=== PATIENT | male | born 1960 | race Caucasian/White ===

== ENCOUNTER 2017-03-06 07:09 | Day surgery (SDC) | payer BC ==
[2017-02-27 10:08] VITALS: BMI 27.3
[2017-03-06 07:33] VITALS: RESP 18; TEMP 97.7
[2017-03-06] MEDS: LACTATED RINGERS 1,000 ML IV SCH ×2 (07:57→08:00)
[2017-03-06] MEDS ORDERED: LIDOCAINE 1% 20 ML VIAL (10MG/ML) FOR IV START IV ONE (07:57)
--- NOTE | 2017-03-06 08:30 | P.PCN ---
Date of Procedure: 03/06/17 Procedure(s) Performed: PREOPERATIVE DIAGNOSIS: 1-Cervical Spondylosis with Facet Arthropathy.without myelopathy. 2- cervicogenic headache POSTOPERATIVE DIAGNOSIS: 1-Cervical Spondylosis Facet Arthropathy. Without myelopathy. 2-cervicogenic headache PROCEDURES: Diagnostic = Bilateral C3-4, C4-5 , C5-6, medial branch blocks, with fluoroscopic guidance ANESTHESIA: Local with 1% lidocaine 6 ml ; moderate sedation with Versed. 3 mg , and fentanyl 50 micrograms EBL: Minimal PROCEDURE INDICATION: The patient with neck pain secondary to cervical arthropathy unresponsive to more conservative treatments. PROCEDURE DESCRIPTION / TECHNIQUE: The patient was seen and identified in the preoperative area. Risks, benefits, complications, and alternatives were discussed with the patient, the patient agreed to proceed with the procedure and signed the consent. IV was started. Vital signs remained stable throughout the procedure. Patient was taken to the OR and time out was completed. The patient was placed in the prone position on the procedure table. A pillow was placed under the patients chest to increase the cervical interlaminar space. The cervical area was prepped and draped in the usual sterile fashion. Critical pause was taken. Vital signs were closely monitored during the procedure. Conscious sedation was used during the procedure to decrease patients anxiety. Using cross-table lateral fluoroscopy, the centroid of the trapezoid of right C3 , C4 , C5 was identified, marked, and localized with 1% lidocaine 1 ml at each level for skin and Sub Q infiltrations . Subsequently, a 22 G 4 spinal needle was advanced guided by fluoroscopy to the centroid of the trapezoid of Right C3, C4 , C5, [place] tip position was confirmed at the centroid of the trapezoids of Right C3 , C4 , C5 with anteroposterior fluoroscopy. Subsequently, 2 ml of preservative-free Bupivacaine 0.5% mixed with Dexamethasone 5 mg and half ml of the mixture was injected after negative aspiration for blood and CSF. [place] was then removed intact the same procedure was repeated at the left C3-4, C4-5, C5-6, levels. COMPLICATIONS: No acute complications. COMMENTS: DISPOSITION / PLANS: The patient was placed in a supine position and transferred to the recovery area in a stable condition for observation and was discharged from the recovery room after meeting discharge criteria. Home discharge instructions given to the patient by the staff. The patient was reexamined prior to discharge. The patient will schedule a follow up in the clinic in 2-4 weeks.
[2017-03-06] MEDS ORDERED: IV FLUID CONTINUATION 1,000 ML IV ONE (08:34)
[2017-03-06 08:50] VITALS: BP 146/74; PULSE 66
--- NOTE | 2017-03-06 09:54 | FL ---
EXAMINATION TYPE: FL guided pain mgmt statistic DATE OF EXAM: 03/06/2017 HISTORY: Flouroscopy time 10 seconds of fluoroscopy provided. IMPRESSION: 1. Fluoroscopy time.
== END 2017-03-06 09:21 | disposition home or self-care (01) ==
LOC: ORPAIN 07:09
PROVIDERS: ATTEND Specialist
DX: M47.812 Spondylosis without myelopathy or radiculopathy, cervical region (principal); R51 Headache; M96.1 Postlaminectomy syndrome, not elsewhere classified; Z85.118 Personal history of other malignant neoplasm of bronchus and lung; E07.9 Disorder of thyroid, unspecified
CPT/HCPCS: 64490; 64491; 64492; J2250; J1100; J3010; 99152

== ENCOUNTER → 2017-03-26 | Outpatient (CLI) | payer BC ==
[2017-03-26 14:25] VITALS: BP 132/74; PULSE 76; RESP 18; TEMP 98.2
--- NOTE | 2017-03-26 14:56 | P.PN ---
Subjective Progress Note Date: 03/26/17 This is follow-up visit for this patient with a history of severe and chronic neck pain with radiation to the shoulder blade area bilaterally worse on the left side, patient had 2 anterior cervical fusion surgery and one posterior fusion surgery, he continued to have severe neck pain with done diagnostic medial branch block cervical area, and he got 50% improvement of his neck pain after the diagnostic medial branch block Patients currently on [place] 7.5/325 Patient denies any side effects of the medication, denies excessive drowsiness or sleepiness, denies suicidal ideation, and reports that the current pain medication is NOT helping To control the pain , and improve activity of daily living Patient denies any motor or sensory deficit , patient denies any fever or night sweats, denies any change in the bowel movements or urination Physical Examinations : 1-Constitutiona : Cooperative , not in acute distress . 2-HEENT : nech ; supple , no Lymphadenopathy , no Thyromegaly , normal thyroid size . eyes : no ptosis , no icterus, no photophobia . ENT : normal of hearing , normal oropharynx , no Thrush . 3- Respiratory : Chest clear to auscultations Bilaterally , no wheezing , no Rhonchi . 4- Cardiovascular : regular rate and rhythem , S1 , S2 , no S3 , no S4. 5- Gastrointestinal : abdomen soft no tenderness , bowel sounds positive all four quadrents , no organomegally . 6- Genitourinary : Defferred . 7- neurologic : Cranial nerve II to XII intact , no focal neurological deffecit . 8-psychatric : alert , oriented X 3 , appropriate affect , intact judgment and insight . 9-Lymphatic : no Lymphadenopathy . 10- musculoskeltal : exams of the cervical spine = motor strength normal bilateral upper extremities facet loading test cervical area positive. normal sensations . Assessment and plan = Chronic neck pain secondary to cervical facet arthropathy without myelopathy and failed back surgery syndrome and cervical area Patient had 50% improvement in his pain after the diagnostic medial branch block cervical area and he would be good candidate for radiofrequency ablation of the medial branch cervical area , procedure risk and benefit of nocturnal discussed with the patient and included the proceeding Patient will continue to have his pain medication from his primary care Objective - Vital Signs Vital signs: Vital Signs Temp 98.2 F 03/26/17 14:19 Pulse 76 03/26/17 14:19 Resp 18 03/26/17 14:19 BP 132/74 03/26/17 14:19 Pulse Ox Intake & Output 03/25/17 03/26/17 03/26/17 18:59 06:59 18:59 Weight 83.915 kg
== END | disposition home or self-care (01) ==
LOC: PNWHC3 13:53
PROVIDERS: ATTEND Specialist
DX: G89.29 Other chronic pain (principal); M54.2 Cervicalgia; M96.1 Postlaminectomy syndrome, not elsewhere classified; M46.82 Other specified inflammatory spondylopathies, cervical region; Z98.1 Arthrodesis status; Z79.891 Long term (current) use of opiate analgesic
CPT/HCPCS: 99211

== ENCOUNTER 2017-04-03 06:57 | Day surgery (SDC) | payer BC ==
[2017-04-02 09:28] VITALS: BMI 28.1
[2017-04-03] MEDS ORDERED: LACTATED RINGERS 1,000 ML IV SCH (07:00)
[2017-04-03 07:31] VITALS: TEMP 98.4
[2017-04-03] MEDS ORDERED: LIDOCAINE 1% 20 ML VIAL (10MG/ML) FOR IV START INTRADERMA ONE (07:32)
[2017-04-03] MEDS ORDERED: IV FLUID CONTINUATION 1,000 ML IV ONE (08:28)
--- NOTE | 2017-04-03 08:32 | P.PCN ---
Date of Procedure: 04/03/17 Procedure(s) Performed: PREOPERATIVE DIAGNOSIS:1- Cervical spondylosis with Facet Arthropathy without myelopathy. 2-cervicogenic headache. 3-postlaminectomy pain syndrome , cervical area. POSTOPERATIVE DIAGNOSIS: Same as preop diagnosis. PROCEDURES: Radiofrequency thermocoagulation, left C3-4 , C4-5 , C5-6 medial branch with Fluroscopy [place] ANESTHESIA: Local with 1% lidocaine 4 ml , moderate sedation with fentanyl 100 micrograms ,and Versed. 2 mg EBL: Minimal PROCEDURE INDICATION: The patient with neck pain secondary to cervical arthropathy who had more than 50% relief of her pain with previous diagnostic cervical medial branch block. PROCEDURE DESCRIPTION / TECHNIQUE: The patient was seen and identified in the preoperative area. Risks, benefits, complications, and alternatives were discussed with the patient, the patient agreed to proceed with the procedure and signed the consent. IV was started. Vital signs remained stable throughout the procedure. Patient was taken to the OR and time out was completed. The patient was placed in the prone position on the procedure table. A pillow was placed under the patients chest to increase the cervical interlaminar space. The cervical area was prepped and draped in the usual sterile fashion. Critical pause was taken. Vital signs were closely monitored during the procedure. Conscious sedation was used during the procedure to decrease patients anxiety. Using cross-table lateral fluoroscopy, the centroid of the trapezoid of left C3 , C4, C5, were identified, marked, and localized with 1% lidocaine. Subsequently, a 20 [id number] radiofrequency cannula with a 10-mm active tip was advanced guided by fluoroscopy to the centroid of the trapezoid of left C3 , C4, C5. Needle tip position was confirmed at the centroid of the trapezoids of left C3, C4, C5, with anteroposterior fluoroscopy. Each site then underwent sensory testing at 50 Hz and 0 to 1 volt and motor testing at 2 Hz and 0 to 3 volt with local stimulation, but no radicular symptoms down the arm. Thereafter the left C3, C4, C5 sites underwent radiofrequency thermocoagulation at 80 degrees celsius for 90 seconds after injecting 0.5 ml of PF lidocaine 1%. After thermocoagulation, 1 ml of the block solution containing Kenalog 40 mg and 3 mL of preservative-free normal saline was injected at the left C3, C4, C5, levels after negative aspiration of CSF and blood and with no paresthesias. Cannulas were retracted while injecting lidocaine 1% until the needle is out. Skin was cleansed and bandages were applied. COMPLICATIONS: No acute complications. COMMENTS: DISPOSITION / PLANS: The patient was placed in a supine position and transferred to the recovery area in a stable condition for observation and was discharged from the recovery room after meeting discharge criteria. Home discharge instructions given to the patient by the staff. The patient was reexamined prior to discharge. The patient will schedule a follow up in the clinic in 2-4 weeks.
[2017-04-03 08:56] VITALS: BP 150/89; PULSE 66; RESP 16
--- NOTE | 2017-04-03 09:00 | FL ---
EXAMINATION TYPE: FL guided pain mgmt statistic DATE OF EXAM: 04/03/2017 HISTORY: Flouroscopy time 18 seconds of fluoroscopy provided. IMPRESSION: 1. Fluoroscopy time.
== END 2017-04-03 09:04 | disposition home or self-care (01) ==
LOC: ORPAIN 06:57
PROVIDERS: ATTEND Specialist
DX: M47.812 Spondylosis without myelopathy or radiculopathy, cervical region (principal); M96.1 Postlaminectomy syndrome, not elsewhere classified
CPT/HCPCS: 64633; 64634; J2250; J3301; Q9965; J3010; 99152; 99153

== ENCOUNTER → 2017-04-29 | Outpatient (CLI) | payer BC ==
[2017-04-29 13:13] VITALS: BP 173/93; PULSE 74; RESP 16
--- NOTE | 2017-04-29 13:34 | P.PN ---
Subjective Progress Note Date: 04/29/17 Principal diagnosis: Cervical postlaminectomy pain syndrome This is a 57-year-old male with history of neck pain status post C3 surgeries on the cervical spine. The patient had cervical medial branch RFA in our clinic which helped his pain however the pain started to come back 1 month after his RFA. The patient has been on [place] and Neurontin at night. He gets these medications from his primary care physician. The pain is mostly on the left side of his neck and does not radiate down his shoulder or arm. The patient denies any tingling or numbness in the upper extremities he also denies any weakness in the upper or lower extremities. The patient denies any bowel or bladder dysfunction. 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 Objective - Vital Signs Vital signs: Vital Signs Temp Pulse 74 04/29/17 13:10 Resp 16 04/29/17 13:10 BP 173/93 04/29/17 13:10 Pulse Ox 98 04/29/17 13:10 Intake & Output 04/28/17 04/29/17 04/29/17 18:59 06:59 18:59 Weight 83.915 kg - Constitutional General appearance: Present: average body habitus - Respiratory Respiratory: bilateral: CTA - Cardiovascular Rhythm: regular - Neurologic Neurologic: Present: CNII-XII intact - Psychiatric Psychiatric: Present: A&O x's 3, appropriate affect, intact judgment & insight ( Neuro exam of the upper extremities showed normal and symmetrical muscle strength and normal biceps tendon reflexes however he has absent triceps reflexes. He has mild tenderness in the cervical paravertebral area on the left side of his neck he has normal range of motion of the cervical spine but with more pain with right rotation) Assessment and Plan Plan: 57-year-old male with: Cervical postlaminectomy pain syndrome Cervical spondylosis without myelopathy Myofascial pain I will schedule the patient to have trigger point injection on the left side of his cervical spine.
== END | disposition home or self-care (01) ==
LOC: PNWHC3 12:54
PROVIDERS: ATTEND Anesthesiology
DX: M96.1 Postlaminectomy syndrome, not elsewhere classified (principal); M47.812 Spondylosis without myelopathy or radiculopathy, cervical region; M79.1 Myalgia; Z79.891 Long term (current) use of opiate analgesic; Z79.899 Other long term (current) drug therapy
CPT/HCPCS: 99211

== ENCOUNTER 2017-06-23 07:40 | Day surgery (SDC) | payer BC ==
[2017-05-21 17:23] VITALS: BMI 28.1
[2017-06-23 08:19] VITALS: RESP 16; TEMP 98
--- NOTE | 2017-06-23 08:44 | P.PCN ---
Date of Procedure: 06/23/17 Surgeon: Omar Snell Pathology: none sent Condition: stable Disposition: PACU Description of Procedure: PREOPERATIVE DIAGNOSIS: 1-myofascial pain syndrome POSTOPERATIVE DIAGNOSIS: 1-myofascial pain syndrome PROCEDURE 1. Trigger point injections (cervical paraspinal muscles) ANESTHESIA: Local with 1% lidocaine; IV sedation with Versed/fentanyl. EBL: Minimal PROCEDURE INDICATION: The patient with myofascial pain in the area of left posterior and lateral neck that has not responded to conservative therapy and RFA. Patient presents for trigger point injection today; no use of blood thinners. PROCEDURE DESCRIPTION / TECHNIQUE: The patient was seen and identified in the preoperative area. Risks, benefits, complications, and alternatives were discussed with the patient, including but not limited to bleeding, infection, nerve damage, allergic reactions to medications, and incomplete pain relief. The patient agreed to proceed with the procedure and signed the consent after all questions were answered. IV was started, and vital signs were stable. Trigger points were marked prior to entering the procedure room in the places where the patient had severe pain to muscle palpation. Patient was taken to the OR and time out was completed to confirm patient position, procedure, laterality of pain, and allergies. The patient was placed in the right lateral decubitus position on procedure table. The area over the relevant muscle (left neck) was prepped and draped in the usual sterile fashion. Vital signs were closely monitored during the procedure. Conscious sedation was used during the procedure to decrease patients anxiety. Each of the previously marked areas was then infiltrated with 1% plain lidocaine using a 25g needle. After this, each point was entered with the same 25g needle and after a catch was felt, dry needling was performed. After negative aspiration at each point, 1 ml of a total of 4 ml (combination of 3 ml 0.5% bupivacaine and 40 mg Kenalog was injected in each area. Needle was withdrawn intact each time, skin was cleansed, and bandages were applied. COMPLICATIONS: None COMMENTS: None DISPOSITION / PLANS: The patient was placed in a supine position and transferred to the recovery area in a stable condition for observation. There was no evidence of lower extremity motor or sensory deficit after the procedure. Patient was discharged from the recovery room after meeting discharge criteria. Home discharge instructions were given to the patient by the staff. The patient was reexamined prior to discharge and he already had relief in the procedure room. The patient will schedule a follow up in the clinic in 2-4 weeks.
[2017-06-23] MEDS ORDERED: LACTATED RINGERS 1,000 ML IV SCH (08:45)
[2017-06-23 08:49] VITALS: BP 125/84; PULSE 68
--- NOTE | 2017-06-25 08:01 | CDI ---
Date: 06/25/17 CDS/Air Intelligence Officer Name: Melanie De La Fuente Phone: If any questions, call Marylu Munoz Kitchen Manager at [phone] Patient Name: Navi Coulter Admit Date: 06/23/17 Discharge Date: 06/23/17 ATTENTION: The [facility] Coding Staff appreciate your assistance in clarifying documentation. Please respond to the clarification below the line at the bottom and electronically sign. The [facility] Coding staff will review the response and follow-up if needed. Please note: Queries are made part of the Legal Health Record. If you have any questions, please contact the Kitchen Manager. Dear Dr. Snell, Please provide clarification as to the type of sedation provided. Operative report documents IV versed/Fentanyl and also that conscious sedation was provided. On the Pain management record under anesthesia Plan, Moderate Sedation is checked but under procedure time, there is nothing documented for the versed and/or Fentanyl. Thank you for your kind consideration MTDD
--- NOTE | 2017-07-01 07:18 | CDI ---
Date: 07/01/17 CDS/Figure Skater Name: Melanie De La Fuente Phone: If any questions, call Marylu Munoz Laundry Press Operator at [phone] Patient Name: Navi Coulter Admit Date: 06/23/17 Discharge Date: 06/23/17 ATTENTION: The [facility] Coding Staff appreciate your assistance in clarifying documentation. Please respond to the clarification below the line at the bottom and electronically sign. The [facility] Coding staff will review the response and follow-up if needed. Please note: Queries are made part of the Legal Health Record. If you have any questions, please contact the Laundry Press Operator. Dear Dr. Snell, Please provide clarification as to the type of sedation provided. Operative report documents IV versed/Fentanyl and also that conscious sedation was provided. On the Pain Procedure record under Anesthesia Plan, Moderate Sedation is checked but there is nothing documented for start time of versed/ Fentanyl under Procedure Time. Also, please clarify the number of muscles injected for the trigger point injections. Trigger point injections are coded by the number of muscles injected. Thank you for your kind consideration MTDD
== END 2017-06-23 09:02 | disposition home or self-care (01) ==
LOC: ORPAIN 07:40
PROVIDERS: ATTEND Anesthesiology
DX: M79.1 Myalgia (principal); I10 Essential (primary) hypertension; K21.9 Gastro-esophageal reflux disease without esophagitis; N40.0 Benign prostatic hyperplasia without lower urinary tract symptoms
CPT/HCPCS: 20553; J3301; J2001; 20552

== ENCOUNTER → 2017-08-05 | Outpatient (CLI) | payer OTHER ==
--- NOTE | 2017-08-05 11:50 | XR ---
EXAMINATION TYPE: XR forearm LT, XR elbow complete LT DATE OF EXAM: 08/05/2017 CLINICAL HISTORY: Forearm and elbow pain after lifting injury TECHNIQUE: Two views of the left forearm are obtained. COMPARISON: None. FINDINGS: There is no acute fracture or dislocation seen in the left radius or ulna. The left elbow and wrist joints appear within normal limits. The overlying soft tissue appears within normal limit s. Punctate radiopaque densities seen overlying the proximal carpal row at the ulnar surface of the l eft forearm There is no acute fracture/dislocation evident in the left elbow. Small enthesophyte is seen of the olecranon No abnormal fat pad signs are seen. The overlying soft tissue appears unremarkable. IMPRESSION: There is no acute fracture or dislocation seen in the left elbow, radius or ulna. No rad iographic joint effusion. Punctate radiopaque density is seen within the soft tissues overlying the p roximal carpal row at the ulnar surface of the left forearm. Correlate for radiopaque foreign body ve rsus external overlying structure.
== END | disposition home or self-care (01) ==
LOC: RADXRMAIN 11:24
PROVIDERS: ATTEND Emergency Medicine
DX: S53.402A Unspecified sprain of left elbow, initial encounter (principal)

== ENCOUNTER → 2017-12-22 | Outpatient (CLI) | payer BC ==
--- NOTE | 2017-12-23 09:34 | ECHOF ---
Referral Reason:I10 hypertesion MEASUREMENTS -------- HEIGHT: 172.7 cm WEIGHT: 83.9 kg BP: RVIDd: 3.4 cm (< 3.3) IVSd: 1.2 cm (0.6 - 1.1) LVIDd: 5.1 cm (3.9 - 5.3) LVPWd: 1.2 cm (0.6 - 1.1) IVSs: 1.3 cm LVIDs: 4.0 cm LVPWs: 1.4 cm LAESV Index (A-L): 23.36 ml/m Ao Diam: 3.2 cm (2.0 - 3.7) AV Cusp: 1.4 cm (1.5 - 2.6) LA Diam: 2.6 cm (2.7 - 3.8) MV EXCURSION: 15.184 mm (> 18.000) MV EF SLOPE: 76 mm/s (70 - 150) EPSS: 0.4 cm MV E Efrain: 1.02 m/s MV DecT: 325 ms MV A Efrain: 1.20 m/s MV E/A Ratio: 0.85 AV maxP.84 mmHg AV meanP.72 mmHg RAP: 5.00 mmHg RVSP: 31.75 mmHg FINDINGS -------- Sinus rhythm. This was a technically adequate study. The left ventricular size is normal. There is mild concentric left ventricular hypertrophy. Overa ll left ventricular systolic function is normal with, an EF between 55 - 60 %. The right ventricle is mildly enlarged. Normal LA size by volume 22+/-6 ml/m2. The right atrium is normal in size. There is mild aortic valve sclerosis. Trace amount of aortic regurgitation. There is no evidence of aortic stenosis. The mitral valve leaflets are mildly thickened. There is trace to mild mitral regurgitation. Trace tricuspid regurgitation present. Right ventricular systolic pressure is normal at < 35 mmHg. There is no evidence of pulmonary hypertension. Trace/mild (physiologic) pulmonic regurgitation. The aortic root size is normal. Normal inferior vena cava with normal inspiratory collapse consistent with estimated right atrial pre ssure of 5 mmHg. There is no pericardial effusion. CONCLUSIONS -------- 1. Sinus rhythm. 2. This was a technically adequate study. 3. The left ventricular size is normal. 4. There is mild concentric left ventricular hypertrophy. 5. Overall left ventricular systolic function is normal with, an EF between 55 - 60 %. 6. The right ventricle is mildly enlarged. 7. Normal LA size by volume 22+/-6 ml/m2. 8. There is mild aortic valve sclerosis. 9. Trace amount of aortic regurgitation. 10. The mitral valve leaflets are mildly thickened. 11. There is trace to mild mitral regurgitation. 12. Trace tricuspid regurgitation present. 13. Right ventricular systolic pressure is normal at < 35 mmHg. 14. There is no evidence of pulmonary hypertension. 15. Trace/mild (physiologic) pulmonic regurgitation. 16. The aortic root size is normal. 17. There is no pericardial effusion. LIFE AGENT: Raj Cornejo RDCS
== END | disposition home or self-care (01) ==
LOC: RADECHMAIN 16:20
PROVIDERS: ATTEND Internal Medicine
DX: I35.8 Other nonrheumatic aortic valve disorders (principal); I10 Essential (primary) hypertension
CPT/HCPCS: 93306

== ENCOUNTER 2018-03-25 07:03 | Day surgery (SDC) | payer BC ==
[2018-03-23 14:29] VITALS: BMI 29.6
[~2018-03-25 07:03] MED LIST: SODIUM CHLORIDE 0.9% 500 ML 500 ML IV SCH
[2018-03-25 07:28] VITALS: TEMP 97.7
[2018-03-25] MEDS ORDERED: IV FLUID CONTINUATION 1,000 ML IV ONE ×3 (08:44)
--- NOTE | 2018-03-25 08:46 | P.PCN ---
Date of Procedure: 03/25/18 Surgeon: Steven Carmona Pathology: none sent Condition: stable Disposition: PACU Description of Procedure: PREOPERATIVE DIAGNOSIS: Cervical spondylosis with Facet Arthropathy without myelopathy, post anterior and posterior cervical fusion syndrome POSTOPERATIVE DIAGNOSIS: Cervical spondylosis with Facet Arthropathy without myelopathy, post anterior and posterior cervical fusion syndrome PROCEDURES: Radiofrequency thermocoagulation of the C5 medial branch with Fluroscopy [place] ANESTHESIA: Local with 1% lidocaine; IV moderate conscious sedation with fentanyl and Versed. EBL: Minimal PROCEDURE INDICATION: The patient with neck pain secondary to cervical arthropathy who had more than 50% relief of her pain with previous diagnostic cervical medial branch block. PROCEDURE DESCRIPTION / TECHNIQUE: The patient was seen and identified in the preoperative area. Risks, benefits, complications, and alternatives were discussed with the patient, the patient agreed to proceed with the procedure and signed the consent. IV was started. Vital signs remained stable throughout the procedure. The patient had anterior and posterior cervical fusion for levels C3-4. The patient also had his first trip taken out due to previous cancer removal surgery on the lung. The patient's shoulders were obscuring my view and only one level could be seen and done safely which is level C5 medial branch. Only one level was done during this procedure due to the above- mentioned reasons. Patient was taken to the OR and time out was completed. The patient was placed in the prone position on the procedure table. A pillow was placed under the patients chest to increase the cervical interlaminar space. The cervical area was prepped and draped in the usual sterile fashion. Critical pause was taken. Vital signs were closely monitored during the procedure. Conscious sedation was used during the procedure to decrease patients anxiety. Using cross-table lateral fluoroscopy, the center of the trapezoid-shaped cervical pillars of C5 was identified, marked, and localized with 1% lidocaine. Subsequently, a 20 -vu radiofrequency cannula with a 10-mm active tip was advanced guided by fluoroscopy to the target points mentioned above. . Then motor testing started at 2 Hz and 0 to 3 volt with local stimulation, and showed no radicular symptoms down the arm. Thereafter C5 MB underwent radiofrequency thermocoagulation at 80 degrees celsius for 90 seconds after injecting 0.5 ml of PF lidocaine 1%. After thermocoagulation, 1 ml of the block solution containing Dexamethasone 5 mg and 0.5 mL of preservative-free ropivacaine 0.5% was injected after negative aspiration of CSF and blood and with no paresthesias. Cannulas were retracted. Skin was cleansed and bandages were applied. COMPLICATIONS: No acute complications. COMMENTS: DISPOSITION / PLANS: The patient was placed in a supine position and transferred to the recovery area in a stable condition for observation and was discharged from the recovery room after meeting discharge criteria. Home discharge instructions given to the patient by the staff. The patient was reexamined prior to discharge.
[2018-03-25 09:01] VITALS: BP 128/62; PULSE 69; RESP 16
--- NOTE | 2018-03-25 11:22 | FL ---
Fluoroscopy HISTORY: Pain 32 seconds fluoroscopy time supplied to the referring clinician. 1 intraoperative C-arm images docum ent the procedure. See dictated report from anesthesia.
== END 2018-03-25 09:23 | disposition home or self-care (01) ==
LOC: ORPAIN 07:03
PROVIDERS: ATTEND Anesthesiology
DX: G89.29 Other chronic pain (principal); M47.812 Spondylosis without myelopathy or radiculopathy, cervical region; M96.1 Postlaminectomy syndrome, not elsewhere classified; Z79.891 Long term (current) use of opiate analgesic; Z79.890 Hormone replacement therapy; Z79.899 Other long term (current) drug therapy; Z87.891 Personal history of nicotine dependence
CPT/HCPCS: 64633; J2250; J1100; J3010; 99152; 99153

== ENCOUNTER → 2018-04-29 | Outpatient (CLI) | payer BC ==
[2018-04-29 12:49] VITALS: BP 167/81; PULSE 92; RESP 18
--- NOTE | 2018-04-30 08:20 | P.PN ---
Subjective Progress Note Date: 04/29/18 This is follow-up visit for this patient with a history of severe and chronic neck pain , patient had 2 anterior cervical fusion surgery and one posterior fusion surgery, and he is diagnosed with cervical spondylosis , last year we did diagnostic medial branch block cervical area bilaterally C3-4 /C4 5/C5 6, patient had positive result and later on we have done radiofrequency ablation of the medial branch left side cervical area, he had excellent pain relief, until recently he started complaining of severe neck pain mainly on the right side. , March 2018, they try to do the radiofrequency ablation of the medial branch cervical area but they were able to do only one level right C5, there was difficulty in visualizing the rest of the vertebra, currently patient complaining of severe neck pain on the left side Patients currently on [place] 10/325 Patient denies any side effects of the medication, denies excessive drowsiness or sleepiness, denies suicidal ideation, and reports that the current pain medication is NOT helping To control the pain , and improve activity of daily living Patient denies any motor or sensory deficit , patient denies any fever or night sweats, denies any change in the bowel movements or urination Physical Examinations : -Constitutiona : Cooperative , not in acute distress . -HEENT : nech ; supple , no Lymphadenopathy , no Thyromegaly , normal thyroid size . eyes : no ptosis , no icterus, no photophobia . - neurologic : Cranial nerve II to XII intact , no focal neurological deffecit . -psychatric : alert , oriented X 3 , appropriate affect , intact judgment and insight . -Lymphatic : no Lymphadenopathy . - musculoskeltal : exams of the cervical spine = motor strength normal bilateral upper extremities facet loading test cervical area positive. on the right side normal sensations . Assessment and plan = Chronic neck pain secondary to cervical facet arthropathy without myelopathy and failed back surgery syndrome and cervical area Patient had 50% improvement in his pain after the diagnostic medial branch block cervical area . he will be good candidate for radiofrequency ablation of the Left -sided medial branch cervical area C3-4 / C4 5/C5 6, procedure risk and benefit of nocturnal discussed with the patient and included the proceeding Patient will continue to have his pain medication from his primary care PQRS Measure Charge Sheet Measure #130: Documentation of Current Meds in Medical Chart: Patient's medications documented in chart Measure #226: Tobacco Use: Screen & Cessation Intervention: Pt not a tobacco us er Measure #111: Pneumonia Vaccination: Pneumococcal vaccine NOT administered or previously given Measure #47: Advance Care Plan: Advance care planning discussed & documented, pt chose/unable to give Measure #412: Opioid Treatment Agreement: No documentation of signed opioid treatment agreement Measure #408: Opioid Therapy Follow-up Evaluation: Patient had NO f/u eval minimum every 3 months during opioid therapy Measure #317: Preventitive Care & Scrn High Bld Press & F/U: Blood pressure elevated to 167/81 and he will follow up with the primary care. Measure #128: Body Mass Index (BMI) Screening & Follow-up: BMI documented ABOVE normal parameters - f/u documented Measure #131: Pain Assessment & Follow-up: Pain positive & plan documented, Follow-up scheduled Measure #431: Unhealthy Alcohol Use Preventative Care & Scrn: Patient not identified as an unhealthy alcohol user PQRS Narrative: Controlled Substance Measures - Controlled Substance Measures Is patient prescribed a controlled substance at discharge?: No When asked, does pt state using other controlled substances?: No If prescribed controlled substance>3 days was MAPS reviewed?: No If Rx opioid, was Start Talking consent form obtained?: No If opioid is for acute pain is fill amount 7 days or less?: No Was information provided regarding opioid addiction?: No Objective - Vital Signs Vital signs: Vital Signs Temp Pulse 92 04/29/18 12:40 Resp 18 04/29/18 12:40 BP 167/81 04/29/18 12:40 Pulse Ox 96 04/29/18 12:40 Intake & Output 04/29/18 04/30/18 04/30/18 18:59 06:59 18:59 Weight 87.09 kg
== END | disposition home or self-care (01) ==
LOC: PNWHC3 12:02
PROVIDERS: ATTEND Specialist
DX: G89.29 Other chronic pain (principal); M47.812 Spondylosis without myelopathy or radiculopathy, cervical region; M96.1 Postlaminectomy syndrome, not elsewhere classified; M46.86 Other specified inflammatory spondylopathies, lumbar region; Z98.1 Arthrodesis status; Z87.891 Personal history of nicotine dependence
CPT/HCPCS: 99211

== ENCOUNTER 2018-05-04 17:06 | Observation (INO) | payer BC ==
[2018-05-04] MEDS ORDERED: SODIUM CHLORIDE 0.9% 1,000 ML IV STA ×2 (17:40)
[2018-05-04] MEDS ORDERED: ASPIRIN 81 MG PO STA (17:40)
[2018-05-04 18:10] LABS: Basophils % (A) 0 %; Eosinophils # (A) 0.2 k/uL (0-0.7); Eosinophils % (A) 3 %; HCT 39.3 % (39.0-53.0); Lymphocytes # (A) 1.5 k/uL (1.0-4.8); Lymphocytes % (A) 18 %; MCH 30.8 pg (25.0-35.0); MCV 93.3 fL (80.0-100.0); Mean Platelet Volume 6.3; Monocytes # (A) 0.7 k/uL (0-1.0); Monocytes % (A) 9 %; Neutrophils # (A) 5.6 k/uL (1.3-7.7); Neutrophils % (A) 68 %; Platelet Count 302 k/uL (150-450); RBC 4.21 m/uL (4.30-5.90); RDW 13.5 % (11.5-15.5); WBC 8.2 k/uL (3.8-10.6)
[2018-05-04 18:14] LABS: Partial Thromboplastin Time 22.6 sec (22.0-30.0); Prothrombin Time 10.3 sec (9.0-12.0)
[2018-05-04 18:15] LABS: ALT 40 U/L (21-72); AST 29 U/L (17-59); Alkaline Phosphatase 59 U/L (38-126); Anion Gap 10 mmol/L; Blood Urea Nitrogen 17 mg/dL (9-20); Calcium 9.3 mg/dL (8.4-10.2); Carbon Dioxide 22 mmol/L (22-30); Chloride 105 mmol/L (98-107); Glucose 106 mg/dL (74-99); Magnesium 2.1 mg/dL (1.6-2.3); Potassium 3.8 mmol/L (3.5-5.1); Sodium 137 mmol/L (137-145); Total Bilirubin 0.5 mg/dL (0.2-1.3); Total Protein 6.9 g/dL (6.3-8.2)
--- NOTE | 2018-05-04 18:15 | XR ---
EXAMINATION TYPE: XR chest 2V DATE OF EXAM: 05/04/2018 COMPARISON: 02/16/2016 HISTORY: Chest pain TECHNIQUE: Frontal and lateral views of the chest are obtained. FINDINGS: Heart and mediastinum are normal. Lungs are clear. There is some emphysematous change at t he right lung apex. There is absence of right upper posterior ribs. There is no pleural effusion. Tra cheostomy is slightly to the right side consistent with volume loss and partial lung resection. IMPRESSION: No active cardiopulmonary disease. No change compared to old exam.
--- NOTE | 2018-05-04 18:23 | ED ---
Chest Pain HPI - General Chief Complaint: Chest Pain Stated Complaint: chest pain Time Seen by Provider: 05/04/18 17:19 Source: patient, RN notes reviewed, old records reviewed Mode of arrival: ambulatory Limitations: no limitations - History of Present Illness Initial Comments: 58-year-old male presents emergency department today with complaints of chest pain. Patient reports he started coughing a few weeks ago. Patient reports that his history of lung cancer in remission. He is not on any chemotherapy. He does see Dr. Patino. Patient states these been treated for upper respiratory symptoms with multiple rounds of antibiotics and steroids. He finished steroids yesterday. Patient states that he has had dyspnea on exertion. He complains of a dull aching chest pain. Patient denies any nausea or vomiting. - Related Data Home Medications Medication Instructions Recorded Confirmed Atorvastatin [Lipitor] 10 mg PO DAILY 12/18/16 05/04/18 Omeprazole [PriLOSEC] 10 mg PO DAILY 12/18/16 05/04/18 Tamsulosin [Flomax] 0.4 mg PO DAILY 12/18/16 05/04/18 Losartan [Cozaar] 50 mg PO DAILY 03/25/18 05/04/18 Sertraline [Zoloft] 50 mg PO DAILY 04/29/18 05/04/18 Baclofen [Lioresal] 10 mg PO HS 05/04/18 05/04/18 Levothyroxine Sodium [Synthroid] 112 mcg PO DAILY 05/04/18 05/04/18 Multivitamins, Thera [Multivitamin 1 tab PO DAILY 05/04/18 05/04/18 (formulary)] Naproxen Sodium [Aleve] 660 mg PO Q12HR 05/04/18 05/04/18 Allergies Allergy/AdvReac Type Severity Reaction Status Date / Time No Known Allergies Allergy Verified 05/04/18 17:44 Review of Systems ROS Statement: Those systems with pertinent positive or pertinent negative responses have been documented in the HPI. ROS Other: All systems not noted in ROS Statement are negative. EKG Findings - EKG Comments: EKG Findings:: EKG shows normal sinus rhythm with moderate voltage criteria for LVH which may be normal variant. Borderline EKG. Ventricular rate is 72 beats were minute. MD interval is 150 ms. QS duration any formal seconds. QT QTc is 36/422 ms. Past Medical History Past Medical History: Cancer, GERD/Reflux, Hearing Disorder / Deafness, Hyperlipidemia, Thyroid Disorder Additional Past Medical History / Comment(s): LUNG CANCER 2010 History of Any Multi-Drug Resistant Organisms: None Reported Past Surgical History: Orthopedic Surgery Additional Past Surgical History / Comment(s): RT KNEE/RT UPPER LOBECTOMY, [facility] PROCEDURES Past Anesthesia/Blood Transfusion Reactions: No Reported Reaction Past Psychological History: Anxiety Smoking Status: Former smoker Past Alcohol Use History: None Reported, Abuse, Heavy Past Drug Use History: None Reported - Past Family History Father Family Medical History: Cancer Additional Family Medical History / Comment(s): LUNG Mother Family Medical History: COPD General Exam - General Exam Comments Initial Comments: 58-year-old male. Alert and oriented. No distress. Limitations: no limitations General appearance: alert, in no apparent distress Head exam: Present: atraumatic, normocephalic, normal inspection Eye exam: Present: normal appearance, PERRL, EOMI. Absent: scleral icterus, conjunctival injection, periorbital swelling ENT exam: Present: normal exam, mucous membranes moist Neck exam: Present: normal inspection. Absent: tenderness, meningismus, lymphadenopathy Respiratory exam: Present: normal lung sounds bilaterally, other (Lungs are clear. No wheezing.). Absent: respiratory distress, wheezes, rales, rhonchi, stridor Cardiovascular Exam: Present: regular rate, normal rhythm, normal heart sounds. Absent: systolic murmur, diastolic murmur, rubs, gallop, clicks GI/Abdominal exam: Present: soft, normal bowel sounds. Absent: distended, tenderness, guarding, rebound, rigid Extremities exam: Present: normal inspection, full ROM, normal capillary refill. Absent: tenderness, pedal edema, joint swelling, calf tenderness Back exam: Present: normal inspection Neurological exam: Present: alert, oriented X3, CN II-XII intact Psychiatric exam: Present: normal affect, normal mood Skin exam: Present: warm, dry, intact, normal color. Absent: rash Course Vital Signs 05/04/18 05/04/18 05/04/18 17:08 17:52 19:28 Temperature 98.4 F Pulse Rate 79 73 Respiratory 18 16 16 Rate Blood Pressure 145/81 149/76 O2 Sat by Pulse 99 95 Oximetry Chest Pain MDM - MDM 58-year-old male presents emergency department today with complaints of dull aching chest pain starting last night. He reports he has had increasing dyspnea on exertion. He states he is unable to do work for more than 3 minutes without complaint of chest pain and shortness of breath. It this time patient's EKG shows no significant changes. Troponin is negative. 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 He does have a history of lung cancer and does see Dr. Patino. He does not have a hearing examiner. He has complaint of a cough as well as were the past few weeks. This time his lungs are clear to auscultation. Patient will be admitted at this time to repeat PT troponins rule out ACS. Patient will be admitted with consult to cardiology and pulmonology. Disposition Clinical Impression: Unstable angina, Dyspnea, Cough Disposition: ADMITTED IP TO THIS HOSP Condition: Stable Is patient prescribed a controlled substance at d/c from ED?: No Referrals: Ross Jensen MD [Primary Care Provider] - 1-2 days Time of Disposition: 19:55
[2018-05-04] MEDS ORDERED: KETOROLAC 30 MG/ML 1 ML VIAL IVP PRN (20:24)
[2018-05-04] MEDS ORDERED: ONDANSETRON 4 MG/2 ML VIAL IVP PRN (20:24)
[2018-05-04] MEDS ORDERED: IBUPROFEN 400 MG TAB PO PRN (20:24)
[2018-05-04] MEDS ORDERED: MORPHINE SULFATE 4 MG/ML SYRINGE IV PRN (20:24)
[2018-05-04] MEDS ORDERED: NALOXONE 0.4 MG/ML 1 ML VIAL IV PRN (20:24)
[2018-05-04] MEDS ORDERED: NITROGLYCERIN SL TABS 0.4 MG TAB SUBLINGUAL PRN (20:26)
[2018-05-04 21:41] VITALS: BMI 29.0
[2018-05-04] MEDS ORDERED: PNEUMOCOCCAL VACC-PNEUMOVAX 23 25 MCG/0.5 ML VIAL IM ONE (22:22)
[2018-05-04] MEDS: SODIUM CHLORIDE 0.9% 1,000 ML IV SCH (22:42)
[2018-05-04] MEDS: BACLOFEN 10 MG TAB PO SCH (22:43)
[2018-05-04] MEDS: LOSARTAN 50 MG TAB PO SCH (22:43)
[2018-05-04] MEDS: SERTRALINE 50 MG TAB PO SCH (22:43)
[2018-05-05] MEDS: LEVOTHYROXINE 112 MCG TAB PO SCH (05:38)
[2018-05-05 06:55] LABS: Cholesterol 166 mg/dL (<200); HDL Cholesterol 60 mg/dL (40-60); LDL Cholesterol,Calculated 74 mg/dL (0-99); Triglycerides 158 mg/dL (<150)
[2018-05-05 07:46] VITALS: RESP 18
[2018-05-05] MEDS ORDERED: LOSARTAN 50 MG TAB PO SCH (09:00)
[2018-05-05] MEDS ORDERED: SERTRALINE 50 MG TAB PO SCH (09:00)
[2018-05-05 09:02] LABS: ALT 36 U/L (21-72); AST 25 U/L (17-59); Albumin 3.6 g/dL (3.5-5.0); Alkaline Phosphatase 53 U/L (38-126); Anion Gap 9 mmol/L; Blood Urea Nitrogen 16 mg/dL (9-20); Calcium 9.2 mg/dL (8.4-10.2); Carbon Dioxide 22 mmol/L (22-30); Chloride 108 mmol/L (98-107); Glucose 86 mg/dL (74-99); Potassium 4.6 mmol/L (3.5-5.1); Sodium 139 mmol/L (137-145); Total Bilirubin 0.6 mg/dL (0.2-1.3); Total Protein 6.5 g/dL (6.3-8.2)
[2018-05-05 09:07] LABS: Basophils # (A) 0.1 k/uL (0-0.2); Basophils % (A) 1 %; Eosinophils # (A) 0.2 k/uL (0-0.7); Eosinophils % (A) 3 %; HCT 42.4 % (39.0-53.0); HGB 13.4 gm/dL (13.0-17.5); Lymphocytes # (A) 1.1 k/uL (1.0-4.8); Lymphocytes % (A) 13 %; MCHC 31.5 g/dL (31.0-37.0); MCV 95.1 fL (80.0-100.0); Mean Platelet Volume 6.9; Monocytes # (A) 0.8 k/uL (0-1.0); Monocytes % (A) 9 %; Neutrophils # (A) 6.6 k/uL (1.3-7.7); Neutrophils % (A) 74 %; Platelet Count 312 k/uL (150-450); RBC 4.46 m/uL (4.30-5.90); RDW 13.4 % (11.5-15.5); WBC 8.9 k/uL (3.8-10.6)
--- NOTE | 2018-05-05 10:54 | P.HPIM ---
History of Present Illness H&P Date: 05/05/18 This is a 58-year-old patient presented to ER with complaints of chest pain. Patient reports he is been having an upper respiratory infection for the past couple weeks in which she is content through couple rounds of antibiotics. Patient also has a history of lung cancer which he follows with Dr. Patino. Patient was recently seen by oncology services in which they started him on steroids for his upper respiratory infection. Patient reports he had lung cancer in 2010 at that time patient underwent right upper lobectomy. Patient is currently not on any chemotherapy at this time. Additional medical history includes GERD, hearing disorder, hyperlipidemia, thyroid disorder, anxiety and ex-smoker. Patient denies any significant cardiac history. Chest x-ray completed showing no active cardiopulmonary disease. No change compared to old exam. EKG showing normal sinus rhythm, moderate voltage criteria for LVH, maybe normal variant. Troponins negative 3. Influenza negative. At this time cardiology services have been consulted. We'll also consult Dr. Patino per oncology. This time patient is still complaining of cough with intermittent chest discomfort. Patient denies nausea vomiting or diarrhea. Patient denies any urinary burning or frequency Review of Systems Please refer to HPI otherwise unremarkable Past Medical History Past Medical History: Cancer, GERD/Reflux, Hearing Disorder / Deafness, Hyperlipidemia, Thyroid Disorder Additional Past Medical History / Comment(s): LUNG CANCER 2010 History of Any Multi-Drug Resistant Organisms: None Reported Past Surgical History: Orthopedic Surgery Additional Past Surgical History / Comment(s): RT KNEE/RT UPPER LOBECTOMY, [facility] PROCEDURES. 3 neck surgeries, 2 fustions and a leola Past Anesthesia/Blood Transfusion Reactions: No Reported Reaction Smoking Status: Former smoker - Past Family History Father Family Medical History: Cancer Additional Family Medical History / Comment(s): LUNG Mother Family Medical History: COPD Medications and Allergies Home Medications Medication Instructions Recorded Confirmed Type Atorvastatin [Lipitor] 10 mg PO DAILY 12/18/16 05/04/18 History Omeprazole [PriLOSEC] 10 mg PO DAILY 12/18/16 05/04/18 History Tamsulosin [Flomax] 0.4 mg PO DAILY 12/18/16 05/04/18 History Losartan [Cozaar] 50 mg PO HS 03/25/18 05/04/18 History Sertraline [Zoloft] 50 mg PO HS 04/29/18 05/04/18 History Baclofen [Lioresal] 10 mg PO HS 05/04/18 05/04/18 History Levothyroxine Sodium [Synthroid] 112 mcg PO DAILY 05/04/18 05/04/18 History Multivitamins, Thera [Multivitamin 1 tab PO DAILY 05/04/18 05/04/18 History (formulary)] Naproxen Sodium [Aleve] 660 mg PO Q12HR 05/04/18 05/04/18 History Allergies Allergy/AdvReac Type Severity Reaction Status Date / Time No Known Allergies Allergy Verified 05/04/18 21:28 Physical Exam Vitals: Vital Signs Temp Pulse Pulse Resp BP BP BP 05/05/18 07:05 97.5 F L 72 18 163/83 05/05/18 04:00 97.9 F 67 15 161/77 05/05/18 02:46 16 05/04/18 23:40 16 05/04/18 23:31 98.1 F 69 15 134/68 05/04/18 21:24 97.4 F L 78 16 182/80 05/04/18 21:08 98.3 F 74 18 144/70 05/04/18 20:30 79 16 147/74 05/04/18 19:28 73 16 149/76 05/04/18 17:52 16 05/04/18 17:08 98.4 F 79 18 145/81 Pulse Ox 05/05/18 07:05 97 05/05/18 04:00 97 05/05/18 02:46 05/04/18 23:40 05/04/18 23:31 97 05/04/18 21:24 96 05/04/18 21:08 98 05/04/18 20:30 05/04/18 19:28 95 05/04/18 17:52 05/04/18 17:08 99 Intake and Output 05/04/18 05/05/18 05/05/18 22:59 06:59 14:59 Other: # Voids 1 1 Weight 86.772 kg Head normocephalic Neck supple Lungs diminished bilaterally Heart regular rate and rhythm S1-S2, no rub or gallop Abdomen is soft nontender nondistended positive bowel sounds no hepatosplenomegaly Extremities no edema Neuro alert and orientated to 3 Results CBC & Chem 7: 05/05/18 05:38 03/19/19 05:38 Labs: Abnormal Lab Results - Last 24 Hours (Table) 05/04/18 05/04/18 05/05/18 Range/Units 17:48 17:48 05:38 RBC 4.21 L (4.30-5.90) m/uL Chloride (98-107) mmol/L Creatinine (0.66-1.25) mg/dL Glucose 106 H (74-99) mg/dL Triglycerides 158 H (<150) mg/dL 05/05/18 Range/Units 05:38 RBC (4.30-5.90) m/uL Chloride 108 H (98-107) mmol/L Creatinine 0.58 L (0.66-1.25) mg/dL Glucose (74-99) mg/dL Triglycerides (<150) mg/dL Thrombosis Risk Factor Assmnt - Choose All That Apply Each Factor Represents 1 point: Age 41-60 years Thrombosis Risk Factor Assessment Total Risk Factor Score: 1 Thrombosis Risk Factor Assessment Level: Low Risk Assessment and Plan Assessment: 1. Chest pain. Troponins negative 3. EKG completed showing normal sinus rhythm, moderate voltage criteria for LVH, maybe normal variant. Cardiology services have been consulted 2-D echo and stress test ordered. D-dimer ordered. He 2. Recent upper respiratory infection. Chest x-ray completed showing no active cardiopulmonary disease. No change compared to old exam. 3. History of lung cancer. Patient reports this is an 2010 which he underwent right upper lobectomy. Patient reports that he follows regularly with Dr. Patino and was supposed to have a CT completed in 1 week per oncology service is. Will consult oncology services at this time 4. History of GERD 5. History of hearing disorder 6. History of hyperlipidemia 7. History of hypothyroidism 8. Ex-smoker DVT prophylaxis Lovenox. GI prophylaxis Protonix Time with Patient: Greater than 30 (Greater than 60% of the total time spent in counseling and coordination of care. I performed an examination of the patient and discussed their management with the Nurse Practitioner. I have reviewed the Nurse Practitioner's notes and agree with the documented findings and plan of care)
--- NOTE | 2018-05-05 13:01 | ECHOF ---
Referral Reason:chest pain MEASUREMENTS -------- HEIGHT: 172.7 cm WEIGHT: 86.6 kg BP: 165/87 RVIDd: 2.8 cm (< 3.3) IVSd: 1.3 cm (0.6 - 1.1) LVIDd: 3.8 cm (3.9 - 5.3) LVPWd: 1.2 cm (0.6 - 1.1) IVSs: 1.6 cm LVIDs: 2.7 cm LVPWs: 2.1 cm LA Diam: 3.2 cm (2.7 - 3.8) LAESV Index (A-L): 24.97 ml/m Ao Diam: 3.3 cm (2.0 - 3.7) AV Cusp: 1.9 cm (1.5 - 2.6) MV EXCURSION: 14.577 mm (> 18.000) MV EF SLOPE: 43 mm/s (70 - 150) EPSS: 1.3 cm MV E Efrain: 1.16 m/s MV DecT: 360 ms MV A Efrain: 1.19 m/s MV E/A Ratio: 0.98 AV maxP.86 mmHg AV meanP.97 mmHg RAP: 5.00 mmHg RVSP: 39.18 mmHg FINDINGS -------- Sinus rhythm. This was a technically adequate study. The left ventricular size is normal. There is mild concentric left ventricular hypertrophy. Overa ll left ventricular systolic function is normal with, an EF between 60 - 65 %. The right ventricle is normal in size. Normal LA size by volume 22+/-6 ml/m2. The right atrium is normal in size. There is mild aortic valve sclerosis. Trace amount of aortic regurgitation. There is mild aortic stenosis present. Peak/mean gradient across the Aortic Valve is 15.86mmHg / 6.97mmHg. The mitral valve leaflets are mildly thickened. Mild mitral annular calcification present. Mild tricuspid regurgitation present. There is mild pulmonary hypertension. The right ventricular systolic pressure, as measured by Doppler, is 39.18mmHg. Trace/mild (physiologic) pulmonic regurgitation. The aortic root size is normal. Normal inferior vena cava with normal inspiratory collapse consistent with estimated right atrial pre ssure of 5 mmHg. There is no pericardial effusion. CONCLUSIONS -------- 1. Sinus rhythm. 2. This was a technically adequate study. 3. The left ventricular size is normal. 4. There is mild concentric left ventricular hypertrophy. 5. Overall left ventricular systolic function is normal with, an EF between 60 - 65 %. 6. The right ventricle is normal in size. 7. Normal LA size by volume 22+/-6 ml/m2. 8. The right atrium is normal in size. 9. There is mild aortic valve sclerosis. 10. Trace amount of aortic regurgitation. 11. There is mild aortic stenosis present. 12. Peak/mean gradient across the Aortic Valve is 15.86mmHg / 6.97mmHg. 13. The mitral valve leaflets are mildly thickened. 14. Mild mitral annular calcification present. 15. Mild tricuspid regurgitation present. 16. There is mild pulmonary hypertension. 17. The right ventricular systolic pressure, as measured by Doppler, is 39.18mmHg. 18. Trace/mild (physiologic) pulmonic regurgitation. 19. The aortic root size is normal. 20. Normal inferior vena cava with normal inspiratory collapse consistent with estimated right atrial pressure of 5 mmHg. 21. There is no pericardial effusion. TRAINING AND DEVELOPMENT REP: Nicole Yousif RDCS
--- NOTE | 2018-05-05 13:12 | ECHOS ---
STRESS ECHOCARDIOGRAM DATE OF SERVICE: 05/05/2018 INDICATIONS: Chest pain. MEDICATIONS: BASELINE HEART RATE: 72 BASELINE BLOOD PRESSURE: 154/85 MAXIMUM HEART RATE: 146 MAXIMUM BLOOD PRESSURE: 186/86 85% MPHR: 137 100% MPHR: 161 METS: 10.3 MAXIMUM STAGE REACHED: III TOTAL EXERCISE TIME: 9 minutes CLINICAL INFORMATION: Patient was exercised for a total of 9 minutes. Peak heart rate of 146 was achieved. Maximum blood pressure 186/86 mmHg was noted. The resting EKG shows normal sinus rhythm with normal MI interval and QRS duration and normal ST-T waves. No ST-segment depression suggestive of ischemia is noted. The baseline echocardiographic images reveals normal left ventricular chamber size with normal left ventricular systolic function. At the immediate postexercise period, normal increase in the wall thickness and contractility is noted. FINAL IMPRESSION: 1. This stress echocardiographic study is negative for stress-induced ischemia. 2. EKG portion of the stress is not suggestive of ischemia. 3. Patient's exercise tolerance is normal. MMODL / IJN: [id number] /
--- NOTE | 2018-05-05 13:28 | CONS ---
CONSULTATION Mr. Coulter is a 58-year-old gentleman who is seen for cardiac evaluation. This patient's medical records reviewed. He presented to the emergency room with a complaint of chest pain. The patient has a history of lung cancer. He recently underwent upper respiratory tract infection and had a couple of rounds of antibiotics. Subsequently patient was seen by Dr. Patino and was given steroids. The patient came with a complaint of chest pain. The pain is intermittent, sharp pain lasting for a few seconds and goes away. The patient denies any exertional chest pain. EKGs and cardiac enzymes are normal. Screening for influenza is negative. There is no past history of myocardial infarction. PAST MEDICAL HISTORY: Past medical history includes a right knee, upper lobectomy, history of pain clinic procedures, 3 neck surgeries and 2 fusions and a leola. SMOKING HISTORY: Patient is a former smoker. HOME MEDICATIONS: Patient's home medications include Cozaar 50 mg daily, Zoloft once a day, baclofen 10 mg daily, Synthroid, and Lipitor 10 mg daily. PHYSICAL EXAMINATION: Physical examination at present reveals a 58-year-old obesely built gentleman who is not in any acute distress. The patient's vital signs were stable in the emergency room. Oxygen saturation was 99%. Blood pressure is 160/83 mmHg, heart rate is 73 per minute. Head/ENT examination is negative. Neck is supple. There is no increase in jugular venous pressure. Both the carotid pulses are felt. There is no bruit. Chest is symmetrical. HEART: The PMI is not felt. First and second heart sounds are normal. There is no evidence of any murmur. Lungs are clinically clear to auscultation and percussion. Abdomen is negative. EXTREMITIES: Peripheral pulsations are 2+. EKG shows normal sinus rhythm without any acute ischemic changes. FINAL IMPRESSION: 1. Clinically, this patient's chest pain is suggestive of atypical chest pain. The patient will be evaluated with echocardiogram and the stress echocardiographic study. 2. History of hypertension, which is not fairly well controlled. 3. History of right upper lobe lobectomy. RECOMMENDATIONS: We will evaluate the patient with a stress test and echocardiogram. If it is negative, patient can be discharged home. He is advised to check his blood pressure at home and if it remains high, further adjustment in the medications should be made as necessary. MMODL / IJN: [id number] /
[2018-05-05] MEDS: ASPIRIN 325 MG TAB PO SCH (14:05)
[2018-05-05] MEDS: PANTOPRAZOLE 40 MG/10 ML VIAL IV SCH (14:05)
[2018-05-05] MEDS: ATORVASTATIN 10 MG TAB PO SCH (14:05)
[2018-05-05] MEDS: TAMSULOSIN 0.4 MG CAP.ER.24H PO SCH (14:06)
[2018-05-05] MEDS ORDERED: RX INFO: IV CONTRAST WAS GIVEN 1 EACH MISC MISCELLANE PRN (21:51)
--- NOTE | 2018-05-05 22:05 | P.CONS ---
History of Present Illness - Reason for Consult Consult date: 05/05/18 Hx: Squamous Cell Lung Cancer Requesting physician: Melonie Dominguez - Chief Complaint Shortness of breath - History of Present Illness Mr. 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 He underwent jenise-adjuvant chemotherapy and then a right Thoracoctomy. Adjuvant chemotherapy with two cycles of Cisplatin and VP16 was given and completed in September 2010. PET scan in March 2011 and September 2011 - Negative for recurrence. He has been on close monitoring since diagnoses and treatment and has remained in Complete Remission over the years. He was last seen in our office on April 28, 2018 for his regular surveillance appointment and complained of productive cough with yellowish thick mucus. He admitted to exertional dyspnea and audible wheezing. He did see Dr. Jensen during this time who treated him with antibiotics. because of his history of malignancy and his two weeks of symptom progression and persistent Dr. Patino Ordered a CT of his lungs. CT Lungs is actually scheduled at [facility] on May 11. Review of Systems A 14 point review of systems assessed and completed and all negative except HPI Past Medical History Past Medical History: Cancer, GERD/Reflux, Hearing Disorder / Deafness, Hyperlipidemia, Thyroid Disorder Additional Past Medical History / Comment(s): LUNG CANCER 2010 History of Any Multi-Drug Resistant Organisms: None Reported Past Surgical History: Orthopedic Surgery Additional Past Surgical History / Comment(s): RT KNEE/RT UPPER LOBECTOMY, [facility] PAIN CLINIC PROCEDURES. 3 neck surgeries, 2 fustions and a leola Past Anesthesia/Blood Transfusion Reactions: No Reported Reaction Smoking Status: Former smoker - Past Family History Father Family Medical History: Cancer Additional Family Medical History / Comment(s): LUNG Mother Family Medical History: COPD Medications and Allergies Home Medications Medication Instructions Recorded Confirmed Type Atorvastatin [Lipitor] 10 mg PO DAILY 12/18/16 05/04/18 History Omeprazole [PriLOSEC] 10 mg PO DAILY 12/18/16 05/04/18 History Tamsulosin [Flomax] 0.4 mg PO DAILY 12/18/16 05/04/18 History Losartan [Cozaar] 50 mg PO HS 03/25/18 05/04/18 History Sertraline [Zoloft] 50 mg PO HS 04/29/18 05/04/18 History Baclofen [Lioresal] 10 mg PO HS 05/04/18 05/04/18 History Levothyroxine Sodium [Synthroid] 112 mcg PO DAILY 05/04/18 05/04/18 History Multivitamins, Thera [Multivitamin 1 tab PO DAILY 05/04/18 05/04/18 History (formulary)] Naproxen Sodium [Aleve] 660 mg PO Q12HR 05/04/18 05/04/18 History Albuterol Inhaler [Ventolin Hfa 1 - 2 puff INHALATION RT-Q6H PRN 05/06/18 Rx Inhaler] 30 Days #1 inhaler Umeclidinium Brm/Vilanterol Tr 1 puff INHALATION DAILY 30 Days #1 05/06/18 Rx [Anoro Ellipta 62.5-25 Mcg INH] device predniSONE 0 mg PO DIRECTED 16 Days #40 tab 05/06/18 Rx Allergies Allergy/AdvReac Type Severity Reaction Status Date / Time No Known Allergies Allergy Verified 05/04/18 21:28 Physical Exam Vitals: Vital Signs Temp Pulse Pulse Resp BP BP BP 05/05/18 07:05 97.5 F L 72 18 163/83 05/05/18 04:00 97.9 F 67 15 161/77 05/05/18 02:46 16 05/04/18 23:40 16 05/04/18 23:31 98.1 F 69 15 134/68 05/04/18 21:24 97.4 F L 78 16 182/80 05/04/18 21:08 98.3 F 74 18 144/70 05/04/18 20:30 79 16 147/74 05/04/18 19:28 73 16 149/76 05/04/18 17:52 16 05/04/18 17:08 98.4 F 79 18 145/81 Pulse Ox 05/05/18 07:05 97 05/05/18 04:00 97 05/05/18 02:46 05/04/18 23:40 05/04/18 23:31 97 05/04/18 21:24 96 05/04/18 21:08 98 05/04/18 20:30 05/04/18 19:28 95 05/04/18 17:52 05/04/18 17:08 99 Intake and Output 05/04/18 05/05/18 05/05/18 22:59 06:59 14:59 Other: # Voids 1 1 Weight 86.772 kg 86.636 kg Gen: Alert and Oriented, NAD Head: NC, NT Neck: Supple: No palpable Adenopathy Lungs: Expiratory wheezes and harsh breath sounds, mild increase in respiratory effort. Heart: Tachy, reg Abdomen: S/NDNT Ext: no rash or edema Neuro no sensory or motor deficits. Results CBC & Chem 7: 05/06/18 05:45 05/06/18 05:45 Labs: Abnormal Lab Results - Last 24 Hours (Table) 05/04/18 05/04/18 05/05/18 Range/Units 17:48 17:48 05:38 RBC 4.21 L (4.30-5.90) m/uL Chloride (98-107) mmol/L Creatinine (0.66-1.25) mg/dL Glucose 106 H (74-99) mg/dL Triglycerides 158 H (<150) mg/dL 05/05/18 Range/Units 05:38 RBC (4.30-5.90) m/uL Chloride 108 H (98-107) mmol/L Creatinine 0.58 L (0.66-1.25) mg/dL Glucose (74-99) mg/dL Triglycerides (<150) mg/dL Chest x-ray: report reviewed Assessment and Plan Plan: Assessment and Recommendations: 1. Upper Respiratory Infection: - Not improved with outpatient treatment - Treated with medrol dose pack and antibiotics 2. Hx: Squamous Cell Carcinoma of the Lung (T3, N0, M0) in 2010 - Status Post Right Upper Lobectomy - Remission since diagnoses and treatment Plan: - He was due for CT scan and scheduled as outpatient next week, with his persistent symptoms and presentation to hospital will obtain while inpatient. Physician Attest: I have discussed the complete history and physical and devloped the full impression and plan, agree with above dictation, dictated as a scribe.
[2018-05-05] MEDS: SERTRALINE 50 MG TAB PO SCH (22:19)
[2018-05-05] MEDS: BACLOFEN 10 MG TAB PO SCH (22:19)
[2018-05-05] MEDS: LOSARTAN 50 MG TAB PO SCH (22:19)
[2018-05-05] MEDS: ACETAMINOPHEN TAB 325 MG TAB PO PRN (22:19)
[2018-05-05] MEDS: SODIUM CHLORIDE 0.9% 1,000 ML IV SCH (23:22)
[2018-05-06] MEDS: LEVOTHYROXINE 112 MCG TAB PO SCH (06:14)
[2018-05-06 06:18] LABS: Basophils % (A) 0 %; Eosinophils # (A) 0.2 k/uL (0-0.7); Eosinophils % (A) 2 %; HCT 41.8 % (39.0-53.0); HGB 13.1 gm/dL (13.0-17.5); Lymphocytes % (A) 9 %; MCH 29.7 pg (25.0-35.0); MCHC 31.3 g/dL (31.0-37.0); MCV 94.9 fL (80.0-100.0); Mean Platelet Volume 6.4; Monocytes % (A) 8 %; Neutrophils # (A) 9.3 k/uL (1.3-7.7); Neutrophils % (A) 79 %; Platelet Count 265 k/uL (150-450); RDW 13.5 % (11.5-15.5); WBC 11.8 k/uL (3.8-10.6)
[2018-05-06 06:32] LABS: ALT 33 U/L (21-72); AST 21 U/L (17-59); Albumin 3.9 g/dL (3.5-5.0); Alkaline Phosphatase 56 U/L (38-126); Anion Gap 6 mmol/L; Blood Urea Nitrogen 16 mg/dL (9-20); Calcium 9.5 mg/dL (8.4-10.2); Carbon Dioxide 27 mmol/L (22-30); Chloride 104 mmol/L (98-107); Glucose 92 mg/dL (74-99); Potassium 4.7 mmol/L (3.5-5.1); Sodium 137 mmol/L (137-145); Total Bilirubin 0.8 mg/dL (0.2-1.3); Total Protein 6.6 g/dL (6.3-8.2)
[2018-05-06] MEDS: ATORVASTATIN 10 MG TAB PO SCH (08:41)
[2018-05-06] MEDS: ASPIRIN 325 MG TAB PO SCH (08:41)
[2018-05-06] MEDS: PANTOPRAZOLE 40 MG/10 ML VIAL IV SCH (08:43)
[2018-05-06] MEDS: TAMSULOSIN 0.4 MG CAP.ER.24H PO SCH (08:43)
[2018-05-06] MEDS ORDERED: ENOXAPARIN 40 MG/0.4 ML SYRINGE SQ SCH (09:00)
--- NOTE | 2018-05-06 10:56 | CT ---
EXAMINATION TYPE: CT chest w con DATE OF EXAM: 05/06/2018 COMPARISON: Chest x-ray from yesterday. HISTORY: History of lung cancer with shortness of breath CT DLP: 337.30 mGycm. Automated Exposure Control for Dose Reduction was Utilized. TECHNIQUE: CT scan of the thorax is performed following with IV Contrast, patient injected with 100 mL of Isovue 300. FINDINGS: LUNGS: There is right sided volume loss with right hilar surgical clips from partial pneumonectomy ch anges. There is peripheral reticulation superior lateral aspect right lower lobe axial image 25 wishe s for focal fibrosis, additional area anteriorly right middle lobe near diaphragm axial image 40 is p resent. No suspicious new nodules or masses are identified. No new suspicious consolidation is seen. MEDIASTINUM: Right-sided mediastinal shift is present. There are no greater than 1 cm hilar or medias tinal lymph nodes. No cardiomegaly or pericardial effusion is seen. OTHER: Low-density kink and both adrenal glands favors benign hyperplasia. No suspicious hypodense ma ss is present. There is mild multilevel spurring in the spine.. IMPRESSION: Postsurgical changes to right lung. Favor peripheral mild fibrotic changes, cannot exclud e early or mild acute infectious etiology in the right lung. Left lung is clear. Preliminary report for study was provided by [employer].
[2018-05-06 12:44] VITALS: BP 147/86; PULSE 67; TEMP 98.1
[2018-05-06] MEDS: ACETAMINOPHEN TAB 325 MG TAB PO PRN (13:10)
--- NOTE | 2018-05-06 14:18 | P.DS ---
Providers Date of admission: 05/04/18 19:56 Expected date of discharge: 05/06/18 Attending physician: Ross Jensen Consults: 05/04/18 20:24 Consult Physician Stat Consulting Provider: Blake Koo Consult Reason/Comments: Chest pain Do you want consulting provider notified?: Yes 05/05/18 10:04 Consult Physician Routine Consulting Provider: Aquiles Bah Consult Reason/Comments: lung CA history Do you want consulting provider notified?: Yes 05/05/18 12:40 Consult Physician Routine Consulting Provider: Nic Dietz Consult Reason/Comments: increase sob Do you want consulting provider notified?: Yes Primary care physician: Ross Mikey [facility] Course: Discharge diagnosis 1. Chest pain. Troponins negative 3. EKG completed showing normal sinus rhythm, moderate voltage criteria for LVH, maybe normal variant. Cardiology services have been consulted 2-D echo and stress test ordered. D-dimer 0.23. Stress echo completed showing negative for stress-induced acute ischemia. 2-D echo completed showing an EF of 60-65% 2. Recent upper respiratory infection. Chest x-ray completed showing no active cardiopulmonary disease. No change compared to old exam. 3. History of lung cancer. Patient reports this is an 2010 which he underwent right upper lobectomy. Patient reports that he follows regularly with Dr. Patino and was supposed to have a CT completed in 1 week per oncology service is. CT of chest completed per oncology service is showing postsurgical changes to right lung. Favor perihilar mild fibrotic changes, cannot exclude early or mild acute infectious etiology right lung. Left lung is clear. Patient was also evaluated by pulmonary services. Patient has been cleared for discharge from pulmonary standpoint but will be discharged on prednisone taper along with albuterol inhaler 4. History of GERD 5. History of hearing disorder 6. History of hyperlipidemia 7. History of hypothyroidism 8. Ex-smoker Hospital course This is a 58-year-old patient presented to ER with complaints of chest pain. Patient reports he is been having an upper respiratory infection for the past couple weeks in which she is content through couple rounds of antibiotics. Patient also has a history of lung cancer which he follows with Dr. Patino. Patient was recently seen by oncology services in which they started him on steroids for his upper respiratory infection. Patient reports he had lung cancer in 2010 at that time patient underwent right upper lobectomy. Patient is currently not on any chemotherapy at this time. Additional medical history includes GERD, hearing disorder, hyperlipidemia, thyroid disorder, anxiety and ex-smoker. Patient denies any significant cardiac history. Chest x-ray completed showing no active cardiopulmonary disease. No change compared to old exam. EKG showing normal sinus rhythm, moderate voltage criteria for LVH, maybe normal variant. Troponins negative 3. Influenza negative. At this time cardiology services have been consulted. We'll also consult Dr. Patino per oncology. This time patient is still complaining of cough with intermittent chest discomfort. Patient denies nausea vomiting or diarrhea. Patient denies any urinary burning or frequency On 05/06/2018 patient is alert and oriented 3. Patient expressed that he feels ready and eager to go home. Patient was evaluated by cardiology services. Stress test was completed and was negative for stress-induced ischemia. Patient was cleared by cardiology services. CT of chest was also completed per cardiology services. Patient was also seen by pulmonary service is recommending prednisone taper along with albuterol inhaler. Patient to follow-up with PCP along with pulmonary and oncology services for further management of care. At this time patient denies chest pain or shortness breath. Patient denies nausea vomiting or diarrhea. Patient denies any urinary burning or frequency I performed an examination of the patient and discussed their management with the Nurse Practitioner. I have reviewed the Nurse Practitioner's notes and agree with the documented findings and plan of care Patient Condition at Discharge: Stable Plan - Discharge Summary New Discharge Prescriptions: New predniSONE 0 mg PO DIRECTED 16 Days #40 tab Albuterol Inhaler [Ventolin Hfa Inhaler] 1 - 2 puff INHALATION RT-Q6H PRN 30 Days #1 inhaler PRN Reason: Dyspnea Umeclidinium Brm/Vilanterol Tr [Anoro Ellipta 62.5-25 Mcg INH] 1 puff INHALATION DAILY 30 Days #1 device Continue Omeprazole [PriLOSEC] 10 mg PO DAILY Tamsulosin [Flomax] 0.4 mg PO DAILY Atorvastatin [Lipitor] 10 mg PO DAILY Losartan [Cozaar] 50 mg PO HS Sertraline [Zoloft] 50 mg PO HS Multivitamins, Thera [Multivitamin (formulary)] 1 tab PO DAILY Baclofen [Lioresal] 10 mg PO HS Levothyroxine Sodium [Synthroid] 112 mcg PO DAILY Naproxen Sodium [Aleve] 660 mg PO Q12HR Discharge Medication List Atorvastatin [Lipitor] 10 mg PO DAILY 12/18/16 [History] Omeprazole [PriLOSEC] 10 mg PO DAILY 12/18/16 [History] Tamsulosin [Flomax] 0.4 mg PO DAILY 12/18/16 [History] Losartan [Cozaar] 50 mg PO HS 03/25/18 [History] Sertraline [Zoloft] 50 mg PO HS 04/29/18 [History] Baclofen [Lioresal] 10 mg PO HS 05/04/18 [History] Levothyroxine Sodium [Synthroid] 112 mcg PO DAILY 05/04/18 [History] Multivitamins, Thera [Multivitamin (formulary)] 1 tab PO DAILY 05/04/18 [Hist ory] Naproxen Sodium [Aleve] 660 mg PO Q12HR 05/04/18 [History] Albuterol Inhaler [Ventolin Hfa Inhaler] 1 - 2 puff INHALATION RT-Q6H PRN 30 Days #1 inhaler 05/06/18 [Rx] Umeclidinium Brm/Vilanterol Tr [Anoro Ellipta 62.5-25 Mcg INH] 1 puff INHALATION DAILY 30 Days #1 device 05/06/18 [Rx] predniSONE 0 mg PO DIRECTED 16 Days #40 tab 05/06/18 [Rx] Follow up Appointment(s)/Referral(s): Ross Jensen MD [Primary Care Provider] - 1-2 days Nic Dietz MD [STAFF PHYSICIAN] - 1 Week Inocencio Patino MD [STAFF PHYSICIAN] - 1 Week Activity/Diet/Wound Care/Special Instructions: Activity as tolerated Diet heart healthy Discharge Disposition: HOME SELF-CARE
--- NOTE | 2018-05-06 15:37 | P.PN ---
Subjective Progress Note Date: 05/06/18 Principal diagnosis: Chest Pain Patient feeling a little better, he had CT scan and no apparent sign of recurrent cancer or PE. Objective - Vital Signs Vital signs: Vital Signs Temp 98.1 F 05/06/18 12:00 Pulse 65 05/06/18 12:00 Resp 18 05/06/18 12:00 BP 147/86 05/06/18 12:00 Pulse Ox 96 05/06/18 12:00 Intake & Output 05/05/18 05/06/18 05/06/18 18:59 06:59 18:59 Intake Total 860 480 Balance 860 480 Weight 86.636 kg Intake: Oral 860 480 Other: Voiding Method Toilet Toilet # Voids 2 3 - Exam Gen: Alert and Oriented, NAD Head: NC, NT Neck: Supple: No palpable Adenopathy Lungs: Expiratory wheezes and harsh breath sounds, mild increase in respiratory effort. Heart: Tachy, reg Abdomen: S/NDNT Ext: no rash or edema Neuro no sensory or motor deficits. - Labs CBC & Chem 7: 05/06/18 05:45 05/06/18 05:45 Labs: Abnormal Lab Results - Last 24 Hours (Table) 05/06/18 Range/Units 05:45 WBC 11.8 H (3.8-10.6) k/uL Neutrophils # 9.3 H (1.3-7.7) k/uL Microbiology - Last 24 Hours (Table) 05/04/18 17:48 Blood Culture - Preliminary Blood No Growth after 24 hours Assessment and Plan Plan: Assessment and Recommendations: 1. Upper Respiratory Infection: - Not improved with outpatient treatment - Treated with medrol dose pack and antibiotics 2. Hx: Squamous Cell Carcinoma of the Lung (T3, N0, M0) in 2011 - Status Post Right Upper Lobectomy - Remission since diagnoses and treatment Plan: - Reviewed CT results with patient, planning on discharge per primary and will follow-up as outpatient to continue surveillance with Dr. Patino. . Physician Attest: I have discussed the complete history and physical and devloped the full impression and plan, agree with above dictation, dictated as a scribe.
--- NOTE | 2018-05-06 15:45 | P.CNPUL ---
History of Present Illness Consult date: 05/06/18 Reason for consult: dyspnea, chest pain History of present illness: This is a very pleasant 58-year-old male patient with known history of COPD and previous history of lung cancer. The patient undergone an extensive right upper lobe resection along with resection of the part of the chest wall and ribs. The patient following that he received chemoradiation therapy and the patient has been in remission since 2010. The patient receives periodic CAT scan of the chest with oncologist, Dr. Patino. The patient has had his surgery at [facility]. The patient also has history of hyperlipidemia, hypertension, hypothyroidism and BPH. The patient came into the hospital after having 2 weeks history of increased cough chest congestion and wheezing. His main complaint was pain across the left chest area. Cardiac enzymes have been negative. The cardiac stress test came back also negative. The patient underwent a stress echocardiogram that showed no evidence of any stress-induced ischemia. EKG portion of the test was also negative. A CAT scan of the chest was also done and it showed no evidence of any tumor recurrence. There was no evidence of any consolidation or infiltrates. Some scarring in the right lung related to previous radiation treatment. Otherwise, the airways were quite patent. The patient reported that his pain was mainly with cough and sometimes of breathing. No evidence of any pulmonary embolism based on the CT angiogram of the chest. The d-dimer was low at 0.23. Rest of the blood work and electrodes are all within normal limits. BNP level is nonelevated. Review of Systems Constitutional: Denies chills, Denies fever Eyes: denies as per HPI, denies blurred vision, denies bulging eye, denies decreased vision, denies diplopia, denies discharge, denies dry eye, denies irritation, denies itching, denies pain, denies photophobia, denies loss of peripheral vision, denies loss of vision, denies tunnel vision/blind spots Ears: deny: decreased hearing, ear discharge, earache, tinnitus Ears, nose, mouth and throat: Denies headache, Denies sore throat Breasts: absent: as per HPI, gynecomastia Cardiovascular: Reports chest pain, Reports dyspnea on exertion, Reports shortness of breath Respiratory: Reports cough, Reports dyspnea Gastrointestinal: Reports as per HPI Genitourinary: Reports as per HPI Musculoskeletal: Reports as per HPI Musculoskeletal: absent: ankle pain, ankle stiffness, ankle swelling, as per HPI, elbow pain, elbow stiffness, elbow swelling, foot pain, foot stiffness, foot swelling, hand pain, hand stiffness, hand swelling, hip pain, hip stiffness, hip swelling, knee pain, knee stiffness, knee swelling, shoulder pain, shoulder stiffness, shoulder swelling, wrist pain, wrist stiffness, wrist swelling Integumentary: Reports as per HPI Neurological: Reports as per HPI Psychiatric: Reports as per HPI Endocrine: Reports as per HPI Hematologic/Lymphatic: Reports as per HPI Allergic/Immunologic: Reports as per HPI Past Medical History Past Medical History: Cancer, GERD/Reflux, Hearing Disorder / Deafness, Hyperlipidemia, Thyroid Disorder Additional Past Medical History / Comment(s): hypothyroidism, hypertension, hyperlipidemia, BPH, COPD, non-small cell lung cancer with previous left upper lobe resection 2010 History of Any Multi-Drug Resistant Organisms: None Reported Past Surgical History: Orthopedic Surgery Additional Past Surgical History / Comment(s): RT KNEE/RT UPPER LOBECTOMY, [facility] PAIN CLINIC PROCEDURES. 3 neck surgeries, 2 fustions and a leola Past Anesthesia/Blood Transfusion Reactions: No Reported Reaction Smoking Status: Former smoker - Past Family History Father Family Medical History: Cancer Additional Family Medical History / Comment(s): LUNG Mother Family Medical History: COPD Medications and Allergies Home Medications Medication Instructions Recorded Confirmed Type Atorvastatin [Lipitor] 10 mg PO DAILY 12/18/16 05/04/18 History Omeprazole [PriLOSEC] 10 mg PO DAILY 12/18/16 05/04/18 History Tamsulosin [Flomax] 0.4 mg PO DAILY 12/18/16 05/04/18 History Losartan [Cozaar] 50 mg PO HS 03/25/18 05/04/18 History Sertraline [Zoloft] 50 mg PO HS 04/29/18 05/04/18 History Baclofen [Lioresal] 10 mg PO HS 05/04/18 05/04/18 History Levothyroxine Sodium [Synthroid] 112 mcg PO DAILY 05/04/18 05/04/18 History Multivitamins, Thera [Multivitamin 1 tab PO DAILY 05/04/18 05/04/18 History (formulary)] Naproxen Sodium [Aleve] 660 mg PO Q12HR 05/04/18 05/04/18 History Albuterol Inhaler [Ventolin Hfa 1 - 2 puff INHALATION RT-Q6H PRN 05/06/18 Rx Inhaler] 30 Days #1 inhaler Umeclidinium Brm/Vilanterol Tr 1 puff INHALATION DAILY 30 Days #1 05/06/18 Rx [Anoro Ellipta 62.5-25 Mcg INH] device predniSONE 0 mg PO DIRECTED 16 Days #40 tab 05/06/18 Rx Allergies Allergy/AdvReac Type Severity Reaction Status Date / Time No Known Allergies Allergy Verified 05/04/18 21:28 Physical Exam Vitals: Vital Signs Temp Pulse Pulse Resp BP Pulse Ox 05/06/18 12:00 98.1 F 65 67 18 147/86 96 05/06/18 08:00 65 74 18 05/06/18 07:48 97.6 F 74 18 176/83 97 05/06/18 04:00 97.8 F 65 18 129/69 95 05/06/18 00:00 97.7 F 70 18 143/73 95 05/05/18 20:00 97.6 F 76 18 153/75 96 05/05/18 16:00 98.6 F 75 18 118/67 95 Intake and Output 05/06/18 05/06/18 05/06/18 06:59 14:59 22:59 Intake Total 480 Balance 480 Intake: Oral 480 Other: Voiding Method Toilet Toilet # Voids 2 3 Gen. appearance, comfortable likely distress Head exam was generally normal. There was no scleral icterus or corneal arcus. Mucous membranes were moist. Neck was supple and without jugular venous distension, thyromegaly, or carotid bruits. Carotids were easily palpable bilaterally. There was no adenopathy. Lungs sounds are diminished bilaterally along with scattered expiratory wheezes throughout the lung alvarenga and the patient a surgical scar over the right chest area which is thoracotomy scar. There is also evidence of missing ribs and the right upper chest area posteriorly. Cardiac exam revealed the PMI to be normally situated and sized. The rhythm was regular and no extrasystoles were noted during several minutes of auscultation. The first and second heart sounds were normal and physiologic splitting of the second heart sound was noted. There were no murmurs, rubs, clicks, or gallops. Abdominal exam revealed normal bowel sounds. The abdomen was soft, non-tender, and without masses, organomegaly, or appreciable enlargement of the abdominal aorta. Examination of the extremities revealed easily palpable radial, femoral and pe immanuel pulses. There was no cyanosis, clubbing or edema. Examination of the skin revealed no evidence of significant rashes, suspicious appearing nevi or other concerning lesions. Neurologic awake and alert there is no focal neurological deficit Psychiatrically the patient has no anxiety or depression. Results - Laboratory Findings CBC and BMP: 05/06/18 05:45 05/06/18 05:45 PT/INR, D-dimer PT 10.3 sec (9.0-12.0) 05/04/18 17:48 INR 1.0 (<1.2) 05/04/18 17:48 D-Dimer 0.23 mg/L FEU (<0.60) 05/05/18 05:38 Abnormal lab findings: Abnormal Labs 05/04/18 05/04/18 05/05/18 17:48 17:48 05:38 WBC RBC 4.21 L Neutrophils # Chloride Creatinine Glucose 106 H Triglycerides 158 H 05/05/18 05/06/18 05:38 05:45 WBC 11.8 H RBC Neutrophils # 9.3 H Chloride 108 H Creatinine 0.58 L Glucose Triglycerides - Diagnostic Findings Chest x-ray: image reviewed CT scan - chest: image reviewed Assessment and Plan Plan: Assessment 1 chest pain, skeletal in nature, related to recent bronchitis and cough. The patient's cardiac workup has been negative including a stress echocardiogram, EKG and cardiac enzymes. CT angiogram of the chest shows no evidence of any pulmonary embolism or pneumonia. No evidence of any cancer recurrence at this point in time 2 acute COPD exacerbation/secondary to an acute bronchitis and the patient remains bronchus spastic and wheezy on today's evaluation 3 history of lung cancer the previous site upper lobe resection followed by radiation therapy. The patient also had a chest wall resection and resection back in 2010 4 hypertension 5 hyperlipidemia 6 BPH 7 hypothyroidism Plan Reassured the patient. The pain is skeletal in nature. We'll treat the acute COPD exacerbation. We'll discharge the patient home on a prednisone burst taper. We'll start him on a 40 mg of prednisone and tapered by 10 mg every 4 days. We'll start the patient on Anoro Ellipta one inhalation a day and put him on Ventolin rescue inhaler on as needed basis. See back in the office in 2 weeks time. He was reassured and the results of the CAT scan of the chest which is essentially negative for any acute abnormalities and there is no evidence of any cancer recurrence.
== END 2018-05-06 14:42 | disposition home or self-care (01) ==
LOC: EC 17:06 → 1SOBS 19:56
PROVIDERS: ADMIT Internal Medicine; ATTEND Internal Medicine
DX: R07.89 Other chest pain (principal); Z85.118 Personal history of other malignant neoplasm of bronchus and lung; Z90.2 Acquired absence of lung [part of]; J20.9 Acute bronchitis, unspecified; J44.0 Chronic obstructive pulmonary disease with (acute) lower respiratory infection; K21.9 Gastro-esophageal reflux disease without esophagitis; H91.90 Unspecified hearing loss, unspecified ear; E78.5 Hyperlipidemia, unspecified; E03.9 Hypothyroidism, unspecified; I10 Essential (primary) hypertension; F41.9 Anxiety disorder, unspecified; J44.1 Chronic obstructive pulmonary disease with (acute) exacerbation; E66.9 Obesity, unspecified; Z68.29 Body mass index [BMI] 29.0-29.9, adult; N40.0 Benign prostatic hyperplasia without lower urinary tract symptoms; Z79.899 Other long term (current) drug therapy; Z79.1 Long term (current) use of non-steroidal anti-inflammatories (NSAID); Z98.1 Arthrodesis status; Z87.891 Personal history of nicotine dependence; Z92.3 Personal history of irradiation; Z92.21 Personal history of antineoplastic chemotherapy; Z79.890 Hormone replacement therapy; Z82.5 Family history of asthma and other chronic lower respiratory diseases; Z23 Encounter for immunization
CPT/HCPCS: 96374; 96361; 99285; 36415; 93005; 93306; 93351; 85379; 83880; 80061; 80053 ×3; 83735; 84484 ×2; 85025 ×3; 85610; 85730; 87040; 87502; 71046; 71260; 90732; G0378 ×3; G0009; C9113; Q9967

== ENCOUNTER 2018-06-22 06:11 | Day surgery (SDC) | payer BC ==
[2018-06-18 08:48] VITALS: BMI 28.4
[2018-06-22] MEDS ORDERED: LACTATED RINGERS 1,000 ML IV SCH (06:13)
[2018-06-22 06:25] VITALS: RESP 18; TEMP 98.1
[2018-06-22] MEDS ORDERED: LACTATED RINGERS 1,000 ML IV ONE (06:31)
[2018-06-22] MEDS ORDERED: LIDOCAINE 1% 20 ML VIAL (10MG/ML) FOR IV START INTRADERMA ONE (06:32)
--- NOTE | 2018-06-22 08:06 | P.PCN ---
Date of Procedure: 06/22/18 Procedure(s) Performed: PREOPERATIVE DIAGNOSIS:1- Cervical spondylosis with Facet Arthropathy without myelopathy. 2-cervicogenic headache. 3-postlaminectomy pain syndrome , cervical area. POSTOPERATIVE DIAGNOSIS: Same as preop diagnosis. PROCEDURES: Radiofrequency thermocoagulation, left C3-4 , C4-5 , C5-6 medial branch with Fluroscopy [place] ANESTHESIA: moderate sedation with fentanyl 100 micrograms ,and Versed. 2 mg EBL: Minimal PROCEDURE INDICATION: The patient with neck pain secondary to cervical arthropathy who had more than 50% relief of her pain with previous diagnostic cervical medial branch block. PROCEDURE DESCRIPTION / TECHNIQUE: The patient was seen and identified in the preoperative area. Risks, benefits, complications, and alternatives were discussed with the patient, the patient agreed to proceed with the procedure and signed the consent. IV was started. Vital signs remained stable throughout the procedure. Patient was taken to the OR and time out was completed. The patient was placed in the prone position on the procedure table. A pillow was placed under the patients chest to increase the cervical interlaminar space. The cervical area was prepped and draped in the usual sterile fashion. Critical pause was taken. Vital signs were closely monitored during the procedure. Conscious sedation was used during the procedure to decrease patients anxiety. Using cross-table lateral fluoroscopy, the centroid of the trapezoid of left C3, C4, C5, were identified, marked, and localized with 1% lidocaine. Subsequ ently, a 20 [id number] radiofrequency cannula with a 10-mm active tip was advanced guided by fluoroscopy to the centroid of the trapezoid of left C3, C4, C5. Needle tip position was confirmed at the centroid of the trapezoids of left C3, C4, C5, with anteroposterior fluoroscopy. Each site then underwent sensory testing at 50 Hz and 0 to 1 volt and motor testing at 2 Hz and 0 to 3 volt with local stimulation, but no radicular symptoms down the arm. Thereafter the left C3, C4, C5 sites underwent radiofrequency thermocoagulation at 80 degrees celsius for 90 seconds after injecting 0.5 ml of PF lidocaine 1%. After thermocoagulation, 1 ml of the block solution containing Depo-Medrol 40 mg and 3 mL of preservative-free normal saline was injected at the left C3, C4, C5, levels after negative aspiration of CSF and blood and with no paresthesias. Cannulas were retracted while injecting lidocaine 1% until the needle is out. Skin was cleansed and bandages were applied. COMPLICATIONS: No acute complications. DISPOSITION / PLANS: The patient was placed in a supine position and transferred to the recovery area in a stable condition for observation and was discharged from the recovery room after meeting discharge criteria. Home discharge instructions given to the patient by the staff. The patient was reexamined prior to discharge. The patient will schedule a follow up in the [facility] in 2-4 weeks.
[2018-06-22] MEDS ORDERED: IV FLUID CONTINUATION 400 ML IV ONE (08:14)
--- NOTE | 2018-06-22 08:17 | FL ---
EXAMINATION TYPE: FL guided pain mgmt statistic DATE OF EXAM: 06/22/2018 HISTORY: Flouroscopy time 29 seconds of fluoroscopy provided. IMPRESSION: 1. Fluoroscopy time.
[2018-06-22 08:39] VITALS: BP 148/77; PULSE 70
== END 2018-06-22 08:44 | disposition home or self-care (01) ==
LOC: ORPAIN 06:11
PROVIDERS: ATTEND Specialist
DX: M47.812 Spondylosis without myelopathy or radiculopathy, cervical region (principal); M96.1 Postlaminectomy syndrome, not elsewhere classified; R51 Headache
CPT/HCPCS: 64633; 64634 ×2; J2250; J1030; J3010; 99152; 99153

== ENCOUNTER → 2019-03-18 | Outpatient (CLI) | payer BC ==
[2019-03-18 13:36] VITALS: BP 153/63; PULSE 67; RESP 18
--- NOTE | 2019-03-24 08:24 | P.PAINPG ---
Subjective Progress Note Date: 03/18/19 This is follow-up visit for this 58-year-old patient with a history of severe and chronic neck pain , patient had 2 anterior cervical fusion surgery and one posterior fusion surgery, and he is diagnosed with cervical spondylosis , failed back surgery syndrome cervical area. He last underwent radiofrequency ablation to C3, C4, C5, left side done in June 2018. He was then lost to follow- up. He returns today. He reports that this procedure helped him for about 6 months, greater than 50%. 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 Today, his pain is primarily located in his neck, it is generally worse on the left side, however he has noticed a tender point on the right side that seems to be bothering him quite a bit. Pain is rated as 4-8/10. Pain is better with medications and procedures, worse with moving his head and cold weather. Patients currently on [place] 10/325 milligrams 3 times a day, Aleve, baclofen. He is obtaining these medications from primary care physician Patient denies any side effects of the medication, denies excessive drowsiness or sleepiness, denies suicidal ideation, and reports that the current pain medication is helping control the pain , and improves activity of daily living Review of systems is negative for chest pain, new onset weakness, numbness/tingling, abdominal pain, malaise, fever, night sweats, chills, homicidal or suicidal ideation, or bowel or bladder incontinence. Physical exam: Vitals: Reviewed in EMR GENERAL: Well appearing, in no acute distress PSYCH: Mood and affect is appropriate. Awake, alert, and oriented SKIN: Skin color, texture, turgor normal, no rashes or lesions HEENT: Normocephalic, atraumatic. EOM intact CV: No pedal edema RESP: Respirations are unlabored, no audible wheezing GI: Abdomen non-distended MUSCULOSKELETAL: Bilateral upper extremity strength is normal and symmetric. No atrophy or tone abnormalities are noted. Neck: Tenderness to palpation over the cervical paraspinous muscles bilaterally, palpable trigger point on left side. Spurling negative, Axial Loading Test neg ative, Arriaga's sign negative. Limited neck range of motion. Extremities: Peripheral joint ROM is full and pain free without obvious instability or laxity in all four extremities. No edema or skin discolorations noted. Gait: Gait is normal NEUR: Bilateral upper extremity coordination and muscle stretch reflexes are physiologic and symmetric. Negative clonus bilaterally. No loss of sensation is noted. Assessment and plan = Chronic neck pain secondary to cervical facet arthropathy without myelopathy and failed back surgery syndrome cervical area Patient had good relief from prior radiofrequency ablation of the cervical area- C3, C4, C5. He would like to proceed with repeat radiofrequency ablation, left side first. We will also perform trigger point injections to right cervical paraspinous musculature. If patient continues to have pain following this procedure, will schedule right sided C3,4,5 RFA. Patient will continue to obtain his pain medication from his primary care PQRS Measure Charge Sheet Measure #130: Documentation of Current Meds in Medical Chart: Patient's medications documented in chart Measure #226: Tobacco Use: Screen & Cessation Intervention: Pt not a tobacco u ser Measure #111: Pneumonia Vaccination: Pneumococcal vaccine NOT administered or previously given Measure #47: Advance Care Plan: Advance care planning discussed & documented, pt chose/unable to give Measure #412: Opioid Treatment Agreement: No documentation of signed opioid treatment agreement Measure #408: Opioid Therapy Follow-up Evaluation: Patient had NO f/u eval minimum every 3 months during opioid therapy Measure #317: Preventitive Care & Scrn High Bld Press & F/U: Blood pressure elevated and he will follow up with the primary care. Measure #128: Body Mass Index (BMI) Screening & Follow-up: BMI documented ABOVE normal parameters - f/u documented Measure #131: Pain Assessment & Follow-up: Pain positive & plan documented, Follow-up scheduled Measure #431: Unhealthy Alcohol Use Preventative Care & Scrn: Patient not identified as an unhealthy alcohol user Objective - Vital Signs Vital signs: Vital Signs Temp Pulse 67 03/18/19 13:30 Resp 18 03/18/19 13:30 BP 153/63 03/18/19 13:30 Pulse Ox 99 03/18/19 13:30 PQRS Measure Charge Sheet PQRS Narrative: Smoking Status Former smoker Blood Pressure 153/63 Pain Intensity [Neck] 4 Scale Used Numeric (1 - 10) Hx Alcohol Use (MH) No: LAST DRINK 19YRS AGO Home Medications: Ambulatory Orders Atorvastatin [Lipitor] 10 mg PO DAILY 12/18/16 Omeprazole [PriLOSEC] 10 mg PO DAILY 12/18/16 Tamsulosin [Flomax] 0.4 mg PO DAILY 12/18/16 Losartan [Cozaar] 50 mg PO HS 03/25/18 Sertraline [Zoloft] 100 mg PO HS 04/29/18 Baclofen [Lioresal] 10 mg PO HS 05/04/18 Levothyroxine Sodium [Synthroid] 112 mcg PO DAILY 05/04/18 Multivitamins, Thera [Multivitamin (formulary)] 1 tab PO DAILY 05/04/18 Naproxen Sodium [Aleve] 660 mg PO HS 05/04/18 Hydrocodone/Acetaminophen [[place] 10-325] 1 tab PO TID 03/15/19 Controlled Substance Measures - Controlled Substance Measures Is patient prescribed a controlled substance at discharge?: No
== END | disposition home or self-care (01) ==
LOC: PNWHC3 13:24
PROVIDERS: ATTEND Anesthesiology
DX: G89.29 Other chronic pain (principal); M46.92 Unspecified inflammatory spondylopathy, cervical region; M96.1 Postlaminectomy syndrome, not elsewhere classified; Z98.890 Other specified postprocedural states; Z87.891 Personal history of nicotine dependence; Z79.890 Hormone replacement therapy; Z79.891 Long term (current) use of opiate analgesic; Z79.1 Long term (current) use of non-steroidal anti-inflammatories (NSAID); Z79.899 Other long term (current) drug therapy
CPT/HCPCS: 99211

== ENCOUNTER 2019-03-31 08:34 | Day surgery (SDC) | payer BC ==
[2019-03-30 10:01] VITALS: BMI 28.8
[~2019-03-31 08:34] MED LIST changes: +BUPIVACAINE (PF) 0.5% 30 ML VIAL ONE; +LACTATED RINGERS 1,000 ML IV SCH; +MIDAZOLAM 2 MG/2 ML VIAL ONE; -SODIUM CHLORIDE 0.9% 500 ML 500 ML IV SCH; +fentaNYL (PF) 50 MCG/ML 2 ML AMP ONE; +methylPREDNISolone ACETATE 40 MG/ML 1 ML VIAL ONE
[2019-03-31 08:51] VITALS: RESP 18; TEMP 97.9
--- NOTE | 2019-03-31 09:19 | P.GSHP ---
History of Present Illness H&P Date: 03/31/19 This is 58 years old male with Chronic neck pain secondary to cervical facet arthropathy without myelopathy and failed back surgery syndrome cervical area, and myofascial pain syndrome and cervical area Patient here today to have radiofrequency ablation of the cervical area- left C3, C4, C5. We will also perform trigger point injections to right cervical paraspinous musculature. Past Medical History Past Medical History: Cancer, COPD, GERD/Reflux, Hearing Disorder / Deafness, Hyperlipidemia, Hypertension, Prostate Disorder, Thyroid Disorder Additional Past Medical History / Comment(s): non-small cell lung cancer with previous left upper lobe resection 2010,torn bicep muscle rt shoulder- wt limit #10, recen coughing up blood/fungal lung infection from "dirt" on bronchoscopy, finished antifungal for this History of Any Multi-Drug Resistant Organisms: None Reported Past Surgical History: Back Surgery, Orthopedic Surgery Additional Past Surgical History / Comment(s): RT KNEE/RT UPPER LOBECTOMY, [facility] PROCEDURES. 3 neck surgeries, 2 fusions and a leola, bronchoscopy Past Anesthesia/Blood Transfusion Reactions: No Reported Reaction Smoking Status: Former smoker - Past Family History Father Family Medical History: Cancer Additional Family Medical History / Comment(s): LUNG Mother Family Medical History: COPD Medications and Allergies Home Medications Medication Instructions Recorded Confirmed Type RX: Atorvastatin [Lipitor] 10 mg PO DAILY 12/18/16 03/31/19 History RX: Omeprazole [PriLOSEC] 10 mg PO DAILY 12/18/16 03/31/19 History RX: Tamsulosin [Flomax] 0.4 mg PO DAILY 12/18/16 03/31/19 History RX: Losartan [Cozaar] 50 mg PO HS 03/25/18 03/31/19 History RX: Sertraline [Zoloft] 100 mg PO HS 04/29/18 03/31/19 History RX: Baclofen [Lioresal] 10 mg PO HS 05/04/18 03/31/19 History RX: Levothyroxine Sodium 112 mcg PO DAILY 05/04/18 03/31/19 History [Synthroid] RX: Multivitamins, Thera 1 tab PO DAILY 05/04/18 03/31/19 History [Multivitamin (formulary)] RX: Naproxen Sodium [Aleve] 660 mg PO HS 05/04/18 03/31/19 History Hydrocodone/Acetaminophen [[place] 1 tab PO TID 03/15/19 03/31/19 History 10-325] Allergies Allergy/AdvReac Type Severity Reaction Status Date / Time No Known Allergies Allergy Verified 03/31/19 08:46 Surgical - Exam Vital Signs Temp Pulse Resp BP Pulse Ox 97.9 F 69 18 182/87 99 03/31/19 08:49 03/31/19 08:49 03/31/19 08:49 03/31/19 08:49 03/31/19 08:49 -Constitutiona : Cooperative , not in acute distress .. - Respiratory : Chest clear to auscultations Bilaterally , no wheezing , no Rhonchi . - Cardiovascula : regular rate and rhythem , S1 , S2 , no S3 , no S4. - Gastrointestina : abdomen soft no tenderness , bowel sounds , no organomegally - neurologic : Cranial nerve II to XII intact , no focal neurological deffecit . -psychatric : alert , oriented X 3 , appropriate affect , intact judgment and insight . - musculoskeltal : Cervical Spine motor stregnth in the deltoid and biceps, normal right side , normal Left side Facet loading test positive in the cervical area bilaterally. Multiple trigger point identified in the right side cervical paraspinal muscles Lumber spine moter stegnth lower extremities ,thigh and legs 5/5 Right side , 5/5 Left side Fabere test= positive Right , and positive LT . Assessment and Plan Plan: Assessment and plan=1-cervical spondylosis with cervical facet arthropathy without myelopathy. 2-failed back surgery syndrome cervical area. 3-myofascial pain syndrome cervical area. pateint here today to have RFA of the medial branch left side cervical area, and trigger point injection right cervical paraspinal muscles Time with Patient: Less than 30
--- NOTE | 2019-03-31 09:55 | P.PCN ---
Date of Procedure: 03/31/19 Procedure(s) Performed: PREOPERATIVE DIAGNOSIS:1- Cervical spondylosis with Facet Arthropathy without myelopathy. 2-myofascial pain syndrome cervical 3-postlaminectomy pain syndrome , cervical area. POSTOPERATIVE DIAGNOSIS: Same as preop diagnosis. PROCEDURES: 1- Radiofrequency thermocoagulation, left C4 , C5 medial branch with Fluroscopy [place] 2- Trigger point injection right side paraspinal muscles ( total of 2 trigger point injected on the right side paraspinal muscles ) ANESTHESIA: moderate sedation with fentanyl 100 micrograms ,and Versed. 2 mg EBL: Minimal PROCEDURE INDICATION: The patient with neck pain secondary to cervical arthropathy who had more than 50% relief of her pain with previous diagnostic cervical medial branch block. PROCEDURE DESCRIPTION / TECHNIQUE: The patient was seen and identified in the preoperative area. Risks, benefits, complications, and alternatives were discussed with the patient, the patient agreed to proceed with the procedure and signed the consent. IV was started. Vital signs remained stable throughout the procedure. Patient was taken to the OR and time out was completed. The patient was placed in the prone position on the procedure table. A pillow was placed under the patients chest to increase the cervical interlaminar space. The cervical area was prepped and draped in the usual sterile fashion. Critical pause was taken. Vital signs were closely monitored during the procedure. Conscious sedation was used during the procedure to decrease patients anxiety. Using cross-table lateral fluoroscopy, the centroid of the trapezoid of left C4, C5, were identified, marked, and localized with 1% lidocaine. Subsequently, a 20 [id number] radiofrequency cannula with a 10-mm active tip was advanced guided by fluoroscopy to the centroid of the trapezoid of left C4, C5. Needle tip position was confirmed at the centroid of the trapezoids of left C4, C5, with anteroposterior fluoroscopy. Each site then underwent sensory testing at 50 Hz and 0 to 1 volt and motor testing at 2 Hz and 0 to 3 volt with local stimulation, but no radicular symptoms down the arm. Thereafter the left C4, C5 sites underwent radiofrequency thermocoagulation at 80 degrees celsius for 90 seconds after injecting 0.5 ml of PF lidocaine 1%. After thermocoagulation, 1 ml of the block solution containing Depo-Medrol 40 mg and 2 mL of preservative-free normal saline was injected at the left C4, C5, levels after negative aspiration of CSF and blood and with no paresthesias. Cannulas were retracted while injecting lidocaine 1% until the needle is out. then the trigger point injection done in sterile technique to the trigger point identified in the right side paraspinal muscles, each of the trigger point injected with ropivacaine 0.5% 2 mL using 25-gauge needle, injection done after negative aspiration and there was no paresthesia during the injection COMPLICATIONS: No acute complications. DISPOSITION / PLANS: The patient was placed in a supine position and transferred to the recovery area in a stable condition for observation and was discharged from the recovery room after meeting discharge criteria. Home discharge instructions given to the patient by the staff. The patient was reexamined prior to discharge. The patient will schedule a follow up in the clinic in 2-4 weeks. note = the plan was to do the RFA of the left side medial branch at C3, C4, C5 , but the patient had hardware at the C3 level and I was not able to visualize the centroid of the trapezoid of the C3 vertebral, for this reason I did only left C4 and C5
[2019-03-31] MEDS ORDERED: IV FLUID CONTINUATION 1,000 ML IV ONE (10:00)
[2019-03-31 10:20] VITALS: BP 164/88; PULSE 69
--- NOTE | 2019-03-31 16:00 | FL ---
EXAMINATION TYPE: FL guided pain mgmt statistic DATE OF EXAM: 03/31/2019 HISTORY: Fluoroscopy time 17 seconds of fluoroscopy provided. IMPRESSION: 1. Fluoroscopy time.
== END 2019-03-31 10:32 | disposition home or self-care (01) ==
LOC: ORPAIN 08:34
PROVIDERS: ATTEND Specialist
DX: M47.812 Spondylosis without myelopathy or radiculopathy, cervical region (principal); M79.18 Myalgia, other site; M96.1 Postlaminectomy syndrome, not elsewhere classified; J44.9 Chronic obstructive pulmonary disease, unspecified; K21.9 Gastro-esophageal reflux disease without esophagitis; H91.90 Unspecified hearing loss, unspecified ear; E78.5 Hyperlipidemia, unspecified; I10 Essential (primary) hypertension; N42.9 Disorder of prostate, unspecified; E07.9 Disorder of thyroid, unspecified; Z98.1 Arthrodesis status; Z98.890 Other specified postprocedural states; Z79.891 Long term (current) use of opiate analgesic; Z79.1 Long term (current) use of non-steroidal anti-inflammatories (NSAID); Z79.899 Other long term (current) drug therapy; Z87.891 Personal history of nicotine dependence; Z79.890 Hormone replacement therapy; Z85.118 Personal history of other malignant neoplasm of bronchus and lung; Z90.2 Acquired absence of lung [part of]; Z87.828 Personal history of other (healed) physical injury and trauma; Z86.19 Personal history of other infectious and parasitic diseases; Z80.1 Family history of malignant neoplasm of trachea, bronchus and lung; Z82.5 Family history of asthma and other chronic lower respiratory diseases
CPT/HCPCS: 20552; 64633; J2250; J1030; J3010; 64634; 99152; 99153

== ENCOUNTER → 2019-06-10 | Outpatient (CLI) | payer BC ==
--- NOTE | 2019-06-10 10:02 | MR ---
EXAMINATION TYPE: MR brain wo/w con DATE OF EXAM: 06/10/2019 COMPARISON: NONE HISTORY: Lung ca, evaluating for metastatic disease TECHNIQUE: Multiplanar, multisequence images of the brain and brainstem is performed without and with IV contras t, utilizing 8.5 mL intravenous Gadavist . FINDINGS: Diffusion weighted images demonstrate no evidence of a recent infarct or other diffusion ab normality. There is no worrisome extra-axial fluid collection. The ventricular system and cisternal spaces are normal in size and appearance. The brain volume is age appropriate. Occasional T2 hyperi ntense focus for reference 2 to 3 mm lesion right frontal lobe axial image 26. Finding likely on basi s of product of minimal chronic small vessel ischemic change. Midline structures demonstrate normal morphology. The craniocervical junction appears within normal limits. Post contrast images demonstrate no abnormal enhancement. The dural venous sinuses appear pa tent. The globes are intact. Mild mucosal thickening bilateral ethmoid sinuses. Nasal septum deviated to right of midline. IMPRESSION: No suspicious enhancing masses to suggest metastatic to the brain.
== END | disposition home or self-care (01) ==
LOC: RADMRIMAIN 08:45
PROVIDERS: ATTEND Internal Medicine Hematology & Oncology
DX: C34.12 Malignant neoplasm of upper lobe, left bronchus or lung (principal)
CPT/HCPCS: 70553; A9585

== ENCOUNTER → 2019-10-07 | Outpatient (CLI) | payer BC ==
--- NOTE | 2019-10-07 09:49 | MR ---
EXAMINATION TYPE: MR brain wo/w con DATE OF EXAM: 10/07/2019 COMPARISON: Prior MRI brain June 10, 2019 HISTORY: History of lung cancer with new confusion. TECHNIQUE: Multiplanar, multisequence images of the brain and brainstem is performed without and with IV contras t, utilizing 8.5 mL intravenous Gadavist . FINDINGS: Diffusion weighted images demonstrate no evidence of a recent infarct or other diffusion ab normality. There is no worrisome extra-axial fluid collection. The ventricular system and cisternal spaces are normal in size and appearance. The brain volume is age appropriate. Rare scattered T2 hi gh intense foci redemonstrated, stable reference 2 to 3 mm high right frontal lesion axial image 25. Less than 5 distinct lesions are identified. Midline structures demonstrate normal morphology. The craniocervical junction appears within normal limits. Post contrast images demonstrate no new enhancing masses or suspicious areas of abnormal enh ancement. The dural venous sinuses appear patent. The globes remain intact bilaterally. Mild right-si ded nasal septal deviation and mucosal thickening anterior ethmoid sinuses bilaterally remains presen t. IMPRESSION: No MRI evidence for recent infarct. No suspicious enhancement or new enhancing masses to suggest metastatic disease to the brain.
== END | disposition home or self-care (01) ==
LOC: RADMRIMAIN 09:01
PROVIDERS: ATTEND Internal Medicine Hematology & Oncology
DX: C34.31 Malignant neoplasm of lower lobe, right bronchus or lung (principal); C34.12 Malignant neoplasm of upper lobe, left bronchus or lung; R41.0 Disorientation, unspecified
CPT/HCPCS: 70553; A9585

== ENCOUNTER 2019-10-27 18:31 | Inpatient (IN) | payer BC ==
--- NOTE | 2019-10-27 19:23 | ED ---
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 His last treatment was yesterday he presents with complaints of fever of 101 today also exertional dyspnea and shortness of breath while at rest. He has a chronic cough he denies any change in that. No chest pain no nausea no vomiting no other symptoms. He was cautioned to his therapy and history. Evaluated in such cases. He does have inhalers have not helped. MD Complaint: fever, other - Related Data Home Medications Medication Instructions Recorded Confirmed Atorvastatin [Lipitor] 10 mg PO DAILY 12/18/16 04/15/19 Omeprazole [PriLOSEC] 10 mg PO DAILY 12/18/16 04/15/19 Tamsulosin [Flomax] 0.4 mg PO DAILY 12/18/16 04/15/19 Losartan [Cozaar] 50 mg PO HS 03/25/18 04/15/19 Sertraline [Zoloft] 100 mg PO HS 04/29/18 04/15/19 Baclofen [Lioresal] 10 mg PO HS 05/04/18 04/15/19 Levothyroxine Sodium [Synthroid] 125 mcg PO DAILY 05/04/18 04/15/19 Multivitamins, Thera [Multivitamin 1 tab PO DAILY 05/04/18 04/15/19 (formulary)] Naproxen Sodium [Aleve] 660 mg PO HS 05/04/18 04/15/19 Hydrocodone/Acetaminophen [[place] 1 tab PO TID 03/15/19 04/15/19 10-325] Allergies Allergy/AdvReac Type Severity Reaction Status Date / Time No Known Allergies Allergy Verified 10/27/19 18:34 Review of Systems ROS Statement: Those systems with pertinent positive or pertinent negative responses have been documented in the HPI. ROS Other: All systems not noted in ROS Statement are negative. Past Medical History Past Medical History: Cancer, COPD, GERD/Reflux, Hearing Disorder / Deafness, Hyperlipidemia, Hypertension, Prostate Disorder, Thyroid Disorder Additional Past Medical History / Comment(s): non-small cell lung cancer with previous left upper lobe resection 2010,torn bicep muscle rt shoulder- wt limit #10, recen coughing up blood/fungal lung infection from "dirt" on bronchoscopy, finished antifungal for this History of Any Multi-Drug Resistant Organisms: None Reported Past Surgical History: Back Surgery, Orthopedic Surgery Additional Past Surgical History / Comment(s): RT KNEE/RT UPPER LOBECTOMY, [facility] PROCEDURES. 3 neck surgeries, 2 fusions and a leola, bronchoscopy Past Anesthesia/Blood Transfusion Reactions: No Reported Reaction Past Psychological History: Anxiety Smoking Status: Former smoker Past Alcohol Use History: None Reported Past Drug Use History: None Reported, Marijuana - Past Family History Father Family Medical History: Cancer Additional Family Medical History / Comment(s): LUNG Mother Family Medical History: COPD General Exam - General Exam Comments Initial Comments: This is a well-developed well-nourished awake alert oriented times 3 male Limitations: no limitations General appearance: alert, anxious Head exam: Present: atraumatic, normocephalic, normal inspection Eye exam: Present: normal appearance, PERRL, EOMI. Absent: scleral icterus, conjunctival injection, periorbital swelling ENT exam: Present: normal exam, mucous membranes moist Neck exam: Present: normal inspection, full ROM, other (No stridor JVD or bruits). Absent: tenderness, meningismus, lymphadenopathy Respiratory exam: Present: wheezes, decreased breath sounds. Absent: respiratory distress, rales, rhonchi, stridor Cardiovascular Exam: Present: normal rhythm, tachycardia, normal heart sounds. Absent: systolic murmur, diastolic murmur, rubs, gallop, clicks GI/Abdominal exam: Present: soft, normal bowel sounds. Absent: distended, tenderness, guarding, rebound, rigid Extremities exam: Present: normal inspection, full ROM, normal capillary refill. Absent: tenderness, pedal edema, joint swelling, calf tenderness Back exam: Present: normal inspection Neurological exam: Present: alert, oriented X3, CN II-XII intact Psychiatric exam: Present: normal affect, normal mood Skin exam: Present: warm, dry, intact, normal color. Absent: rash Course Vital Signs 10/27/19 18:34 Temperature 99.9 F H Pulse Rate 107 H Respiratory 18 Rate Blood Pressure 119/74 O2 Sat by Pulse 94 L Oximetry Medical Decision Making - Medical Decision Making The patient admitted I did discuss case with Dr. Jimenez and Dr. Jensen. - Lab Data Result diagrams: 10/27/19 19:24 10/27/19 19:24 Lab Results 10/27/19 10/27/19 10/27/19 Range/Units 19:24 19:24 19:24 WBC 8.2 (3.8-10.6) k/uL RBC 3.27 L (4.30-5.90) m/uL Hgb 10.5 L (13.0-17.5) gm/dL Hct 31.0 L (39.0-53.0) % MCV 94.7 (80.0-100.0) fL MCH 32.2 (25.0-35.0) pg MCHC 33.9 (31.0-37.0) g/dL RDW 12.5 (11.5-15.5) % Plt Count 247 (150-450) k/uL Neutrophils % 82 % Lymphocytes % 4 % Monocytes % 7 % Eosinophils % 3 % Basophils % 0 % Neutrophils # 6.8 (1.3-7.7) k/uL Lymphocytes # 0.3 L (1.0-4.8) k/uL Monocytes # 0.6 (0-1.0) k/uL Eosinophils # 0.2 (0-0.7) k/uL Basophils # 0.0 (0-0.2) k/uL Sodium 132 L (137-145) mmol/L Potassium 3.9 (3.5-5.1) mmol/L Chloride 100 (98-107) mmol/L Carbon Dioxide 24 (22-30) mmol/L Anion Gap 8 mmol/L BUN 16 (9-20) mg/dL Creatinine 0.83 (0.66-1.25) mg/dL Est GFR (CKD-EPI)AfAm >90 (>60 ml/min/1.73 sqM) Est GFR (CKD-EPI)NonAf >90 (>60 ml/min/1.73 sqM) Glucose 103 H (74-99) mg/dL Plasma Lactic Acid Luiz 0.9 (0.7-2.0) mmol/L Calcium 8.9 (8.4-10.2) mg/dL Magnesium 1.7 (1.6-2.3) mg/dL Total Bilirubin 0.5 (0.2-1.3) mg/dL AST 37 (17-59) U/L ALT 21 (4-49) U/L Alkaline Phosphatase 75 (38-126) U/L Creatine Kinase 198 H (55-170) U/L Total Protein 6.7 (6.3-8.2) g/dL Albumin 3.9 (3.5-5.0) g/dL Influenza Type A RNA (Not Detectd) Influenza Type B (PCR) (Not Detectd) 10/27/19 Range/Units 19:49 WBC (3.8-10.6) k/uL RBC (4.30-5.90) m/uL Hgb (13.0-17.5) gm/dL Hct (39.0-53.0) % MCV (80.0-100.0) fL MCH (25.0-35.0) pg MCHC (31.0-37.0) g/dL RDW (11.5-15.5) % Plt Count (150-450) k/uL Neutrophils % % Lymphocytes % % Monocytes % % Eosinophils % % Basophils % % Neutrophils # (1.3-7.7) k/uL Lymphocytes # (1.0-4.8) k/uL Monocytes # (0-1.0) k/uL Eosinophils # (0-0.7) k/uL Basophils # (0-0.2) k/uL Sodium (137-145) mmol/L Potassium (3.5-5.1) mmol/L Chloride (98-107) mmol/L Carbon Dioxide (22-30) mmol/L Anion Gap mmol/L BUN (9-20) mg/dL Creatinine (0.66-1.25) mg/dL Est GFR (CKD-EPI)AfAm (>60 ml/min/1.73 sqM) Est GFR (CKD-EPI)NonAf (>60 ml/min/1.73 sqM) Glucose (74-99) mg/dL Plasma Lactic Acid Luiz (0.7-2.0) mmol/L Calcium (8.4-10.2) mg/dL Magnesium (1.6-2.3) mg/dL Total Bilirubin (0.2-1.3) mg/dL AST (17-59) U/L ALT (4-49) U/L Alkaline Phosphatase (38-126) U/L Creatine Kinase (55-170) U/L Total Protein (6.3-8.2) g/dL Albumin (3.5-5.0) g/dL Influenza Type A RNA Not Detected (Not Detectd) Influenza Type B (PCR) Not Detected (Not Detectd) - Radiology Data Radiology results: report reviewed (I did review the imaging and report patient does have evidence of new infiltrates bilaterally.), image reviewed Disposition Clinical Impression: Acute pneumonia, Acute bronchospasm, Febrile illness, acute, Small cell lung cancer in adult Disposition: ADMITTED IP TO THIS HOSP Condition: Fair Referrals: Ross Jensen MD [Primary Care Provider] - 1-2 days
[2019-10-27 19:29] LABS: Basophils % (A) 0 %; Eosinophils # (A) 0.2 k/uL (0-0.7); Eosinophils % (A) 3 %; HGB 10.5 gm/dL (13.0-17.5); Lymphocytes # (A) 0.3 k/uL (1.0-4.8); Lymphocytes % (A) 4 %; MCH 32.2 pg (25.0-35.0); MCHC 33.9 g/dL (31.0-37.0); MCV 94.7 fL (80.0-100.0); Mean Platelet Volume 7.2; Monocytes # (A) 0.6 k/uL (0-1.0); Monocytes % (A) 7 %; Neutrophils # (A) 6.8 k/uL (1.3-7.7); Neutrophils % (A) 82 %; Platelet Count 247 k/uL (150-450); RBC 3.27 m/uL (4.30-5.90); RDW 12.5 % (11.5-15.5); WBC 8.2 k/uL (3.8-10.6)
[2019-10-27 19:38] LABS: ALT 21 U/L (4-49); AST 37 U/L (17-59); African American GFR (CKD) >90 (>60 ml/min/1.73 sqM); Albumin 3.9 g/dL (3.5-5.0); Alkaline Phosphatase 75 U/L (38-126); Anion Gap 8 mmol/L; Blood Urea Nitrogen 16 mg/dL (9-20); Calcium 8.9 mg/dL (8.4-10.2); Carbon Dioxide 24 mmol/L (22-30); Chloride 100 mmol/L (98-107); Creatine Kinase 198 U/L (55-170); Glucose 103 mg/dL (74-99); Magnesium 1.7 mg/dL (1.6-2.3); Non-African American GFR(CKD) >90 (>60 ml/min/1.73 sqM); Potassium 3.9 mmol/L (3.5-5.1); Sodium 132 mmol/L (137-145); Total Bilirubin 0.5 mg/dL (0.2-1.3); Total Protein 6.7 g/dL (6.3-8.2)
[2019-10-27] MEDS ORDERED: IPRATROPIUM-ALBUTEROL 3 ML NEB INHALATION STA (20:00)
--- NOTE | 2019-10-27 20:22 | XR ---
EXAMINATION TYPE: XR chest 2V DATE OF EXAM: 10/27/2019 COMPARISON: Chest x-ray May 04, 2018 and September 30, 2019. Most recent CT May 05, 2018. HISTORY: History of lung cancer with shortness of breath and cough. TECHNIQUE: Frontal and lateral views of the chest are obtained. FINDINGS: There is background mild underlying emphysematous change with new bilateral central opacit ies greater in the periphery. No pleural effusion or pneumothorax seen bilaterally. Right apical prom inence or tiny lung herniation redemonstrated. Stable slight right-sided volume loss. The cardiac rochelle houette size remains within normal limits. The osseous structures are intact. IMPRESSION: New bilateral peripheral multilobar acute infiltrates greatest superior aspect bilateral lower lobes. Given multifocal more peripheral distribution, covid-19 infection is in differential. Co rrelate clinically.
[2019-10-27] MEDS ORDERED: PNEUMONIA PROTOCOL UTILIZED 1 EACH MISC PO PRN (20:49)
[2019-10-27] MEDS ORDERED: MEROPENEM 1 GM in SODIUM CHLORIDE 0.9% 100 ML IVPB STA (20:57)
[2019-10-27] MEDS: NAPROXEN 250 MG TAB PO SCH (22:27)
[2019-10-27] MEDS: SODIUM CHLORIDE 0.9% 1,000 ML IV SCH (22:28)
[2019-10-27] MEDS: SERTRALINE 100 MG TAB PO SCH (22:28)
[2019-10-27] MEDS: LOSARTAN 50 MG TAB PO SCH (22:28)
[2019-10-27] MEDS: HYDROcodone/APAP 10-325MG 1 EACH TAB PO SCH (22:28)
[2019-10-27] MEDS: BACLOFEN 10 MG TAB PO SCH (22:28)
[2019-10-27] MEDS: IPRATROPIUM-ALBUTEROL 3 ML NEB INHALATION SCH (23:22)
[2019-10-28] MEDS ORDERED: IPRATROPIUM-ALBUTEROL 3 ML NEB ONE (03:35)
[2019-10-28] MEDS: LEVOTHYROXINE 50 MCG TAB PO SCH (06:04)
[2019-10-28] MEDS: SODIUM CHLORIDE 0.9% 1,000 ML IV SCH ×2 (06:05→22:03)
[2019-10-28] MEDS ORDERED: LEVOTHYROXINE 125 MCG TAB PO SCH (06:30)
[2019-10-28] MEDS: IPRATROPIUM-ALBUTEROL 3 ML NEB INHALATION SCH ×5 (09:18→21:03)
--- NOTE | 2019-10-28 09:25 | P.HPIM ---
History of Present Illness H&P Date: 10/28/19 Chief Complaint: Fever Navi Coulter, is a 59 -year-old male who presented to 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 Patino, in april 2018 patient presented to the hospital with cough and shortness of breath computed tomography scan revealed no evidence of cancer recurrence. Patient is followed by Dr. Rahman and receiving immunothe rapy, his last dose was on Friday. Patient stated that yesterday after work he felt very tired and had elevated temperature he called Dr. Rahman's office and was told to come to emergency room patient was also complaining of shortness of breath and upper back pain otherwise he denies any complaints there is no headache or dizziness no chest pain he had occasional cough no nausea or vomiting no abdominal pain no diarrhea no burning with urination no frequency or urgency and no hematuria. Patient was evaluated in the emergency room his temperature on presentation was 99.9 pulse 107 respiration 18 blood pressure 119/74 pulse ox 94% on room air, laboratory data revealed a white blood count of 8.2 hemoglobin 10.5 sodium 132 and creatinine kinase of 198 otherwise normal labs influenza A and B were negative Covid 19 testing is still pending. Chest x-ray revealed innumerable bilateral perihilar multilobar acute infiltrates, patient was started on IV antibiotics in the emergency room, he was admitted to medical floor, oncology consultation and pulmonary consultation were requested. Past Medical History Past Medical History: Cancer, COPD, GERD/Reflux, Hearing Disorder / Deafness, Hyperlipidemia, Hypertension, Prostate Disorder, Thyroid Disorder Additional Past Medical History / Comment(s): non-small cell lung cancer with previous left upper lobe resection 2010,torn bicep muscle rt shoulder- wt limit #10, recent coughing up blood/fungal lung infection from "dirt" on bronchoscopy, finished antifungal for this History of Any Multi-Drug Resistant Organisms: None Reported Past Surgical History: Back Surgery, Orthopedic Surgery Additional Past Surgical History / Comment(s): RT KNEE/RT UPPER LOBECTOMY, [facility] PROCEDURES. 3 neck surgeries, 2 fusions and a leola, bronchoscopy Past Anesthesia/Blood Transfusion Reactions: No Reported Reaction Past Psychological History: Anxiety Smoking Status: Former smoker Past Alcohol Use History: None Reported Additional Past Alcohol Use History / Comment(s): QUIT DRINKING 1998 STARTED SMOKING AT AGE 11. quit smoking 2008 SMOKED 3 PACKS A DAY . Sober for 20 years Past Drug Use History: None Reported, Marijuana Additional Drug Use History / Comment(s): ate a little piece of brownie - Past Family History Father Family Medical History: Cancer Additional Family Medical History / Comment(s): LUNG Mother Family Medical History: COPD Medications and Allergies Home Medications Medication Instructions Recorded Confirmed Type Atorvastatin [Lipitor] 10 mg PO DAILY 12/18/16 10/27/19 History Omeprazole [PriLOSEC] 10 mg PO DAILY 12/18/16 10/27/19 History Tamsulosin [Flomax] 0.4 mg PO DAILY 12/18/16 10/27/19 History Losartan [Cozaar] 50 mg PO HS 03/25/18 10/27/19 History Sertraline [Zoloft] 100 mg PO HS 04/29/18 10/27/19 History Baclofen [Lioresal] 10 mg PO HS 05/04/18 10/27/19 History Hydrocodone/Acetaminophen [[place] 1 tab PO Q8H PRN 03/15/19 10/27/19 History 10-325] Fluticasone/Umeclidin/Vilanter 1 puff INHALATION RT-DAILY 10/27/19 10/27/19 History [Trelegy Ellipta 100-62.5-25] LORazepam [Ativan] 0.5 mg PO BID PRN 10/27/19 10/27/19 History Levothyroxine Sodium [Synthroid] 150 mcg PO QAM 10/27/19 10/27/19 History Allergies Allergy/AdvReac Type Severity Reaction Status Date / Time No Known Allergies Allergy Verified 10/27/19 18:34 Physical Exam Vitals: Vital Signs Temp Pulse Pulse Resp BP BP Pulse Ox 10/28/19 07:00 97.7 F 76 16 135/59 93 L 10/28/19 03:50 20 10/28/19 03:45 84 10/28/19 03:35 80 10/28/19 01:08 98.2 F 80 20 102/59 94 L 10/27/19 23:49 18 09/09/20 23:36 88 18 10/27/19 23:24 90 18 10/27/19 22:25 98.1 F 86 20 135/60 94 L 10/27/19 21:24 18 10/27/19 21:06 98.2 F 96 18 134/70 94 L 10/27/19 20:53 79 10/27/19 20:45 79 10/27/19 18:34 99.9 F H 107 H 18 119/74 94 L Intake and Output 10/27/19 10/28/19 10/28/19 22:59 06:59 14:59 Intake Total 1100 Balance 1100 Intake: Intake, IV Titration 1100 Amount Meropenem 1 gm In Sodium 100 Chloride 0.9% 100 ml @ 200 mls/hr IVPB Q8HR PORTER Rx#:[id number] Sodium Chloride 0.9% 1, 1000 000 ml @ 100 mls/hr IV . Q10H PORTER Rx#:[id number] Other: Voiding Method Toilet # Voids 2 Weight 86.183 kg In general patient is alert and oriented 3 in no distress HEENT head normocephalic and atraumatic Neck is supple no JVD no goiter no lymphadenopathy Chest exam reveals a crackles in both lung bases no wheezing Cardiac exam reveals regular heart sounds S1 and S2 no gallops no murmurs Abdomen is soft nontender no organomegaly with normal bowel sounds Extremity exam reveals no edema no cyanosis or clubbing Neurological examination reveals no gross focal deficit Results CBC & Chem 7: 10/27/19 19:24 10/27/19 19:24 Labs: Abnormal Lab Results - Last 24 Hours (Table) 10/27/19 10/27/19 Range/Units 19:24 19:24 RBC 3.27 L (4.30-5.90) m/uL Hgb 10.5 L (13.0-17.5) gm/dL Hct 31.0 L (39.0-53.0) % Lymphocytes # 0.3 L (1.0-4.8) k/uL Sodium 132 L (137-145) mmol/L Glucose 103 H (74-99) mg/dL Creatine Kinase 198 H (55-170) U/L Thrombosis Risk Factor Assmnt - Choose All That Apply Any of the Below Risk Factors Present?: Yes Each Factor Represents 1 point: Age 41-60 years, Obesity (BMI >25) Other Risk Factors: No Other congenital or acquired thrombophilia - If yes, enter type in comment: No Thrombosis Risk Factor Assessment Total Risk Factor Score: 2 Thrombosis Risk Factor Assessment Level: Low Risk Assessment and Plan Plan: 1. Bilateral pneumonia, patient was started on imipenem in the emergency room 2. History of squamous cell carcinoma of the right upper lobe, with previous surgery in 2010 followed by chemotherapy, patient is followed by Dr. Rahman, patient states that he received immunotherapy on Friday. 3. Upper back pain, could be related to pneumonia, however patient has known history of degenerative disc disease, he received epidural injections by Dr. Clinton Dubon in March 2019 4. Underlying history of hyperlipidemia maintained on Lipitor 5. Underlying history of hypothyroidism maintained on Synthroid 150 g daily 6. Underlying history of hypertension maintained on losartan At this time medication and labs were reviewed Continue current management awaiting input from pulmonary and infectious disease Home medications reviewed and reordered For DVT prophylaxis will start subcu Lovenox for GI prophylaxis patient is on Protonix
[2019-10-28] MEDS: MEROPENEM 1 GM in SODIUM CHLORIDE 0.9% 100 ML IVPB SCH ×3 (09:30→23:13)
[2019-10-28] MEDS: MULTIVITAMINS, THERA 1 EACH TAB PO SCH (09:30)
[2019-10-28] MEDS: PANTOPRAZOLE 40 MG TABLET PO SCH (09:30)
[2019-10-28] MEDS: ATORVASTATIN 10 MG TAB PO SCH (09:30)
[2019-10-28] MEDS: HYDROcodone/APAP 10-325MG 1 EACH TAB PO SCH ×3 (09:30→20:51)
[2019-10-28] MEDS: TAMSULOSIN 0.4 MG CAP.ER.24H PO SCH (09:30)
--- NOTE | 2019-10-28 09:58 | XR ---
EXAMINATION TYPE: XR chest 1V DATE OF EXAM: 10/28/2019 COMPARISON: 10/27/2019 HISTORY: Cough possible pneumonia TECHNIQUE: Single frontal view of the chest is obtained. FINDINGS: Bilateral airspace disease. Hyperinflation suggests COPD. Right thoracic cage rib resectio n noted. Heart size is normal. Right-sided pleural thickening or tiny effusion. No overt failure. IMPRESSION: 1. COPD with persistent bilateral areas of consolidation which could been the basis of multifocal pne umonia. Follow-up to resolution to exclude neoplasm.
[2019-10-28] MEDS: ENOXAPARIN 40 MG/0.4 ML SYRINGE SQ SCH (13:20)
[2019-10-28 14:26] LABS: C Reactive Protein 213.8 mg/L (<10.0)
--- NOTE | 2019-10-28 14:52 | P.CNPUL ---
History of Present Illness Consult date: 10/28/19 Requesting physician: Ross Jensen Reason for consult: dyspnea, other Chief complaint: Dyspnea, shortness of breath, fever History of present illness: 59-year-old white male patient of Dr. Jensen, with past medical history of squamous cell carcinoma, status post right upper lobe resection in 2010 was treated with chemoradiation, with a recent recurrence, patient had a PET scan on all 05/07/2019 showing suspicious uptake in the right lower lobe in the left hilar lymph node. Patient had a computed tomography scan guided biopsy of the right lower lobe that was positive for squamous cell carcinoma and this was done on 05/19/2019. Subsequently the patient underwent a bronchoscopy and EBUS with biopsies of the left upper lobe, left hilar lymph node and subcarinal lymph nodes and all of them were positive for squamous cell carcinoma. MRI of the brain was negative for any evidence of metastasis. 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 Patient was subjected to concurrent chemoradiation therapy, he completed chemotherapy, he had SBRT to the right lower lobe completed on 06/30/2019 which she tolerated well. He also completed concurrent chemoradiation therapy to the left upper lobe on 08/16/2019. Currently on Opdivo, receive his third dose this past Friday. Follow-up CAT scan of the chest that was done on 09/06/2019 showed significant improvement, all of his CT scans, chest x-rays, and procedures related to his recent workup for recurrence of lung cancer was done at the [facility], patient follows with Dr. Patino, Dr. Chaz Castillo from radiation oncology. Patient also follows with Dr. Dietz in the pulmonary office, his underlying FEV1 is 77% of predicted. Patient is maintained on Trelegy, rescue inhaler, he was recently treated for acute COPD exacerbation on outpatient basis. 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 For the past 2 days patient had not been feeling well, weak, febrile, short of breath. He came into the emergency department for evaluation on 10/27/2019. Patient was febrile, with a temp of 101, with the severe exertional dyspnea, shortness of breath, cough. No hemoptysis. No complaints of chest pain, no nausea vomiting, he states one of his coworkers was being tested for COVID 19. Chest x-ray showed COPD with bilateral areas of consolidation likely related to multifocal pneumonia. Of note most recent chest x-ray on 10/01/2019 showed no acute process. COVID 19 PCR is pending, influenza and B were negative. Labs showed a woman with a crit of 8.2, hemoglobin is 10.5, leukocyte count is 0.3, d-dimer was 0.65, sodium was 132, the rest of electrolytes and renal profile were within normal limits, LFTs were within normal limits, lactic acid 0.9, LDH is 661, CRP is 213. The patient was started on empiric antibiotics in the form of meropenem. Afebrile today, he is on room air, the pulse ox 93%. Review of Systems All systems: negative Constitutional: Reports malaise, Reports weakness, Denies chills, Denies fever Eyes: denies blurred vision, denies pain Ears, nose, mouth and throat: Denies headache, Denies sore throat Cardiovascular: Denies chest pain, Denies shortness of breath Respiratory: Reports cough with sputum, Reports dyspnea, Denies cough Gastrointestinal: Denies abdominal pain, Denies diarrhea, Denies nausea, Denies vomiting Musculoskeletal: Denies myalgias Integumentary: Denies pruritus, Denies rash Neurological: Denies numbness, Denies weakness Psychiatric: Denies anxiety, Denies depression Endocrine: Denies fatigue, Denies weight change Past Medical History Past Medical History: Cancer, COPD, GERD/Reflux, Hearing Disorder / Deafness, Hyperlipidemia, Hypertension, Prostate Disorder, Thyroid Disorder Additional Past Medical History / Comment(s): non-small cell lung cancer with previous left upper lobe resection 2010,torn bicep muscle rt shoulder- wt limit #10, recent coughing up blood/fungal lung infection from "dirt" on bronchoscopy, finished antifungal for this History of Any Multi-Drug Resistant Organisms: None Reported Past Surgical History: Back Surgery, Orthopedic Surgery Additional Past Surgical History / Comment(s): RT KNEE/RT UPPER LOBECTOMY, [facility] PROCEDURES. 3 neck surgeries, 2 fusions and a leola, bronchoscopy Past Anesthesia/Blood Transfusion Reactions: No Reported Reaction Past Psychological History: Anxiety Smoking Status: Former smoker Past Alcohol Use History: None Reported Additional Past Alcohol Use History / Comment(s): QUIT DRINKING 1998 STARTED SMOKING AT AGE 11. quit smoking 2008 SMOKED 3 PACKS A DAY . Sober for 20 years Past Drug Use History: None Reported, Marijuana Additional Drug Use History / Comment(s): ate a little piece of brownie - Past Family History Father Family Medical History: Cancer Additional Family Medical History / Comment(s): LUNG Mother Family Medical History: COPD Medications and Allergies Home Medications Medication Instructions Recorded Confirmed Type Atorvastatin [Lipitor] 10 mg PO DAILY 12/18/16 10/27/19 History Omeprazole [PriLOSEC] 10 mg PO DAILY 12/18/16 10/27/19 History Tamsulosin [Flomax] 0.4 mg PO DAILY 12/18/16 10/27/19 History Losartan [Cozaar] 50 mg PO HS 03/25/18 10/27/19 History Sertraline [Zoloft] 100 mg PO HS 04/29/18 10/27/19 History Baclofen [Lioresal] 10 mg PO HS 05/04/18 10/27/19 History Hydrocodone/Acetaminophen [[place] 1 tab PO Q8H PRN 03/15/19 10/27/19 History 10-325] Fluticasone/Umeclidin/Vilanter 1 puff INHALATION RT-DAILY 10/27/19 10/27/19 History [Trelegy Ellipta 100-62.5-25] LORazepam [Ativan] 0.5 mg PO BID PRN 10/27/19 10/27/19 History Levothyroxine Sodium [Synthroid] 150 mcg PO QAM 10/27/19 10/27/19 History Allergies Allergy/AdvReac Type Severity Reaction Status Date / Time No Known Allergies Allergy Verified 10/27/19 18:34 Physical Exam Vitals: Vital Signs Temp Pulse Pulse Resp BP BP Pulse Ox 10/28/19 13:01 88 10/28/19 12:50 84 10/28/19 07:00 97.7 F 76 16 135/59 93 L 10/28/19 03:50 20 10/28/19 03:45 84 10/28/19 03:35 80 10/28/19 01:08 98.2 F 80 20 102/59 94 L 10/27/19 23:49 18 10/27/19 23:36 88 18 10/27/19 23:24 90 18 10/27/19 22:25 98.1 F 86 20 135/60 94 L 10/27/19 21:24 18 10/27/19 21:06 98.2 F 96 18 134/70 94 L 10/27/19 20:53 79 10/27/19 20:45 79 10/27/19 18:34 99.9 F H 107 H 18 119/74 94 L Intake and Output 10/27/19 10/28/19 10/28/19 22:59 06:59 14:59 Intake Total 1100 800 Balance 1100 800 Intake: IV 800 Sodium Chloride 0.9% 1, 800 000 ml @ 100 mls/hr IV . Q10H [facility] Rx#:[id number] Intake, IV Titration 1100 Amount Meropenem 1 gm In Sodium 100 Chloride 0.9% 100 ml @ 200 mls/hr IVPB Q8HR [facility] Rx#:[id number] Sodium Chloride 0.9% 1, 1000 000 ml @ 100 mls/hr IV . Q10H [facility] Rx#:[id number] Other: Voiding Method Toilet # Voids 2 3 Weight 86.183 kg GENERAL EXAM: Alert, very pleasant, 59-year-old white male, on room air, with a pulse ox of 93% comfortable in no apparent distress. HEAD: Normocephalic/atraumatic. EYES: Normal reaction of pupils, equal size. Conjunctiva pink, sclera white. NOSE: Clear with pink turbinates. THROAT: No erythema or exudates. NECK: No masses, no JVD, no thyroid enlargement, no adenopathy. CHEST: No chest wall deformity. Symmetrical expansion. LUNGS: Equal air entry with fine crackles at right mid posterior lung, mild left upper lobe anterior chest wheeze, no rhonchi or dullness. CVS: Regular rate and rhythm, normal S1 and S2, no gallops, no murmurs, no rubs ABDOMEN: Soft, nontender. No hepatosplenomegaly, normal bowel sounds, no guarding or rigidity. EXTREMITIES: No clubbing, no edema, no cyanosis, 2+ pulses and upper and lower extremities. MUSCULOSKELETAL: Muscle strength and tone normal. SPINE: No scoliosis or deformity SKIN: No rashes CENTRAL NERVOUS SYSTEM: Alert and oriented -3. No focal deficits, tone is normal in all 4 extremities. PSYCHIATRIC: Alert and oriented -3. Appropriate affect. Intact judgment and insight. Results - Laboratory Findings CBC and BMP: 10/27/19 19:24 10/27/19 19:24 PT/INR, D-dimer D-Dimer 0.65 mg/L FEU (<0.60) H 10/28/19 13:47 Abnormal lab findings: Abnormal Labs 10/27/19 10/27/19 10/28/19 19:24 19:24 13:47 RBC 3.27 L Hgb 10.5 L Hct 31.0 L Lymphocytes # 0.3 L D-Dimer 0.65 H Sodium 132 L Glucose 103 H Creatine Kinase 198 H - Diagnostic Findings Chest x-ray: report reviewed, image reviewed Assessment and Plan Plan: Assessment: #1. Fever, shortness of breath, bilateral areas of consolidation, likely related to multifocal pneumonia, rule out COVID 19, influenza A and B ruled out #2. Recent recurrence of squamous cell lung carcinoma, status post CT-guided biopsy of a right lower lobe, and left upper lobe, left hilar lymph node and subcarinal lymph nodes that were positive for squamous cell carcinoma, patient has completed chemotherapy and SRT to the right lower lobe completed on 06/30/2019, and concurrent chemoradiation to the left upper lobe on 08/16/2019. Currently on immunotherapy in the form of OPdivo #3. History of COPD with baseline FEV1 of 77% predicted, maintained on Trelegy, albuterol #4. History of squamous cell lung lung cancer of the right upper lobe, treated with right upper lobectemy in 2010, followed by chemotherapy #5. Former smoker, he smoking history has been in remission since 2010 #6. Hypertension #7. Hyperlipidemia #8. BPH #9. Hypothyroidism Plan: Continue current medical treatment, continue current antibiotics, COVID 19 PCR results are still pending, influenza has been ruled out. Chest x-ray has been reviewed, showing bilateral areas of consolidation, could be related to multifocal pneumonia, Covid 19 pneumonitis or immunotherapy related pneumonitis. Has been afebrile, hemodynamically stable, no hemoptysis, no chest pain, continue nebulized bronchodilators, we'll add Symbicort, and rescue inhaler, until Covid 19 has been ruled out, we can start some nebulized bronchodilators. Continue following inflammatory markers, continue GI and DVT prophylaxis. Continue to follow I performed a history & physical examination of the patient and discussed their management with my nurse practitioner, Radha Trotter. I reviewed the nurse practitioner's note and agree with the documented findings and plan of care. Lung sounds are positive for diminished breath sounds. The findings and the impression was discussed with the patient. I attest to the documentation by the nurse practitioner. Time with Patient: Greater than 30
[2019-10-28] MEDS: NAPROXEN 250 MG TAB PO SCH (20:52)
[2019-10-28] MEDS: BACLOFEN 10 MG TAB PO SCH (20:52)
[2019-10-28] MEDS: LOSARTAN 50 MG TAB PO SCH (20:52)
[2019-10-28] MEDS: SERTRALINE 100 MG TAB PO SCH (20:52)
[2019-10-28] MEDS: FORMOTEROL FUMARATE 20 MCG/2 ML NEBU INHALATION SCH (21:02)
[2019-10-28] MEDS: BUDESONIDE 1 MG/2 ML NEBU INHALATION SCH (21:03)
[2019-10-29] MEDS: IPRATROPIUM-ALBUTEROL 3 ML NEB INHALATION SCH ×7 (00:06→23:41)
[2019-10-29 02:01] LABS: Ferritin 425.8 ng/mL (22.0-322.0)
[2019-10-29] MEDS: SODIUM CHLORIDE 0.9% 1,000 ML IV SCH ×2 (04:07→15:49)
[2019-10-29] MEDS: LEVOTHYROXINE 50 MCG TAB PO SCH (05:27)
[2019-10-29] MEDS: BUDESONIDE 1 MG/2 ML NEBU INHALATION SCH ×2 (08:14→19:24)
[2019-10-29] MEDS: FORMOTEROL FUMARATE 20 MCG/2 ML NEBU INHALATION SCH ×2 (08:14→19:24)
--- NOTE | 2019-10-29 09:08 | P.PN ---
Subjective Progress Note Date: 10/29/19 Navi Coulter, is a 59 -year-old male who presented to [facility] emergency room with a chief complaint of fever, patient has a known history of lung cancer (squamous cell carcinoma right upper lobe ) diagnosed in 2010, at that time he had surgery at [facility] followed by chemotherapy, he is followed by Dr. Patino, in april 2018 patient presented to the hospital with cough and shortness of breath computed tomography scan revealed no evidence of cancer recurrence. Patient is followed by Dr. Rahman and receiving immunotherapy, his last dose was on Friday. Patient stated that yesterday after work he felt very tired and had elevated temperature he called Dr. Rahman's office and was told to come to emergency room patient was also complaining of shortness of breath and upper back pain otherwise he denies any complaints there is no headache or dizziness no chest pain he had occasional cough no nausea or vomiting no abdominal pain no diarrhea no burning with urination no frequency or urgency and no hematuria. Patient was evaluated in the emergency room his temperature on presentation was 99.9 pulse 107 respiration 18 blood pressure 119/74 pulse ox 94% on room air, l aboratory data revealed a white blood count of 8.2 hemoglobin 10.5 sodium 132 and creatinine kinase of 198 otherwise normal labs influenza A and B were negative Covid 19 testing is still pending. Chest x-ray revealed innumerable bilateral perihilar multilobar acute infiltrates, patient was started on IV antibiotics in the emergency room, he was admitted to medical floor, oncology consultation and pulmonary consultation were requested. 10/29/2019, patient was seen and examined on the medical floor, he is alert and oriented 3 in no distress, he is still complaining of shortness of breath with any activity and occasional cough otherwise he denies any complaints there is no fever or chills no headache or dizziness no chest pain no nausea or vomiting no abdominal pain no diarrhea [place] the stools no burning with urination no frequency or urgency and no hematuria. Objective - Vital Signs Vital signs: Vital Signs Temp 98.1 F 10/29/19 07:00 Pulse 90 10/29/19 08:43 Resp 18 10/29/19 07:00 BP 147/71 10/29/19 07:00 Pulse Ox 91 L 10/29/19 07:00 Intake & Output 10/28/19 10/29/19 10/29/19 18:59 06:59 18:59 Intake Total 800 550 Balance 800 550 Intake: IV 800 350 Sodium Chloride 0.9% 1, 800 350 000 ml @ 100 mls/hr IV . Q10H [facility] Rx#:[id number] Oral 200 Other: Voiding Method Toilet # Voids 3 1 - Exam In general patient is alert and oriented 3 in no distress HEENT head normocephalic and atraumatic Neck is supple no JVD no goiter no lymphadenopathy Chest exam reveals a crackles in both lung bases no wheezing Cardiac exam reveals regular heart sounds S1 and S2 no gallops no murmurs Abdomen is soft nontender no organomegaly with normal bowel sounds Extremity exam reveals no edema no cyanosis or clubbing Neurological examination reveals no gross focal deficit - Labs CBC & Chem 7: 10/27/19 19:24 10/27/19 19:24 Labs: Abnormal Lab Results - Last 24 Hours (Table) 10/28/19 10/28/19 10/28/19 Range/Units 13:47 13:47 13:47 D-Dimer 0.65 H (<0.60) mg/L FEU Ferritin 425.8 H (22.0-322.0) ng/mL Lactate Dehydrogenase 661 H (313-618) U/L C-Reactive Protein 213.8 H (<10.0) mg/L Procalcitonin 0.17 H (0.02-0.09) ng/mL Microbiology - Last 24 Hours (Table) 10/27/19 19:24 Blood Culture - Preliminary Blood No Growth after 24 hours Assessment and Plan Plan: 1. Bilateral pneumonia, patient was started on imipenem in the emergency room 2. History of squamous cell carcinoma of the right upper lobe, with previous surgery in 2010 followed by chemotherapy, patient is followed by Dr. Rahman, patient states that he received immunotherapy on Friday. 3. Upper back pain, could be related to pneumonia, however patient has known history of degenerative disc disease, he received epidural injections by Dr. Avalos in March 2019 4. Underlying history of hyperlipidemia maintained on Lipitor 5. Underlying history of hypothyroidism maintained on Synthroid 150 g daily 6. Underlying history of hypertension maintained on losartan At this time medication and labs were reviewed Continue current management awaiting input from pulmonary and infectious disease Home medications reviewed and reordered For DVT prophylaxis will start subcu Lovenox for GI prophylaxis patient is on Protonix
[2019-10-29] MEDS: MULTIVITAMINS, THERA 1 EACH TAB PO SCH (09:22)
[2019-10-29] MEDS: HYDROcodone/APAP 10-325MG 1 EACH TAB PO SCH ×3 (09:23→20:16)
[2019-10-29] MEDS: TAMSULOSIN 0.4 MG CAP.ER.24H PO SCH (09:24)
[2019-10-29] MEDS: ATORVASTATIN 10 MG TAB PO SCH (09:25)
[2019-10-29] MEDS: PANTOPRAZOLE 40 MG TABLET PO SCH (09:25)
[2019-10-29] MEDS: MEROPENEM 1 GM in SODIUM CHLORIDE 0.9% 100 ML IVPB SCH ×2 (09:26→15:49)
[2019-10-29] MEDS: ENOXAPARIN 40 MG/0.4 ML SYRINGE SQ SCH (09:26)
[2019-10-29 10:11] LABS: Basophils % (A) 0 %; Eosinophils # (A) 0.3 k/uL (0-0.7); Eosinophils % (A) 5 %; HCT 30.6 % (39.0-53.0); HGB 9.9 gm/dL (13.0-17.5); Lymphocytes # (A) 0.2 k/uL (1.0-4.8); Lymphocytes % (A) 3 %; MCH 31.3 pg (25.0-35.0); MCHC 32.3 g/dL (31.0-37.0); MCV 96.7 fL (80.0-100.0); Mean Platelet Volume 7.8; Monocytes # (A) 0.5 k/uL (0-1.0); Monocytes % (A) 8 %; Neutrophils % (A) 82 %; Platelet Count 233 k/uL (150-450); RBC 3.16 m/uL (4.30-5.90); RDW 12.5 % (11.5-15.5); WBC 6.1 k/uL (3.8-10.6)
--- NOTE | 2019-10-29 11:24 | P.PN ---
Subjective Progress Note Date: 10/29/19 Principal diagnosis: Dyspnea, shortness of breath, fever 59-year-old white male patient of Dr. Jensen, with past medical history of squamous cell carcinoma, status post right upper lobe resection in 2010 was treated with chemoradiation, with a recent recurrence, patient had a PET scan on all 05/07/2019 showing suspicious uptake in the right lower lobe in the left hilar lymph node. Patient had a computed tomography scan guided biopsy of the right lower lobe that was positive for squamous cell carcinoma and this was done on 05/19/2019. Subsequently the patient underwent a bronchoscopy and EBUS with biopsies of the left upper lobe, left hilar lymph node and subcarinal lymph nodes and all of them were positive for squamous cell carcinoma. MRI of the brain was negative for any evidence of metastasis. 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 Patient was subjected to concurrent chemoradiation therapy, he completed chemotherapy, he had SBRT to the right lower lobe completed on 06/30/2019 which she tolerated well. He also completed concurrent chemoradiation therapy to the left upper lobe on 08/16/2019. Currently on Opdivo, receive his third dose this past Friday. Follow-up CAT scan of the chest that was done on 09/06/2019 showed significant improvement, all of his CT scans, chest x-rays, and procedures related to his recent workup for recurrence of lung cancer was done at the [facility], patient follows with Dr. Patino, Dr. Chaz Castillo from radiation oncology. Patient also follows with Dr. Dietz in the pulmonary office, his underlying FEV1 is 77% of predicted. Patient is maintained on Trelegy, rescue inhaler, he was recently treated for acute COPD exacerbation on outpatient basis. 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 For the past 2 days patient had not been feeling well, weak, febrile, short of breath. He came into the emergency department for evaluation on 10/27/2019. Patient was febrile, with a temp of 101, with the severe exertional dyspnea, shortness of breath, cough. No hemoptysis. No complaints of chest pain, no nausea vomiting, he states one of his coworkers was being tested for COVID 19. Chest x-ray showed COPD with bilateral areas of consolidation likely related to multifocal pneumonia. Of note most recent chest x-ray on 10/01/2019 showed no acute process. COVID 19 PCR is pending, influenza and B were negative. Labs showed a woman with a crit of 8.2, hemoglobin is 10.5, leukocyte count is 0.3, d-dimer was 0.65, sodium was 132, the rest of electrolytes and renal profile were within normal limits, LFTs were within normal limits, lactic acid 0.9, LDH is 661, CRP is 213. The patient was started on empiric antibiotics in the form of meropenem. Afebrile today, he is on room air, the pulse ox 93%. On 10/29/2019 patient seen in follow-up on a general medical surgical floor. Still has significant exertional dyspnea, but remains on room air, with a pulse ox of 92%, hemodynamically stable, patient has been afebrile in last 24 hours, lung sounds are diminished, with fine crackles at the right mid posterior lung, no dullness, no rhonchi or wheezing. Covid 19 testing was negative. Today's labs have been reviewed, showing the blood cell count of 6.1, hemoglobin of 9.9, ferritin level of 425, LDH was 661, CRP is 213, and progesterone level came back intermediate range at 0.17, influenza screen was negative. Antibiotic coverage in the form of meropenem. Blood culture has shown no growth, sputum culture will be sent. Objective - Vital Signs Vital signs: Vital Signs Temp 98.0 F 10/29/19 08:54 Pulse 76 10/29/19 08:54 Resp 18 10/29/19 08:54 BP 141/74 10/29/19 08:54 Pulse Ox 92 L 10/29/19 08:54 Intake & Output 10/28/19 10/29/19 10/29/19 18:59 06:59 18:59 Intake Total 800 550 Balance 800 550 Intake: IV 800 350 Sodium Chloride 0.9% 1, 800 350 000 ml @ 100 mls/hr IV . Q10H [facility] Rx#:[id number] Oral 200 Other: Voiding Method Toilet Toilet # Voids 3 1 - Exam GENERAL EXAM: Alert, very pleasant, 59-year-old white male, on room air, with a pulse ox of 92% comfortable in no apparent distress. HEAD: Normocephalic/atraumatic. EYES: Normal reaction of pupils, equal size. Conjunctiva pink, sclera white. NOSE: Clear with pink turbinates. THROAT: No erythema or exudates. NECK: No masses, no JVD, no thyroid enlargement, no adenopathy. CHEST: No chest wall deformity. Symmetrical expansion. LUNGS: Equal air entry with fine crackles at right mid posterior lung, mild left upper lobe anterior chest wheeze, no rhonchi or dullness. CVS: Regular rate and rhythm, normal S1 and S2, no gallops, no murmurs, no rubs ABDOMEN: Soft, nontender. No hepatosplenomegaly, normal bowel sounds, no guarding or rigidity. EXTREMITIES: No clubbing, no edema, no cyanosis, 2+ pulses and upper and lower extremities. MUSCULOSKELETAL: Muscle strength and tone normal. SPINE: No scoliosis or deformity SKIN: No rashes CENTRAL NERVOUS SYSTEM: Alert and oriented -3. No focal deficits, tone is normal in all 4 extremities. PSYCHIATRIC: Alert and oriented -3. Appropriate affect. Intact judgment and insight. - Labs CBC & Chem 7: 10/29/19 06:58 10/27/19 19:24 Labs: Abnormal Lab Results - Last 24 Hours (Table) 10/28/19 10/28/19 10/28/19 Range/Units 13:47 13:47 13:47 RBC (4.30-5.90) m/uL Hgb (13.0-17.5) gm/dL Hct (39.0-53.0) % Lymphocytes # (1.0-4.8) k/uL D-Dimer 0.65 H (<0.60) mg/L FEU Ferritin 425.8 H (22.0-322.0) ng/mL Lactate Dehydrogenase 661 H (313-618) U/L C-Reactive Protein 213.8 H (<10.0) mg/L Procalcitonin 0.17 H (0.02-0.09) ng/mL 10/29/19 10/29/19 Range/Units 06:58 06:58 RBC 3.16 L (4.30-5.90) m/uL Hgb 9.9 L (13.0-17.5) gm/dL Hct 30.6 L (39.0-53.0) % Lymphocytes # 0.2 L (1.0-4.8) k/uL D-Dimer 0.69 H (<0.60) mg/L FEU Ferritin (22.0-322.0) ng/mL Lactate Dehydrogenase (313-618) U/L C-Reactive Protein (<10.0) mg/L Procalcitonin (0.02-0.09) ng/mL Microbiology - Last 24 Hours (Table) 10/27/19 19:24 Blood Culture - Preliminary Blood No Growth after 24 hours Assessment and Plan Plan: Assessment: #1. Fever, shortness of breath, bilateral areas of consolidation, likely related to multifocal pneumonia, ruled out COVID 19, influenza A and B ruled out #2. Recent recurrence of squamous cell lung carcinoma, status post CT-guided biopsy of a right lower lobe, and left upper lobe, left hilar lymph node and subcarinal lymph nodes that were positive for squamous cell carcinoma, patient has completed chemotherapy and SRT to the right lower lobe completed on 06/30/2019, and concurrent chemoradiation to the left upper lobe on 08/16/2019. Currently on immunotherapy in the form of OPdivo #3. History of COPD with baseline FEV1 of 77% predicted, maintained on Trelegy, albuterol #4. History of squamous cell lung lung cancer of the right upper lobe, treated with right upper lobectemy in 2010, followed by chemotherapy #5. Former smoker, he smoking history has been in remission since 2010 #6. Hypertension #7. Hyperlipidemia #8. BPH #9. Hypothyroidism Plan: Continue current antibiotics, send sputum for culture, COVID 19 has been ruled out, influenza has been ruled out, will obtain CTA chest today, we will continue to follow. I performed a history & physical examination of the patient and discussed their management with my nurse practitioner, Radha Trotter. I reviewed the nurse practitioner's note and agree with the documented findings and plan of care. Lung sounds are positive for diminished breath sounds. The findings and the impression was discussed with the patient. I attest to the documentation by the nurse practitioner. Time with Patient: Less than 30
--- NOTE | 2019-10-29 12:33 | CT ---
EXAMINATION TYPE: CT chest angio for PE DATE OF EXAM: 10/29/2019 COMPARISON: 05/05/2018 HISTORY: Elev. D dimer, Dyspnea CT DLP: 404.1 mGycm CONTRAST: CT chest with contrast and 3D reconstruction with MIP imaging is performed with IV Contrast, patient injected with 75 mL of Isovue 370. Contrast-enhanced CT of the chest was performed through the course of the pulmonary arteries with leonardo g and mediastinal window settings submitted. 3D reconstruction with MIP imaging was also performed. PULMONARY ARTERIES: The pulmonary arteries and their major tributaries are patent. I do not see sharath dence for sizable filling defect to suggest pulmonary embolic process. LUNGS: Moderate interstitial and alveolar infiltrates are noted throughout both lung alvarenga. Correlat e for underlying pneumonia. No evidence for atelectasis. No pulmonary nodule or mass is detected. No pleural effusion. MEDIASTINUM: Thoracic aorta is of normal caliber,however, evaluation is limited given timing of the contrast bolus. If there is concern for thoracic aortic pathology consider AMBAR. Correlate clinicall y . The heart is not enlarged. No evidence for mediastinal mass. No mediastinal lymph nodes greater than 1cm. HILAR STRUCTURES: No evidence for mass. No hilar lymph nodes greater than 1 cm. UPPER ABDOMEN: No significant abnormality is seen. IMPRESSION: 1. No evidence for Pulmonary embolism at this time. 2.Moderate interstitial and alveolar infiltrates are noted throughout both lung alvarenga. Correlate for underlying pneumonia.
--- NOTE | 2019-10-29 15:38 | P.CONS ---
History of Present Illness - Reason for Consult Consult date: 10/28/19 Lung Cancer Requesting physician: Aldo Taylor - Chief Complaint SOB - History of Present Illness Seen and evaluated by Dr. Bah on - Late Entry Mr. Coulter is a patient well known to our practice for treatment of his known Lung Cancer. 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 Receive jenise-adjuvant chemotherapy with cisplatin and [employer] 16 and underwent thoracotomy, then 2 additional rounds of adjuvant chemo. He remained in remission and doing well until CT chest revealed 1.7cm RLL lesion which was again positive for squamous cell carcinoma. 06/02/19 EBUS LOLA bronchus left hilar and subcarinal nodes positive for squamous cell 06/10/19 MRI brain neg. PDL1 10%Pten mutation, no actionable mutations identified through neogenomic testing. SBRT RLL completed 06/30/2019 07/05/19-08/16/19 - Concurrent chemo radiation for LOLA cancer. Now receiving one year of immune therapy with imfinzi. Last treatment on 10/26/19 10/06/19: Presented with acute complaints of extreme fatigue, he apparently loss consciousness at stoplight, then woke up but wanted to cotninue to doze off, he was feeling confused, and worried so he mad appointment with REBECA Fontenot. A MRI Brain was ordered. Which resulted negative. He now presents to [facility] with increased temperatures (although afebrile 99.9) and increased SOB. Pulmonary is following and he is being treated for pneumonia CTA no PE, but Bilateral alveolar pulmonary infiltrates, ?pneumonia Review of Systems All systems: negative (hpi) Past Medical History Past Medical History: Cancer, COPD, GERD/Reflux, Hearing Disorder / Deafness, Hyperlipidemia, Hypertension, Prostate Disorder, Thyroid Disorder Additional Past Medical History / Comment(s): non-small cell lung cancer with previous left upper lobe resection 2010,torn bicep muscle rt shoulder- wt limit #10, recent coughing up blood/fungal lung infection from "dirt" on bronchoscopy, finished antifungal for this History of Any Multi-Drug Resistant Organisms: None Reported Past Surgical History: Back Surgery, Orthopedic Surgery Additional Past Surgical History / Comment(s): RT KNEE/RT UPPER LOBECTOMY, [facility] PAIN CLINIC PROCEDURES. 3 neck surgeries, 2 fusions and a leola, bronchoscopy Past Anesthesia/Blood Transfusion Reactions: No Reported Reaction Past Psychological History: Anxiety Smoking Status: Former smoker Past Alcohol Use History: None Reported Additional Past Alcohol Use History / Comment(s): QUIT DRINKING 1998 STARTED SMOKING AT AGE 11. quit smoking 2008 SMOKED 3 PACKS A DAY . Sober for 20 years Past Drug Use History: None Reported, Marijuana Additional Drug Use History / Comment(s): ate a little piece of brownie - Past Family History Father Family Medical History: Cancer Additional Family Medical History / Comment(s): LUNG Mother Family Medical History: COPD Medications and Allergies Home Medications Medication Instructions Recorded Confirmed Type Atorvastatin [Lipitor] 10 mg PO DAILY 12/18/16 10/27/19 History Omeprazole [PriLOSEC] 10 mg PO DAILY 12/18/16 10/27/19 History Tamsulosin [Flomax] 0.4 mg PO DAILY 12/18/16 10/27/19 History Losartan [Cozaar] 50 mg PO HS 03/25/18 10/27/19 History Sertraline [Zoloft] 100 mg PO HS 04/29/18 10/27/19 History Baclofen [Lioresal] 10 mg PO HS 05/04/18 10/27/19 History Hydrocodone/Acetaminophen [Falconer 1 tab PO Q8H PRN 03/15/19 10/27/19 History 10-325] Fluticasone/Umeclidin/Vilanter 1 puff INHALATION RT-DAILY 10/27/19 10/27/19 History [Trelegy Ellipta 100-62.5-25] LORazepam [Ativan] 0.5 mg PO BID PRN 10/27/19 10/27/19 History Levothyroxine Sodium [Synthroid] 150 mcg PO QAM 10/27/19 10/27/19 History Allergies Allergy/AdvReac Type Severity Reaction Status Date / Time No Known Allergies Allergy Verified 10/27/19 18:34 Physical Exam Vitals: Vital Signs Temp Pulse Pulse Resp BP Pulse Ox 10/29/19 15:28 93 L 10/29/19 15:27 112 H 10/29/19 15:16 111 H 10/29/19 13:34 98.1 F 100 18 174/74 93 L 10/29/19 11:57 84 10/29/19 11:45 84 10/29/19 08:54 98.0 F 76 18 141/74 92 L 10/29/19 08:43 90 10/29/19 08:34 82 10/29/19 08:33 82 10/29/19 08:17 86 10/29/19 07:00 98.1 F 79 18 147/71 91 L 10/29/19 01:00 97.9 F 101 H 20 109/55 92 L 10/28/19 21:29 108 H 10/28/19 21:17 107 H 10/28/19 21:15 107 H 10/28/19 21:04 108 H 10/28/19 19:00 99.4 F 88 20 132/63 92 L 10/28/19 17:11 90 L 10/28/19 16:43 99.5 F 10/28/19 16:36 92 10/28/19 16:25 96 Intake and Output 10/29/19 10/29/19 10/29/19 06:59 14:59 22:59 Intake Total 200 Balance 200 Intake: Oral 200 Other: Voiding Method Toilet # Voids 1 3 - Constitutional General appearance: cooperative, no acute distress - EENT Eyes: EOMI, PERRLA, poor dentition ENT: NA/AT, normal oropharynx - Neck Neck: normal ROM - Respiratory Respiratory: bilateral: diminished, wheezing - Cardiovascular Heart rate: 110 Rhythm: irregularly irregular - Gastrointestinal General gastrointestinal: normal bowel sounds, soft - Integumentary Integumentary: pale - Neurologic non-focal - Musculoskeletal Musculoskeletal: generalized weakness, strength equal bilaterally - Psychiatric Psychiatric: A&O x's 3, appropriate affect, intact judgment & insight Results CBC & Chem 7: 10/29/19 06:58 10/27/19 19:24 Labs: Abnormal Lab Results - Last 24 Hours (Table) 10/28/19 10/28/19 10/29/19 Range/Units 13:47 13:47 06:58 RBC 3.16 L (4.30-5.90) m/uL Hgb 9.9 L (13.0-17.5) gm/dL Hct 30.6 L (39.0-53.0) % Lymphocytes # 0.2 L (1.0-4.8) k/uL D-Dimer (<0.60) mg/L FEU Plasma Lactic Acid Luiz (0.7-2.0) mmol/L Ferritin 425.8 H (22.0-322.0) ng/mL Procalcitonin 0.17 H (0.02-0.09) ng/mL 10/29/19 10/29/19 Range/Units 06:58 06:58 RBC (4.30-5.90) m/uL Hgb (13.0-17.5) gm/dL Hct (39.0-53.0) % Lymphocytes # (1.0-4.8) k/uL D-Dimer 0.69 H (<0.60) mg/L FEU Plasma Lactic Acid Luiz 2.2 H* (0.7-2.0) mmol/L Ferritin (22.0-322.0) ng/mL Procalcitonin (0.02-0.09) ng/mL Microbiology - Last 24 Hours (Table) 10/29/19 10:45 Sputum Culture - Preliminary Sputum 10/27/19 19:24 Blood Culture - Preliminary Blood No Growth after 24 hours Chest x-ray: report reviewed CT scan - chest: report reviewed MRI - head: report reviewed Assessment and Plan (1) Squamous cell lung cancer Current Visit: Yes Status: Acute Code(s): C34.90 - MALIGNANT NEOPLASM OF UNSP PART OF UNSP BRONCHUS OR LUNG SNOMED Code(s): 906118178 (2) Acute pneumonia Current Visit: Yes Status: Acute Code(s): J18.9 - PNEUMONIA, UNSPECIFIED ORGANISM SNOMED Code(s): 915578871 Plan: Assessment and Recommendations: 1. Squamous Cell Lung Cancer (Original dx 2010, recurrent RLL and LOLA in 2019) - Status Post SBRT RLL, COncurrent xrt/chemo LOLA. Now on Immune therapy with imfinzi - Last Imfinzi 10/26/19 - Primary Oncologist Dr. Jimenez 2. Pneumonia (Community Acquired): - Supportive care and antibiotics 3. Acute on Chronic Hypoxic Respiratory Failure: - Requiring 2-3 L O2 - Secondary to Number 2 and Number 1 - Pulmonary Following 4. Elevated Temperatures (Afebrile) - Influenza, COVID, and Blood cultures negative - Sputum pending 5. Normocytic Anemia: - Chronic inflammation worsened with dilution and infection - Ferritin over 400, no benefit with supplementation - Check TSH (although on steroids maybe altered) - Check other nutritional deficits for additional supplementation opportunity Plan: - Consider possibility of immune related effects - Monitor Pulmonary status - Defer to pulm and primary team - Hold Immune therapy until acute situation improves Physician Attest: I have completed the full history and physical and agree with above dictation, dictated as a scribe.
--- NOTE | 2019-10-29 16:55 | P.PN ---
Subjective Progress Note Date: 10/29/19 Principal diagnosis: Pneumonia and NSCLCA SOB persistent with minimal exertion. Objective - Vital Signs Vital signs: Vital Signs Temp 98.8 F 10/29/19 15:54 Pulse 120 H 10/29/19 15:54 Resp 24 10/29/19 15:54 BP 139/104 10/29/19 15:54 Pulse Ox 94 L 10/29/19 15:54 Intake & Output 10/28/19 10/29/19 10/29/19 18:59 06:59 18:59 Intake Total 800 550 Balance 800 550 Intake: IV 800 350 Sodium Chloride 0.9% 1, 800 350 000 ml @ 100 mls/hr IV . Q10H PORTER Rx#:[id number] Oral 200 Other: Voiding Method Toilet Toilet # Voids 3 1 3 - Exam Constitutional General appearance: cooperative, no acute distress - EENT Eyes: EOMI, PERRLA, poor dentition ENT: NA/AT, normal oropharynx - Neck Neck: normal ROM - Respiratory Respiratory: bilateral: diminished, wheezing - Cardiovascular Heart rate: 110 Rhythm: irregularly irregular - Gastrointestinal General gastrointestinal: normal bowel sounds, soft - Integumentary Integumentary: pale - Neurologic non-focal - Musculoskeletal Musculoskeletal: generalized weakness, strength equal bilaterally - Psychiatric Psychiatric: A&O x's 3, appropriate affect, intact judgment & insight - Labs CBC & Chem 7: 10/29/19 06:58 10/27/19 19:24 Labs: Abnormal Lab Results - Last 24 Hours (Table) 10/28/19 10/28/19 10/29/19 Range/Units 13:47 13:47 06:58 RBC 3.16 L (4.30-5.90) m/uL Hgb 9.9 L (13.0-17.5) gm/dL Hct 30.6 L (39.0-53.0) % Lymphocytes # 0.2 L (1.0-4.8) k/uL D-Dimer (<0.60) mg/L FEU Plasma Lactic Acid Luiz (0.7-2.0) mmol/L Ferritin 425.8 H (22.0-322.0) ng/mL Procalcitonin 0.17 H (0.02-0.09) ng/mL 10/29/19 10/29/19 Range/Units 06:58 06:58 RBC (4.30-5.90) m/uL Hgb (13.0-17.5) gm/dL Hct (39.0-53.0) % Lymphocytes # (1.0-4.8) k/uL D-Dimer 0.69 H (<0.60) mg/L FEU Plasma Lactic Acid Luiz 2.2 H* (0.7-2.0) mmol/L Ferritin (22.0-322.0) ng/mL Procalcitonin (0.02-0.09) ng/mL Microbiology - Last 24 Hours (Table) 10/29/19 10:45 Sputum Culture - Preliminary Sputum 10/27/19 19:24 Blood Culture - Preliminary Blood No Growth after 24 hours Assessment and Plan (1) Squamous cell lung cancer Current Visit: Yes Status: Acute Code(s): C34.90 - MALIGNANT NEOPLASM OF UNSP PART OF UNSP BRONCHUS OR LUNG SNOMED Code(s): 141008552 (2) Acute pneumonia Current Visit: Yes Status: Acute Code(s): J18.9 - PNEUMONIA, UNSPECIFIED ORGANISM SNOMED Code(s): 237135631 Plan: Assessment and Recommendations: 1. Squamous Cell Lung Cancer (Original dx 2010, recurrent RLL and LOLA in 2019) - Status Post SBRT RLL, COncurrent xrt/chemo LOLA. Now on Immune therapy with imfinzi - Last Imfinzi 10/26/19 - Primary Oncologist Dr. Jimenez 2. Pneumonia (Community Acquired): - Supportive care and antibiotics 3. Acute on Chronic Hypoxic Respiratory Failure: - Requiring 2-3 L O2 - Secondary to Number 2 and Number 1 - Pulmonary Following 4. Elevated Temperatures (Afebrile) - Influenza, COVID, and Blood cultures negative - Sputum pending 5. Normocytic Anemia: - Chronic inflammation worsened with dilution and infection - Ferritin over 400, no benefit with supplementation - Check TSH (although on steroids maybe altered) - Check other nutritional deficits for additional supplementation opportunity Plan: - Consider possibility of immune related effects - Monitor Pulmonary status - Defer to pulm and primary team - Hold Immune therapy until acute situation improves - Agree with Steroids, PPI, abx await improvement, management pulm Physician Attest: I have completed the full history and physical and agree with above dictation, dictated as a scribe.
[2019-10-29] MEDS: LEVOFLOXACIN 500MG-D5W PMX 500 MG in DEXTROSE/WATER 1 100ML.BAG IVPB SCH (17:17)
[2019-10-29 17:40] LABS: Glucose,Whole Blood 122 mg/dL (75-99)
[2019-10-29] MEDS: methylPREDNISolone SOD SUCCI 125 MG/2 ML VIAL IV SCH (17:53)
[2019-10-29] MEDS: BACLOFEN 10 MG TAB PO SCH (20:16)
[2019-10-29] MEDS: LOSARTAN 50 MG TAB PO SCH (20:16)
[2019-10-29] MEDS: SERTRALINE 100 MG TAB PO SCH (20:52)
[2019-10-29] MEDS: NAPROXEN 250 MG TAB PO SCH (20:52)
[2019-10-29 23:47] LABS: African American GFR (CKD) 118.9 (60.0-200.0); Albumin 3.7 g/dL (3.80-4.90); Anion Gap 11.8 mmol/L (4.00-12.00); C Reactive Protein 19.8 mg/dL (0.0-0.8); Calcium 8.7 mg/dL (8.7-10.3); Carbon Dioxide 20.2 mmol/L (21.6-31.8); Non-African American GFR(CKD) 102.6 (60.0-200.0); Potassium 4.2 mmol/L (3.5-5.5); Total Bilirubin 0.5 mg/dL (0.3-1.2); Total Protein 5.8 g/dL (6.2-8.2)
[2019-10-30] MEDS: methylPREDNISolone SOD SUCCI 125 MG/2 ML VIAL IV SCH ×5 (00:10→23:01)
[2019-10-30] MEDS: SODIUM CHLORIDE 0.9% 1,000 ML IV SCH ×3 (00:11→21:17)
[2019-10-30] MEDS: MEROPENEM 1 GM in SODIUM CHLORIDE 0.9% 100 ML IVPB SCH ×4 (00:24→23:01)
[2019-10-30] MEDS: IPRATROPIUM-ALBUTEROL 3 ML NEB INHALATION SCH ×5 (03:47→18:50)
[2019-10-30 04:52] LABS: Basophils % (A) 0 %; Eosinophils % (A) 0 %; HCT 33.3 % (39.0-53.0); Lymphocytes # (A) 0.2 k/uL (1.0-4.8); Lymphocytes % (A) 3 %; MCH 31.8 pg (25.0-35.0); MCV 96.4 fL (80.0-100.0); Mean Platelet Volume 6.9; Monocytes # (A) 0.1 k/uL (0-1.0); Monocytes % (A) 2 %; Neutrophils % (A) 94 %; Platelet Count 281 k/uL (150-450); RBC 3.46 m/uL (4.30-5.90); RDW 12.2 % (11.5-15.5); WBC 6.3 k/uL (3.8-10.6)
[2019-10-30 05:05] LABS: ALT 24 U/L (4-49); AST 38 U/L (17-59); African American GFR (CKD) >90 (>60 ml/min/1.73 sqM); Albumin 3.6 g/dL (3.5-5.0); Alkaline Phosphatase 98 U/L (38-126); Anion Gap 9 mmol/L; Blood Urea Nitrogen 11 mg/dL (9-20); Calcium 9.4 mg/dL (8.4-10.2); Carbon Dioxide 21 mmol/L (22-30); Chloride 104 mmol/L (98-107); Glucose 169 mg/dL (74-99); LDH 721 U/L (313-618); Non-African American GFR(CKD) >90 (>60 ml/min/1.73 sqM); Potassium 4.2 mmol/L (3.5-5.1); Sodium 134 mmol/L (137-145); Total Bilirubin 0.5 mg/dL (0.2-1.3); Total Protein 6.8 g/dL (6.3-8.2)
[2019-10-30 05:25] LABS: C Reactive Protein 201.8 mg/L (<10.0)
[2019-10-30] MEDS: LEVOTHYROXINE 50 MCG TAB PO SCH (06:14)
[2019-10-30] MEDS: BUDESONIDE 1 MG/2 ML NEBU INHALATION SCH ×2 (08:13→18:50)
[2019-10-30] MEDS: FORMOTEROL FUMARATE 20 MCG/2 ML NEBU INHALATION SCH ×2 (08:13→18:50)
[2019-10-30] MEDS: MULTIVITAMINS, THERA 1 EACH TAB PO SCH (08:32)
[2019-10-30] MEDS: ATORVASTATIN 10 MG TAB PO SCH (08:32)
[2019-10-30] MEDS: HYDROcodone/APAP 10-325MG 1 EACH TAB PO SCH ×3 (08:32→21:03)
[2019-10-30] MEDS: PANTOPRAZOLE 40 MG TABLET PO SCH (08:33)
[2019-10-30] MEDS: TAMSULOSIN 0.4 MG CAP.ER.24H PO SCH (08:33)
[2019-10-30] MEDS: ENOXAPARIN 40 MG/0.4 ML SYRINGE SQ SCH (08:34)
--- NOTE | 2019-10-30 09:13 | XR ---
EXAMINATION TYPE: XR chest 1V portable DATE OF EXAM: 10/30/2019 CLINICAL HISTORY: Shortness of breath TECHNIQUE: Upright portable view of the chest obtained COMPARISON: 10/28/2019 chest radiograph FINDINGS: The cardiomediastinal silhouette is within normal limits for size. Pulmonary vasculature i s normal. Focal coarse interstitial opacities of the bilateral mid lungs unchanged. Right sided apica l rib resection redemonstrated. No pneumothorax or pleural effusion. IMPRESSION: Unchanged appearance of the chest, with focal coarse interstitial opacities of the bilate ral midlungs.
--- NOTE | 2019-10-30 12:45 | P.PN ---
Subjective Progress Note Date: 10/30/19 59-year-old white male patient of Dr. Jensen, with past medical history of squamous cell carcinoma, status post right upper lobe resection in 2010 was treated with chemoradiation, with a recent recurrence, patient had a PET scan on all 05/07/2019 showing suspicious uptake in the right lower lobe in the left hilar lymph node. Patient had a computed tomography scan guided biopsy of the right lower lobe that was positive for squamous cell carcinoma and this was done on 05/19/2019. Subsequently the patient underwent a bronchoscopy and EBUS with biopsies of the left upper lobe, left hilar lymph node and subcarinal lymph nodes and all of them were positive for squamous cell carcinoma. MRI of the bra in was negative for any evidence of metastasis. 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 Patient was subjected to concurrent chemoradiation therapy, he completed chemotherapy, he had SBRT to the right lower lobe completed on 06/30/2019 which she tolerated well. He also completed concurrent chem oradiation therapy to the left upper lobe on 08/16/2019. Currently on Opdivo, receive his third dose this past Friday. Follow-up CAT scan of the chest that was done on 09/06/2019 showed significant improvement, all of his CT scans, chest x-rays, and procedures related to his recent workup for recurrence of lung cancer was done at the [facility], patient follows with Dr. Patino, Dr. Chaz Castillo from radiation oncology. Patient also follows with Dr. Dietz in the pulmonary office, his underlying FEV1 is 77% of predicted. Patient is maintained on Trelegy, rescue inhaler, he was recently treated for acute COPD exacerbation on outpatient basis. 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 For the past 2 days patient had not been feeling well, weak, febrile, short of breath. He came into the emergency department for evaluation on 10/27/2019. Patient was febrile, with a temp of 101, with the severe exertional dyspnea, shortness of breath, cough. No hemoptysis. No complaints of chest pain, no nausea vomiting, he states one of his coworkers was being tested for COVID 19. Chest x-ray showed COPD with bilateral areas of consolidation likely related to multifocal pneumonia. Of note most recent chest x-ray on 10/01/2019 showed no acute process. COVID 19 PCR is pending, influenza and B were negative. Labs showed a woman with a crit of 8.2, hemoglobin is 10.5, leukocyte count is 0.3, d-dimer was 0.65, sodium was 132, the rest of electrolytes and renal profile were within normal limits, LFTs were within normal limits, lactic acid 0.9, LDH is 661, CRP is 213. The patient was started on empiric antibiotics in the form of meropenem. Afebrile today, he is on room air, the pulse ox 93%. On 10/29/2019 patient seen in follow-up on a general medical surgical floor. Still has significant exertional dyspnea, but remains on room air, with a pulse ox of 92%, hemodynamically stable, patient has been afebrile in last 24 hours, lung sounds are diminished, with fine crackles at the right mid posterior lung, no dullness, no rhonchi or wheezing. Covid 19 testing was negative. Today's labs have been reviewed, showing the blood cell count of 6.1, hemoglobin of 9.9, ferritin level of 425, LDH was 661, CRP is 213, and progesterone level came back intermediate range at 0.17, influenza screen was negative. Antibiotic coverage in the form of meropenem. Blood culture has shown no growth, sputum culture will be sent. On 10/30/2019, transferred the patient to the intensive care unit regarding his ongoing bilateral pulmonary infiltrates/pneumonia and hypoxic respiratory failure. I performed a CAT scan of the chest and the CAT scan showed moderate interstitial and alveolar infiltrates in the lung bases bilaterally. No evidence of any lung masses. I have placed this patient on a combination of Merrem and Levaquin was also added. The Covid 19 nasal swab by PCR came back negative. The patient is currently afebrile. Pro-calcitonin level was nonelevated. The cultures were all negative for now. The white cell count is not elevated. The patient is afebrile. Currently is on 3 L of oxygen by nasal cannula. He is less tachycardic compared to yesterday. I have started on steroids considering the possibility of immunotherapy related interstitial lung disease. He is able to speak of. This is. He is not using accessory muscles of breathing. Chest x-ray from today is unchanged compared to yesterday and the patient still has diffuse bilateral pulmonary infiltrates. Objective - Vital Signs Vital signs: Vital Signs Temp 98.3 F 10/30/19 08:00 Pulse 98 10/30/19 12:01 Resp 21 10/30/19 12:00 BP 120/83 10/30/19 12:00 Pulse Ox 96 10/30/19 12:00 Intake & Output 10/29/19 10/30/19 10/30/19 18:59 06:59 18:59 Intake Total 340 1200 1180 Output Total 1525 400 Balance 340 -325 780 Weight 86 kg Intake: IV 100 1200 600 Sodium Chloride 0.9% 1, 100 1200 600 000 ml @ 100 mls/hr IV . Q10H PORTER Rx#:[id number] Intake, IV Titration 100 Amount Meropenem 1 gm In Sodium 100 Chloride 0.9% 100 ml @ 200 mls/hr IVPB Q8HR PORTER Rx#:[id number] Oral 240 480 Output: Urine 1525 400 Other: Voiding Method Toilet Toilet Urinal # Voids 3 1 - Exam GENERAL EXAM: Alert, very pleasant, 59-year-old white male, on room air, with a pulse ox of 92% comfortable in no apparent distress. The patient is currently on 3 L of oxygen by nasal cannula. HEAD: Normocephalic/atraumatic. EYES: Normal reaction of pupils, equal size. Conjunctiva pink, sclera white. NOSE: Clear with pink turbinates. THROAT: No erythema or exudates. NECK: No masses, no JVD, no thyroid enlargement, no adenopathy. CHEST: No chest wall deformity. Symmetrical expansion. LUNGS: Equal air entry with fine crackles at right mid posterior lung, mild left upper lobe anterior chest wheeze, no rhonchi or dullness. CVS: Regular rate and rhythm, normal S1 and S2, no gallops, no murmurs, no rubs ABDOMEN: Soft, nontender. No hepatosplenomegaly, normal bowel sounds, no guarding or rigidity. EXTREMITIES: No clubbing, no edema, no cyanosis, 2+ pulses and upper and lower extremities. MUSCULOSKELETAL: Muscle strength and tone normal. SPINE: No scoliosis or deformity SKIN: No rashes CENTRAL NERVOUS SYSTEM: Alert and oriented -3. No focal deficits, tone is normal in all 4 extremities. PSYCHIATRIC: Alert and oriented -3. Appropriate affect. Intact judgment and insight. - Labs CBC & Chem 7: 10/30/19 04:17 10/30/19 04:17 Labs: Abnormal Lab Results - Last 24 Hours (Table) 10/29/19 10/29/19 10/29/19 Range/Units 06:58 06:58 09:51 RBC (4.30-5.90) m/uL Hgb (13.0-17.5) gm/dL Hct (39.0-53.0) % Lymphocytes # (1.0-4.8) k/uL D-Dimer (<0.60) mg/L FEU Sodium (137-145) mmol/L Carbon Dioxide 20.2 L (21.6-31.8) mmol/L Creatinine (0.66-1.25) mg/dL Glucose (74-99) mg/dL POC Glucose (mg/dL) (75-99) mg/dL Plasma Lactic Acid Luiz 2.2 H* (0.7-2.0) mmol/L Ferritin 497.5 H (22.0-322.0) ng/mL AST 36 H (14-35) U/L Lactate Dehydrogenase 314 H (120-246) U/L C-Reactive Protein 19.8 H (0.0-0.8) mg/dL Total Protein 5.8 L (6.2-8.2) g/dL Albumin 3.70 L (3.80-4.90) g/dL 10/29/19 10/30/19 10/30/19 Range/Units 17:39 04:17 04:17 RBC 3.46 L (4.30-5.90) m/uL Hgb 11.0 L (13.0-17.5) gm/dL Hct 33.3 L (39.0-53.0) % Lymphocytes # 0.2 L (1.0-4.8) k/uL D-Dimer 0.63 H (<0.60) mg/L FEU Sodium (137-145) mmol/L Carbon Dioxide (21.6-31.8) mmol/L Creatinine (0.66-1.25) mg/dL Glucose (74-99) mg/dL POC Glucose (mg/dL) 122 H (75-99) mg/dL Plasma Lactic Acid Luiz (0.7-2.0) mmol/L Ferritin (22.0-322.0) ng/mL AST (14-35) U/L Lactate Dehydrogenase (120-246) U/L C-Reactive Protein (0.0-0.8) mg/dL Total Protein (6.2-8.2) g/dL Albumin (3.80-4.90) g/dL 10/30/19 Range/Units 04:17 RBC (4.30-5.90) m/uL Hgb (13.0-17.5) gm/dL Hct (39.0-53.0) % Lymphocytes # (1.0-4.8) k/uL D-Dimer (<0.60) mg/L FEU Sodium 134 L (137-145) mmol/L Carbon Dioxide 21 L (21.6-31.8) mmol/L Creatinine 0.65 L (0.66-1.25) mg/dL Glucose 169 H (74-99) mg/dL POC Glucose (mg/dL) (75-99) mg/dL Plasma Lactic Acid Luiz (0.7-2.0) mmol/L Ferritin (22.0-322.0) ng/mL AST (14-35) U/L Lactate Dehydrogenase 721 H (120-246) U/L C-Reactive Protein 201.8 H (0.0-0.8) mg/dL Total Protein (6.2-8.2) g/dL Albumin (3.80-4.90) g/dL Microbiology - Last 24 Hours (Table) 10/29/19 10:45 Gram Stain - Preliminary Sputum Sputum Culture - Preliminary 10/27/19 19:24 Blood Culture - Preliminary Blood No Growth after 48 hours Assessment and Plan Plan: 1 acute bilateral lower lobe pulmonary infiltrates. Rule out infection. Rule out immunotherapy induced interstitial lung disease as the patient was receiving immunotherapy for lung cancer. The patient has not had any fever. Pro-calcito keegan is not elevated. White cell count isn't elevated. The patient is on a combination of meropenem and Levaquin. The coronavirus covid19 PCR came back negative. 2 acute hypoxic respiratory failure currently on 3 L of oxygen by nasal cannula 3 Recurrence of squamous cell lung carcinoma, status post CT-guided biopsy of a right lower lobe, and left upper lobe, left hilar lymph node and subcarinal lymph nodes that were positive for squamous cell carcinoma, patient has completed chemotherapy and SRT to the right lower lobe completed on 06/30/2019, and concurrent chemoradiation to the left upper lobe on 08/16/2019. Currently on immunotherapy in the form of OPdivo 4. History of COPD with baseline FEV1 of 77% predicted, maintained on Trelegy, albuterol 5 History of squamous cell lung lung cancer of the right upper lobe, treated with right upper lobectemy in 2010, followed by chemotherapy 6 Former smoker, he smoking history has been in remission since 2010 7. Hypertension 8. Hyperlipidemia 9. BPH 10. Hypothyroidism Plan Continue same antibiotic coverage. Cytomel was added regarding the possibility of immunotherapy induced lung disease/pneumonitis. We'll set up this patient for bronchoscopy and BAL to be done tomorrow to rule out any microbial elements. We'll continue to follow. He'll be kept in ICU for now.
--- NOTE | 2019-10-30 13:05 | P.PN ---
Subjective Progress Note Date: 10/30/19 Navi Coulter, is a 59 -year-old male who presented to [facility] emergency room with a chief complaint of fever, patient has a known history of lung cancer (squamous cell carcinoma right upper lobe ) diagnosed in 2010, at that time he had surgery at [facility] followed by chemotherapy, he is followed by Dr. Patino, in april 2018 patient presented to the hospital with cough and shortness of breath computed tomography scan revealed no evidence of cancer recurrence. Patient is followed by Dr. Rahman and receiving immunotherapy, his last dose was on Friday. Patient stated that yesterday after work he felt very tired and had elevated temperature he called Dr. Rahman's office and was told to come to emergency room patient was also complaining of shortness of breath and upper back pain otherwise he denies any complaints there is no headache or dizziness no chest pain he had occasional cough no nausea or vomiting no abdominal pain no diarrhea no burning with urination no frequency or urgency and no hematuria. Patient was evaluated in the emergency room his temperature on presentation was 99.9 pulse 107 respiration 18 blood pressure 119/74 pulse ox 94% on room air, l aboratory data revealed a white blood count of 8.2 hemoglobin 10.5 sodium 132 and creatinine kinase of 198 otherwise normal labs influenza A and B were negative Covid 19 testing is still pending. Chest x-ray revealed innumerable bilateral perihilar multilobar acute infiltrates, patient was started on IV antibiotics in the emergency room, he was admitted to medical floor, oncology consultation and pulmonary consultation were requested. 10/29/2019, patient was seen and examined on the medical floor, he is alert and oriented 3 in no distress, he is still complaining of shortness of breath with any activity and occasional cough otherwise he denies any complaints there is no fever or chills no headache or dizziness no chest pain no nausea or vomiting no abdominal pain no diarrhea [place]ass the stools no burning with urination no frequency or urgency and no hematuria. on 10/30/2019 patient was seen and examined in the ICU, yesterday evening he developed worsening shortness of breath with tachycardia and tachypnea, he was transferred to intensive care unit and was reevaluated by pulmonary. At this time patient is stable in ICU he is alert and oriented 3 he is still feeling short of breath, he has occasional cough without any significant sputum production, there is no fever or chills no headache or dizziness no chest pain no nausea or vomiting no abdominal pain no diarrhea no blood in the stools no burning with urination no frequency or urgency and no hematuria. Input from pulmonary reviewed, plan is for a bronchoscopy tomorrow morning if patient is not improving. Objective - Vital Signs Vital signs: Vital Signs Temp 98.3 F 10/30/19 08:00 Pulse 98 10/30/19 12:01 Resp 21 10/30/19 12:00 BP 120/83 10/30/19 12:00 Pulse Ox 96 10/30/19 12:00 Intake & Output 10/29/19 10/30/19 10/30/19 18:59 06:59 18:59 Intake Total 340 1200 1180 Output Total 1525 400 Balance 340 -325 780 Weight 86 kg Intake: IV 100 1200 600 Sodium Chloride 0.9% 1, 100 1200 600 000 ml @ 100 mls/hr IV . Q10H [facility]TER Rx#:[id number] Intake, IV Titration 100 Amount Meropenem 1 gm In Sodium 100 Chloride 0.9% 100 ml @ 200 mls/hr IVPB Q8HR [facility]TER Rx#:[id number] Oral 240 480 Output: Urine 1525 400 Other: Voiding Method Toilet Toilet Urinal # Voids 3 1 - Exam In general patient is alert and oriented 3 in no distress HEENT head normocephalic and atraumatic Neck is supple no JVD no goiter no lymphadenopathy Chest exam reveals a crackles in both lung bases no wheezing Cardiac exam reveals regular heart sounds S1 and S2 no gallops no murmurs Abdomen is soft nontender no organomegaly with normal bowel sounds Extremity exam reveals no edema no cyanosis or clubbing Neurological examination reveals no gross focal deficit - Labs CBC & Chem 7: 10/30/19 04:17 10/30/19 04:17 Labs: Abnormal Lab Results - Last 24 Hours (Table) 10/29/19 10/29/19 10/29/19 Range/Units 06:58 06:58 09:51 RBC (4.30-5.90) m/uL Hgb (13.0-17.5) gm/dL Hct (39.0-53.0) % Lymphocytes # (1.0-4.8) k/uL D-Dimer (<0.60) mg/L FEU Sodium (137-145) mmol/L Carbon Dioxide 20.2 L (21.6-31.8) mmol/L Creatinine (0.66-1.25) mg/dL Glucose (74-99) mg/dL POC Glucose (mg/dL) (75-99) mg/dL Plasma Lactic Acid Luiz 2.2 H* (0.7-2.0) mmol/L Ferritin 497.5 H (22.0-322.0) ng/mL AST 36 H (14-35) U/L Lactate Dehydrogenase 314 H (120-246) U/L C-Reactive Protein 19.8 H (0.0-0.8) mg/dL Total Protein 5.8 L (6.2-8.2) g/dL Albumin 3.70 L (3.80-4.90) g/dL 10/29/19 10/30/19 10/30/19 Range/Units 17:39 04:17 04:17 RBC 3.46 L (4.30-5.90) m/uL Hgb 11.0 L (13.0-17.5) gm/dL Hct 33.3 L (39.0-53.0) % Lymphocytes # 0.2 L (1.0-4.8) k/uL D-Dimer 0.63 H (<0.60) mg/L FEU Sodium (137-145) mmol/L Carbon Dioxide (21.6-31.8) mmol/L Creatinine (0.66-1.25) mg/dL Glucose (74-99) mg/dL POC Glucose (mg/dL) 122 H (75-99) mg/dL Plasma Lactic Acid Luiz (0.7-2.0) mmol/L Ferritin (22.0-322.0) ng/mL AST (14-35) U/L Lactate Dehydrogenase (120-246) U/L C-Reactive Protein (0.0-0.8) mg/dL Total Protein (6.2-8.2) g/dL Albumin (3.80-4.90) g/dL 10/30/19 Range/Units 04:17 RBC (4.30-5.90) m/uL Hgb (13.0-17.5) gm/dL Hct (39.0-53.0) % Lymphocytes # (1.0-4.8) k/uL D-Dimer (<0.60) mg/L FEU Sodium 134 L (137-145) mmol/L Carbon Dioxide 21 L (21.6-31.8) mmol/L Creatinine 0.65 L (0.66-1.25) mg/dL Glucose 169 H (74-99) mg/dL POC Glucose (mg/dL) (75-99) mg/dL Plasma Lactic Acid Luiz (0.7-2.0) mmol/L Ferritin (22.0-322.0) ng/mL AST (14-35) U/L Lactate Dehydrogenase 721 H (120-246) U/L C-Reactive Protein 201.8 H (0.0-0.8) mg/dL Total Protein (6.2-8.2) g/dL Albumin (3.80-4.90) g/dL Microbiology - Last 24 Hours (Table) 10/29/19 10:45 Gram Stain - Preliminary Sputum Sputum Culture - Preliminary 10/27/19 19:24 Blood Culture - Preliminary Blood No Growth after 48 hours Assessment and Plan Plan: 1. Bilateral pneumonia, patient was started on imipenem in the emergency room, IV Levaquin was also added to regimen, patient is also receiving IV Solu-Medrol 60 mg every 6 hours 2. History of squamous cell carcinoma of the right upper lobe, with previous surgery in 2010 followed by chemotherapy, patient is followed by Dr. Rahman, patient states that he received immunotherapy on Friday. 3. Upper back pain, could be related to pneumonia, however patient has known history of degenerative disc disease, he received epidural injections by Dr. Avalos in March 2019 4. Underlying history of hyperlipidemia maintained on Lipitor 5. Underlying history of hypothyroidism maintained on Synthroid 150 g daily 6. Underlying history of hypertension maintained on losartan At this time medication and labs were reviewed Continue current management awaiting input from pulmonary and infectious disease, plans for bronchoscopy tomorrow noted. For DVT prophylaxis will start subcu Lovenox for GI prophylaxis patient is on Protonix
[2019-10-30] MEDS: LEVOFLOXACIN 500MG-D5W PMX 500 MG in DEXTROSE/WATER 1 100ML.BAG IVPB SCH (17:22)
[2019-10-30 18:43] LABS: Ferritin 588.4 ng/mL (22.0-322.0)
[2019-10-30] MEDS: LOSARTAN 50 MG TAB PO SCH (21:02)
[2019-10-30] MEDS: BACLOFEN 10 MG TAB PO SCH (21:02)
[2019-10-30] MEDS: NAPROXEN 250 MG TAB PO SCH (21:03)
[2019-10-30] MEDS: SERTRALINE 100 MG TAB PO SCH (21:17)
[2019-10-30] MEDS: ZOLPIDEM 5 MG TAB PO PRN (22:00)
[2019-10-31] MEDS: IPRATROPIUM-ALBUTEROL 3 ML NEB INHALATION SCH ×8 (00:41→23:20)
[2019-10-31 04:47] LABS: Basophils % (A) 0 %; Eosinophils # (A) 0.1 k/uL (0-0.7); Eosinophils % (A) 0 %; HCT 31.5 % (39.0-53.0); HGB 10.2 gm/dL (13.0-17.5); Lymphocytes # (A) 0.2 k/uL (1.0-4.8); Lymphocytes % (A) 2 %; MCH 31.3 pg (25.0-35.0); MCHC 32.4 g/dL (31.0-37.0); MCV 96.5 fL (80.0-100.0); Monocytes # (A) 0.5 k/uL (0-1.0); Monocytes % (A) 4 %; Neutrophils # (A) 12.2 k/uL (1.3-7.7); Neutrophils % (A) 94 %; Platelet Count 360 k/uL (150-450); RBC 3.26 m/uL (4.30-5.90); RDW 12.3 % (11.5-15.5); WBC 13.1 k/uL (3.8-10.6)
[2019-10-31 05:05] LABS: ALT 24 U/L (4-49); AST 42 U/L (17-59); African American GFR (CKD) >90 (>60 ml/min/1.73 sqM); Albumin 3.2 g/dL (3.5-5.0); Alkaline Phosphatase 86 U/L (38-126); Anion Gap 5 mmol/L; Blood Urea Nitrogen 13 mg/dL (9-20); C Reactive Protein 73.8 mg/L (<10.0); Calcium 8.7 mg/dL (8.4-10.2); Carbon Dioxide 24 mmol/L (22-30); Chloride 109 mmol/L (98-107); Glucose 135 mg/dL (74-99); LDH 764 U/L (313-618); Non-African American GFR(CKD) >90 (>60 ml/min/1.73 sqM); Potassium 4.5 mmol/L (3.5-5.1); Sodium 138 mmol/L (137-145); Total Bilirubin 0.3 mg/dL (0.2-1.3)
[2019-10-31] MEDS: LEVOTHYROXINE 50 MCG TAB PO SCH (06:05)
[2019-10-31] MEDS: methylPREDNISolone SOD SUCCI 125 MG/2 ML VIAL IV SCH ×4 (06:06→23:48)
[2019-10-31] MEDS: SODIUM CHLORIDE 0.9% 1,000 ML IV SCH ×2 (06:08→17:51)
--- NOTE | 2019-10-31 06:37 | XR ---
EXAMINATION TYPE: XR chest 1V portable DATE OF EXAM: 10/31/2019 COMPARISON: 10/30/2019 HISTORY: Shortness of breath TECHNIQUE: Single frontal view of the chest is obtained. FINDINGS: Bilateral airspace disease is stable. Postsurgical change involving the right hemithorax w ith rib resection again noted. Underlying COPD noted. Heart is enlarged. IMPRESSION: 1. Stable bilateral areas of predominantly perihilar and lower lobe infiltrate. Correlate for pneumon ia, otherwise consider pulmonary edema superimposed on a background COPD.
[2019-10-31] MEDS ORDERED: PROPOFOL 10 MG/ML 20 ML VIAL IV ONE (08:00)
[2019-10-31] MEDS ORDERED: LIDOCAINE 1% INJ 10MG/ML (20 ML MDV) ONE (08:00)
[2019-10-31] MEDS ORDERED: IV FLUID CONTINUATION 1,000 ML IV ONE ×2 (08:01)
[2019-10-31] MEDS: FORMOTEROL FUMARATE 20 MCG/2 ML NEBU INHALATION SCH ×2 (08:01→18:47)
[2019-10-31] MEDS: BUDESONIDE 1 MG/2 ML NEBU INHALATION SCH ×2 (08:01→18:47)
[2019-10-31] MEDS ORDERED: LIDOCAINE 2% INJ 20 MG/ML INTRATRACH ONE (08:18)
--- NOTE | 2019-10-31 08:26 | P.PN ---
Subjective Progress Note Date: 10/31/19 59-year-old white male patient of Dr. Jensen, with past medical history of squamous cell carcinoma, status post right upper lobe resection in 2010 was treated with chemoradiation, with a recent recurrence, patient had a PET scan on all 05/07/2019 showing suspicious uptake in the right lower lobe in the left hilar lymph node. Patient had a computed tomography scan guided biopsy of the right lower lobe that was positive for squamous cell carcinoma and this was done on 05/19/2019. Subsequently the patient underwent a bronchoscopy and EBUS with biopsies of the left upper lobe, left hilar lymph node and subcarinal lymph nodes and all of them were positive for squamous cell carcinoma. MRI of the bra in was negative for any evidence of metastasis. 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 Patient was subjected to concurrent chemoradiation therapy, he completed chemotherapy, he had SBRT to the right lower lobe completed on 06/30/2019 which she tolerated well. He also completed concurrent chem oradiation therapy to the left upper lobe on 08/16/2019. Currently on Opdivo, receive his third dose this past Friday. Follow-up CAT scan of the chest that was done on 09/06/2019 showed significant improvement, all of his CT scans, chest x-rays, and procedures related to his recent workup for recurrence of lung cancer was done at the [facility], patient follows with Dr. Patino, Dr. Chaz Castillo from radiation oncology. Patient also follows with Dr. Dietz in the pulmonary office, his underlying FEV1 is 77% of predicted. Patient is maintained on Trelegy, rescue inhaler, he was recently treated for acute COPD exacerbation on outpatient basis. 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 For the past 2 days patient had not been feeling well, weak, febrile, short of breath. He came into the emergency department for evaluation on 10/27/2019. Patient was febrile, with a temp of 101, with the severe exertional dyspnea, shortness of breath, cough. No hemoptysis. No complaints of chest pain, no nausea vomiting, he states one of his coworkers was being tested for COVID 19. Chest x-ray showed COPD with bilateral areas of consolidation likely related to multifocal pneumonia. Of note most recent chest x-ray on 10/01/2019 showed no acute process. COVID 19 PCR is pending, influenza and B were negative. Labs showed a woman with a crit of 8.2, hemoglobin is 10.5, leukocyte count is 0.3, d-dimer was 0.65, sodium was 132, the rest of electrolytes and renal profile were within normal limits, LFTs were within normal limits, lactic acid 0.9, LDH is 661, CRP is 213. The patient was started on empiric antibiotics in the form of meropenem. Afebrile today, he is on room air, the pulse ox 93%. On 10/29/2019 patient seen in follow-up on a general medical surgical floor. Still has significant exertional dyspnea, but remains on room air, with a pulse ox of 92%, hemodynamically stable, patient has been afebrile in last 24 hours, lung sounds are diminished, with fine crackles at the right mid posterior lung, no dullness, no rhonchi or wheezing. Covid 19 testing was negative. Today's labs have been reviewed, showing the blood cell count of 6.1, hemoglobin of 9.9, ferritin level of 425, LDH was 661, CRP is 213, and progesterone level came back intermediate range at 0.17, influenza screen was negative. Antibiotic coverage in the form of meropenem. Blood culture has shown no growth, sputum culture will be sent. On 10/30/2019, transferred the patient to the intensive care unit regarding his ongoing bilateral pulmonary infiltrates/pneumonia and hypoxic respiratory failure. I performed a CAT scan of the chest and the CAT scan showed moderate interstitial and alveolar infiltrates in the lung bases bilaterally. No evidence of any lung masses. I have placed this patient on a combination of Merrem and Levaquin was also added. The Covid 19 nasal swab by PCR came back negative. The patient is currently afebrile. Pro-calcitonin level was nonelevated. The cultures were all negative for now. The white cell count is not elevated. The patient is afebrile. Currently is on 3 L of oxygen by nasal cannula. He is less tachycardic compared to yesterday. I have started on steroids considering the possibility of immunotherapy related interstitial lung disease. He is able to speak of. This is. He is not using accessory muscles of breathing. Chest x-ray from today is unchanged compared to yesterday and the patient still has diffuse bilateral pulmonary infiltrates. On 10/31/2019, the patient is being seen for a follow-up. The patient remains in the intensive care unit for bilateral lower lobe pneumonia/infiltration. He remains on a combination of Levaquin and Merrem. The patient remains on 3 L of oxygen by nasal cannula. No significant improvement over the past 24 hours. He continues to have cough and exertional dyspnea. The plan is to do a bronchoscopy and bronchoalveolar lavage of the lower lobes throughout any ongoing microbial growth. The patient is also on IV Solu-Medrol. No nausea. No vomiting. No chest pain. No other complaints otherwise for now. I took this patient to the endoscopy suite and I performed a bronchoscopy and right lower lobe bronchial alveolar lavage. There was some endobronchial irregularities which could be postradiation changes or residual tumor in the left upper lobe specifically in the apical posterior and anterior segments of the left upper lobe. Endobronchial biopsies of were also obtained. The patient be kept on the same combination of antibiotics and steroids. Note that his Covid 19 evaluation came back negative and the patient had a lower pro-ca lcitonin level. Objective - Vital Signs Vital signs: Vital Signs Temp 97.8 F 10/31/19 07:48 Pulse 102 H 10/31/19 07:48 Resp 20 10/31/19 07:48 BP 135/66 10/31/19 07:48 Pulse Ox 93 L 10/31/19 07:48 Intake & Output 10/30/19 10/31/19 10/31/19 18:59 06:59 18:59 Intake Total 2460 1300 400 Output Total 900 600 0 Balance 1560 700 400 Weight 87 kg Intake: IV 1200 1300 400 Meropenem 1 gm In Sodium 100 Chloride 0.9% 100 ml @ 200 mls/hr IVPB Q8HR [facility] Rx#:[id number] Sodium Chloride 0.9% 1, 1200 1200 200 000 ml @ 100 mls/hr IV . Q10H [facility] Rx#:[id number] Intake, IV Titration 300 Amount Levofloxacin 500Mg-D5w 100 Pmx 500 mg In Dextrose/ Water 1 100ml.bag @ 100 mls/hr IVPB Q24H [facility] Rx#: [id number] Meropenem 1 gm In Sodium 200 Chloride 0.9% 100 ml @ 200 mls/hr IVPB Q8HR P[facility]TER Rx#:[id number] Oral 960 Output: Urine 900 600 0 Other: Voiding Method Toilet Urinal Urinal # Voids 1 1 # Bowel Movements 1 - Exam GENERAL EXAM: Alert, very pleasant, 59-year-old white male, on room air, with a pulse ox of 92% comfortable in no apparent distress. The patient is currently on 3 L of oxygen by nasal cannula. HEAD: Normocephalic/atraumatic. EYES: Normal reaction of pupils, equal size. Conjunctiva pink, sclera white. NOSE: Clear with pink turbinates. THROAT: No erythema or exudates. NECK: No masses, no JVD, no thyroid enlargement, no adenopathy. CHEST: No chest wall deformity. Symmetrical expansion. LUNGS: Equal air entry with fine crackles at right mid posterior lung, mild left upper lobe anterior chest wheeze, no rhonchi or dullness. CVS: Regular rate and rhythm, normal S1 and S2, no gallops, no murmurs, no rubs ABDOMEN: Soft, nontender. No hepatosplenomegaly, normal bowel sounds, no guarding or rigidity. EXTREMITIES: No clubbing, no edema, no cyanosis, 2+ pulses and upper and lower extremities. MUSCULOSKELETAL: Muscle strength and tone normal. SPINE: No scoliosis or deformity SKIN: No rashes CENTRAL NERVOUS SYSTEM: Alert and oriented -3. No focal deficits, tone is normal in all 4 extremities. PSYCHIATRIC: Alert and oriented -3. Appropriate affect. Intact judgment and insight. - Labs CBC & Chem 7: 10/31/19 04:23 10/31/19 04:23 Labs: Abnormal Lab Results - Last 24 Hours (Table) 10/30/19 10/31/19 10/31/19 Range/Units 04:17 04:23 04:23 WBC 13.1 H (3.8-10.6) k/uL RBC 3.26 L (4.30-5.90) m/uL Hgb 10.2 L (13.0-17.5) gm/dL Hct 31.5 L (39.0-53.0) % Neutrophils # 12.2 H (1.3-7.7) k/uL Lymphocytes # 0.2 L (1.0-4.8) k/uL D-Dimer 0.61 H (<0.60) mg/L FEU Chloride (98-107) mmol/L Creatinine (0.66-1.25) mg/dL Glucose (74-99) mg/dL Ferritin 588.4 H (22.0-322.0) ng/mL Lactate Dehydrogenase (313-618) U/L C-Reactive Protein (<10.0) mg/L Total Protein (6.3-8.2) g/dL Albumin (3.5-5.0) g/dL 10/31/19 Range/Units 04:23 WBC (3.8-10.6) k/uL RBC (4.30-5.90) m/uL Hgb (13.0-17.5) gm/dL Hct (39.0-53.0) % Neutrophils # (1.3-7.7) k/uL Lymphocytes # (1.0-4.8) k/uL D-Dimer (<0.60) mg/L FEU Chloride 109 H (98-107) mmol/L Creatinine 0.64 L (0.66-1.25) mg/dL Glucose 135 H (74-99) mg/dL Ferritin (22.0-322.0) ng/mL Lactate Dehydrogenase 764 H (313-618) U/L C-Reactive Protein 73.8 H (<10.0) mg/L Total Protein 6.0 L (6.3-8.2) g/dL Albumin 3.2 L (3.5-5.0) g/dL Microbiology - Last 24 Hours (Table) 10/27/19 19:24 Blood Culture - Preliminary Blood No Growth after 72 hours 10/29/19 15:31 Blood Culture - Preliminary Blood No Growth after 24 hours Assessment and Plan Plan: 1 acute bilateral lower lobe pulmonary infiltrates. Rule out infection. Rule out immunotherapy induced interstitial lung disease as the patient was receiving immunotherapy for lung cancer. The patient has not had any fever. Pro- calcitonin is not elevated. White cell count isn't elevated. The patient is on a combination of meropenem and Levaquin. The coronavirus covid19 PCR came back negative. 2 acute hypoxic respiratory failure currently on 3 L of oxygen by nasal cannula 3 Recurrence of squamous cell lung carcinoma, status post CT-guided biopsy of a right lower lobe, and left upper lobe, left hilar lymph node and subcarinal lymph nodes that were positive for squamous cell carcinoma, patient has completed chemotherapy and SRT to the right lower lobe completed on 06/30/2019, and concurrent chemoradiation to the left upper lobe on 08/16/2019. Currently on immunotherapy in the form of OPdivo 4. History of COPD with baseline FEV1 of 77% predicted, maintained on Trelegy, albuterol 5 History of squamous cell lung lung cancer of the right upper lobe, treated with right upper lobectemy in 2010, followed by chemotherapy 6 Former smoker, he smoking history has been in remission since 2010 7. Hypertension 8. Hyperlipidemia 9. BPH 10. Hypothyroidism Plan Continue same antibiotic coverage. The patient remains on oxygen 3 L per minute nasal cannula. Bronchoscopy and lavage of the right lower lobe was done. Endobronchial irregularities also seen in the left upper lobe apical posterior and anterior segments. Endobronchial biopsies were also obtained. Rule out residual cancer. The patient will be kept in intensive care unit for now. Suspect ILD related to immunotherapy. He is afebrile. No worsening in his oxygenation. Chest x-ray still showing bilateral lower lobe pulmonary infil trates which remains unchanged compared to yesterday.
--- NOTE | 2019-10-31 08:31 | P.PCN ---
Date of Procedure: 10/31/19 Preoperative Diagnosis: Bilateral lower lobe pneumonia, history of squamous cell lung cancer Postoperative Diagnosis: Bilateral pneumonia, squamous cell lung cancer, history of immunotherapy intake. Procedure(s) Performed: Bronchoscopy, bronchioloalveolar lavage of the right lower lobe, endobronchial biopsies of the left upper lobe. Anesthesia: MAC Surgeon: Nic Dietz Estimated Blood Loss (ml): 0 Pathology: other Condition: critical Disposition: ICU Operative Findings: This procedure was done under conscious sedation. Anesthetic was started by anesthesia the bedside. The patient was placed on high flow oxygen at 10 L and addition to her facemask. After achieving adequate sedation via propofol, the flexible bronchoscope was introduced into the right nostril was advanced into the upper airway. Examination of the posterior oropharynx, larynx, epiglottis and vocal cords were done and all of the airways structures in the upper airways were within normal limits. Vocal cords were function in the midline and there were symmetrical. No polyps. No lesions. A total of 2 mL of 1% lidocaine was applied to the vocal cords and following that the bronchoscope was advanced into the upper trachea. Examination of the second she was on. Trachea was within normal. Examination of the right mainstem bronchus, left mainstem bronchus, right upper lobe, right middle lobe and right lower lobe was within normal limits. Examination of the left upper lobe showed some endobronchial abnormalities which included some narrowing, some polypoid-like lesions which has a cauliflower appearance and there was vascular. This was the secondary sheila between the apical posterior and anterior segment of the left upper lobe. Endobronchial biopsies from the left upper lobe was done. Following that, the bronchoscope was moved to the right lower lobe and the bron chioloalveolar lavage of the anterior segment was done. A total of 80 mL of fluid was infused in 20-25 mL of fluid was aspirated without any complications. The patient encounter some cough and. No hemoptysis. Bronchoscope was removed and the patient was transferred to recovery in stable condition. The bronchioloalveolar lavage will be sent for microbial cultures and analysis. Endobronchial biopsies will be sent for histologic evaluation. The patient was transferred back to the ICU in a stable condition. We'll continue to follow.
[2019-10-31] MEDS: MEROPENEM 1 GM in SODIUM CHLORIDE 0.9% 100 ML IVPB SCH ×3 (08:36→23:48)
--- NOTE | 2019-10-31 10:20 | P.PN ---
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 Patino, in april 2018 patient presented to the hospital with cough and shortness of breath computed tomography scan revealed no evidence of cancer recurrence. Patient is followed by Dr. Rahman and receiving immunotherapy, his last dose was on Friday. Patient stated that yesterday after work he felt very tired and had elevated temperature he called Dr. Rahman's office and was told to come to emergency room patient was also complaining of shortness of breath and upper back pain otherwise he denies any complaints there is no headache or dizziness no chest pain he had occasional cough no nausea or vomiting no abdominal pain no diarrhea no burning with urination no frequency or urgency and no hematuria. Patient was evaluated in the emergency room his temperature on presentation was 99.9 pulse 107 respiration 18 blood pressure 119/74 pulse ox 94% on room air, l aboratory data revealed a white blood count of 8.2 hemoglobin 10.5 sodium 132 and creatinine kinase of 198 otherwise normal labs influenza A and B were negative Covid 19 testing is still pending. Chest x-ray revealed innumerable bilateral perihilar multilobar acute infiltrates, patient was started on IV antibiotics in the emergency room, he was admitted to medical floor, oncology consultation and pulmonary consultation were requested. 10/29/2019, patient was seen and examined on the medical floor, he is alert and oriented 3 in no distress, he is still complaining of shortness of breath with any activity and occasional cough otherwise he denies any complaints there is no fever or chills no headache or dizziness no chest pain no nausea or vomiting no abdominal pain no diarrhea [place] the stools no burning with urination no frequency or urgency and no hematuria. on 10/30/2019 patient was seen and examined in the ICU, yesterday evening he developed worsening shortness of breath with tachycardia and tachypnea, he was transferred to intensive care unit and was reevaluated by pulmonary. At this time patient is stable in ICU he is alert and oriented 3 he is still feeling short of breath, he has occasional cough without any significant sputum production, there is no fever or chills no headache or dizziness no chest pain no nausea or vomiting no abdominal pain no diarrhea no blood in the stools no burning with urination no frequency or urgency and no hematuria. Input from pulmonary reviewed, plan is for a bronchoscopy tomorrow morning if patient is not improving. On 10/31/2019 patient was seen and examined in the ICU he is somnolent he just returned from having a bronchoscopy, he is still complaining of cough and shortness of breath otherwise he denies any complaints there is no fever or chills no headache or dizziness no chest pain no nausea or vomiting no abdominal pain no diarrhea no blood in the stools no burning with urination no frequency or urgency and no hematuria, bronchoscopy report reviewed at this time continue with IV antibiotics and IV Solu-Medrol will follow in a.m. Objective - Vital Signs Vital signs: Vital Signs Temp 97.8 F 10/31/19 07:48 Pulse 89 10/31/19 09:15 Resp 22 10/31/19 09:15 BP 125/60 10/31/19 09:15 Pulse Ox 94 L 10/31/19 09:15 Intake & Output 10/30/19 10/31/19 10/31/19 18:59 06:59 18:59 Intake Total 2460 1300 600 Output Total 900 600 0 Balance 1560 700 600 Weight 87 kg Intake: IV 1200 1300 500 Meropenem 1 gm In Sodium 100 Chloride 0.9% 100 ml @ 200 mls/hr IVPB Q8HR [facility] Rx#:[id number] Sodium Chloride 0.9% 1, 1200 1200 300 000 ml @ 100 mls/hr IV . Q10H [facility] Rx#:[id number] Intake, IV Titration 300 100 Amount Levofloxacin 500Mg-D5w 100 Pmx 500 mg In Dextrose/ Water 1 100ml.bag @ 100 mls/hr IVPB Q24H [facility] Rx#: [id number] Meropenem 1 gm In Sodium 200 100 Chloride 0.9% 100 ml @ 200 mls/hr IVPB Q8HR [facility] Rx#:[id number] Oral 960 Output: Urine 900 600 0 Other: Voiding Method Toilet Urinal Urinal Urinal # Voids 1 1 # Bowel Movements 1 - Exam In general patient is alert and oriented 3 in no distress HEENT head normocephalic and atraumatic Neck is supple no JVD no goiter no lymphadenopathy Chest exam reveals a crackles in both lung bases no wheezing Cardiac exam reveals regular heart sounds S1 and S2 no gallops no murmurs Abdomen is soft nontender no organomegaly with normal bowel sounds Extremity exam reveals no edema no cyanosis or clubbing Neurological examination reveals no gross focal deficit - Labs CBC & Chem 7: 10/31/19 04:23 10/31/19 04:23 Labs: Abnormal Lab Results - Last 24 Hours (Table) 10/30/19 10/31/19 10/31/19 Range/Units 04:17 04:23 04:23 WBC 13.1 H (3.8-10.6) k/uL RBC 3.26 L (4.30-5.90) m/uL Hgb 10.2 L (13.0-17.5) gm/dL Hct 31.5 L (39.0-53.0) % Neutrophils # 12.2 H (1.3-7.7) k/uL Lymphocytes # 0.2 L (1.0-4.8) k/uL D-Dimer 0.61 H (<0.60) mg/L FEU Chloride (98-107) mmol/L Creatinine (0.66-1.25) mg/dL Glucose (74-99) mg/dL Ferritin 588.4 H (22.0-322.0) ng/mL Lactate Dehydrogenase (313-618) U/L C-Reactive Protein (<10.0) mg/L Total Protein (6.3-8.2) g/dL Albumin (3.5-5.0) g/dL 10/31/19 Range/Units 04:23 WBC (3.8-10.6) k/uL RBC (4.30-5.90) m/uL Hgb (13.0-17.5) gm/dL Hct (39.0-53.0) % Neutrophils # (1.3-7.7) k/uL Lymphocytes # (1.0-4.8) k/uL D-Dimer (<0.60) mg/L FEU Chloride 109 H (98-107) mmol/L Creatinine 0.64 L (0.66-1.25) mg/dL Glucose 135 H (74-99) mg/dL Ferritin (22.0-322.0) ng/mL Lactate Dehydrogenase 764 H (313-618) U/L C-Reactive Protein 73.8 H (<10.0) mg/L Total Protein 6.0 L (6.3-8.2) g/dL Albumin 3.2 L (3.5-5.0) g/dL Microbiology - Last 24 Hours (Table) 10/29/19 10:45 Gram Stain - Final Sputum Sputum Culture - Final 10/27/19 19:24 Blood Culture - Preliminary Blood No Growth after 72 hours 10/29/19 15:31 Blood Culture - Preliminary Blood No Growth after 24 hours Assessment and Plan Plan: 1. Bilateral pneumonia, patient was started on imipenem in the emergency room, IV Levaquin was also added to regimen, patient is also receiving IV Solu-Medrol 60 mg every 6 hours 2. History of squamous cell carcinoma of the right upper lobe, with previous surgery in 2010 followed by chemotherapy, patient is followed by Dr. Rahman, patient states that he received immunotherapy on Friday. 3. Upper back pain, could be related to pneumonia, however patient has known history of degenerative disc disease, he received epidural injections by Dr. Clinton Dubon in March 2019 4. Underlying history of hyperlipidemia maintained on Lipitor 5. Underlying history of hypothyroidism maintained on Synthroid 150 g daily 6. Underlying history of hypertension maintained on losartan At this time medication and labs were reviewed Continue current management awaiting input from pulmonary and infectious d isease, plans for bronchoscopy tomorrow noted. For DVT prophylaxis will start subcu Lovenox for GI prophylaxis patient is on Protonix
[2019-10-31] MEDS: MULTIVITAMINS, THERA 1 EACH TAB PO SCH (11:00)
[2019-10-31] MEDS: PANTOPRAZOLE 40 MG TABLET PO SCH (11:00)
[2019-10-31] MEDS: ENOXAPARIN 40 MG/0.4 ML SYRINGE SQ SCH (11:00)
[2019-10-31] MEDS: ATORVASTATIN 10 MG TAB PO SCH (11:00)
[2019-10-31] MEDS: TAMSULOSIN 0.4 MG CAP.ER.24H PO SCH (11:00)
[2019-10-31] MEDS: HYDROcodone/APAP 10-325MG 1 EACH TAB PO SCH ×4 (11:01→22:15)
[2019-10-31 11:11] LABS: Appearance,BF Cloudy; Color,BF Red; Nucleated Cells, Body Fluid 1200 /uL; RBC, Body Fluid 57800 /uL
[2019-10-31 11:14] LABS: Mononuclear WBC,Body Fluid 18 %; Polynuclear WBC,Body Fluid 81 %; Total Cells Counted,Body Fluid 100
[2019-10-31 12:24] LABS: Ferritin 760.5 ng/mL (22.0-322.0)
[2019-10-31] MEDS: LEVOFLOXACIN 500MG-D5W PMX 500 MG in DEXTROSE/WATER 1 100ML.BAG IVPB SCH (17:52)
[2019-10-31] MEDS: NAPROXEN 250 MG TAB PO SCH (20:37)
[2019-10-31] MEDS: LOSARTAN 50 MG TAB PO SCH (20:38)
[2019-10-31] MEDS: SERTRALINE 100 MG TAB PO SCH (20:38)
[2019-10-31] MEDS: BACLOFEN 10 MG TAB PO SCH (20:38)
[2019-11-01] MEDS: SODIUM CHLORIDE 0.9% 1,000 ML IV SCH ×2 (01:10→12:45)
[2019-11-01 05:02] LABS: Basophils % (A) 0 %; Eosinophils # (A) 0.1 k/uL (0-0.7); Eosinophils % (A) 1 %; HCT 32.4 % (39.0-53.0); HGB 10.4 gm/dL (13.0-17.5); Lymphocytes # (A) 0.2 k/uL (1.0-4.8); Lymphocytes % (A) 2 %; MCH 30.7 pg (25.0-35.0); MCV 96.1 fL (80.0-100.0); Monocytes # (A) 0.5 k/uL (0-1.0); Monocytes % (A) 4 %; Neutrophils # (A) 11.8 k/uL (1.3-7.7); Neutrophils % (A) 93 %; Platelet Count 372 k/uL (150-450); RBC 3.37 m/uL (4.30-5.90); RDW 12.4 % (11.5-15.5); WBC 12.7 k/uL (3.8-10.6)
[2019-11-01 05:10] LABS: ALT 24 U/L (4-49); AST 34 U/L (17-59); African American GFR (CKD) >90 (>60 ml/min/1.73 sqM); Albumin 3.1 g/dL (3.5-5.0); Alkaline Phosphatase 82 U/L (38-126); Anion Gap 5 mmol/L; Blood Urea Nitrogen 14 mg/dL (9-20); Calcium 8.6 mg/dL (8.4-10.2); Carbon Dioxide 25 mmol/L (22-30); Chloride 106 mmol/L (98-107); Glucose 130 mg/dL (74-99); Non-African American GFR(CKD) >90 (>60 ml/min/1.73 sqM); Potassium 4.6 mmol/L (3.5-5.1); Sodium 136 mmol/L (137-145); Total Bilirubin 0.7 mg/dL (0.2-1.3); Total Protein 5.8 g/dL (6.3-8.2)
[2019-11-01] MEDS: methylPREDNISolone SOD SUCCI 125 MG/2 ML VIAL IV SCH ×3 (06:07→17:55)
[2019-11-01] MEDS: LEVOTHYROXINE 50 MCG TAB PO SCH (06:07)
[2019-11-01] MEDS: BUDESONIDE 1 MG/2 ML NEBU INHALATION SCH (08:04)
[2019-11-01] MEDS: IPRATROPIUM-ALBUTEROL 3 ML NEB INHALATION SCH (08:04)
[2019-11-01] MEDS: FORMOTEROL FUMARATE 20 MCG/2 ML NEBU INHALATION SCH (08:04)
[2019-11-01] MEDS: MEROPENEM 1 GM in SODIUM CHLORIDE 0.9% 100 ML IVPB SCH ×2 (08:17→16:11)
[2019-11-01] MEDS: ENOXAPARIN 40 MG/0.4 ML SYRINGE SQ SCH (08:17)
[2019-11-01] MEDS: PANTOPRAZOLE 40 MG TABLET PO SCH (08:18)
[2019-11-01] MEDS: MULTIVITAMINS, THERA 1 EACH TAB PO SCH (08:18)
[2019-11-01] MEDS: HYDROcodone/APAP 10-325MG 1 EACH TAB PO SCH (08:18)
[2019-11-01] MEDS: ATORVASTATIN 10 MG TAB PO SCH (08:18)
[2019-11-01] MEDS: TAMSULOSIN 0.4 MG CAP.ER.24H PO SCH (08:18)
--- NOTE | 2019-11-01 10:02 | P.PN ---
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 Patino, in april 2018 patient presented to the hospital with cough and shortness of breath computed tomography scan revealed no evidence of cancer recurrence. Patient is followed by Dr. Rahman and receiving immunotherapy, his last dose was on Friday. Patient stated that yesterday after work he felt very tired and had elevated temperature he called Dr. Rahman's office and was told to come to emergency room patient was also complaining of shortness of breath and upper back pain otherwise he denies any complaints there is no headache or dizziness no chest pain he had occasional cough no nausea or vomiting no abdominal pain no diarrhea no burning with urination no frequency or urgency and no hematuria. Patient was evaluated in the emergency room his temperature on presentation was 99.9 pulse 107 respiration 18 blood pressure 119/74 pulse ox 94% on room air, l aboratory data revealed a white blood count of 8.2 hemoglobin 10.5 sodium 132 and creatinine kinase of 198 otherwise normal labs influenza A and B were negative Covid 19 testing is still pending. Chest x-ray revealed innumerable bilateral perihilar multilobar acute infiltrates, patient was started on IV antibiotics in the emergency room, he was admitted to medical floor, oncology consultation and pulmonary consultation were requested. 10/29/2019, patient was seen and examined on the medical floor, he is alert and oriented 3 in no distress, he is still complaining of shortness of breath with any activity and occasional cough otherwise he denies any complaints there is no fever or chills no headache or dizziness no chest pain no nausea or vomiting no abdominal pain no diarrhea [place] the stools no burning with urination no frequency or urgency and no hematuria. on 10/30/2019 patient was seen and examined in the ICU, yesterday evening he developed worsening shortness of breath with tachycardia and tachypnea, he was transferred to intensive care unit and was reevaluated by pulmonary. At this time patient is stable in ICU he is alert and oriented 3 he is still feeling short of breath, he has occasional cough without any significant sputum production, there is no fever or chills no headache or dizziness no chest pain no nausea or vomiting no abdominal pain no diarrhea no blood in the stools no burning with urination no frequency or urgency and no hematuria. Input from pulmonary reviewed, plan is for a bronchoscopy tomorrow morning if patient is not improving. On 10/31/2019 patient was seen and examined in the ICU he is somnolent he just returned from having a bronchoscopy, he is still complaining of cough and shortness of breath otherwise he denies any complaints there is no fever or chills no headache or dizziness no chest pain no nausea or vomiting no abdominal pain no diarrhea no blood in the stools no burning with urination no frequency or urgency and no hematuria, bronchoscopy report reviewed at this time continue with IV antibiotics and IV Solu-Medrol will follow in a.m. On 11/01/2019 patient was seen and examined in the ICU, he is alert and oriented 3 in no apparent distress, he is complaining of severe shortness of breath with any activity, he states that he cannot walk from his bed to the bathroom without severe difficulty with breathing, he is also complaining of cough and complaining of pain in his neck, he is requesting an increase in the frequency of his pain medications, otherwise he denies any complaints there is no fever or chills no headache or dizziness no chest pain no palpitation no nausea or vomiting no abdominal pain no diarrhea no burning with urination no frequency or urgency and no hematuria. Objective - Vital Signs Vital signs: Vital Signs Temp 97.5 F L 11/01/19 04:00 Pulse 88 11/01/19 09:00 Resp 29 H 11/01/19 09:00 BP 162/80 11/01/19 09:00 Pulse Ox 91 L 11/01/19 09:00 Intake & Output 10/31/19 11/01/19 11/01/19 18:59 06:59 18:59 Intake Total 1540 1650 100 Output Total 1050 1750 325 Balance 490 -100 -225 Weight 87.5 kg Intake: IV 1200 1300 100 Meropenem 1 gm In Sodium 100 Chloride 0.9% 100 ml @ 200 mls/hr IVPB Q8HR [facility] Rx#:[id number] Sodium Chloride 0.9% 1, 1000 1200 100 000 ml @ 100 mls/hr IV . Q10H [facility] Rx#:[id number] Intake, IV Titration 100 Amount Meropenem 1 gm In Sodium 100 Chloride 0.9% 100 ml @ 200 mls/hr IVPB Q8HR [facility] Rx#:[id number] Oral 240 350 Output: Urine 1050 1750 325 Other: Voiding Method Toilet Toilet Urinal Urinal # Voids 0 0 1 - Exam In general patient is alert and oriented 3 in no distress HEENT head normocephalic and atraumatic Neck is supple no JVD no goiter no lymphadenopathy Chest exam reveals a crackles in both lung bases no wheezing Cardiac exam reveals regular heart sounds S1 and S2 no gallops no murmurs Abdomen is soft nontender no organomegaly with normal bowel sounds Extremity exam reveals no edema no cyanosis or clubbing Neurological examination reveals no gross focal deficit - Labs CBC & Chem 7: 11/01/19 04:03 11/01/19 04:03 Labs: Abnormal Lab Results - Last 24 Hours (Table) 10/31/19 11/01/19 11/01/19 Range/Units 04:23 04:03 04:03 WBC 12.7 H (3.8-10.6) k/uL RBC 3.37 L (4.30-5.90) m/uL Hgb 10.4 L (13.0-17.5) gm/dL Hct 32.4 L (39.0-53.0) % Neutrophils # 11.8 H (1.3-7.7) k/uL Lymphocytes # 0.2 L (1.0-4.8) k/uL Sodium 136 L (137-145) mmol/L Creatinine 0.56 L (0.66-1.25) mg/dL Glucose 130 H (74-99) mg/dL Ferritin 760.5 H (22.0-322.0) ng/mL Total Protein 5.8 L (6.3-8.2) g/dL Albumin 3.1 L (3.5-5.0) g/dL Microbiology - Last 24 Hours (Table) 10/27/19 19:24 Blood Culture - Preliminary Blood No Growth after 96 hours 10/31/19 08:10 Gram Stain - Preliminary Bronchial Washings - Right Bronchial Washings Culture - Preliminary 10/31/19 08:10 Fungal Culture - Preliminary Bronchial Washings - Right 10/31/19 08:10 Acid Fast Bacilli Culture - Preliminary Bronchial [place]ings - Right 10/29/19 15:31 Blood Culture - Preliminary Blood No Growth after 48 hours 10/29/19 10:45 Gram Stain - Final Sputum Sputum Culture - Final Assessment and Plan Plan: 1. Bilateral pneumonia, patient was started on imipenem in the emergency room, IV Levaquin was also added to regimen, patient is also receiving IV Solu-Medrol 60 mg every 6 hours 2. History of squamous cell carcinoma of the right upper lobe, with previous surgery in 2010 followed by chemotherapy, patient is followed by Dr. Ramhan, patient states that he received immunotherapy on Friday. 3. Upper back pain, could be related to pneumonia, however patient has known history of degenerative disc disease, he received epidural injections by Dr. Clinton Dubon in March 2019 4. Underlying history of hyperlipidemia maintained on Lipitor 5. Underlying history of hypothyroidism maintained on Synthroid 150 g daily 6. Underlying history of hypertension maintained on losartan. 7. Neck pain Will increase [place] to 4 times daily per patient request At this time medication and labs were reviewed Continue current management awaiting input from pulmonary and infectious disease. Patient underwent bronchoscopy yesterday awaiting results of biopsy and cultures For DVT prophylaxis will start subcu Lovenox for GI prophylaxis patient is on Protonix
[2019-11-01] MEDS ORDERED: IPRATROPIUM-ALBUTEROL 3 ML NEB INHALATION PRN (10:05)
[2019-11-01] MEDS ORDERED: HYDROcodone/APAP 10-325MG 1 EACH TAB PO SCH (10:15)
--- NOTE | 2019-11-01 11:33 | XR ---
EXAMINATION TYPE: XR chest 1V portable DATE OF EXAM: 11/01/2019 CLINICAL HISTORY: Shortness of breath TECHNIQUE: Portable upright view of the chest obtained COMPARISON: 10/31/2019 FINDINGS: Postsurgical changes of the right hemithorax with rib resection apically. Cardiomediastina l silhouette normal. Pulmonary vasculature normal. Interstitial changes. The patchy opacities of the bilateral mid lungs are unchanged. No pleural effusion. No pneumothorax. IMPRESSION: Unchanged radiograph appearance of the chest with emphysematous change and patchy opaciti es of the bilateral mid lungs.
--- NOTE | 2019-11-01 12:38 | P.PN ---
Subjective Progress Note Date: 11/01/19 59-year-old white male patient of Dr. Jensen, with past medical history of squamous cell carcinoma, status post right upper lobe resection in 2010 was treated with chemoradiation, with a recent recurrence, patient had a PET scan on all 05/07/2019 showing suspicious uptake in the right lower lobe in the left hilar lymph node. Patient had a computed tomography scan guided biopsy of the right lower lobe that was positive for squamous cell carcinoma and this was done on 05/19/2019. Subsequently the patient underwent a bronchoscopy and EBUS with biopsies of the left upper lobe, left hilar lymph node and subcarinal lymph nodes and all of them were positive for squamous cell carcinoma. MRI of the bra in was negative for any evidence of metastasis. 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 Patient was subjected to concurrent chemoradiation therapy, he completed chemotherapy, he had SBRT to the right lower lobe completed on 06/30/2019 which she tolerated well. He also completed concurrent chem oradiation therapy to the left upper lobe on 08/16/2019. Currently on Opdivo, receive his third dose this past Friday. Follow-up CAT scan of the chest that was done on 09/06/2019 showed significant improvement, all of his CT scans, chest x-rays, and procedures related to his recent workup for recurrence of lung cancer was done at the [facility], patient follows with Dr. Patino, Dr. Chaz Castillo from radiation oncology. Patient also follows with Dr. Dietz in the pulmonary office, his underlying FEV1 is 77% of predicted. Patient is maintained on Trelegy, rescue inhaler, he was recently treated for acute COPD exacerbation on outpatient basis. 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 For the past 2 days patient had not been feeling well, weak, febrile, short of breath. He came into the emergency department for evaluation on 10/27/2019. Patient was febrile, with a temp of 101, with the severe exertional dyspnea, shortness of breath, cough. No hemoptysis. No complaints of chest pain, no nausea vomiting, he states one of his coworkers was being tested for COVID 19. Chest x-ray showed COPD with bilateral areas of consolidation likely related to multifocal pneumonia. Of note most recent chest x-ray on 10/01/2019 showed no acute process. COVID 19 PCR is pending, influenza and B were negative. Labs showed a woman with a crit of 8.2, hemoglobin is 10.5, leukocyte count is 0.3, d-dimer was 0.65, sodium was 132, the rest of electrolytes and renal profile were within normal limits, LFTs were within normal limits, lactic acid 0.9, LDH is 661, CRP is 213. The patient was started on empiric antibiotics in the form of meropenem. Afebrile today, he is on room air, the pulse ox 93%. On 10/29/2019 patient seen in follow-up on a general medical surgical floor. Still has significant exertional dyspnea, but remains on room air, with a pulse ox of 92%, hemodynamically stable, patient has been afebrile in last 24 hours, lung sounds are diminished, with fine crackles at the right mid posterior lung, no dullness, no rhonchi or wheezing. Covid 19 testing was negative. Today's labs have been reviewed, showing the blood cell count of 6.1, hemoglobin of 9.9, ferritin level of 425, LDH was 661, CRP is 213, and progesterone level came back intermediate range at 0.17, influenza screen was negative. Antibiotic coverage in the form of meropenem. Blood culture has shown no growth, sputum culture will be sent. On 10/30/2019, transferred the patient to the intensive care unit regarding his ongoing bilateral pulmonary infiltrates/pneumonia and hypoxic respiratory failure. I performed a CAT scan of the chest and the CAT scan showed moderate interstitial and alveolar infiltrates in the lung bases bilaterally. No evidence of any lung masses. I have placed this patient on a combination of Merrem and Levaquin was also added. The Covid 19 nasal swab by PCR came back negative. The patient is currently afebrile. Pro-calcitonin level was nonelevated. The cultures were all negative for now. The white cell count is not elevated. The patient is afebrile. Currently is on 3 L of oxygen by nasal cannula. He is less tachycardic compared to yesterday. I have started on steroids considering the possibility of immunotherapy related interstitial lung disease. He is able to speak of. This is. He is not using accessory muscles of breathing. Chest x-ray from today is unchanged compared to yesterday and the patient still has diffuse bilateral pulmonary infiltrates. On 10/31/2019, the patient is being seen for a follow-up. The patient remains in the intensive care unit for bilateral lower lobe pneumonia/infiltration. He remains on a combination of Levaquin and Merrem. The patient remains on 3 L of oxygen by nasal cannula. No significant improvement over the past 24 hours. He continues to have cough and exertional dyspnea. The plan is to do a bronchoscopy and bronchoalveolar lavage of the lower lobes throughout any ongoing microbial growth. The patient is also on IV Solu-Medrol. No nausea. No vomiting. No chest pain. No other complaints otherwise for now. I took this patient to the endoscopy suite and I performed a bronchoscopy and right lower lobe bronchial alveolar lavage. There was some endobronchial irregularities which could be postradiation changes or residual tumor in the left upper lobe specifically in the apical posterior and anterior segments of the left upper lobe. Endobronchial biopsies of were also obtained. The patient be kept on the same combination of antibiotics and steroids. Note that his Covid 19 evaluation came back negative and the patient had a lower pro-ca lcitonin level. 11/01/2019, I'm seeing the patient for a follow-up. He is doing essentially the same. His chest x-ray shows still interstitial pulmonary infiltrates and some areas of consolidation bilaterally in the lower lobes. I performed a bronchoscopy on this patient. The lavage is essentially negative for any microbial growth. He remains on a combination of Levaquin and IV Merrem. He is also on IV Solu Medrol suspecting ILD related to immunotherapy. The patient has no fever. He has a dry cough. No significant sputum production. Note that during the bronchoscopy, I identified an abnormal area in the left upper lobe and endobronchial biopsies from that area was also obtained. He is having some limited insomnia especially at nighttime. He is on Lovenox for DVT prophylaxis. No worsening shortness of breath. He remains on 3 L of oxygen by nasal cannula. Remains in normal saline at the rate of 100 mL an hour. No sinus tachycardia. No hemoptysis. No pleurisy. No other complex otherwise been altered mentation. Objective - Vital Signs Vital signs: Vital Signs Temp 97.5 F L 11/01/19 04:00 Pulse 88 11/01/19 10:00 Resp 25 H 11/01/19 11:42 BP 144/87 11/01/19 11:00 Pulse Ox 90 L 11/01/19 10:00 Intake & Output 10/31/19 11/01/19 11/01/19 18:59 06:59 18:59 Intake Total 1540 1650 860 Output Total 1050 1750 725 Balance 490 -100 135 Weight 87.5 kg Intake: IV 1200 1300 400 Meropenem 1 gm In Sodium 100 Chloride 0.9% 100 ml @ 200 mls/hr IVPB Q8HR [facility] Rx#:[id number] Sodium Chloride 0.9% 1, 1000 1200 400 000 ml @ 100 mls/hr IV . Q10H [facility] Rx#:[id number] Intake, IV Titration 100 100 Amount Meropenem 1 gm In Sodium 100 100 Chloride 0.9% 100 ml @ 200 mls/hr IVPB Q8HR [facility] Rx#:[id number] Oral 240 350 360 Output: Urine 1050 1750 725 Other: Voiding Method Toilet Toilet Toilet Urinal Urinal Urinal # Voids 0 0 1 # Bowel Movements 1 - Exam GENERAL EXAM: Alert, very pleasant, 59-year-old white male, on room air, with a pulse ox of 92% comfortable in no apparent distress. The patient is currently on 3 L of oxygen by nasal cannula. HEAD: Normocephalic/atraumatic. EYES: Normal reaction of pupils, equal size. Conjunctiva pink, sclera white. NOSE: Clear with pink turbinates. THROAT: No erythema or exudates. NECK: No masses, no JVD, no thyroid enlargement, no adenopathy. CHEST: No chest wall deformity. Symmetrical expansion. LUNGS: Equal air entry with fine crackles at right mid posterior lung, mild left upper lobe anterior chest wheeze, no rhonchi or dullness. CVS: Regular rate and rhythm, normal S1 and S2, no gallops, no murmurs, no rubs ABDOMEN: Soft, nontender. No hepatosplenomegaly, normal bowel sounds, no guarding or rigidity. EXTREMITIES: No clubbing, no edema, no cyanosis, 2+ pulses and upper and lower extremities. MUSCULOSKELETAL: Muscle strength and tone normal. SPINE: No scoliosis or deformity SKIN: No rashes CENTRAL NERVOUS SYSTEM: Alert and oriented -3. No focal deficits, tone is normal in all 4 extremities. PSYCHIATRIC: Alert and oriented -3. Appropriate affect. Intact judgment and insight. - Labs CBC & Chem 7: 11/01/19 04:03 11/01/19 04:03 Labs: Abnormal Lab Results - Last 24 Hours (Table) 11/01/19 11/01/19 Range/Units 04:03 04:03 WBC 12.7 H (3.8-10.6) k/uL RBC 3.37 L (4.30-5.90) m/uL Hgb 10.4 L (13.0-17.5) gm/dL Hct 32.4 L (39.0-53.0) % Neutrophils # 11.8 H (1.3-7.7) k/uL Lymphocytes # 0.2 L (1.0-4.8) k/uL Sodium 136 L (137-145) mmol/L Creatinine 0.56 L (0.66-1.25) mg/dL Glucose 130 H (74-99) mg/dL Total Protein 5.8 L (6.3-8.2) g/dL Albumin 3.1 L (3.5-5.0) g/dL Microbiology - Last 24 Hours (Table) 10/31/19 08:10 Gram Stain - Preliminary Bronchial Washings - Right Bronchial Washings Culture - Preliminary 10/27/19 19:24 Blood Culture - Preliminary Blood No Growth after 96 hours 10/31/19 08:10 Fungal Culture - Preliminary Bronchial Washings - Right 10/31/19 08:10 Acid Fast Bacilli Culture - Preliminary Bronchial Washings - Right 10/29/19 15:31 Blood Culture - Preliminary Blood No Growth after 48 hours 10/29/19 10:45 Gram Stain - Final Sputum Sputum Culture - Final Assessment and Plan Plan: 1 acute bilateral lower lobe pulmonary infiltrates. Rule out infection. Rule out immunotherapy induced interstitial lung disease as the patient was receiving immunotherapy for lung cancer. The patient has not had any fever. Pro- calcitonin is not elevated. White cell count isn't elevated. The patient is on a combination of meropenem and Levaquin. The coronavirus covid19 PCR came back negative. Note that the bronchoscopy was done and the patient bronchial alveolar lavage over the past 24 hours has been negative for any microbial growth. Awaiting final culture. 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 2 acute hypoxic respiratory failure currently on 3 L of oxygen by nasal cannula 3 Recurrence of squamous cell lung carcinoma, status post CT-guided biopsy of a right lower lobe, and left upper lobe, left hilar lymph node and subcarinal lymph nodes that were positive for squamous cell carcinoma, patient has completed chemotherapy and SRT to the right lower lobe completed on 06/30/2019, and concurrent chemoradiation to the left upper lobe on 08/16/2019. Currently on immunotherapy in the form of OPdivo 4. History of COPD with baseline FEV1 of 77% predicted, maintained on Trelegy, albuterol 5 History of squamous cell lung lung cancer of the right upper lobe, treated with right upper lobectemy in 2010, followed by chemotherapy 6 Former smoker, he smoking history has been in remission since 2010 7. Hypertension 8. Hyperlipidemia 9. BPH 10. Hypothyroidism Plan Continue same antibiotic coverage. The patient remains on oxygen 3 L per minute nasal cannula. Bronchoscopy and lavage of the right lower lobe was done. Endob ronchial irregularities also seen in the left upper lobe apical posterior and anterior segments. Endobronchial biopsies were also obtained. 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 The presentation is very atypical and the patient should not be on immunotherapy in the future. The lavage cultures are still pending for now. I would suggest continuing the antibiotics filled the lavage cultures are completed. Meanwhile, I identified an abnormal area in the left upper lobe that was suspicious for tumor recurrence and Idid some biopsies in the area. The patient will be kept on steroids. Antibiotics will be modified at a later stage. His oxidation is unchanged. We'll continue to follow.
[2019-11-01] MEDS: amLODIPine 5 MG TAB PO SCH (12:45)
[2019-11-01] MEDS: HYDROcodone/APAP 10-325MG 1 EACH TAB PO PRN ×2 (14:35→21:42)
[2019-11-01] MEDS: LEVOFLOXACIN 500 MG TAB PO SCH (17:54)
[2019-11-01] MEDS: BACLOFEN 10 MG TAB PO SCH (21:32)
[2019-11-01] MEDS: NAPROXEN 250 MG TAB PO SCH (21:32)
[2019-11-01] MEDS: LOSARTAN 50 MG TAB PO SCH (21:32)
[2019-11-01] MEDS: SERTRALINE 100 MG TAB PO SCH (21:33)
[2019-11-01] MEDS: ZOLPIDEM 5 MG TAB PO PRN (22:15)
[2019-11-01] MEDS: LORazepam 0.5 MG TAB PO PRN (22:15)
[2019-11-02] MEDS: methylPREDNISolone SOD SUCCI 125 MG/2 ML VIAL IV SCH ×4 (01:13→16:55)
[2019-11-02] MEDS: MEROPENEM 1 GM in SODIUM CHLORIDE 0.9% 100 ML IVPB SCH ×3 (01:13→16:55)
[2019-11-02] MEDS: SODIUM CHLORIDE 0.9% 1,000 ML IV SCH ×3 (01:13→19:52)
[2019-11-02] MEDS: LEVOTHYROXINE 50 MCG TAB PO SCH (05:26)
[2019-11-02] MEDS: HYDROcodone/APAP 10-325MG 1 EACH TAB PO PRN ×3 (05:27→16:57)
[2019-11-02 06:38] LABS: Basophils % (A) 0 %; Eosinophils # (A) 0.1 k/uL (0-0.7); Eosinophils % (A) 1 %; HCT 34.4 % (39.0-53.0); HGB 10.9 gm/dL (13.0-17.5); Lymphocytes # (A) 0.3 k/uL (1.0-4.8); Lymphocytes % (A) 2 %; MCH 30.7 pg (25.0-35.0); MCHC 31.8 g/dL (31.0-37.0); MCV 96.7 fL (80.0-100.0); Mean Platelet Volume 6.8; Monocytes # (A) 0.5 k/uL (0-1.0); Monocytes % (A) 4 %; Neutrophils # (A) 11.4 k/uL (1.3-7.7); Neutrophils % (A) 92 %; Platelet Count 395 k/uL (150-450); RBC 3.55 m/uL (4.30-5.90); RDW 12.5 % (11.5-15.5); WBC 12.3 k/uL (3.8-10.6)
[2019-11-02 06:54] LABS: African American GFR (CKD) >90 (>60 ml/min/1.73 sqM); Anion Gap 5 mmol/L; Blood Urea Nitrogen 19 mg/dL (9-20); Calcium 8.9 mg/dL (8.4-10.2); Carbon Dioxide 26 mmol/L (22-30); Chloride 105 mmol/L (98-107); Glucose 122 mg/dL (74-99); Non-African American GFR(CKD) >90 (>60 ml/min/1.73 sqM); Potassium 4.3 mmol/L (3.5-5.1); Sodium 136 mmol/L (137-145)
--- NOTE | 2019-11-02 08:11 | XR ---
EXAMINATION TYPE: XR chest 1V portable DATE OF EXAM: 11/02/2019 COMPARISON: Prior chest x-ray 11/01/2019 HISTORY: Abnormal chest x-ray, follow-up TECHNIQUE: Single frontal view of the chest is obtained. FINDINGS: Mixed interstitial and airspace disease is again present bilaterally. 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 Cardiomediastinal silhouette, pulmo nary vascularity and na are stable. No evident pneumothorax, difficult to exclude small right pleur al effusion. IMPRESSION: Findings are similar to prior exam, correlate for pneumonia, interstitial pneumonia
[2019-11-02] MEDS: ATORVASTATIN 10 MG TAB PO SCH (09:14)
[2019-11-02] MEDS: amLODIPine 5 MG TAB PO SCH (09:14)
[2019-11-02] MEDS: ENOXAPARIN 40 MG/0.4 ML SYRINGE SQ SCH (09:14)
[2019-11-02] MEDS: MULTIVITAMINS, THERA 1 EACH TAB PO SCH (09:14)
[2019-11-02] MEDS: PANTOPRAZOLE 40 MG TABLET PO SCH (09:14)
[2019-11-02] MEDS: TAMSULOSIN 0.4 MG CAP.ER.24H PO SCH (09:14)
--- NOTE | 2019-11-02 09:17 | P.PN ---
Subjective Progress Note Date: 11/02/19 Navi Coulter, is a 59 -year-old male who presented to [facility] emergency room with a chief complaint of fever, patient has a known history of lung cancer (squamous cell carcinoma right upper lobe ) diagnosed in 2010, at that time he had surgery at [facility] followed by chemotherapy, he is followed by Dr. Patino, in april 2018 patient presented to the hospital with cough and shortness of breath computed tomography scan revealed no evidence of cancer recurrence. Patient is followed by Dr. Rahman and receiving immunotherapy, his last dose was on Friday. Patient stated that yesterday after work he felt very tired and had elevated temperature he called Dr. Rahman's office and was told to come to emergency room patient was also complaining of shortness of breath and upper back pain otherwise he denies any complaints there is no headache or dizziness no chest pain he had occasional cough no nausea or vomiting no abdominal pain no diarrhea no burning with urination no frequency or urgency and no hematuria. Patient was evaluated in the emergency room his temperature on presentation was 99.9 pulse 107 respiration 18 blood pressure 119/74 pulse ox 94% on room air, l aboratory data revealed a white blood count of 8.2 hemoglobin 10.5 sodium 132 and creatinine kinase of 198 otherwise normal labs influenza A and B were negative Covid 19 testing is still pending. Chest x-ray revealed innumerable bilateral perihilar multilobar acute infiltrates, patient was started on IV antibiotics in the emergency room, he was admitted to medical floor, oncology consultation and pulmonary consultation were requested. 10/29/2019, patient was seen and examined on the medical floor, he is alert and oriented 3 in no distress, he is still complaining of shortness of breath with any activity and occasional cough otherwise he denies any complaints there is no fever or chills no headache or dizziness no chest pain no nausea or vomiting no abdominal pain no diarrhea [place] the stools no burning with urination no frequency or urgency and no hematuria. on 10/30/2019 patient was seen and examined in the ICU, yesterday evening he developed worsening shortness of breath with tachycardia and tachypnea, he was transferred to intensive care unit and was reevaluated by pulmonary. At this time patient is stable in ICU he is alert and oriented 3 he is still feeling short of breath, he has occasional cough without any significant sputum production, there is no fever or chills no headache or dizziness no chest pain no nausea or vomiting no abdominal pain no diarrhea no blood in the stools no burning with urination no frequency or urgency and no hematuria. Input from pulmonary reviewed, plan is for a bronchoscopy tomorrow morning if patient is not improving. On 10/31/2019 patient was seen and examined in the ICU he is somnolent he just returned from having a bronchoscopy, he is still complaining of cough and shortness of breath otherwise he denies any complaints there is no fever or chills no headache or dizziness no chest pain no nausea or vomiting no abdominal pain no diarrhea no blood in the stools no burning with urination no frequency or urgency and no hematuria, bronchoscopy report reviewed at this time continue with IV antibiotics and IV Solu-Medrol will follow in a.m. On 11/01/2019 patient was seen and examined in the ICU, he is alert and oriented 3 in no apparent distress, he is complaining of severe shortness of breath with any activity, he states that he cannot walk from his bed to the bathroom without severe difficulty with breathing, he is also complaining of cough and complaining of pain in his neck, he is requesting an increase in the frequency of his pain medications, otherwise he denies any complaints there is no fever or chills no headache or dizziness no chest pain no palpitation no nausea or vomiting no abdominal pain no diarrhea no burning with urination no frequency or urgency and no hematuria. On 11/02/2019 patient was seen and examined in the ICU he is alert and oriented 3 he is complaining of severe shortness of breath, his O2 sat duration is down to 84% despite oxygen therapy, he is also complaining of occasional cough otherwise he denies any complaints there is no fever or chills no headache or dizziness no chest pain no palpitation no nausea or vomiting no abdominal pain no diarrhea no burning with urination no frequency or urgency and no hematuria Objective - Vital Signs Vital signs: Vital Signs Temp 98.6 F 11/02/19 04:00 Pulse 66 11/02/19 07:00 Resp 16 11/02/19 07:00 BP 164/88 11/02/19 07:00 Pulse Ox 91 L 11/02/19 07:00 Intake & Output 11/01/19 11/02/19 11/02/19 18:59 06:59 18:59 Intake Total 2620 1200 100 Output Total 1525 1600 Balance 1095 -400 100 Weight 86.5 kg Intake: IV 1200 1200 100 Sodium Chloride 0.9% 1, 1200 1200 100 000 ml @ 100 mls/hr IV . Q10H [facility] Rx#:[id number] Intake, IV Titration 200 Amount Meropenem 1 gm In Sodium 200 Chloride 0.9% 100 ml @ 200 mls/hr IVPB Q8HR [facility] Rx#:[id number] Oral 1220 Output: Urine 1525 1600 Other: Voiding Method Toilet Toilet Urinal Urinal # Voids 1 # Bowel Movements 1 - Exam In general patient is alert and oriented 3 in no distress HEENT head normocephalic and atraumatic Neck is supple no JVD no goiter no lymphadenopathy Chest exam reveals a crackles in both lung bases no wheezing Cardiac exam reveals regular heart sounds S1 and S2 no gallops no murmurs Abdomen is soft nontender no organomegaly with normal bowel sounds Extremity exam reveals no edema no cyanosis or clubbing Neurological examination reveals no gross focal deficit - Labs CBC & Chem 7: 11/02/19 06:19 11/02/19 06:19 Labs: Abnormal Lab Results - Last 24 Hours (Table) 11/02/19 11/02/19 Range/Units 06:19 06:19 WBC 12.3 H (3.8-10.6) k/uL RBC 3.55 L (4.30-5.90) m/uL Hgb 10.9 L (13.0-17.5) gm/dL Hct 34.4 L (39.0-53.0) % Neutrophils # 11.4 H (1.3-7.7) k/uL Lymphocytes # 0.3 L (1.0-4.8) k/uL Sodium 136 L (137-145) mmol/L Creatinine 0.59 L (0.66-1.25) mg/dL Glucose 122 H (74-99) mg/dL Microbiology - Last 24 Hours (Table) 10/27/19 19:24 Blood Culture - Preliminary Blood No Growth after 120 hours 10/31/19 08:10 Acid Fast Bacilli Smear - Final Bronchial Washings - Right Acid Fast Bacilli Culture - Preliminary 10/29/19 15:31 Blood Culture - Preliminary Blood No Growth after 72 hours 10/31/19 08:10 Gram Stain - Preliminary Bronchial Washings - Right Bronchial Washings Culture - Preliminary Assessment and Plan Plan: 1. Bilateral pneumonia, patient was started on imipenem in the emergency room, IV Levaquin was also added to regimen, patient is also receiving IV Solu-Medrol 60 mg every 6 hours 2. History of squamous cell carcinoma of the right upper lobe, with previous surgery in 2010 followed by chemotherapy, patient is followed by Dr. Rahman, patient states that he received immunotherapy on Friday. 3. Upper back pain, could be related to pneumonia, however patient has known history of degenerative disc disease, he received epidural injections by Dr. Clinton Dubon in March 2019 4. Underlying history of hyperlipidemia maintained on Lipitor 5. Underlying history of hypothyroidism maintained on Synthroid 150 g daily 6. Underlying history of hypertension maintained on losartan. 7. Neck pain Will increase [place] to 4 times daily per patient request At this time medication and labs were reviewed Continue current management awaiting input from pulmonary and infectious disease. Patient underwent bronchoscopy yesterday awaiting results of biopsy and cultures For DVT prophylaxis will start subcu Lovenox for GI prophylaxis patient is on Protonix
[2019-11-02] MEDS ORDERED: FUROSEMIDE 10 MG/ML 4 ML VIAL IV STA (09:52)
--- NOTE | 2019-11-02 12:30 | P.PN ---
Subjective Progress Note Date: 11/02/19 59-year-old white male patient of Dr. Jensen, with past medical history of squamous cell carcinoma, status post right upper lobe resection in 2010 was treated with chemoradiation, with a recent recurrence, patient had a PET scan on all 05/07/2019 showing suspicious uptake in the right lower lobe in the left hilar lymph node. Patient had a computed tomography scan guided biopsy of the right lower lobe that was positive for squamous cell carcinoma and this was done on 05/19/2019. Subsequently the patient underwent a bronchoscopy and EBUS with biopsies of the left upper lobe, left hilar lymph node and subcarinal lymph nodes and all of them were positive for squamous cell carcinoma. MRI of the bra in was negative for any evidence of metastasis. 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 Patient was subjected to concurrent chemoradiation therapy, he completed chemotherapy, he had SBRT to the right lower lobe completed on 06/30/2019 which she tolerated well. He also completed concurrent chem oradiation therapy to the left upper lobe on 08/16/2019. Currently on Opdivo, receive his third dose this past Friday. Follow-up CAT scan of the chest that was done on 09/06/2019 showed significant improvement, all of his CT scans, chest x-rays, and procedures related to his recent workup for recurrence of lung cancer was done at the [facility], patient follows with Dr. Patino, Dr. Chaz Castillo from radiation oncology. Patient also follows with Dr. Dietz in the pulmonary office, his underlying FEV1 is 77% of predicted. Patient is maintained on Trelegy, rescue inhaler, he was recently treated for acute COPD exacerbation on outpatient basis. 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 For the past 2 days patient had not been feeling well, weak, febrile, short of breath. He came into the emergency department for evaluation on 10/27/2019. Patient was febrile, with a temp of 101, with the severe exertional dyspnea, shortness of breath, cough. No hemoptysis. No complaints of chest pain, no nausea vomiting, he states one of his coworkers was being tested for COVID 19. Chest x-ray showed COPD with bilateral areas of consolidation likely related to multifocal pneumonia. Of note most recent chest x-ray on 10/01/2019 showed no acute process. COVID 19 PCR is pending, influenza and B were negative. Labs showed a woman with a crit of 8.2, hemoglobin is 10.5, leukocyte count is 0.3, d-dimer was 0.65, sodium was 132, the rest of electrolytes and renal profile were within normal limits, LFTs were within normal limits, lactic acid 0.9, LDH is 661, CRP is 213. The patient was started on empiric antibiotics in the form of meropenem. Afebrile today, he is on room air, the pulse ox 93%. On 10/29/2019 patient seen in follow-up on a general medical surgical floor. Still has significant exertional dyspnea, but remains on room air, with a pulse ox of 92%, hemodynamically stable, patient has been afebrile in last 24 hours, lung sounds are diminished, with fine crackles at the right mid posterior lung, no dullness, no rhonchi or wheezing. Covid 19 testing was negative. Today's labs have been reviewed, showing the blood cell count of 6.1, hemoglobin of 9.9, ferritin level of 425, LDH was 661, CRP is 213, and progesterone level came back intermediate range at 0.17, influenza screen was negative. Antibiotic coverage in the form of meropenem. Blood culture has shown no growth, sputum culture will be sent. On 10/30/2019, transferred the patient to the intensive care unit regarding his ongoing bilateral pulmonary infiltrates/pneumonia and hypoxic respiratory failure. I performed a CAT scan of the chest and the CAT scan showed moderate interstitial and alveolar infiltrates in the lung bases bilaterally. No evidence of any lung masses. I have placed this patient on a combination of Merrem and Levaquin was also added. The Covid 19 nasal swab by PCR came back negative. The patient is currently afebrile. Pro-calcitonin level was nonelevated. The cultures were all negative for now. The white cell count is not elevated. The patient is afebrile. Currently is on 3 L of oxygen by nasal cannula. He is less tachycardic compared to yesterday. I have started on steroids considering the possibility of immunotherapy related interstitial lung disease. He is able to speak of. This is. He is not using accessory muscles of breathing. Chest x-ray from today is unchanged compared to yesterday and the patient still has diffuse bilateral pulmonary infiltrates. On 10/31/2019, the patient is being seen for a follow-up. The patient remains in the intensive care unit for bilateral lower lobe pneumonia/infiltration. He remains on a combination of Levaquin and Merrem. The patient remains on 3 L of oxygen by nasal cannula. No significant improvement over the past 24 hours. He continues to have cough and exertional dyspnea. The plan is to do a bronchoscopy and bronchoalveolar lavage of the lower lobes throughout any ongoing microbial growth. The patient is also on IV Solu-Medrol. No nausea. No vomiting. No chest pain. No other complaints otherwise for now. I took this patient to the endoscopy suite and I performed a bronchoscopy and right lower lobe bronchial alveolar lavage. There was some endobronchial irregularities which could be postradiation changes or residual tumor in the left upper lobe specifically in the apical posterior and anterior segments of the left upper lobe. Endobronchial biopsies of were also obtained. The patient be kept on the same combination of antibiotics and steroids. Note that his Covid 19 evaluation came back negative and the patient had a lower pro-ca lcitonin level. 11/01/2019, I'm seeing the patient for a follow-up. He is doing essentially the same. His chest x-ray shows still interstitial pulmonary infiltrates and some areas of consolidation bilaterally in the lower lobes. I performed a bronchoscopy on this patient. The lavage is essentially negative for any microbial growth. He remains on a combination of Levaquin and IV Merrem. He is also on IV Solu Medrol suspecting ILD related to immunotherapy. The patient has no fever. He has a dry cough. No significant sputum production. Note that during the bronchoscopy, I identified an abnormal area in the left upper lobe and endobronchial biopsies from that area was also obtained. He is having some limited insomnia especially at nighttime. He is on Lovenox for DVT prophylaxis. No worsening shortness of breath. He remains on 3 L of oxygen by nasal cannula. Remains in normal saline at the rate of 100 mL an hour. No sinus tachycardia. No hemoptysis. No pleurisy. No other complex otherwise been altered mentation. 11/02/2019, I'm seeing the patient for a follow-up. This morning he is a bit more short of breath. He did choke on a piece of a scrambled egg and since then he became a bit more short of breath. The chest x-ray still showing stable diffuse but the pulmonary infiltrates more so in the lower lobes. The patient remains on broad-spectrum antibiotics including a combination of meropenem and Levaquin. The patient remains on IV Solu-Medrol. The patient wasn't disease of oxygen by nasal cannula. His pulse ox dropped following the aspiration and FiO2 of the increased up to 10 L. He has a dry cough no stiffness sputum production. The bronchioloalveolar lavage was collected from the bronchoscope showed evidence of no microbial growth. The viral and bacterial and fungal cultures were all negative. The results of the endobronchial biopsy obtained from the left upper lobe are still pending for now. The patient is admitted more short of breath compared to yesterday. No sinus tachycardia. No hemoptysis. I have given orders to titrate the patient's FiO2 and even utilizing high flow oxygen need be to maintain a saturation above 90%. Objective - Vital Signs Vital signs: Vital Signs Temp 97.5 F L 11/02/19 08:00 Pulse 85 11/02/19 11:00 Resp 15 11/02/19 11:00 BP 176/91 11/02/19 11:00 Pulse Ox 85 L 11/02/19 11:00 Intake & Output 11/01/19 11/02/19 11/02/19 18:59 06:59 18:59 Intake Total 2620 1200 620 Output Total 1525 1600 Balance 1095 -400 620 Weight 86.5 kg Intake: IV 1200 1200 260 Sodium Chloride 0.9% 1, 1200 1200 260 000 ml @ 20 mls/hr IV . Q24H [facility] Rx#:[id number] Intake, IV Titration 200 Amount Meropenem 1 gm In Sodium 200 Chloride 0.9% 100 ml @ 200 mls/hr IVPB Q8HR [facility] Rx#:[id number] Oral 1220 360 Output: Urine 1525 1600 Other: Voiding Method Toilet Toilet Urinal Urinal # Voids 1 1 # Bowel Movements 1 - Exam GENERAL EXAM: Alert, very pleasant, 59-year-old white male, on room air, with a pulse ox of 92% comfortable in no apparent distress. The patient is currently on 15 L of oxygen by nasal cannula, no significant tachypnea. The patient is having some occasional cough and relates to recent aspiration. HEAD: Normocephalic/atraumatic. EYES: Normal reaction of pupils, equal size. Conjunctiva pink, sclera white. NOSE: Clear with pink turbinates. THROAT: No erythema or exudates. NECK: No masses, no JVD, no thyroid enlargement, no adenopathy. CHEST: No chest wall deformity. Symmetrical expansion. LUNGS: Equal air entry with fine crackles at right mid posterior lung, mild left upper lobe anterior chest wheeze, no rhonchi or dullness. CVS: Regular rate and rhythm, normal S1 and S2, no gallops, no murmurs, no rubs ABDOMEN: Soft, nontender. No hepatosplenomegaly, normal bowel sounds, no guarding or rigidity. EXTREMITIES: No clubbing, no edema, no cyanosis, 2+ pulses and upper and lower extremities. MUSCULOSKELETAL: Muscle strength and tone normal. SPINE: No scoliosis or deformity SKIN: No rashes CENTRAL NERVOUS SYSTEM: Alert and oriented -3. No focal deficits, tone is normal in all 4 extremities. PSYCHIATRIC: Alert and oriented -3. Appropriate affect. Intact judgment and insight. - Labs CBC & Chem 7: 11/02/19 06:19 11/02/19 06:19 Labs: Abnormal Lab Results - Last 24 Hours (Table) 11/02/19 11/02/19 Range/Units 06:19 06:19 WBC 12.3 H (3.8-10.6) k/uL RBC 3.55 L (4.30-5.90) m/uL Hgb 10.9 L (13.0-17.5) gm/dL Hct 34.4 L (39.0-53.0) % Neutrophils # 11.4 H (1.3-7.7) k/uL Lymphocytes # 0.3 L (1.0-4.8) k/uL Sodium 136 L (137-145) mmol/L Creatinine 0.59 L (0.66-1.25) mg/dL Glucose 122 H (74-99) mg/dL Microbiology - Last 24 Hours (Table) 10/31/19 08:10 Gram Stain - Final Bronchial Washings - Right Bronchial Washings Culture - Final 10/27/19 19:24 Blood Culture - Preliminary Blood No Growth after 120 hours 10/31/19 08:10 Acid Fast Bacilli Smear - Final Bronchial Washings - Right Acid Fast Bacilli Culture - Preliminary 10/29/19 15:31 Blood Culture - Preliminary Blood No Growth after 72 hours Assessment and Plan Plan: 1 acute bilateral lower lobe pulmonary infiltrates. 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 The bronchioloalveolar lavage was negative for any microbial growth. The patient remains on IV Solu Medrol. The patient remains on broad-spectrum antibiotics including a combination of meropenem and Levaquin. 2 acute hypoxic respiratory failure with interval worsening in her oxygenation following an aspiration of a food particle. Currently on 15 L of oxygen by nasal cannula. May even need high flow oxygen. 3 Recurrence of squamous cell lung carcinoma, status post CT-guided biopsy of a right lower lobe, and left upper lobe, left hilar lymph node and subcarinal lymph nodes that were positive for squamous cell carcinoma, patient has compl eted chemotherapy and SRT to the right lower lobe completed on 06/30/2019, and concurrent chemoradiation to the left upper lobe on 08/16/2019. Currently on immunotherapy in the form of OPdivo. The patient underwent also bronchoscopy and residual abnormalities were seen in the left upper lobe where biopsies were obtained and the results are still pending for now. 4. History of COPD with baseline FEV1 of 77% predicted, maintained on Trelegy, albuterol 5 History of squamous cell lung lung cancer of the right upper lobe, treated with right upper lobectemy in 2010, followed by chemotherapy 6 Former smoker, he smoking history has been in remission since 2010 7. Hypertension 8. Hyperlipidemia 9. BPH 10. Hypothyroidism Plan Continue same antibiotic coverage. The patient would have FiO2 titrated to maintain a saturation above 90%. Currently on 15 L. Bronchoscopy and lavage of the right lower lobe was done. Endobronchial irregularities also seen in the left upper lobe apical posterior and anterior segments. Endobronchial biopsies were also obtained. 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 The presentation is very atypical and the patient should not be on immunotherapy in the future. The bronchioloalveolar lavage was collected has been negative thus far. The vital cultures are negative. Fungal cultures are negative. Bacteria culture being finalized.. I would suggest continuing the antibiotics filled the lavage cultures are completed. Meanwhile, I identified an abnormal area in the left upper lobe that was suspicious for tumor recurrence and Idid some biopsies in the area. The patient will be kept on steroids. I will continue the IV Solu-Medrol. Antibiotics will be modified at a later stage. His oxygenation got worse after a bout of aspiration today. He'll be monitored very closely in ICU.
[2019-11-02] MEDS: LEVOFLOXACIN 500 MG TAB PO SCH (16:56)
[2019-11-02] MEDS: NAPROXEN 250 MG TAB PO SCH (19:53)
[2019-11-02] MEDS: LOSARTAN 50 MG TAB PO SCH (19:54)
[2019-11-02] MEDS: ZOLPIDEM 5 MG TAB PO PRN (19:54)
[2019-11-02] MEDS: SERTRALINE 100 MG TAB PO SCH (19:54)
[2019-11-02] MEDS: LORazepam 0.5 MG TAB PO PRN (19:54)
[2019-11-02] MEDS: BACLOFEN 10 MG TAB PO SCH (19:54)
[2019-11-03] MEDS: methylPREDNISolone SOD SUCCI 125 MG/2 ML VIAL IV SCH ×4 (00:26→17:51)
[2019-11-03] MEDS: MEROPENEM 1 GM in SODIUM CHLORIDE 0.9% 100 ML IVPB SCH ×3 (00:26→16:37)
[2019-11-03] MEDS: HYDROcodone/APAP 10-325MG 1 EACH TAB PO PRN ×4 (00:28→17:51)
[2019-11-03] MEDS: LEVOTHYROXINE 50 MCG TAB PO SCH (05:48)
[2019-11-03 06:52] LABS: Basophils % (A) 0 %; Eosinophils # (A) 0.1 k/uL (0-0.7); Eosinophils % (A) 1 %; HCT 33.8 % (39.0-53.0); HGB 11.1 gm/dL (13.0-17.5); Lymphocytes # (A) 0.2 k/uL (1.0-4.8); Lymphocytes % (A) 3 %; MCH 31.1 pg (25.0-35.0); MCHC 32.9 g/dL (31.0-37.0); MCV 94.3 fL (80.0-100.0); Mean Platelet Volume 7.1; Monocytes # (A) 0.4 k/uL (0-1.0); Monocytes % (A) 4 %; Neutrophils # (A) 8.3 k/uL (1.3-7.7); Neutrophils % (A) 92 %; Platelet Count 386 k/uL (150-450); RBC 3.58 m/uL (4.30-5.90); RDW 12.4 % (11.5-15.5)
[2019-11-03 07:07] LABS: ALT 26 U/L (4-49); AST 31 U/L (17-59); African American GFR (CKD) >90 (>60 ml/min/1.73 sqM); Albumin 3.3 g/dL (3.5-5.0); Alkaline Phosphatase 79 U/L (38-126); Anion Gap 7 mmol/L; Blood Urea Nitrogen 29 mg/dL (9-20); Carbon Dioxide 27 mmol/L (22-30); Chloride 102 mmol/L (98-107); Glucose 127 mg/dL (74-99); Non-African American GFR(CKD) >90 (>60 ml/min/1.73 sqM); Potassium 4.2 mmol/L (3.5-5.1); Sodium 136 mmol/L (137-145); Total Bilirubin 0.7 mg/dL (0.2-1.3); Total Protein 6.2 g/dL (6.3-8.2)
--- NOTE | 2019-11-03 08:09 | XR ---
EXAMINATION TYPE: XR chest 1V portable DATE OF EXAM: 11/03/2019 COMPARISON: 11/02/2019 HISTORY: Follow-up TECHNIQUE: Single frontal view of the chest is obtained. FINDINGS: Postsurgical change with rib resection on the right. Diffuse patchy infiltrate stable. Ple ural thickening or tiny effusion on the right. Heart size stable. No pneumothorax. Hyperinflation sug gests underlying COPD. IMPRESSION: 1. Patchy bilateral infiltrates correlate for pneumonia. Follow to resolution to exclude underlying n odule.
[2019-11-03] MEDS ORDERED: FUROSEMIDE 10 MG/ML 4 ML VIAL IV STA (08:22)
[2019-11-03] MEDS: MULTIVITAMINS, THERA 1 EACH TAB PO SCH (08:28)
[2019-11-03] MEDS: TAMSULOSIN 0.4 MG CAP.ER.24H PO SCH (08:28)
[2019-11-03] MEDS: ENOXAPARIN 40 MG/0.4 ML SYRINGE SQ SCH (08:28)
[2019-11-03] MEDS: PANTOPRAZOLE 40 MG TABLET PO SCH (08:28)
[2019-11-03] MEDS: amLODIPine 5 MG TAB PO SCH (08:28)
[2019-11-03] MEDS: ATORVASTATIN 10 MG TAB PO SCH (08:28)
[2019-11-03 12:17] LABS: Glucose,Whole Blood 115 mg/dL (75-99)
[2019-11-03 12:58] VITALS: BMI 28.3
--- NOTE | 2019-11-03 13:16 | P.PN ---
Subjective Progress Note Date: 11/03/19 Principal diagnosis: Dyspnea, shortness of breath, fever 59-year-old white male patient of Dr. Jensen, with past medical history of squamous cell carcinoma, status post right upper lobe resection in 2010 was treated with chemoradiation, with a recent recurrence, patient had a PET scan on all 05/07/2019 showing suspicious uptake in the right lower lobe in the left hilar lymph node. Patient had a computed tomography scan guided biopsy of the right lower lobe that was positive for squamous cell carcinoma and this was done on 05/19/2019. Subsequently the patient underwent a bronchoscopy and EBUS with biopsies of the left upper lobe, left hilar lymph node and subcarinal lymph nodes and all of them were positive for squamous cell carcinoma. MRI of the brain was negative for any evidence of metastasis. 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 Patient was subjected to concurrent chemoradiation therapy, he completed chemotherapy, he had SBRT to the right lower lobe completed on 06/30/2019 which she tolerated well. He also completed concurrent chemoradiation therapy to the left upper lobe on 08/16/2019. Currently on Opdivo, receive his third dose this past Friday. Follow-up CAT scan of the chest that was done on 09/06/2019 showed significant improvement, all of his CT scans, chest x-rays, and procedures related to his recent workup for recurrence of lung cancer was done at the [facility], patient follows with Dr. Patino, Dr. Chaz Castillo from radiation oncology. Patient also follows with Dr. Dietz in the pulmonary office, his underlying FEV1 is 77% of predicted. Patient is maintained on Trelegy, rescue inhaler, he was recently treated for acute COPD exacerbation on outpatient basis. 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 For the past 2 days patient had not been feeling well, weak, febrile, short of breath. He came into the emergency department for evaluation on 10/27/2019. Patient was febrile, with a temp of 101, with the severe exertional dyspnea, shortness of breath, cough. No hemoptysis. No complaints of chest pain, no nausea vomiting, he states one of his coworkers was being tested for COVID 19. Chest x-ray showed COPD with bilateral areas of consolidation likely related to multifocal pneumonia. Of note most recent chest x-ray on 10/01/2019 showed no acute process. COVID 19 PCR is pending, influenza and B were negative. Labs showed a woman with a crit of 8.2, hemoglobin is 10.5, leukocyte count is 0.3, d-dimer was 0.65, sodium was 132, the rest of electrolytes and renal profile were within normal limits, LFTs were within normal limits, lactic acid 0.9, LDH is 661, CRP is 213. The patient was started on empiric antibiotics in the form of meropenem. Afebrile today, he is on room air, the pulse ox 93%. On 10/29/2019 patient seen in follow-up on a general medical surgical floor. Still has significant exertional dyspnea, but remains on room air, with a pulse ox of 92%, hemodynamically stable, patient has been afebrile in last 24 hours, lung sounds are diminished, with fine crackles at the right mid posterior lung, no dullness, no rhonchi or wheezing. Covid 19 testing was negative. Today's labs have been reviewed, showing the blood cell count of 6.1, hemoglobin of 9.9, ferritin level of 425, LDH was 661, CRP is 213, and progesterone level came back intermediate range at 0.17, influenza screen was negative. Antibiotic coverage in the form of meropenem. Blood culture has shown no growth, sputum culture will be sent. On 10/30/2019, transferred the patient to the intensive care unit regarding his ongoing bilateral pulmonary infiltrates/pneumonia and hypoxic respiratory failure. I performed a CAT scan of the chest and the CAT scan showed moderate interstitial and alveolar infiltrates in the lung bases bilaterally. No evidence of any lung masses. I have placed this patient on a combination of Merrem and Levaquin was also added. The Covid 19 nasal swab by PCR came back negative. The patient is currently afebrile. Pro-calcitonin level was nonel evated. The cultures were all negative for now. The white cell count is not elevated. The patient is afebrile. Currently is on 3 L of oxygen by nasal cannula. He is less tachycardic compared to yesterday. I have started on steroids considering the possibility of immunotherapy related interstitial lung disease. He is able to speak of. This is. He is not using accessory muscles of breathing. Chest x-ray from today is unchanged compared to yesterday and the patient still has diffuse bilateral pulmonary infiltrates. On 10/31/2019, the patient is being seen for a follow-up. The patient remains in the intensive care unit for bilateral lower lobe pneumonia/infiltration. He remains on a combination of Levaquin and Merrem. The patient remains on 3 L of oxygen by nasal cannula. No significant improvement over the past 24 hours. He continues to have cough and exertional dyspnea. The plan is to do a bronchoscopy and bronchoalveolar lavage of the lower lobes throughout any ongoi ng microbial growth. The patient is also on IV Solu-Medrol. No nausea. No vomiting. No chest pain. No other complaints otherwise for now. I took this patient to the endoscopy suite and I performed a bronchoscopy and right lower lobe bronchial alveolar lavage. There was some endobronchial irregularities which could be postradiation changes or residual tumor in the left upper lobe specifically in the apical posterior and anterior segments of the left upper lobe. Endobronchial biopsies of were also obtained. The patient be kept on the same combination of antibiotics and steroids. Note that his Covid 19 evaluation came back negative and the patient had a lower pro-calcitonin level. 11/01/2019, I'm seeing the patient for a follow-up. He is doing essentially the same. His chest x-ray shows still interstitial pulmonary infiltrates and some areas of consolidation bilaterally in the lower lobes. I performed a bronchoscopy on this patient. The lavage is essentially negative for any microbial growth. He remains on a combination of Levaquin and IV Merrem. He is also on IV Solu Medrol suspecting ILD related to immunotherapy. The patient has no fever. He has a dry cough. No significant sputum production. Note that during the bronchoscopy, I identified an abnormal area in the left upper lobe and endobronchial biopsies from that area was also obtained. He is having some limited insomnia especially at nighttime. He is on Lovenox for DVT prophylaxis. No worsening shortness of breath. He remains on 3 L of oxygen by nasal cannula. Remains in normal saline at the rate of 100 mL an hour. No sinus tachycardia. No hemoptysis. No pleurisy. No other complex otherwise been altered mentation. 11/02/2019, I'm seeing the patient for a follow-up. This morning he is a bit more short of breath. He did choke on a piece of a scrambled egg and since then he became a bit more short of breath. The chest x-ray still showing stable diffuse but the pulmonary infiltrates more so in the lower lobes. The patient remains on broad-spectrum antibiotics including a combination of meropenem and Levaquin. The patient remains on IV Solu-Medrol. The patient wasn't disease of oxygen by nasal cannula. His pulse ox dropped following the aspiration and FiO2 of the increased up to 10 L. He has a dry cough no stiffness sputum production. The bronchioloalveolar lavage was collected from the bronchoscope showed evidence of no microbial growth. The viral and bacterial and fungal cultures were all negative. The results of the endobronchial biopsy obtained from the left upper lobe are still pending for now. The patient is admitted more short of breath compared to yesterday. No sinus tachycardia. No hemoptysis. I have given orders to titrate the patient's FiO2 and even utilizing high flow oxygen need be to maintain a saturation above 90%. On 11/03/2019 patient seen in follow-up in the intensive care unit, he is awake and alert, in no acute distress, he is currently on 5 L of oxygen his pulse ox is 92%, he is breathing easier, seems to be calm and comfortable on today's exam, breathing is comfortable. He denies any cough or phlegm production, no complaints of hemoptysis, or chest pain. He remains on IV steroids, yesterday with give the patient dose of Lasix and patient has produced 2.9 L in the urine output over the last 24 hours. Today's chest x-ray shows improvement in the appearance of patchy bilateral infiltrates. Patient is deaf and breathing easier, lung sounds are diminished at the bases, no significant rhonchi or wheezes over crackles. Continues on meropenem and Levaquin for empiric antibiotic coverage, he is status post bronchoscopy with BAL and biopsy, and his bronco wash cultures have shown no growth. No leukocytosis on today's labs, with white blood cell count of 9.0, hemoglobin of 11, sodium of 136, the rest of electrolytes were within normal limits, BUN of 29 creatinine 0.57. Patient has had no fever or chills. Objective - Vital Signs Vital signs: Vital Signs Temp 98 F 11/03/19 08:00 Pulse 79 11/03/19 11:00 Resp 23 11/03/19 11:00 BP 140/69 11/03/19 11:00 Pulse Ox 89 L 11/03/19 11:00 Intake & Output 11/02/19 11/03/19 11/03/19 18:59 06:59 18:59 Intake Total 1360 240 300 Output Total 1200 1700 600 Balance 160 -1460 -300 Weight 84.5 kg 84.5 kg Intake: IV 400 240 100 Sodium Chloride 0.9% 1, 400 240 100 000 ml @ 20 mls/hr IV . Q24H PORTER Rx#:[id number] Intake, IV Titration 100 Amount Meropenem 1 gm In Sodium 100 Chloride 0.9% 100 ml @ 200 mls/hr IVPB Q8HR P[facility]TER Rx#:[id number] Oral 860 200 Output: Urine 1200 1700 600 Other: Voiding Method Toilet Toilet Urinal Urinal # Voids 1 2 - Exam GENERAL EXAM: Alert, very pleasant, 59-year-old white male, 5 L of oxygen with a pulse ox of 92% comfortable in no apparent distress. HEAD: Normocephalic/atraumatic. EYES: Normal reaction of pupils, equal size. Conjunctiva pink, sclera white. NOSE: Clear with pink turbinates. THROAT: No erythema or exudates. NECK: No masses, no JVD, no thyroid enlargement, no adenopathy. CHEST: No chest wall deformity. Symmetrical expansion. LUNGS: Equal air entry with fine crackles at right mid posterior lung, mild left upper lobe anterior chest wheeze, no rhonchi or dullness. CVS: Regular rate and rhythm, normal S1 and S2, no gallops, no murmurs, no rubs ABDOMEN: Soft, nontender. No hepatosplenomegaly, normal bowel sounds, no guarding or rigidity. EXTREMITIES: No clubbing, no edema, no cyanosis, 2+ pulses and upper and lower extremities. MUSCULOSKELETAL: Muscle strength and tone normal. SPINE: No scoliosis or deformity SKIN: No rashes CENTRAL NERVOUS SYSTEM: Alert and oriented -3. No focal deficits, tone is normal in all 4 extremities. PSYCHIATRIC: Alert and oriented -3. Appropriate affect. Intact judgment and insight. - Labs CBC & Chem 7: 11/03/19 06:20 11/03/19 06:20 Labs: Abnormal Lab Results - Last 24 Hours (Table) 11/03/19 11/03/19 11/03/19 Range/Units 06:20 06:20 12:15 RBC 3.58 L (4.30-5.90) m/uL Hgb 11.1 L (13.0-17.5) gm/dL Hct 33.8 L (39.0-53.0) % Neutrophils # 8.3 H (1.3-7.7) k/uL Lymphocytes # 0.2 L (1.0-4.8) k/uL Sodium 136 L (137-145) mmol/L BUN 29 H (9-20) mg/dL Creatinine 0.57 L (0.66-1.25) mg/dL Glucose 127 H (74-99) mg/dL POC Glucose (mg/dL) 115 H (75-99) mg/dL Total Protein 6.2 L (6.3-8.2) g/dL Albumin 3.3 L (3.5-5.0) g/dL Microbiology - Last 24 Hours (Table) 10/27/19 19:24 Blood Culture - Final Blood No Growth after 144 hours 10/29/19 15:31 Blood Culture - Preliminary Blood No Growth after 96 hours 10/31/19 08:10 Gram Stain - Final Bronchial Washings - Right Bronchial Washings Culture - Final Assessment and Plan Plan: Assessment: #1. Acute bilateral lower lobe pulmonary infiltrates most likely related to immunotherapy induced interstitial lung disease. Patient is status post bronchoalveolar lavage, and bronchoalveolar lavage cultures was negative for any antimicrobial growth, patient remains on IV Solu-Medrol, and intermittent doses of Lasix, empiric emetic coverage continues in the form of meropenem and Levaquin. Covid 19 and influenza were ruled out #2. Acute hypoxic rest or a failure with interval worsening of patient's oxygenation following an episode of aspiration of a food particle, and this has improved, patient FiO2 is down from 15 L of oxygen to 5 L of oxygen #3. Recurrence of squamous cell lung carcinoma, status post CT-guided biopsy of a right lower lobe, and left upper lobe, left hilar lymph node and subcarinal lymph nodes that were positive for squamous cell carcinoma, patient has completed chemotherapy and SRT to the right lower lobe completed on 06/30/2019, and concurrent chemoradiation to the left upper lobe on 08/16/2019. Currently on immunotherapy in the form of OPdivo. Patient underwent bronchoscopy and residual abnormalities were noted in the left upper lobe where biopsies were obtained and the biopsy results are pending for now #4. History of COPD with baseline FEV1 of 77% predicted, maintained on Trelegy, albuterol #5. History of squamous cell lung lung cancer of the right upper lobe, treated with right upper lobectemy in 2011, followed by chemotherapy #6. Former smoker, he smoking history has been in remission since 2011 #7. Hypertension #8. Hyperlipidemia #9. BPH #10. Hypothyroidism Plan: Continue current treatment, continue with antibiotics, although bronchoalveolar lavage cultures remain negative to date, patient has been afebrile, abnormality seen on imaging in bilateral lungs are likely related to immunotherapy related pneumonitis, appears to be improving with IV steroids, and intermittent no some Lasix, we'll give the patient another dose of Lasix today. Continue weaning FiO2. Awaiting results of the left upper lobe biopsies. Continue antibiotic coverage for now. Oxygenation is improving, may consider moving the patient out of the intensive care unit later today or possibly tomorrow. I performed a history & physical examination of the patient and discussed their management with my nurse practitioner, Radha Trotter. I reviewed the nurse practitioner's note and agree with the documented findings and plan of care. Lung sounds are positive for diminished breath sounds. The findings and the impression was discussed with the patient. I attest to the documentation by the nurse practitioner. Time with Patient: Less than 30
--- NOTE | 2019-11-03 13:24 | P.PN ---
Subjective Progress Note Date: 11/03/19 Navi Coulter, is a 59 -year-old male who presented to [facility] emergency room with a chief complaint of fever, patient has a known history of lung cancer (squamous cell carcinoma right upper lobe ) diagnosed in 2010, at that time he had surgery at followed by chemotherapy, he is followed by Dr. Patino, in april 2018 patient presented to the hospital with cough and shortness of breath computed tomography scan revealed no evidence of cancer recurrence. Patient is followed by Dr. Rahman and receiving immunotherapy, his last dose was on Friday. Patient stated that yesterday after work he felt very tired and had elevated temperature he called Dr. Rahman's office and was told to come to emergency room patient was also complaining of shortness of breath and upper back pain otherwise he denies any complaints there is no headache or dizziness no chest pain he had occasional cough no nausea or vomiting no abdominal pain no diarrhea no burning with urination no frequency or urgency and no hematuria. Patient was evaluated in the emergency room his temperature on presentation was 99.9 pulse 107 respiration 18 blood pressure 119/74 pulse ox 94% on room air, la boratory data revealed a white blood count of 8.2 hemoglobin 10.5 sodium 132 and creatinine kinase of 198 otherwise normal labs influenza A and B were negative Covid 19 testing is still pending. Chest x-ray revealed innumerable bilateral perihilar multilobar acute infiltrates, patient was started on IV antibiotics in the emergency room, he was admitted to medical floor, oncology consultation and pulmonary consultation were requested. 10/29/2019, patient was seen and examined on the medical floor, he is alert and oriented 3 in no distress, he is still complaining of shortness of breath with any activity and occasional cough otherwise he denies any complaints there is no fever or chills no headache or dizziness no chest pain no nausea or vomiting no abdominal pain no diarrhea Cando the stools no burning with urination no frequency or urgency and no hematuria. on 10/30/2019 patient was seen and examined in the ICU, yesterday evening he developed worsening shortness of breath with tachycardia and tachypnea, he was transferred to intensive care unit and was reevaluated by pulmonary. At this time patient is stable in ICU he is alert and oriented 3 he is still feeling short of breath, he has occasional cough without any significant sputum production, there is no fever or chills no headache or dizziness no chest pain no nausea or vomiting no abdominal pain no diarrhea no blood in the stools no burning with urination no frequency or urgency and no hematuria. Input from pulmonary reviewed, plan is for a bronchoscopy tomorrow morning if patient is not improving. On 10/31/2019 patient was seen and examined in the ICU he is somnolent he just returned from having a bronchoscopy, he is still complaining of cough and shortness of breath otherwise he denies any complaints there is no fever or chills no headache or dizziness no chest pain no nausea or vomiting no abdominal pain no diarrhea no blood in the stools no burning with urination no frequency or urgency and no hematuria, bronchoscopy report reviewed at this time continue with IV antibiotics and IV Solu-Medrol will follow in a.m. On 11/01/2019 patient was seen and examined in the ICU, he is alert and oriented 3 in no apparent distress, he is complaining of severe shortness of breath with any activity, he states that he cannot walk from his bed to the bathroom without severe difficulty with breathing, he is also complaining of cough and complaining of pain in his neck, he is requesting an increase in the frequency of his pain medications, otherwise he denies any complaints there is no fever or chills no headache or dizziness no chest pain no palpitation no nausea or vomiting no abdominal pain no diarrhea no burning with urination no frequency or urgency and no hematuria. On 11/02/2019 patient was seen and examined in the ICU he is alert and oriented 3 he is complaining of severe shortness of breath, his O2 sat duration is down to 84% despite oxygen therapy, he is also complaining of occasional cough otherwise he denies any complaints there is no fever or chills no headache or dizziness no chest pain no palpitation no nausea or vomiting no abdominal pain no diarrhea no burning with urination no frequency or urgency and no hematuria On 11/03/2019 patient is alert and oriented 3. Patient remains on 5 L nasal cannula. Per pulmonary services chest x-ray slightly improved. Per pulmonary patient will likely move out of the intensive care unit in the next 24 hours. Patient remains on IV steroids. Patient complains of slight cough and some shortness of breath but is ambulating throughout room. Patient denies chest pain. Patient denies nausea vomiting or diarrhea. Patient denies any urinary burning or frequency. Objective - Vital Signs Vital signs: Vital Signs Temp 98 F 11/03/19 08:00 Pulse 79 11/03/19 11:00 Resp 23 11/03/19 11:00 BP 140/69 11/03/19 11:00 Pulse Ox 89 L 11/03/19 11:00 Intake & Output 11/02/19 11/03/19 11/03/19 18:59 06:59 18:59 Intake Total 1360 240 300 Output Total 1200 1700 600 Balance 160 -1460 -300 Weight 84.5 kg 84.5 kg Intake: IV 400 240 100 Sodium Chloride 0.9% 1, 400 240 100 000 ml @ 20 mls/hr IV . Q24H [facility]TER Rx#:[id number] Intake, IV Titration 100 Amount Meropenem 1 gm In Sodium 100 Chloride 0.9% 100 ml @ 200 mls/hr IVPB Q8HR [facility]TER Rx#:[id number] Oral 860 200 Output: Urine 1200 1700 600 Other: Voiding Method Toilet Toilet Urinal Urinal # Voids 1 2 - Exam In general patient is alert and oriented 3 in no distress HEENT head normocephalic and atraumatic Neck is supple no JVD no goiter no lymphadenopathy Chest exam reveals a crackles in both lung bases no wheezing Cardiac exam reveals regular heart sounds S1 and S2 no gallops no murmurs Abdomen is soft nontender no organomegaly with normal bowel sounds Extremity exam reveals no edema no cyanosis or clubbing Neurological examination reveals no gross focal deficit - Labs CBC & Chem 7: 11/03/19 06:20 11/03/19 06:20 Labs: Abnormal Lab Results - Last 24 Hours (Table) 11/03/19 11/03/19 11/03/19 Range/Units 06:20 06:20 12:15 RBC 3.58 L (4.30-5.90) m/uL Hgb 11.1 L (13.0-17.5) gm/dL Hct 33.8 L (39.0-53.0) % Neutrophils # 8.3 H (1.3-7.7) k/uL Lymphocytes # 0.2 L (1.0-4.8) k/uL Sodium 136 L (137-145) mmol/L BUN 29 H (9-20) mg/dL Creatinine 0.57 L (0.66-1.25) mg/dL Glucose 127 H (74-99) mg/dL POC Glucose (mg/dL) 115 H (75-99) mg/dL Total Protein 6.2 L (6.3-8.2) g/dL Albumin 3.3 L (3.5-5.0) g/dL Microbiology - Last 24 Hours (Table) 10/27/19 19:24 Blood Culture - Final Blood No Growth after 144 hours 10/29/19 15:31 Blood Culture - Preliminary Blood No Growth after 96 hours 10/31/19 08:10 Gram Stain - Final Bronchial Washings - Right Bronchial Washings Culture - Final Assessment and Plan Assessment: 1. Bilateral pneumonia, patient was started on imipenem in the emergency room, IV Levaquin was also added to regimen, patient is also receiving IV Solu-Medrol 60 mg every 6 hours. Status post bronchoscopy. Per pulmonary services likely related to immunotherapy-induced interstitial lung disease 2. History of squamous cell carcinoma of the right upper lobe, with previous surgery in 2010 followed by chemotherapy, patient is followed by Dr. Rahman, patient states that he received immunotherapy on Friday. 3. Upper back pain, could be related to pneumonia, however patient has known history of degenerative disc disease, he received epidural injections by Dr. Clinton Dubon in March 2019 4. Underlying history of hyperlipidemia maintained on Lipitor 5. Underlying history of hypothyroidism maintained on Synthroid 150 g daily 6. Underlying history of hypertension maintained on losartan. 7. Neck pain Will increase [place] to 4 times daily per patient request For DVT prophylaxis will start subcu Lovenox for GI prophylaxis patient is on Protonix Pulmonary and oncology service is following Patient remains on IV steroids and antibiotics per pulmonary Patient will likely move out of the intensive care unit the next 24-48 hours Awaiting bronchoscopy results I performed an examination of the patient and discussed their management with the Nurse Practitioner. I have reviewed the Nurse Practitioner's notes and agree with the documented findings and plan of care
[2019-11-03] MEDS: LEVOFLOXACIN 500 MG TAB PO SCH (17:51)
[2019-11-03] MEDS: SODIUM CHLORIDE 0.9% 1,000 ML IV SCH (17:52)
[2019-11-03] MEDS: ZOLPIDEM 5 MG TAB PO PRN (20:55)
[2019-11-03] MEDS: LOSARTAN 50 MG TAB PO SCH (20:55)
[2019-11-03] MEDS: BACLOFEN 10 MG TAB PO SCH (20:55)
[2019-11-03] MEDS: LORazepam 0.5 MG TAB PO PRN (20:56)
[2019-11-03] MEDS: NAPROXEN 250 MG TAB PO SCH (21:31)
[2019-11-03] MEDS: SERTRALINE 100 MG TAB PO SCH (21:31)
[2019-11-04] MEDS: methylPREDNISolone SOD SUCCI 125 MG/2 ML VIAL IV SCH ×4 (01:35→18:51)
[2019-11-04] MEDS: MEROPENEM 1 GM in SODIUM CHLORIDE 0.9% 100 ML IVPB SCH ×2 (01:38→07:12)
[2019-11-04] MEDS: LEVOTHYROXINE 50 MCG TAB PO SCH (05:39)
[2019-11-04] MEDS: HYDROcodone/APAP 10-325MG 1 EACH TAB PO PRN ×3 (05:40→18:51)
[2019-11-04 07:36] LABS: ALT 25 U/L (4-49); AST 27 U/L (17-59); African American GFR (CKD) >90 (>60 ml/min/1.73 sqM); Albumin 3.2 g/dL (3.5-5.0); Alkaline Phosphatase 70 U/L (38-126); Anion Gap 6 mmol/L; Blood Urea Nitrogen 32 mg/dL (9-20); Calcium 9.2 mg/dL (8.4-10.2); Carbon Dioxide 29 mmol/L (22-30); Chloride 102 mmol/L (98-107); Glucose 123 mg/dL (74-99); Non-African American GFR(CKD) >90 (>60 ml/min/1.73 sqM); Potassium 4.6 mmol/L (3.5-5.1); Sodium 137 mmol/L (137-145); Total Bilirubin 0.7 mg/dL (0.2-1.3); Total Protein 6.1 g/dL (6.3-8.2)
[2019-11-04 08:14] LABS: Basophils % (A) 0 %; Eosinophils % (A) 0 %; HCT 36.9 % (39.0-53.0); HGB 11.6 gm/dL (13.0-17.5); Lymphocytes # (A) 0.2 k/uL (1.0-4.8); Lymphocytes % (A) 2 %; MCH 30.4 pg (25.0-35.0); MCHC 31.4 g/dL (31.0-37.0); MCV 96.8 fL (80.0-100.0); Mean Platelet Volume 7.3; Monocytes # (A) 0.6 k/uL (0-1.0); Monocytes % (A) 5 %; Neutrophils # (A) 10.8 k/uL (1.3-7.7); Neutrophils % (A) 92 %; Platelet Count 387 k/uL (150-450); RBC 3.82 m/uL (4.30-5.90); RDW 12.7 % (11.5-15.5); WBC 11.7 k/uL (3.8-10.6)
[2019-11-04] MEDS: ATORVASTATIN 10 MG TAB PO SCH (09:03)
[2019-11-04] MEDS: amLODIPine 5 MG TAB PO SCH (09:03)
[2019-11-04] MEDS: TAMSULOSIN 0.4 MG CAP.ER.24H PO SCH (09:03)
[2019-11-04] MEDS: MULTIVITAMINS, THERA 1 EACH TAB PO SCH (09:03)
[2019-11-04] MEDS: ENOXAPARIN 40 MG/0.4 ML SYRINGE SQ SCH (09:05)
[2019-11-04] MEDS: PANTOPRAZOLE 40 MG TABLET PO SCH (09:05)
--- NOTE | 2019-11-04 11:19 | P.PN ---
Subjective Progress Note Date: 11/01/19 Principal diagnosis: Pneumonia and NSCLCA Still under care of ICU, although awake and alert. He is status Post Bronchoscopy and washings pending. Cotninues on abx for Bilateral pneumonia. Also continues on Solumedrol q6. Objective - Vital Signs Vital signs: Vital Signs Temp 97.5 F L 11/01/19 04:00 Pulse 88 11/01/19 10:00 Resp 25 H 11/01/19 10:00 BP 144/87 11/01/19 11:00 Pulse Ox 90 L 11/01/19 10:00 Intake & Output 10/31/19 11/01/19 11/01/19 18:59 06:59 18:59 Intake Total 1540 1650 860 Output Total 1050 1750 725 Balance 490 -100 135 Weight 87.5 kg Intake: IV 1200 1300 400 Meropenem 1 gm In Sodium 100 Chloride 0.9% 100 ml @ 200 mls/hr IVPB Q8HR [facility] Rx#:[id number] Sodium Chloride 0.9% 1, 1000 1200 400 000 ml @ 100 mls/hr IV . Q10H [facility] Rx#:[id number] Intake, IV Titration 100 100 Amount Meropenem 1 gm In Sodium 100 100 Chloride 0.9% 100 ml @ 200 mls/hr IVPB Q8HR [facility] Rx#:[id number] Oral 240 350 360 Output: Urine 1050 1750 725 Other: Voiding Method Toilet Toilet Toilet Urinal Urinal Urinal # Voids 0 0 1 # Bowel Movements 1 - Exam Constitutional General appearance: cooperative, no acute distress - EENT Eyes: EOMI, PERRLA, poor dentition ENT: NA/AT, normal oropharynx - Neck Neck: normal ROM - Respiratory: increased effort Respiratory: bilateral: diminished, wheezing - Cardiovascular Heart rate: 110 Rhythm: irregularly irregular - Gastrointestinal General gastrointestinal: normal bowel sounds, soft - Integumentary Integumentary: pale - Neurologic non-focal - Musculoskeletal Musculoskeletal: generalized weakness, strength equal bilaterally - Psychiatric Psychiatric: A&O x's 3, appropriate affect, intact judgment & insight - Labs CBC & Chem 7: 11/01/19 04:03 11/01/19 04:03 Labs: Abnormal Lab Results - Last 24 Hours (Table) 10/31/19 11/01/19 11/01/19 Range/Units 04:23 04:03 04:03 WBC 12.7 H (3.8-10.6) k/uL RBC 3.37 L (4.30-5.90) m/uL Hgb 10.4 L (13.0-17.5) gm/dL Hct 32.4 L (39.0-53.0) % Neutrophils # 11.8 H (1.3-7.7) k/uL Lymphocytes # 0.2 L (1.0-4.8) k/uL Sodium 136 L (137-145) mmol/L Creatinine 0.56 L (0.66-1.25) mg/dL Glucose 130 H (74-99) mg/dL Ferritin 760.5 H (22.0-322.0) ng/mL Total Protein 5.8 L (6.3-8.2) g/dL Albumin 3.1 L (3.5-5.0) g/dL Microbiology - Last 24 Hours (Table) 10/27/19 19:24 Blood Culture - Preliminary Blood No Growth after 96 hours 10/31/19 08:10 Gram Stain - Preliminary Bronchial Washings - Right Bronchial Washings Culture - Preliminary 10/31/19 08:10 Fungal Culture - Preliminary Bronchial Washings - Right 10/31/19 08:10 Acid Fast Bacilli Culture - Preliminary Bronchial Washings - Right 10/29/19 15:31 Blood Culture - Preliminary Blood No Growth after 48 hours 10/29/19 10:45 Gram Stain - Final Sputum Sputum Culture - Final Assessment and Plan (1) Squamous cell lung cancer Current Visit: Yes Status: Acute Code(s): C34.90 - MALIGNANT NEOPLASM OF UNSP PART OF UNSP BRONCHUS OR LUNG SNOMED Code(s): 778909957 (2) Acute pneumonia Current Visit: Yes Status: Acute Code(s): J18.9 - PNEUMONIA, UNSPECIFIED ORGANISM SNOMED Code(s): 054944436 Plan: Assessment and Recommendations: 1. Squamous Cell Lung Cancer (Original dx 2010, recurrent RLL and LOLA in 2019) - Status Post SBRT RLL, Concurrent xrt/chemo LOLA. Now on Immune therapy with imfinzi - Last Imfinzi 10/26/19 - Primary Oncologist Dr. Jimenez 2. Pneumonia (Community Acquired):Bilateral - Supportive care and antibiotics 3. Acute on Chronic Hypoxic Respiratory Failure:Persistent - Requiring 2-3 L O2 to maintain greater than 90% - Still with obvious increased effort - Status Post Bronchoscopy 10/31/19 - Secondary to Number 2 and Number 1 - Pulmonary Following 4. Elevated Temperatures (Afebrile) - Influenza, COVID, and Blood cultures negative - Sputum reviewed 5. Normocytic Anemia:Stable - Chronic inflammation worsened with dilution and infection - Ferritin over 400, no benefit with supplementation - TSH stable (although on steroids) - No benefit from supplemental vitamin replacement at this time after review was seen for deficiencies. Plan: - Await final results from Bronchoscopy - Care of ICU - Hold Immune therapy until acute situation improves - Agree with Steroids, PPI, abx await improvement, management pulm
--- NOTE | 2019-11-04 14:09 | P.PN ---
Subjective Progress Note Date: 11/04/19 59-year-old white male patient of Dr. Jensen, with past medical history of squamous cell carcinoma, 11/04/2019, the patient is feeling better. Less short of breath compared to yesterday.the patient is currently on 5 L liters of oxygen by nasal cannula. The bronchioloalveolar lavage showed no microbial growth.the patient was taken off meropenem. The patient was kept on Levaquin. The patient is on IV Solu- Medrol. Cough has subsided. No chest pain. No altered mentation. No nausea or vomiting. No abdominal pain. No other significant events otherwise for now. Repeat chest x-ray was not done today and this to be done tomorrow.he is afebrile. He was given a dose of Lasix yesterday and he diuresed approximately 2.9 L in the fluid balance is around -1.3 L over the past 24 hours. He'll be given another dose of diuresis today.as for the left upper lobe biopsies obtained during the bronchoscopy, and these came back negative for malignancy. That showed necrotic tissue and ulceration related to previous radiation therapy. The stains came back negative for any malignancy or recurrent tumor. The patient was reassured in that regard. Objective - Vital Signs Vital signs: Vital Signs Temp 97.7 F 11/04/19 08:00 Pulse 80 11/04/19 08:00 Resp 18 11/04/19 08:00 BP 148/79 11/04/19 08:00 Pulse Ox 90 L 11/04/19 08:00 Intake & Output 11/03/19 11/04/19 11/04/19 18:59 06:59 18:59 Intake Total 500 320 160 Output Total 600 400 300 Balance -100 -80 -140 Weight 84.5 kg 82.2 kg Intake: IV 100 220 160 Sodium Chloride 0.9% 1, 100 220 160 000 ml @ 20 mls/hr IV . Q24H [facility] Rx#:[id number] Intake, IV Titration 100 Amount Meropenem 1 gm In Sodium 100 Chloride 0.9% 100 ml @ 200 mls/hr IVPB Q8HR [facility] Rx#:[id number] Oral 400 Output: Urine 600 400 300 Other: Voiding Method Toilet Toilet Toilet Urinal Urinal Urinal # Voids 1 1 2 - Exam GENERAL EXAM: Alert, very pleasant, 59-year-old white male, on room air, with a pulse ox of 92% comfortable in no apparent distress. The patient is currently on 5 L of oxygen by nasal cannula, no significant tachypnea. no significant respiratory distress at rest. The patient is not having anycough compared source is not using any accessory muscles of breathing. HEAD: Normocephalic/atraumatic. EYES: Normal reaction of pupils, equal size. Conjunctiva pink, sclera white. NOSE: Clear with pink turbinates. THROAT: No erythema or exudates. NECK: No masses, no JVD, no thyroid enlargement, no adenopathy. CHEST: No chest wall deformity. Symmetrical expansion. LUNGS: Equal air entry with fine crackles at right mid posterior lung, mild left upper lobe anterior chest wheeze, no rhonchi or dullness. CVS: Regular rate and rhythm, normal S1 and S2, no gallops, no murmurs, no rubs ABDOMEN: Soft, nontender. No hepatosplenomegaly, normal bowel sounds, no guarding or rigidity. EXTREMITIES: No clubbing, no edema, no cyanosis, 2+ pulses and upper and lower extremities. MUSCULOSKELETAL: Muscle strength and tone normal. SPINE: No scoliosis or deformity SKIN: No rashes CENTRAL NERVOUS SYSTEM: Alert and oriented -3. No focal deficits, tone is normal in all 4 extremities. PSYCHIATRIC: Alert and oriented -3. Appropriate affect. Intact judgment and insight. - Labs CBC & Chem 7: 11/04/19 06:44 11/04/19 06:44 Labs: Abnormal Lab Results - Last 24 Hours (Table) 11/04/19 11/04/19 Range/Units 06:44 06:44 WBC 11.7 H (3.8-10.6) k/uL RBC 3.82 L (4.30-5.90) m/uL Hgb 11.6 L (13.0-17.5) gm/dL Hct 36.9 L (39.0-53.0) % Neutrophils # 10.8 H (1.3-7.7) k/uL Lymphocytes # 0.2 L (1.0-4.8) k/uL BUN 32 H (9-20) mg/dL Creatinine 0.59 L (0.66-1.25) mg/dL Glucose 123 H (74-99) mg/dL Total Protein 6.1 L (6.3-8.2) g/dL Albumin 3.2 L (3.5-5.0) g/dL Microbiology - Last 24 Hours (Table) 10/29/19 15:31 Blood Culture - Preliminary Blood No Growth after 120 hours Assessment and Plan Plan: 1 acute bilateral lower lobe pulmonary infiltrates. 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 The bronchioloalveolar lavage was negative for any microbial growth. The patient remains on IV Solu Medrol. the patient continues to improve. The patient is currently on 5 L of oxygen by nasal cannula. He'll be chest and out of the intensive care unit. He will have a follow-up chest x-ray tomorrow. Meropenem was discontinued. We'll continue the IV Solu-Medrol. Continue Levaquin for now. 2 acute hypoxic respiratory failure secondary to above and the patient is cur rently onoxygen at 5 L of oxygen by nasal cannula. 3 Recurrence of squamous cell lung carcinoma, status post CT-guided biopsy of a right lower lobe, and left upper lobe, left hilar lymph node and subcarinal lymph nodes that were positive for squamous cell carcinoma, patient has completed chemotherapy and SRT to the right lower lobe completed on 06/30/2019, and concurrent chemoradiation to the left upper lobe on 08/16/2019. Currently on immunotherapy in the form of Opdivo. The patient underwent also bronchoscopy and residual abnormalities were seen in the left upper lobe where biopsies were obtained and the results were negative for any recurrent disease and was consistent with necrotic tissue. 4. History of COPD with baseline FEV1 of 77% predicted, maintained on Trelegy, albuterol 5 History of squamous cell lung lung cancer of the right upper lobe, treated with right upper lobectemy in 2010, followed by chemotherapy 6 Former smoker, he smoking history has been in remission since 2010 7. Hypertension 8. Hyperlipidemia 9. BPH 10. Hypothyroidism Plan repeat chest x-ray in the morning. Wean down the FiO2 currently on 5 L per minute nasal cannula Continue IV Solu Medrol Discontinue meropenem and continue the Levaquin for now Given a dose of Lasix 40 mg IV 1 [place] the patient out of the intensive care unit. Results of the biopsies from the left upper lobe 10 during the bronchoscopy was discussed with the patient and the patient was reassured. However, this is not a guarantee that the patient has no recurrence and this is something that needs to be watched for in future CAT scan of the chest.
--- NOTE | 2019-11-04 17:55 | P.PN ---
Subjective Progress Note Date: 11/04/19 Navi Coulter, is a 59 -year-old male who presented to [facility] emergency room with a chief complaint of fever, patient has a known history of lung cancer (squamous cell carcinoma right upper lobe ) diagnosed in 2010, at that time he had surgery at [facility] followed by chemotherapy, he is followed by Dr. Patino, in april 2018 patient presented to the hospital with cough and shortness of breath computed tomography scan revealed no evidence of cancer recurrence. Patient is followed by Dr. Rahman and receiving immunotherapy, his last dose was on Friday. Patient stated that yesterday after work he felt very tired and had elevated temperature he called Dr. Rahman's office and was told to come to emergency room patient was also complaining of shortness of breath and upper back pain otherwise he denies any complaints there is no headache or dizziness no chest pain he had occasional cough no nausea or vomiting no abdominal pain no diarrhea no burning with urination no frequency or urgency and no hematuria. Patient was evaluated in the emergency room his temperature on presentation was 99.9 pulse 107 respiration 18 blood pressure 119/74 pulse ox 94% on room air, l aboratory data revealed a white blood count of 8.2 hemoglobin 10.5 sodium 132 and creatinine kinase of 198 otherwise normal labs influenza A and B were negative Covid 19 testing is still pending. Chest x-ray revealed innumerable bilateral perihilar multilobar acute infiltrates, patient was started on IV antibiotics in the emergency room, he was admitted to medical floor, oncology consultation and pulmonary consultation were requested. 10/29/2019, patient was seen and examined on the medical floor, he is alert and oriented 3 in no distress, he is still complaining of shortness of breath with any activity and occasional cough otherwise he denies any complaints there is no fever or chills no headache or dizziness no chest pain no nausea or vomiting no abdominal pain no diarrhea Tarina the stools no burning with urination no frequency or urgency and no hematuria. on 10/30/2019 patient was seen and examined in the ICU, yesterday evening he developed worsening shortness of breath with tachycardia and tachypnea, he was transferred to intensive care unit and was reevaluated by pulmonary. At this time patient is stable in ICU he is alert and oriented 3 he is still feeling short of breath, he has occasional cough without any significant sputum production, there is no fever or chills no headache or dizziness no chest pain no nausea or vomiting no abdominal pain no diarrhea no blood in the stools no burning with urination no frequency or urgency and no hematuria. Input from pulmonary reviewed, plan is for a bronchoscopy tomorrow morning if patient is not improving. On 10/31/2019 patient was seen and examined in the ICU he is somnolent he just returned from having a bronchoscopy, he is still complaining of cough and shortness of breath otherwise he denies any complaints there is no fever or chills no headache or dizziness no chest pain no nausea or vomiting no abdominal pain no diarrhea no blood in the stools no burning with urination no frequency or urgency and no hematuria, bronchoscopy report reviewed at this time continue with IV antibiotics and IV Solu-Medrol will follow in a.m. On 11/01/2019 patient was seen and examined in the ICU, he is alert and oriented 3 in no apparent distress, he is complaining of severe shortness of breath with any activity, he states that he cannot walk from his bed to the bathroom without severe difficulty with breathing, he is also complaining of cough and complaining of pain in his neck, he is requesting an increase in the frequency of his pain medications, otherwise he denies any complaints there is no fever or chills no headache or dizziness no chest pain no palpitation no nausea or vomiting no abdominal pain no diarrhea no burning with urination no frequency or urgency and no hematuria. On 11/02/2019 patient was seen and examined in the ICU he is alert and oriented 3 he is complaining of severe shortness of breath, his O2 sat duration is down to 84% despite oxygen therapy, he is also complaining of occasional cough otherwise he denies any complaints there is no fever or chills no headache or dizziness no chest pain no palpitation no nausea or vomiting no abdominal pain no diarrhea no burning with urination no frequency or urgency and no hematuria On 11/03/2019 patient is alert and oriented 3. Patient remains on 5 L nasal cannula. Per pulmonary services chest x-ray slightly improved. Per pulmonary patient will likely move out of the intensive care unit in the next 24 hours. Patient remains on IV steroids. Patient complains of slight cough and some shortness of breath but is ambulating throughout room. Patient denies chest pain. Patient denies nausea vomiting or diarrhea. Patient denies any urinary burning or frequency. On 08/04/2019 patient was seen and examined in the ICU he is alert and oriented 3 in no apparent distress there is no fever or chills no headache or dizziness his shortness of breath he is improving he has occasional cough no chest pain no palpitation no nausea or vomiting no abdominal pain no diarrhea no blood in the stools no burning with urination no frequency or urgency and no hematuria Objective - Vital Signs Vital signs: Vital Signs Temp 97.7 F 11/04/19 04:00 Pulse 69 11/04/19 04:00 Resp 22 11/04/19 04:00 BP 134/69 11/04/19 04:00 Pulse Ox 95 11/04/19 04:00 Intake & Output 11/03/19 11/04/19 11/04/19 18:59 06:59 18:59 Intake Total 500 320 160 Output Total 600 400 300 Balance -100 -80 -140 Weight 84.5 kg Intake: IV 100 220 160 Sodium Chloride 0.9% 1, 100 220 160 000 ml @ 20 mls/hr IV . Q24H [facility]TER Rx#:[id number] Intake, IV Titration 100 Amount Meropenem 1 gm In Sodium 100 Chloride 0.9% 100 ml @ 200 mls/hr IVPB Q8HR [facility] Rx#:[id number] Oral 400 Output: Urine 600 400 300 Other: Voiding Method Toilet Toilet Urinal Urinal # Voids 1 1 1 - Exam In general patient is alert and oriented 3 in no distress HEENT head normocephalic and atraumatic Neck is supple no JVD no goiter no lymphadenopathy Chest exam reveals a crackles in both lung bases no wheezing Cardiac exam reveals regular heart sounds S1 and S2 no gallops no murmurs Abdomen is soft nontender no organomegaly with normal bowel sounds Extremity exam reveals no edema no cyanosis or clubbing Neurological examination reveals no gross focal deficit - Labs CBC & Chem 7: 11/04/19 06:44 11/04/19 06:44 Labs: Abnormal Lab Results - Last 24 Hours (Table) 11/03/19 11/04/19 11/04/19 Range/Units 12:15 06:44 06:44 WBC 11.7 H (3.8-10.6) k/uL RBC 3.82 L (4.30-5.90) m/uL Hgb 11.6 L (13.0-17.5) gm/dL Hct 36.9 L (39.0-53.0) % Neutrophils # 10.8 H (1.3-7.7) k/uL Lymphocytes # 0.2 L (1.0-4.8) k/uL BUN 32 H (9-20) mg/dL Creatinine 0.59 L (0.66-1.25) mg/dL Glucose 123 H (74-99) mg/dL POC Glucose (mg/dL) 115 H (75-99) mg/dL Total Protein 6.1 L (6.3-8.2) g/dL Albumin 3.2 L (3.5-5.0) g/dL Microbiology - Last 24 Hours (Table) 10/29/19 15:31 Blood Culture - Preliminary Blood No Growth after 120 hours Assessment and Plan Plan: 1. Bilateral pneumonia, patient was started on imipenem in the emergency room, IV Levaquin was also added to regimen, patient is also receiving IV Solu-Medrol 60 mg every 6 hours 2. History of squamous cell carcinoma of the right upper lobe, with previous surgery in 2010 followed by chemotherapy, patient is followed by Dr. Rahman, patient states that he received immunotherapy on Friday. 3. Upper back pain, could be related to pneumonia, however patient has known history of degenerative disc disease, he received epidural injections by Dr. Clinton Dubon in March 2019 4. Underlying history of hyperlipidemia maintained on Lipitor 5. Underlying history of hypothyroidism maintained on Synthroid 150 g daily 6. Underlying history of hypertension maintained on losartan. 7. Neck pain Will increase [place] to 4 times daily per patient request At this time medication and labs were reviewed Continue current management awaiting input from pulmonary and infectious disease. Patient underwent bronchoscopy , biopsy revealed necrotic tissue For DVT prophylaxis will start subcu Lovenox for GI prophylaxis patient is on Protonix Possible discharge to home in the next 2-3 days
[2019-11-04] MEDS: LEVOFLOXACIN 500 MG TAB PO SCH (18:51)
[2019-11-04] MEDS: LORazepam 0.5 MG TAB PO PRN (20:45)
[2019-11-04] MEDS: LOSARTAN 50 MG TAB PO SCH (20:45)
[2019-11-04] MEDS: ZOLPIDEM 5 MG TAB PO PRN (20:45)
[2019-11-04] MEDS: NAPROXEN 250 MG TAB PO SCH (20:46)
[2019-11-04] MEDS: SERTRALINE 100 MG TAB PO SCH (20:46)
[2019-11-04] MEDS: BACLOFEN 10 MG TAB PO SCH (20:46)
[2019-11-05] MEDS: methylPREDNISolone SOD SUCCI 125 MG/2 ML VIAL IV SCH ×5 (01:00→23:33)
[2019-11-05] MEDS: HYDROcodone/APAP 10-325MG 1 EACH TAB PO PRN ×4 (02:15→21:02)
[2019-11-05] MEDS: LEVOTHYROXINE 50 MCG TAB PO SCH (06:36)
--- NOTE | 2019-11-05 08:04 | XR ---
EXAMINATION TYPE: XR chest 1V portable DATE OF EXAM: 11/05/2019 COMPARISON: Prior chest x-ray 11/03/2019 HISTORY: Follow-up, abnormal chest x-ray TECHNIQUE: Single frontal view of the chest is obtained. FINDINGS: There is no significant interval change. Postop changes are stable. No evident pneumothora x or pleural effusion. Interstitium and pulmonary artery are prominent, mixed airspace disease suspec ezra. Heart size is stable. IMPRESSION: Findings similar to prior exam. Correlate for edema, pneumonia, interstitial lung diseas e
[2019-11-05 08:17] LABS: Basophils % (A) 0 %; Eosinophils % (A) 0 %; HCT 37.1 % (39.0-53.0); HGB 11.9 gm/dL (13.0-17.5); Lymphocytes # (A) 0.3 k/uL (1.0-4.8); Lymphocytes % (A) 2 %; MCH 30.8 pg (25.0-35.0); MCHC 32.2 g/dL (31.0-37.0); MCV 95.8 fL (80.0-100.0); Mean Platelet Volume 6.8; Monocytes # (A) 0.5 k/uL (0-1.0); Monocytes % (A) 4 %; Neutrophils # (A) 11.2 k/uL (1.3-7.7); Neutrophils % (A) 93 %; Platelet Count 407 k/uL (150-450); RBC 3.87 m/uL (4.30-5.90); RDW 12.9 % (11.5-15.5); WBC 12.2 k/uL (3.8-10.6)
[2019-11-05 08:29] LABS: ALT 22 U/L (4-49); AST 22 U/L (17-59); African American GFR (CKD) >90 (>60 ml/min/1.73 sqM); Albumin 3.2 g/dL (3.5-5.0); Alkaline Phosphatase 68 U/L (38-126); Anion Gap 5 mmol/L; Blood Urea Nitrogen 30 mg/dL (9-20); Carbon Dioxide 28 mmol/L (22-30); Chloride 102 mmol/L (98-107); Glucose 120 mg/dL (74-99); Non-African American GFR(CKD) >90 (>60 ml/min/1.73 sqM); Potassium 4.9 mmol/L (3.5-5.1); Sodium 135 mmol/L (137-145); Total Bilirubin 0.6 mg/dL (0.2-1.3); Total Protein 5.9 g/dL (6.3-8.2)
[2019-11-05] MEDS: PANTOPRAZOLE 40 MG TABLET PO SCH (08:45)
[2019-11-05] MEDS: MULTIVITAMINS, THERA 1 EACH TAB PO SCH (08:45)
[2019-11-05] MEDS: TAMSULOSIN 0.4 MG CAP.ER.24H PO SCH (08:45)
[2019-11-05] MEDS: ATORVASTATIN 10 MG TAB PO SCH (08:45)
[2019-11-05] MEDS: ENOXAPARIN 40 MG/0.4 ML SYRINGE SQ SCH (08:45)
[2019-11-05] MEDS: amLODIPine 5 MG TAB PO SCH (08:45)
--- NOTE | 2019-11-05 13:39 | P.PN ---
Subjective Progress Note Date: 11/05/19 Principal diagnosis: Pneumonia and NSCLCA Up in chair, feeling better. Still in ICU. Patient was seen and evaluated this AM. On exam his lungs are improved to auscultation. Path from bronchoscopy did result and no malignant cells were identified. Objective - Vital Signs Vital signs: Vital Signs Temp 98 F 11/05/19 08:00 Pulse 104 H 11/05/19 08:00 Resp 26 H 11/05/19 08:00 BP 156/74 11/05/19 08:00 Pulse Ox 91 L 11/05/19 10:25 Intake & Output 11/04/19 11/05/19 11/05/19 18:59 06:59 18:59 Intake Total 160 380 250 Output Total 341 468 8545 Balance -140 -270 -750 Weight 85 kg Intake: IV 160 380 0 Sodium Chloride 0.9% 1, 160 380 0 000 ml @ 20 mls/hr IV . Q24H [facility]TER Rx#:[id number] Oral 250 Output: Urine 598 479 8761 Other: Voiding Method Toilet Toilet Toilet Urinal Urinal Urinal # Voids 2 2 2 - Exam Constitutional General appearance: cooperative, no acute distress - EENT Eyes: EOMI, PERRLA, poor dentition ENT: NA/AT, normal oropharynx - Neck Neck: normal ROM - Respiratory: increased effort Respiratory: bilateral: diminished, CTA - Cardiovascular Heart rate: 110 Rhythm: irregularly irregular - Gastrointestinal General gastrointestinal: normal bowel sounds, soft - Integumentary Integumentary: pale - Neurologic non-focal - Musculoskeletal Musculoskeletal: generalized weakness, strength equal bilaterally - Psychiatric Psychiatric: A&O x's 3, appropriate affect, intact judgment & insight - Labs CBC & Chem 7: 11/05/19 07:30 11/05/19 07:30 Labs: Abnormal Lab Results - Last 24 Hours (Table) 11/05/19 11/05/19 Range/Units 07:30 07:30 WBC 12.2 H (3.8-10.6) k/uL RBC 3.87 L (4.30-5.90) m/uL Hgb 11.9 L (13.0-17.5) gm/dL Hct 37.1 L (39.0-53.0) % Neutrophils # 11.2 H (1.3-7.7) k/uL Lymphocytes # 0.3 L (1.0-4.8) k/uL Sodium 135 L (137-145) mmol/L BUN 30 H (9-20) mg/dL Creatinine 0.58 L (0.66-1.25) mg/dL Glucose 120 H (74-99) mg/dL Total Protein 5.9 L (6.3-8.2) g/dL Albumin 3.2 L (3.5-5.0) g/dL Microbiology - Last 24 Hours (Table) 10/29/19 15:31 Blood Culture - Final Blood No Growth after 144 hours Assessment and Plan (1) Squamous cell lung cancer Current Visit: Yes Status: Acute Code(s): C34.90 - MALIGNANT NEOPLASM OF UNSP PART OF UNSP BRONCHUS OR LUNG SNOMED Code(s): 560526479 (2) Acute pneumonia Current Visit: Yes Status: Acute Code(s): J18.9 - PNEUMONIA, UNSPECIFIED ORGANISM SNOMED Code(s): 083928847 Plan: Assessment and Recommendations: 1. Squamous Cell Lung Cancer (Original dx 2010, recurrent RLL and LOLA in 2019) - Status Post SBRT RLL, Concurrent xrt/chemo LOLA. Now on Immune therapy with imfinzi - Last Imfinzi 10/26/19 - Primary Oncologist Dr. Patino 2. Pneumonia (Community Acquired):Bilateral - Supportive care and antibiotics 3. Acute on Chronic Hypoxic Respiratory Failure:Persistent - Requiring 2-3 L O2 to maintain greater than 90% - Still with obvious increased effort - Status Post Bronchoscopy 10/31/19, cytology negative for malignant cells - Secondary to Number 2 and Number 1 - Pulmonary Following - [place] to be secondary to radiation versus immune therapy pneumonitis. Unfortunately, which, although likely both contributed, will be difficult to exactly know. Although with Grade 3 or 4 pneumonitis, if immune therapy induced is recommended to discontinue future administrations. He will follow-up with Dr. Patino after discharge to discuss ongoing treatment plan. 4. SIRS: 3/4 - Resolving - Influenza, COVID, and Blood cultures negative - Sputum reviewed negative 5. Normocytic Anemia:Stable - Chronic inflammation worsened with dilution and infection - Ferritin over 400, no benefit with supplementation - TSH stable (although on steroids) - No benefit from supplemental vitamin replacement at this time after review was seen for deficiencies. Plan: - Care of ICU - Will discuss permanent discontinuation of Immune therapy with primary oncologist after discharge - Agree with Steroids, PPI, abx await improvement, management pulm - Continued improvement
--- NOTE | 2019-11-05 14:02 | P.PN ---
Subjective Progress Note Date: 11/05/19 Navi Coulter, is a 59 -year-old male who presented to [facility] emergency room with a chief complaint of fever, patient has a known history of lung cancer (squamous cell carcinoma right upper lobe ) diagnosed in 2010, at that time he had surgery at [facility] followed by chemotherapy, he is followed by Dr. Patino, in april 2018 patient presented to the hospital with cough and shortness of breath computed tomography scan revealed no evidence of cancer recurrence. Patient is followed by Dr. Rahman and receiving immunotherapy, his last dose was on Friday. Patient stated that yesterday after work he felt very tired and had elevated temperature he called Dr. Rahman's office and was told to come to emergency room patient was also complaining of shortness of breath and upper back pain otherwise he denies any complaints there is no headache or dizziness no chest pain he had occasional cough no nausea or vomiting no abdominal pain no diarrhea no burning with urination no frequency or urgency and no hematuria. Patient was evaluated in the emergency room his temperature on presentation was 99.9 pulse 107 respiration 18 blood pressure 119/74 pulse ox 94% on room air, l aboratory data revealed a white blood count of 8.2 hemoglobin 10.5 sodium 132 and creatinine kinase of 198 otherwise normal labs influenza A and B were negative Covid 19 testing is still pending. Chest x-ray revealed innumerable bilateral perihilar multilobar acute infiltrates, patient was started on IV antibiotics in the emergency room, he was admitted to medical floor, oncology consultation and pulmonary consultation were requested. 10/29/2019, patient was seen and examined on the medical floor, he is alert and oriented 3 in no distress, he is still complaining of shortness of breath with any activity and occasional cough otherwise he denies any complaints there is no fever or chills no headache or dizziness no chest pain no nausea or vomiting no abdominal pain no diarrhea [place] the stools no burning with urination no frequency or urgency and no hematuria. on 10/30/2019 patient was seen and examined in the ICU, yesterday evening he developed worsening shortness of breath with tachycardia and tachypnea, he was transferred to intensive care unit and was reevaluated by pulmonary. At this time patient is stable in ICU he is alert and oriented 3 he is still feeling short of breath, he has occasional cough without any significant sputum production, there is no fever or chills no headache or dizziness no chest pain no nausea or vomiting no abdominal pain no diarrhea no blood in the stools no burning with urination no frequency or urgency and no hematuria. Input from pulmonary reviewed, plan is for a bronchoscopy tomorrow morning if patient is not improving. On 10/31/2019 patient was seen and examined in the ICU he is somnolent he just returned from having a bronchoscopy, he is still complaining of cough and shortness of breath otherwise he denies any complaints there is no fever or chills no headache or dizziness no chest pain no nausea or vomiting no abdominal pain no diarrhea no blood in the stools no burning with urination no frequency or urgency and no hematuria, bronchoscopy report reviewed at this time continue with IV antibiotics and IV Solu-Medrol will follow in a.m. On 11/01/2019 patient was seen and examined in the ICU, he is alert and oriented 3 in no apparent distress, he is complaining of severe shortness of breath with any activity, he states that he cannot walk from his bed to the bathroom without severe difficulty with breathing, he is also complaining of cough and complaining of pain in his neck, he is requesting an increase in the frequency of his pain medications, otherwise he denies any complaints there is no fever or chills no headache or dizziness no chest pain no palpitation no nausea or vomiting no abdominal pain no diarrhea no burning with urination no frequency or urgency and no hematuria. On 11/02/2019 patient was seen and examined in the ICU he is alert and oriented 3 he is complaining of severe shortness of breath, his O2 sat duration is down to 84% despite oxygen therapy, he is also complaining of occasional cough otherwise he denies any complaints there is no fever or chills no headache or dizziness no chest pain no palpitation no nausea or vomiting no abdominal pain no diarrhea no burning with urination no frequency or urgency and no hematuria On 11/03/2019 patient is alert and oriented 3. Patient remains on 5 L nasal cannula. Per pulmonary services chest x-ray slightly improved. Per pulmonary patient will likely move out of the intensive care unit in the next 24 hours. Patient remains on IV steroids. Patient complains of slight cough and some shortness of breath but is ambulating throughout room. Patient denies chest pain. Patient denies nausea vomiting or diarrhea. Patient denies any urinary burning or frequency. On 08/04/2019 patient was seen and examined in the ICU he is alert and oriented 3 in no apparent distress there is no fever or chills no headache or dizziness his shortness of breath he is improving he has occasional cough no chest pain no palpitation no nausea or vomiting no abdominal pain no diarrhea no blood in the stools no burning with urination no frequency or urgency and no hematuria. On 08/05/2019 patient was seen and examined in the ICU, he is alert and oriented in no distress, his shortness of breath and cough are improving, he is still feeling tired and weak otherwise he denies any complaints there is no fever or chills no headache or dizziness no chest pain no palpitation no nausea or vomiting no abdominal pain no diarrhea no blood in the stools no burning with urination no frequency or urgency and no hematuria Objective - Vital Signs Vital signs: Vital Signs Temp 98 F 11/05/19 08:00 Pulse 104 H 11/05/19 08:00 Resp 26 H 11/05/19 08:00 BP 156/74 11/05/19 08:00 Pulse Ox 91 L 11/05/19 10:25 Intake & Output 11/04/19 11/05/19 11/05/19 18:59 06:59 18:59 Intake Total 160 380 250 Output Total 961 440 9724 Balance -140 -270 -750 Weight 85 kg Intake: IV 160 380 0 Sodium Chloride 0.9% 1, 160 380 0 000 ml @ 20 mls/hr IV . Q24H [facility] Rx#:[id number] Oral 250 Output: Urine 558 576 0125 Other: Voiding Method Toilet Toilet Toilet Urinal Urinal Urinal # Voids 2 2 2 - Exam In general patient is alert and oriented 3 in no distress HEENT head normocephalic and atraumatic Neck is supple no JVD no goiter no lymphadenopathy Chest exam reveals a crackles in both lung bases no wheezing Cardiac exam reveals regular heart sounds S1 and S2 no gallops no murmurs Abdomen is soft nontender no organomegaly with normal bowel sounds Extremity exam reveals no edema no cyanosis or clubbing Neurological examination reveals no gross focal deficit - Labs CBC & Chem 7: 11/05/19 07:30 11/05/19 07:30 Labs: Abnormal Lab Results - Last 24 Hours (Table) 11/05/19 11/05/19 Range/Units 07:30 07:30 WBC 12.2 H (3.8-10.6) k/uL RBC 3.87 L (4.30-5.90) m/uL Hgb 11.9 L (13.0-17.5) gm/dL Hct 37.1 L (39.0-53.0) % Neutrophils # 11.2 H (1.3-7.7) k/uL Lymphocytes # 0.3 L (1.0-4.8) k/uL Sodium 135 L (137-145) mmol/L BUN 30 H (9-20) mg/dL Creatinine 0.58 L (0.66-1.25) mg/dL Glucose 120 H (74-99) mg/dL Total Protein 5.9 L (6.3-8.2) g/dL Albumin 3.2 L (3.5-5.0) g/dL Microbiology - Last 24 Hours (Table) 10/29/19 15:31 Blood Culture - Final Blood No Growth after 144 hours Assessment and Plan Plan: 1. Bilateral pneumonia, patient was started on imipenem in the emergency room, IV Levaquin was also added to regimen, patient is also receiving IV Solu-Medrol 60 mg every 6 hours 2. History of squamous cell carcinoma of the right upper lobe, with previous surgery in 2010 followed by chemotherapy, patient is followed by Dr. Rahman, patient states that he received immunotherapy on Friday. 3. Upper back pain, could be related to pneumonia, however patient has known history of degenerative disc disease, he received epidural injections by Dr. Clinton Dubon in March 2019 4. Underlying history of hyperlipidemia maintained on Lipitor 5. Underlying history of hypothyroidism maintained on Synthroid 150 g daily 6. Underlying history of hypertension maintained on losartan. 7. Neck pain Will increase [place] to 4 times daily per patient request At this time medication and labs were reviewed Continue current management awaiting input from pulmonary and infectious disease. Patient underwent bronchoscopy , biopsy revealed necrotic tissue For DVT prophylaxis will start subcu Lovenox for GI prophylaxis patient is on Protonix Possible discharge to home on Friday per pulmonary
--- NOTE | 2019-11-05 15:01 | P.PN ---
Subjective Progress Note Date: 11/05/19 11/05/2019, the patient is doing much better. Responding nicely to systemic steroids. Taken off the Merrem. The results of the bronchioloalveolar lavage was negative for microbial growth. No fever. No chills. He was weaned down to 4 L of oxygen by nasal cannula and hoping to cut down his FiO2 further. No chest pain. No significant cough or sputum production. His breathing is improved and he is breathing freely for now. The biopsy from the left upper lobe showed necrotic tissue and there was no evidence of any recurrent tumor based on endobronchial biopsy that was done at a time of the bronchoscopy. No nausea. No vomiting. No altered mental status. He is completing a course of Levaquin. Objective - Vital Signs Vital signs: Vital Signs Temp 98 F 11/05/19 08:00 Pulse 104 H 11/05/19 08:00 Resp 26 H 11/05/19 08:00 BP 156/74 11/05/19 08:00 Pulse Ox 91 L 11/05/19 10:25 Intake & Output 11/04/19 11/05/19 11/05/19 18:59 06:59 18:59 Intake Total 160 380 250 Output Total 033 865 9418 Balance -140 -270 -750 Weight 85 kg Intake: IV 160 380 0 Sodium Chloride 0.9% 1, 160 380 0 000 ml @ 20 mls/hr IV . [facility] Rx#:[id number] Oral 250 Output: Urine 380 004 [id number] Other: Voiding Method Toilet Toilet Toilet Urinal Urinal Urinal # Voids 2 2 2 - Exam GENERAL EXAM: Alert, very pleasant, 59-year-old white male, on room air, with a pulse ox of 92% comfortable in no apparent distress. The patient is currently on 3 L of oxygen by nasal cannula, no significant tachypnea. no significant respiratory distress at rest. The patient is not having anycough compared source is not using any accessory muscles of breathing. HEAD: Normocephalic/atraumatic. EYES: Normal reaction of pupils, equal size. Conjunctiva pink, sclera white. NOSE: Clear with pink turbinates. THROAT: No erythema or exudates. NECK: No masses, no JVD, no thyroid enlargement, no adenopathy. CHEST: No chest wall deformity. Symmetrical expansion. LUNGS: Equal air entry with fine crackles at right mid posterior lung, mild left upper lobe anterior chest wheeze, no rhonchi or dullness. CVS: Regular rate and rhythm, normal S1 and S2, no gallops, no murmurs, no rubs ABDOMEN: Soft, nontender. No hepatosplenomegaly, normal bowel sounds, no guarding or rigidity. EXTREMITIES: No clubbing, no edema, no cyanosis, 2+ pulses and upper and lower extremities. MUSCULOSKELETAL: Muscle strength and tone normal. SPINE: No scoliosis or deformity SKIN: No rashes CENTRAL NERVOUS SYSTEM: Alert and oriented -3. No focal deficits, tone is normal in all 4 extremities. PSYCHIATRIC: Alert and oriented -3. Appropriate affect. Intact judgment and insight. - Labs CBC & Chem 7: 11/05/19 07:30 11/05/19 07:30 Labs: Abnormal Lab Results - Last 24 Hours (Table) 11/05/19 11/05/19 Range/Units 07:30 07:30 WBC 12.2 H (3.8-10.6) k/uL RBC 3.87 L (4.30-5.90) m/uL Hgb 11.9 L (13.0-17.5) gm/dL Hct 37.1 L (39.0-53.0) % Neutrophils # 11.2 H (1.3-7.7) k/uL Lymphocytes # 0.3 L (1.0-4.8) k/uL Sodium 135 L (137-145) mmol/L BUN 30 H (9-20) mg/dL Creatinine 0.58 L (0.66-1.25) mg/dL Glucose 120 H (74-99) mg/dL Total Protein 5.9 L (6.3-8.2) g/dL Albumin 3.2 L (3.5-5.0) g/dL Microbiology - Last 24 Hours (Table) 10/29/19 15:31 Blood Culture - Final Blood No Growth after 144 hours Assessment and Plan Plan: 1 acute bilateral lower lobe pulmonary infiltrates. 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 The bronchioloalveolar lavage was negative for any microbial growth. The patient remains on IV Solu Medrol. the patient continues to improve. the chest x-ray today is improved and the patient is on 3 L of oxygen by nasal cannula 2 acute hypoxic respiratory failure secondary to above and the patient is currently onoxygen at 3 L of oxygen by nasal cannula. 3 Recurrence of squamous cell lung carcinoma, status post CT-guided biopsy of a right lower lobe, and left upper lobe, left hilar lymph node and subcarinal lymph nodes that were positive for squamous cell carcinoma, patient has completed chemotherapy and SRT to the right lower lobe completed on 06/30/2019, and concurrent chemoradiation to the left upper lobe on 08/16/2019. Currently on immunotherapy in the form of Opdivo. The patient underwent also bronchoscopy and residual abnormalities were seen in the left upper lobe where biopsies were obtained and the results were negative for any recurrent disease and was consistent with necrotic tissue. 4. History of COPD with baseline FEV1 of 77% predicted, maintained on Trelegy, albuterol 5 History of squamous cell lung lung cancer of the right upper lobe, treated with right upper lobectemy in 2010, followed by chemotherapy 6 Former smoker, he smoking history has been in remission since 2010 7. Hypertension 8. Hyperlipidemia 9. BPH 10. Hypothyroidism Plan continue weaning down the FiO2 Continue IV Solu Medrol Discontinue meropenem and continue the Levaquin for now and complete a course of Levaquin May need oxygen at home and we will arrange this patient for home O2. We are probably transferring this patient to a medical floor and discharging her with the next 24-48 hours on a prednisone burst taper and home oxygen. Further recovery will take place on outpatient basis regarding this immunotherapy related ILD/pneumonitis. 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
[2019-11-05] MEDS: LEVOFLOXACIN 500 MG TAB PO SCH (17:33)
[2019-11-05] MEDS: NAPROXEN 250 MG TAB PO SCH (21:02)
[2019-11-05] MEDS: ZOLPIDEM 5 MG TAB PO PRN (21:02)
[2019-11-05] MEDS: SERTRALINE 100 MG TAB PO SCH (21:03)
[2019-11-05] MEDS: LOSARTAN 50 MG TAB PO SCH (21:03)
[2019-11-05] MEDS: BACLOFEN 10 MG TAB PO SCH (21:03)
[2019-11-05] MEDS: LORazepam 0.5 MG TAB PO PRN (21:05)
[2019-11-06] MEDS: methylPREDNISolone SOD SUCCI 125 MG/2 ML VIAL IV SCH ×3 (05:06→17:23)
[2019-11-06] MEDS: HYDROcodone/APAP 10-325MG 1 EACH TAB PO PRN ×3 (05:06→18:40)
[2019-11-06 07:05] LABS: Basophils % (A) 0 %; Eosinophils % (A) 0 %; HCT 36.1 % (39.0-53.0); HGB 11.5 gm/dL (13.0-17.5); Lymphocytes # (A) 0.2 k/uL (1.0-4.8); Lymphocytes % (A) 2 %; MCH 30.3 pg (25.0-35.0); MCHC 31.9 g/dL (31.0-37.0); MCV 95.1 fL (80.0-100.0); Mean Platelet Volume 6.7; Monocytes # (A) 0.5 k/uL (0-1.0); Monocytes % (A) 5 %; Neutrophils # (A) 9.6 k/uL (1.3-7.7); Neutrophils % (A) 92 %; Platelet Count 375 k/uL (150-450); RDW 12.6 % (11.5-15.5); WBC 10.4 k/uL (3.8-10.6)
[2019-11-06] MEDS: LEVOTHYROXINE 50 MCG TAB PO SCH (07:08)
[2019-11-06 07:22] LABS: ALT 21 U/L (4-49); AST 22 U/L (17-59); African American GFR (CKD) >90 (>60 ml/min/1.73 sqM); Albumin 3.1 g/dL (3.5-5.0); Alkaline Phosphatase 66 U/L (38-126); Anion Gap 6 mmol/L; Blood Urea Nitrogen 26 mg/dL (9-20); Calcium 8.9 mg/dL (8.4-10.2); Carbon Dioxide 27 mmol/L (22-30); Chloride 101 mmol/L (98-107); Glucose 108 mg/dL (74-99); Non-African American GFR(CKD) >90 (>60 ml/min/1.73 sqM); Potassium 4.4 mmol/L (3.5-5.1); Sodium 134 mmol/L (137-145); Total Bilirubin 0.6 mg/dL (0.2-1.3); Total Protein 5.8 g/dL (6.3-8.2)
[2019-11-06] MEDS: ATORVASTATIN 10 MG TAB PO SCH (09:03)
[2019-11-06] MEDS: TAMSULOSIN 0.4 MG CAP.ER.24H PO SCH (09:03)
[2019-11-06] MEDS: PANTOPRAZOLE 40 MG TABLET PO SCH (09:03)
[2019-11-06] MEDS: ENOXAPARIN 40 MG/0.4 ML SYRINGE SQ SCH (09:03)
[2019-11-06] MEDS: amLODIPine 5 MG TAB PO SCH (09:03)
[2019-11-06] MEDS: MULTIVITAMINS, THERA 1 EACH TAB PO SCH (09:03)
--- NOTE | 2019-11-06 12:58 | P.DS ---
Providers Date of admission: 10/27/19 20:49 Attending physician: Ross Jensen Consults: 10/27/19 20:49 Consult Physician Routine Consulting Provider: Jeo Jimenez Consult Reason/Comments: Small cell lung cancer with pneumonia Do you want consulting provider notified?: Already Contacted 10/28/19 08:50 Consult Physician Routine Consulting Provider: Aldo Noland Consult Reason/Comments: pneumonia, history of lung cancer Do you want consulting provider notified?: Yes Primary care physician: [facility] Hospital Course: Diagnosis on discharge: 1. Bilateral pneumonia, patient was started on imipenem in the emergency room, IV Levaquin was also added to regimen, patient is also receiving IV Solu-Medrol 60 mg every 6 hours 2. History of squamous cell carcinoma of the right upper lobe, with previous surgery in 2010 followed by chemotherapy, patient is followed by Dr. Rahman, patient states that he received immunotherapy on Friday. 3. Upper back pain, could be related to pneumonia, however patient has known history of degenerative disc disease, he received epidural injections by Dr. Clinton Dubon in March 2019 4. Underlying history of hyperlipidemia maintained on Lipitor 5. Underlying history of hypothyroidism maintained on Synthroid 150 g daily 6. Underlying history of hypertension maintained on losartan. 7. Neck pain Will increase [place] to 4 times daily per patient request Hospital course: Navi Coulter, is a 59 -year-old male who presented to [facility] emergency room with a chief complaint of fever, patient has a known history of lung cancer (squamous cell carcinoma right upper lobe ) diagnosed in 2010, at that time he had surgery at [facility] followed by chemotherapy, he is followed by Dr. Patino, in april 2018 patient presented to the hospital with cough and shortness of breath computed tomography scan revealed no evidence of cancer recurrence. Patient is followed by Dr. Rahman and receiving immunotherapy, his last dose was on Friday. Patient stated that yesterday after work he felt very tired and had elevated temperature he called Dr. Rahman's office and was told to come to emergency room patient was also complaining of shortness of breath and upper back pain otherwise he denies any complaints there is no headache or dizziness no chest pain he had occasional cough no nausea or vomiting no abdominal pain no diarrhea no burning with urination no frequency or urgency and no hematuria. Patient was evaluated in the emergency room his temperature on presentation was 99.9 pulse 107 respiration 18 blood pressure 119/74 pulse ox 94% on room air, laboratory data revealed a white blood count of 8.2 hemoglobin 10.5 sodium 132 and creatinine kinase of 198 otherwise normal labs influenza A and B were negative Covid 19 testing is still pending. Chest x-ray revealed innumerable bilateral perihilar multilobar acute infiltrates, patient was started on IV ant ibiotics in the emergency room, he was admitted to medical floor, oncology consultation and pulmonary consultation were requested. 10/29/2019, patient was seen and examined on the medical floor, he is alert and oriented 3 in no distress, he is still complaining of shortness of breath with any activity and occasional cough otherwise he denies any complaints there is no fever or chills no headache or dizziness no chest pain no nausea or vomiting no abdominal pain no diarrhea Merna the stools no burning with urination no frequency or urgency and no hematuria. on 10/30/2019 patient was seen and examined in the ICU, yesterday evening he developed worsening shortness of breath with tachycardia and tachypnea, he was transferred to intensive care unit and was reevaluated by pulmonary. At this time patient is stable in ICU he is alert and oriented 3 he is still feeling short of breath, he has occasional cough without any significant sputum production, there is no fever or chills no headache or dizziness no chest pain no nausea or vomiting no abdominal pain no diarrhea no blood in the stools no burning with urination no frequency or urgency and no hematuria. Input from pulmonary reviewed, plan is for a bronchoscopy tomorrow morning if patient is not improving. On 10/31/2019 patient was seen and examined in the ICU he is somnolent he just returned from having a bronchoscopy, he is still complaining of cough and shortness of breath otherwise he denies any complaints there is no fever or chills no headache or dizziness no chest pain no nausea or vomiting no abdominal pain no diarrhea no blood in the stools no burning with urination no frequency or urgency and no hematuria, bronchoscopy report reviewed at this time continue with IV antibiotics and IV Solu-Medrol will follow in a.m. On 11/01/2019 patient was seen and examined in the ICU, he is alert and oriented 3 in no apparent distress, he is complaining of severe shortness of breath with any activity, he states that he cannot walk from his bed to the bathroom without severe difficulty with breathing, he is also complaining of cough and complaining of pain in his neck, he is requesting an increase in the frequency of his pain medications, otherwise he denies any complaints there is no fever or chills no headache or dizziness no chest pain no palpitation no nausea or vomiting no abdominal pain no diarrhea no burning with urination no frequency or urgency and no hematuria. On 11/02/2019 patient was seen and examined in the ICU he is alert and oriented 3 he is complaining of severe shortness of breath, his O2 sat duration is down to 84% despite oxygen therapy, he is also complaining of occasional cough otherwise he denies any complaints there is no fever or chills no headache or dizziness no chest pain no palpitation no nausea or vomiting no abdominal pain no diarrhea no burning with urination no frequency or urgency and no hematuria On 11/03/2019 patient is alert and oriented 3. Patient remains on 5 L nasal cannula. Per pulmonary services chest x-ray slightly improved. Per pulmonary patient will likely move out of the intensive care unit in the next 24 hours. Patient remains on IV steroids. Patient complains of slight cough and some shortness of breath but is ambulating throughout room. Patient denies chest pain. Patient denies nausea vomiting or diarrhea. Patient denies any urinary burning or frequency. On 08/04/2019 patient was seen and examined in the ICU he is alert and oriented 3 in no apparent distress there is no fever or chills no headache or dizziness his shortness of breath he is improving he has occasional cough no chest pain no palpitation no nausea or vomiting no abdominal pain no diarrhea no blood in the stools no burning with urination no frequency or urgency and no hematuria. On 08/05/2019 patient was seen and examined in the ICU, he is alert and oriented in no distress, his shortness of breath and cough are improving, he is still feeling tired and weak otherwise he denies any complaints there is no fever or chills no headache or dizziness no chest pain no palpitation no nausea or vomiting no abdominal pain no diarrhea no blood in the stools no burning with urination no frequency or urgency and no hematuria On 08/06/2019 patient was seen and examined in the ICU he is alert and oriented 3 he is feeling better his shortness of breath has improved significantly his oxygen saturation is still dropping to 86% while walking without oxygen, however he recovers quickly within 1 minute of rest and oxygen therapy patient was evaluated today by pulmonary he was cleared for discharge he was given a prescription for Levaquin 500 mg 1 daily for 7 more days he was also given a prescription for prednisone taper 40 mg daily with a taper within 12 days he was also given prescription for losartan which was increased to 100 mg during this admission and for amlodipine 5 mg which was added to his regimen during this admission. Arrangements are being made by case management to for home oxygen. Will follow in the office in 2-3 days, patient will also follow with pulmonary and oncology as outpatient. Patient Condition at Discharge: Fair Plan - Discharge Summary Discharge Rx Participant: No New Discharge Prescriptions: New Losartan [Cozaar] 100 mg PO HS tab Levofloxacin [Levaquin] 500 mg PO DAILY@1800 7 Days #7 tab Multivitamins, Thera [Multivitamin (formulary)] 1 each PO DAILY tab amLODIPine [Norvasc] 5 mg PO DAILY tab predniSONE 10 mg PO DIRECTED 12 Days #30 tab Continue Omeprazole [PriLOSEC] 10 mg PO DAILY Tamsulosin [Flomax] 0.4 mg PO DAILY Atorvastatin [Lipitor] 10 mg PO DAILY Sertraline [Zoloft] 100 mg PO HS Baclofen [Lioresal] 10 mg PO HS Hydrocodone/Acetaminophen [Greenock 10-325] 1 tab PO Q8H PRN PRN Reason: Pain Levothyroxine Sodium [Synthroid] 150 mcg PO QAM LORazepam [Ativan] 0.5 mg PO BID PRN PRN Reason: Anxiety Fluticasone/Umeclidin/Vilanter [Trelegy Ellipta 100-62.5-25] 1 puff INHALATION RT-DAILY Discontinued Losartan [Cozaar] 50 mg PO HS No Action Ipratropium-Albuterol Nebulize [Duoneb 0.5 mg-3 mg/3 ml Soln] 3 ml INHALATION Q4-6H PRN PRN Reason: Shortness Of Breath Discharge Medication List Atorvastatin [Lipitor] 10 mg PO DAILY 12/18/16 [History] Omeprazole [PriLOSEC] 10 mg PO DAILY 12/18/16 [History] Tamsulosin [Flomax] 0.4 mg PO DAILY 12/18/16 [History] Sertraline [Zoloft] 100 mg PO HS 04/29/18 [History] Baclofen [Lioresal] 10 mg PO HS 05/04/18 [History] Hydrocodone/Acetaminophen [[place] 10-325] 1 tab PO Q8H PRN 03/15/19 [History] Fluticasone/Umeclidin/Vilanter [Trelegy Ellipta 100-62.5-25] 1 puff INHALATION RT-DAILY 10/27/19 [History] LORazepam [Ativan] 0.5 mg PO BID PRN 10/27/19 [History] Levothyroxine Sodium [Synthroid] 150 mcg PO QAM 10/27/19 [History] Ipratropium-Albuterol Nebulize [Duoneb 0.5 mg-3 mg/3 ml Soln] 3 ml INHALATION Q4-6H PRN 11/06/19 [History] Levofloxacin [Levaquin] 500 mg PO DAILY@1800 7 Days #7 tab 11/06/19 [Rx] Losartan [Cozaar] 100 mg PO HS tab 11/06/19 [Rx] Multivitamins, Thera [Multivitamin (formulary)] 1 each PO DAILY tab 11/06/19 [Rx] amLODIPine [Norvasc] 5 mg PO DAILY tab 11/06/19 [Rx] predniSONE 10 mg PO DIRECTED 12 Days #30 tab 11/06/19 [Rx] Follow up Appointment(s)/Referral(s): [facility], [NON-STAFF] - Ross Jensen MD [Primary Care Provider] - 1-2 days
--- NOTE | 2019-11-06 13:02 | P.PN ---
Subjective Progress Note Date: 11/06/19 on 11/06/2019, the patient is doing well per noticed her difficulties. He is being considered to be discharged home. With activity, his pulse ox dropped down to 85% and the patient will be going home with oxygen. He'll be also requiring a prednisone burst taper. No fever. No chills. No chest pain. No other significant events overnight. He is tolerating his diet. No nausea or vomiting. No altered mentation. Objective - Vital Signs Vital signs: Vital Signs Temp 97.6 F 11/06/19 08:00 Pulse 82 11/06/19 08:00 Resp 22 11/06/19 08:00 BP 126/72 11/06/19 08:00 Pulse Ox 91 L 11/06/19 10:27 Intake & Output 11/05/19 11/06/19 11/06/19 18:59 06:59 18:59 Intake Total 250 150 Output Total 350 1100 Balance -100 -950 Weight 86.2 kg Intake: IV 0 0 Sodium Chloride 0.9% 1, 0 0 000 ml @ 20 mls/hr IV . Q24H [facility] Rx#:[id number] Oral 250 150 Output: Urine 350 1100 Other: Voiding Method Toilet Toilet Urinal Urinal # Voids 1 # Bowel Movements 1 - Exam GENERAL EXAM: Alert, very pleasant, 59-year-old white male, on room air, with a pulse ox of 92% comfortable in no apparent distress. The patient is currently on 3 L of oxygen by nasal cannula, no significant tachypnea. no significant respiratory distress at rest. The patient is not having anycough compared so urce is not using any accessory muscles of breathing. HEAD: Normocephalic/atraumatic. EYES: Normal reaction of pupils, equal size. Conjunctiva pink, sclera white. NOSE: Clear with pink turbinates. THROAT: No erythema or exudates. NECK: No masses, no JVD, no thyroid enlargement, no adenopathy. CHEST: No chest wall deformity. Symmetrical expansion. LUNGS: Equal air entry with fine crackles at right mid posterior lung, mild left upper lobe anterior chest wheeze, no rhonchi or dullness. CVS: Regular rate and rhythm, normal S1 and S2, no gallops, no murmurs, no rubs ABDOMEN: Soft, nontender. No hepatosplenomegaly, normal bowel sounds, no guarding or rigidity. EXTREMITIES: No clubbing, no edema, no cyanosis, 2+ pulses and upper and lower extremities. MUSCULOSKELETAL: Muscle strength and tone normal. SPINE: No scoliosis or deformity SKIN: No rashes CENTRAL NERVOUS SYSTEM: Alert and oriented -3. No focal deficits, tone is normal in all 4 extremities. PSYCHIATRIC: Alert and oriented -3. Appropriate affect. Intact judgment and insight. - Labs CBC & Chem 7: 11/06/19 06:26 11/06/19 06:26 Labs: Abnormal Lab Results - Last 24 Hours (Table) 11/06/19 11/06/19 Range/Units 06:26 06:26 RBC 3.80 L (4.30-5.90) m/uL Hgb 11.5 L (13.0-17.5) gm/dL Hct 36.1 L (39.0-53.0) % Neutrophils # 9.6 H (1.3-7.7) k/uL Lymphocytes # 0.2 L (1.0-4.8) k/uL Sodium 134 L (137-145) mmol/L BUN 26 H (9-20) mg/dL Creatinine 0.55 L (0.66-1.25) mg/dL Glucose 108 H (74-99) mg/dL Total Protein 5.8 L (6.3-8.2) g/dL Albumin 3.1 L (3.5-5.0) g/dL Assessment and Plan Plan: 1 acute bilateral lower lobe pulmonary infiltrates.secondary to immunotherapy related pneumonitis and the patient is recovering with the use of systemic tamir roids. Oxidation is improved. Clinically improved. Less short of breath. 2 acute hypoxic respiratory failure secondary to above and the patient is currently onoxygen at 2L of oxygen by nasal cannula. 3 Recurrence of squamous cell lung carcinoma, status post CT-guided biopsy of a right lower lobe, and left upper lobe, left hilar lymph node and subcarinal lymph nodes that were positive for squamous cell carcinoma, patient has completed chemotherapy and SRT to the right lower lobe completed on 06/30/2019, and concurrent chemoradiation to the left upper lobe on 08/16/2019. Currently on immunotherapy in the form of Opdivo. The patient underwent also bronchoscopy and residual abnormalities were seen in the left upper lobe where biopsies were obtained and the results were negative for any recurrent disease and was consistent with necrotic tissue. 4. History of COPD with baseline FEV1 of 77% predicted, maintained on Trelegy, albuterol 5 History of squamous cell lung lung cancer of the right upper lobe, treated with right upper lobectemy in 2010, followed by chemotherapy 6 Former smoker, he smoking history has been in remission since 2010 7. Hypertension 8. Hyperlipidemia 9. BPH 10. Hypothyroidism Plan discharge the patient home on a prednisone burst taper starting with 40 mg and the patient will need to have a short-term follow-up. He may need a slower taper knowing that this is a pneumonitis related to immunotherapy. The taper will be further aggravated on an outpatient basis. He will need home oxygen for a brief period of time. He will need a follow-up chest x-ray. He will need to go back on his Trelegy Ellipta on an outpatient basis. We'll continue to follow. Resume home medication.
[2019-11-06 15:37] VITALS: BP 142/75; PULSE 76; RESP 18; TEMP 97.7
[2019-11-06] MEDS: LEVOFLOXACIN 500 MG TAB PO SCH (17:18)
--- NOTE | 2019-11-06 20:59 | P.PN ---
Subjective Progress Note Date: 11/06/19 Principal diagnosis: Pneumonia and NSCLCA Overall feeling better and hoping to go home today Objective - Vital Signs Vital signs: Vital Signs Temp 97.7 F 11/06/19 15:00 Pulse 76 11/06/19 15:00 Resp 18 11/06/19 15:00 BP 142/75 11/06/19 15:00 Pulse Ox 91 L 11/06/19 15:00 Intake & Output 11/06/19 11/06/19 11/07/19 06:59 18:59 06:59 Intake Total 150 Output Total 1100 Balance -950 Weight 86.2 kg Intake: IV 0 Sodium Chloride 0.9% 1, 0 000 ml @ 20 mls/hr IV . Q24H [facility] Rx#:[id number] Oral 150 Output: Urine 1100 Other: Voiding Method Toilet Urinal # Voids 1 4 # Bowel Movements 1 - Exam Constitutional General appearance: cooperative, no acute distress - EENT Eyes: EOMI, PERRLA, poor dentition ENT: NA/AT, normal oropharynx - Neck Neck: normal ROM - Respiratory: increased effort Respiratory: bilateral: diminished, CTA - Cardiovascular Heart rate: 110 Rhythm: irregularly irregular - Gastrointestinal General gastrointestinal: normal bowel sounds, soft - Integumentary Integumentary: pale - Neurologic non-focal - Musculoskeletal Musculoskeletal: generalized weakness, strength equal bilaterally - Psychiatric Psychiatric: A&O x's 3, appropriate affect, intact judgment & insight - Labs CBC & Chem 7: 11/06/19 06:26 11/06/19 06:26 Labs: Abnormal Lab Results - Last 24 Hours (Table) 11/06/19 11/06/19 Range/Units 06:26 06:26 RBC 3.80 L (4.30-5.90) m/uL Hgb 11.5 L (13.0-17.5) gm/dL Hct 36.1 L (39.0-53.0) % Neutrophils # 9.6 H (1.3-7.7) k/uL Lymphocytes # 0.2 L (1.0-4.8) k/uL Sodium 134 L (137-145) mmol/L BUN 26 H (9-20) mg/dL Creatinine 0.55 L (0.66-1.25) mg/dL Glucose 108 H (74-99) mg/dL Total Protein 5.8 L (6.3-8.2) g/dL Albumin 3.1 L (3.5-5.0) g/dL Assessment and Plan (1) Squamous cell lung cancer Status: Acute Code(s): C34.90 - MALIGNANT NEOPLASM OF UNSP PART OF UNSP BRONCHUS OR LUNG SNOMED Code(s): 346548273 (2) Acute pneumonia Status: Acute Code(s): J18.9 - PNEUMONIA, UNSPECIFIED ORGANISM SNOMED Code(s): 006550339 Plan: Assessment and Recommendations: 1. Squamous Cell Lung Cancer (Original dx 2010, recurrent RLL and LOLA in 2019) - Status Post SBRT RLL, Concurrent xrt/chemo LOLA. Now on Immune therapy with imfinzi - Last Imfinzi 10/26/19 - Primary Oncologist Dr. Patino 2. Pneumonia (Community Acquired):Bilateral - Supportive care and antibiotics 3. Acute on Chronic Hypoxic Respiratory Failure:Persistent - Requiring 2-3 L O2 to maintain greater than 90% - Still with obvious increased effort - Status Post Bronchoscopy 10/31/19, cytology negative for malignant cells - Secondary to Number 2 and Number 1 - Pulmonary Following - [place] to be secondary to radiation versus immune therapy pneumonitis. Unfortunately, which, although likely both contributed, will be difficult to exactly know. Although with Grade 3 or 4 pneumonitis, if immune therapy induced is recommended to discontinue future administrations. He will follow-up with Dr. Patino after discharge to discuss ongoing treatment plan. 4. SIRS: 3/4 - Resolving - Influenza, COVID, and Blood cultures negative - Sputum reviewed negative 5. Normocytic Anemia:Stable - Chronic inflammation worsened with dilution and infection - Ferritin over 400, no benefit with supplementation - TSH stable (although on steroids) - No benefit from supplemental vitamin replacement at this time after review was seen for deficiencies. Plan: - Care of ICU but improved and hoping for discharge today - Will discuss permanent discontinuation of Immune therapy with primary oncologist Dr. Mio Patino after discharge - Agree with Steroids, PPI, abx await improvement, management pulm - PLan for steroid taper and PPI at discharge please
--- NOTE | 2019-11-08 15:01 | CDI ---
Documentation Clarification Form Date: 11/08/19 From: Araceli Castro Phone: If you have a question about this query, please contact Marylu Munoz, Supplier Diversity Director at [phone] between 8am and 5pm. Admit Date: 10/27/19 Discharge Date: 11/06/19 Patient Name: EMA FONG Visit Number: [id number] ATTENTION: The Clinical Documentation Specialists (CDI) and [facility] Coding Staff appreciate your assistance in clarifying documentation. Please respond to the clarification below the line at the bottom and electronically sign. The CDI & [facility] Coding staff will review the response and follow-up if needed. Please note: Queries are made part of the Legal Health Record. If you have any questions, please contact the author of this message via ITS. Dear Dr. Ross Jensen, Pneumonia was documented in ED notes, H&P, both consults, procedure note, numerous PNs and DS. 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, COPD w exacerbation and lower resp infection Clinical Indicators: Presented to the hospital with cough and shortness of breath computed tomography scan revealed no evidence of cancer recurrence.Patient is followed by Dr. Rahman and receiving immunotherapy, his last dose was on Friday. Per Dr Dietz - Most likely immuotherapy related pneumonitis, Vital signs: T-99.9, P-107, R-18, BP-119/74,O2 sat-94 WBC/Left shift: WBC-8.2, neutrophils-82 Chest X-ray: New bilateral peripheral multilobar acute infiltrates greatest superior aspect bilateral lower lobes. Lung/Breathing assessment Treatment: Nebulizer, IV Merrem, IV SoluMedrol, O2 In order to capture the severity of condition, please clarify if the condition signifies and you are treating for: Pneumonitis due to immunotherapy Pneumonia, unspecified Other, please specify Unable to determine pneumonia due to immune therapy MTDD
--- NOTE | 2019-11-08 15:09 | CDI ---
Documentation Clarification Form Date: 11/08/19 From: Araceli Castro Phone: If you have a question about this query, please contact Marylu Munoz, Utility Mechanic Supervisor at [phone] between 8am and 5pm. Admit Date: 10/27/19 Discharge Date: 11/06/19 Patient Name: EMA FONG Visit Number: [id number] ATTENTION: The Clinical Documentation Specialists (CDI) and [facility] Coding Staff appreciate your assistance in clarifying documentation. Please respond to the clarification below the line at the bottom and electronically sign. The CDI & [facility] Coding staff will review the response and follow-up if needed. Please note: Queries are made part of the Legal Health Record. If you have any questions, please contact the author of this message via ITS. Dear Dr. Nic Dietz, Conflicting documentation has been found in the medical record: History/Risk Factors: Bilateral lower lobe pneumonia, history of squamous cell lung cancer Clinical Indicators: Bilateral pneumonia, squamous cell lung cancer, history of immunotherapy intake. Procedure: Bronchoscopy, bronchioloalveolar lavage of the right lower lobe, endobronchial biopsies of the left upper lobe. Path report states: Lung, Transbronchial Biopsy, LOLA In your opinion, what is the most clinically appropriate procedure for this patient? Endobronchial biopsy of left upper lobe Transbronchial biospy of left upper lobe Other explanation of clinical findings Unable to determine (no explanation for clinical findings) Endobronchial biopsy of left upper lobe MTDD
--- NOTE | 2019-11-08 15:26 | CDI ---
Documentation Clarification Form Date: 11/08/19 From: Araceli Castro Phone: If you have a question about this query, please contact Marylu Munoz, Blowing Weasand at [phone] between 8am and 5pm. Admit Date: 10/27/19 Discharge Date: 11/06/19 Patient Name: EMA FONG Visit Number: [id number] ATTENTION: The Clinical Documentation Specialists (CDI) and [facility] Coding Staff appreciate your assistance in clarifying documentation. Please respond to the clarification below the line at the bottom and electronically sign. The CDI & [facility] Coding staff will review the response and follow-up if needed. Please note: Queries are made part of the Legal Health Record. If you have any questions, please contact the author of this message via ITS. Dear Dr. Ross Jensen, The patient presented with pneumonia on 10/26. 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, COPD w exacerbation and lower resp infection Clinical Indicators: Dr Bah PN 11/04 & 11/05-SIRS: 3/4 resolving WBC: 10/26-8.2, 10/30-13.1 Lactic acid: 10/26-0.9, 10/30-2.2 Blood cultures: no growth Vitals signs on admission 10/26: T-99.9, P-107, R-18, B/P-118/74, O2 SAT-94 Vitals signs on 10/30: T-97.5, P-101/112, R-25-28, BP-132/72, O2 SAT- 89 CRP-10/27-213.8; 10/28-19.8; 10/29-201.8; 10/30-73.8 Procalcitonin: 10/27-0.17 Treatment: Nebulizer, IV Merrem, IV SoluMedrol, O2 In your professional opinion, please clarify if these findings signify one of the following conditions, whether the condition is POA, and cause, if known: Condition Sepsis ruled out SIRS, without underlying infectious process Sepsis Severe Sepsis Septic Shock Other, please specify Unable to determine Present on Admission Yes No Link or clarify if there is associated (due to/with): Organ failure Shock SIRS Criteria (2 or more of the following may indicate SIRS): -Temperature < 96.8F (36C) or > 101.0F (38.3C) -Heart Rate > 90 bpm -Respiratory Rate > 20 breaths/min or PaCO2 < 32 mmHg -White Blood Cell Count > 12,000 or < 4,000 cells/mm3 or > 10% bands -Lactate >2.0 mmol/L (>4.0 is equivalent to septic shock) unable to determine MTDD
== END 2019-11-06 18:58 | disposition home health service (06) | DRG 166 ==
LOC: EC 18:31 → 4SSUR 20:49 → 2SICU 10-29 17:33
PROVIDERS: ADMIT Internal Medicine; ATTEND Internal Medicine
PROC: 0B9F8ZX Drainage of Right Lower Lung Lobe, Via Natural or Artificial Opening Endoscopic, Diagnostic (ICD-10-PCS; principal; 2019-10-31 08:00)
PROC: 0BBG8ZX Excision of Left Upper Lung Lobe, Via Natural or Artificial Opening Endoscopic, Diagnostic (ICD-10-PCS; principal; 2019-10-31 08:00)
DX: J70.2 Acute drug-induced interstitial lung disorders (principal); J96.21 Acute and chronic respiratory failure with hypoxia; C77.1 Secondary and unspecified malignant neoplasm of intrathoracic lymph nodes; C78.02 Secondary malignant neoplasm of left lung; C34.31 Malignant neoplasm of lower lobe, right bronchus or lung; J44.0 Chronic obstructive pulmonary disease with (acute) lower respiratory infection; J44.1 Chronic obstructive pulmonary disease with (acute) exacerbation; T45.1X5A Adverse effect of antineoplastic and immunosuppressive drugs, initial encounter; Z20.828 Contact with and (suspected) exposure to other viral communicable diseases; E03.9 Hypothyroidism, unspecified; E78.5 Hyperlipidemia, unspecified; I10 Essential (primary) hypertension; K21.9 Gastro-esophageal reflux disease without esophagitis; N40.0 Benign prostatic hyperplasia without lower urinary tract symptoms; F41.9 Anxiety disorder, unspecified; H91.90 Unspecified hearing loss, unspecified ear; G47.00 Insomnia, unspecified; M54.2 Cervicalgia; E66.9 Obesity, unspecified; Z68.28 Body mass index [BMI] 28.0-28.9, adult; Z79.890 Hormone replacement therapy; Z79.891 Long term (current) use of opiate analgesic; Z79.51 Long term (current) use of inhaled steroids; Z79.899 Other long term (current) drug therapy; Z87.39 Personal history of other diseases of the musculoskeletal system and connective tissue; Z90.2 Acquired absence of lung [part of]; Z92.21 Personal history of antineoplastic chemotherapy; Z92.3 Personal history of irradiation; Z98.1 Arthrodesis status; Z87.891 Personal history of nicotine dependence; Z85.118 Personal history of other malignant neoplasm of bronchus and lung; Z71.3 Dietary counseling and surveillance; Z98.890 Other specified postprocedural states; Z80.1 Family history of malignant neoplasm of trachea, bronchus and lung; Z82.5 Family history of asthma and other chronic lower respiratory diseases
CPT/HCPCS: 31624; 31625; 36415; 71045; 71046; 71275; 80048; 80053; 82550; 82607; 82728; 82746; 83605; 83615; 83735; 83921; 84145; 85025; 85379; 86140; 87040; 87070; 87102; 87116; 87205; 87206; 87252; 87449; 87496; 87498; 87502; 87529; 87634; 87798; 88108; 88305; 88341; 88342; 89050; 94640; 94760; 94762; 99285

== ENCOUNTER 2019-11-17 14:59 | Inpatient (IN) | payer BC ==
--- NOTE | 2019-11-17 15:53 | ED ---
SOB HPI - General Chief Complaint: Shortness of Breath Stated Complaint: Diff Breathing Time Seen by Provider: 11/17/19 15:28 Source: patient, RN notes reviewed, old records reviewed Mode of arrival: ambulatory Limitations: no limitations - History of Present Illness Initial Comments: This is a 5-year-old male DF for evaluation patient Dese for severe shortness of breath patient does have significantly along severe, recent diagnosis of pneumonia along inpatient hospitalization. No recent travel history or sick contacts. Patient has developed fever that started today and worsened MD Complaint: shortness of breath, cough, "asthma attack", anxiety -: days(s) Severity: moderate Severity scale (1-10): 4 Quality: dull Consistency: constant Improves With: nothing Worsens With: exertion, movement, coughing, inspiration Known History Of: COPD, recurrent pneumonia Context: recent URI, recent illness Associated Symptoms: chest pain, cough, sputum production Treatments Prior to Arrival: none - Related Data Home Medications Medication Instructions Recorded Confirmed Atorvastatin [Lipitor] 10 mg PO HS 12/18/16 11/17/19 Tamsulosin [Flomax] 0.4 mg PO DAILY 12/18/16 11/17/19 Baclofen [Lioresal] 10 mg PO HS 05/04/18 11/17/19 Hydrocodone/Acetaminophen [[place] 1 tab PO Q8H PRN 03/15/19 11/17/19 10-325] Fluticasone/Umeclidin/Vilanter 1 puff INHALATION RT-DAILY 10/27/19 11/17/19 [Trelegy Ellipta 100-62.5-25] LORazepam [Ativan] 0.5 mg PO HS PRN 10/27/19 11/17/19 Ipratropium-Albuterol Nebulize 3 ml INHALATION Q4-6H PRN 11/06/19 11/17/19 [Duoneb 0.5 mg-3 mg/3 ml Soln] Levothyroxine Sodium [Synthroid] 125 mcg PO DAILY 11/17/19 11/17/19 Losartan Potassium 100 mg PO HS 11/17/19 11/17/19 Omeprazole 20 mg PO DAILY 11/17/19 11/17/19 Sertraline HCl [Zoloft] 100 mg PO DAILY 11/17/19 11/17/19 predniSONE [Deltasone] 60 mg PO DAILY 11/17/19 11/17/19 Previous Rx's Medication Instructions Recorded Multivitamins, Thera [Multivitamin 1 each PO DAILY tab 11/06/19 (formulary)] amLODIPine [Norvasc] 5 mg PO DAILY tab 11/06/19 Allergies Allergy/AdvReac Type Severity Reaction Status Date / Time No Known Allergies Allergy Verified 11/17/19 17:10 Review of Systems ROS Statement: Those systems with pertinent positive or pertinent negative responses have been documented in the HPI. ROS Other: All systems not noted in ROS Statement are negative. Past Medical History Past Medical History: Cancer, COPD, GERD/Reflux, Hearing Disorder / Deafness, Hyperlipidemia, Hypertension, Prostate Disorder, Thyroid Disorder Additional Past Medical History / Comment(s): non-small cell lung cancer with previous left upper lobe resection 2010,torn bicep muscle rt shoulder- wt limit #10, recent coughing up blood/fungal lung infection from "dirt" on bronchoscopy, finished antifungal for this History of Any Multi-Drug Resistant Organisms: None Reported Past Surgical History: Back Surgery, Orthopedic Surgery Additional Past Surgical History / Comment(s): RT KNEE/RT UPPER LOBECTOMY, [facility] PROCEDURES. 3 neck surgeries, 2 fusions and a leola, bronchoscopy Past Anesthesia/Blood Transfusion Reactions: No Reported Reaction Past Psychological History: Anxiety Smoking Status: Former smoker Past Alcohol Use History: None Reported Past Drug Use History: None Reported - Past Family History Father Family Medical History: Cancer Additional Family Medical History / Comment(s): LUNG Mother Family Medical History: COPD General Exam Limitations: no limitations General appearance: alert, in no apparent distress Head exam: Present: atraumatic, normocephalic, normal inspection Eye exam: Present: normal appearance, PERRL, EOMI. Absent: scleral icterus, conjunctival injection, periorbital swelling ENT exam: Present: normal exam, mucous membranes dry Neck exam: Present: normal inspection. Absent: tenderness, meningismus, lymphadenopathy Respiratory exam: Present: respiratory distress, accessory muscle use, decreased breath sounds, prolonged expiratory. Absent: wheezes, rales, rhonchi, stridor Cardiovascular Exam: Present: normal rhythm, tachycardia, normal heart sounds. Absent: systolic murmur, diastolic murmur, rubs, gallop, clicks GI/Abdominal exam: Present: soft, normal bowel sounds. Absent: distended, tenderness, guarding, rebound, rigid Extremities exam: Present: normal inspection, full ROM, normal capillary refill. Absent: tenderness, pedal edema, joint swelling, calf tenderness Back exam: Present: normal inspection Neurological exam: Present: alert, oriented X3, CN II-XII intact Psychiatric exam: Present: normal affect, normal mood Skin exam: Present: warm, dry, intact, normal color. Absent: rash Course Vital Signs 11/17/19 11/17/19 11/17/19 15:02 17:32 17:56 Temperature 100.5 F H Pulse Rate 115 H 112 H Respiratory 26 H 16 24 Rate Blood Pressure 135/77 136/89 O2 Sat by Pulse 92 L 99 Oximetry 11/17/19 18:24 Temperature 100 F H Pulse Rate 119 H Respiratory 22 Rate Blood Pressure 111/72 O2 Sat by Pulse 95 Oximetry - Reevaluation(s) Reevaluation #1: 11/17/19 18:30 Medical records reviewed 11/17/19 18:31 Recent hospitalization is reviewed Reevaluation #2: 11/17/19 18:31 Spoke with patient, findings and questions answered Reevaluation #3: 11/17/19 18:31 Patient symptoms are unimproved - Consultations Consultation #1: Spoke with Dr. Jensen who agrees to admit this patient Medical Decision Making - Medical Decision Making 59 male DF for evaluation patient Dese for evaluation of fever cough congestion bilateral pneumonia. Will admit for hemodynamic support - Lab Data Result diagrams: 11/17/19 15:54 11/17/19 15:54 Lab Results 11/17/19 11/17/19 11/17/19 Range/Units 15:54 15:54 15:54 WBC 12.2 H (3.8-10.6) k/uL RBC 4.23 L (4.30-5.90) m/uL Hgb 13.1 (13.0-17.5) gm/dL Hct 40.1 (39.0-53.0) % MCV 94.7 (80.0-100.0) fL MCH 30.9 (25.0-35.0) pg MCHC 32.6 (31.0-37.0) g/dL RDW 13.3 (11.5-15.5) % Plt Count 225 (150-450) k/uL Neutrophils % 89 % Lymphocytes % 2 % Monocytes % 7 % Eosinophils % 2 % Basophils % 0 % Neutrophils # 10.8 H (1.3-7.7) k/uL Lymphocytes # 0.3 L (1.0-4.8) k/uL Monocytes # 0.8 (0-1.0) k/uL Eosinophils # 0.2 (0-0.7) k/uL Basophils # 0.0 (0-0.2) k/uL PT 9.4 (9.0-12.0) sec INR 0.9 (<1.2) APTT 22.2 (22.0-30.0) sec D-Dimer 0.48 (<0.60) mg/L FEU Sodium 129 L (137-145) mmol/L Potassium 5.0 (3.5-5.1) mmol/L Chloride 102 (98-107) mmol/L Carbon Dioxide 21 L (22-30) mmol/L Anion Gap 6 mmol/L BUN 21 H (9-20) mg/dL Creatinine 0.72 (0.66-1.25) mg/dL Est GFR (CKD-EPI)AfAm >90 (>60 ml/min/1.73 sqM) Est GFR (CKD-EPI)NonAf >90 (>60 ml/min/1.73 sqM) Glucose 91 (74-99) mg/dL Lactic Ac Sepsis Rflx Plasma Lactic Acid Luiz (0.7-2.0) mmol/L Calcium 8.9 (8.4-10.2) mg/dL Magnesium 1.8 (1.6-2.3) mg/dL Total Bilirubin 0.9 (0.2-1.3) mg/dL AST 92 H (17-59) U/L ALT 88 H (4-49) U/L Alkaline Phosphatase 73 (38-126) U/L Lactate Dehydrogenase 1212 H (313-618) U/L C-Reactive Protein 39.0 H (<10.0) mg/L Total Protein 6.8 (6.3-8.2) g/dL Albumin 3.7 (3.5-5.0) g/dL 11/17/19 11/17/19 Range/Units 15:54 16:13 WBC (3.8-10.6) k/uL RBC (4.30-5.90) m/uL Hgb (13.0-17.5) gm/dL Hct (39.0-53.0) % MCV (80.0-100.0) fL MCH (25.0-35.0) pg MCHC (31.0-37.0) g/dL RDW (11.5-15.5) % Plt Count (150-450) k/uL Neutrophils % % Lymphocytes % % Monocytes % % Eosinophils % % Basophils % % Neutrophils # (1.3-7.7) k/uL Lymphocytes # (1.0-4.8) k/uL Monocytes # (0-1.0) k/uL Eosinophils # (0-0.7) k/uL Basophils # (0-0.2) k/uL PT (9.0-12.0) sec INR (<1.2) APTT (22.0-30.0) sec D-Dimer (<0.60) mg/L FEU Sodium (137-145) mmol/L Potassium (3.5-5.1) mmol/L Chloride (98-107) mmol/L Carbon Dioxide (22-30) mmol/L Anion Gap mmol/L BUN (9-20) mg/dL Creatinine (0.66-1.25) mg/dL Est GFR (CKD-EPI)AfAm (>60 ml/min/1.73 sqM) Est GFR (CKD-EPI)NonAf (>60 ml/min/1.73 sqM) Glucose (74-99) mg/dL Lactic Ac Sepsis Rflx Y Plasma Lactic Acid Luiz 2.2 H* (0.7-2.0) mmol/L Calcium (8.4-10.2) mg/dL Magnesium (1.6-2.3) mg/dL Total Bilirubin (0.2-1.3) mg/dL AST (17-59) U/L ALT (4-49) U/L Alkaline Phosphatase (38-126) U/L Lactate Dehydrogenase (313-618) U/L C-Reactive Protein (<10.0) mg/L Total Protein (6.3-8.2) g/dL Albumin (3.5-5.0) g/dL - EKG Data -: EKG Interpreted by Me (EKG shows sinus tachycardia 121 [place] 136 QRS 84 QTc 435 ) - Radiology Data Radiology results: report reviewed (Chest x-ray shows bilateral traits and pneumonia), image reviewed Critical Care Time Critical Care Time: Yes Total Critical Care Time: 31 Disposition Clinical Impression: Acute pneumonia, Acute bronchospasm, Febrile illness, acute, Squamous cell lung cancer, Cough, Dyspnea Narrative: ro COVID Disposition: ADMITTED IP TO THIS HOSP Condition: Serious Is patient prescribed a controlled substance at d/c from ED?: No
[2019-11-17 16:14] LABS: ALT 88 U/L (4-49); AST 92 U/L (17-59); African American GFR (CKD) >90 (>60 ml/min/1.73 sqM); Albumin 3.7 g/dL (3.5-5.0); Alkaline Phosphatase 73 U/L (38-126); Anion Gap 6 mmol/L; Blood Urea Nitrogen 21 mg/dL (9-20); Calcium 8.9 mg/dL (8.4-10.2); Carbon Dioxide 21 mmol/L (22-30); Chloride 102 mmol/L (98-107); Glucose 91 mg/dL (74-99); LDH 1212 U/L (313-618); Magnesium 1.8 mg/dL (1.6-2.3); Non-African American GFR(CKD) >90 (>60 ml/min/1.73 sqM); Sodium 129 mmol/L (137-145); Total Bilirubin 0.9 mg/dL (0.2-1.3); Total Protein 6.8 g/dL (6.3-8.2)
[2019-11-17 16:16] LABS: Basophils % (A) 0 %; Eosinophils # (A) 0.2 k/uL (0-0.7); Eosinophils % (A) 2 %; HCT 40.1 % (39.0-53.0); HGB 13.1 gm/dL (13.0-17.5); Lymphocytes # (A) 0.3 k/uL (1.0-4.8); Lymphocytes % (A) 2 %; MCH 30.9 pg (25.0-35.0); MCHC 32.6 g/dL (31.0-37.0); MCV 94.7 fL (80.0-100.0); Mean Platelet Volume 9.1; Monocytes # (A) 0.8 k/uL (0-1.0); Monocytes % (A) 7 %; Neutrophils # (A) 10.8 k/uL (1.3-7.7); Neutrophils % (A) 89 %; RBC 4.23 m/uL (4.30-5.90); RDW 13.3 % (11.5-15.5); WBC 12.2 k/uL (3.8-10.6)
--- NOTE | 2019-11-17 16:50 | XR ---
EXAMINATION TYPE: XR chest 1V portable DATE OF EXAM: 11/17/2019 COMPARISON: 11/15/2019 HISTORY: Follow-up pneumonia TECHNIQUE: Single view. There is patchy bilateral pulmonary airspace infiltrate. This is present in the mid and lower lung fi elds. There is minimal pleural thickening on the right lateral chest wall. Heart is enlarged. There i s no gross heart failure. There is no definite pleural effusion. IMPRESSION: Bilateral pneumonia is the same or slightly worse than recent exam. No heart failure seen .
[2019-11-17 16:56] LABS: D-Dimer 0.48 mg/L FEU (<0.60); INR 0.9 (<1.2); Partial Thromboplastin Time 22.2 sec (22.0-30.0); Prothrombin Time 9.4 sec (9.0-12.0)
[2019-11-17] MEDS ORDERED: PNEUMONIA PROTOCOL UTILIZED 1 EACH MISC PO PRN (17:04)
[2019-11-17] MEDS ORDERED: AZITHROMYCIN 500 MG in SODIUM CHLORIDE 0.9% 250 ML IVPB STA (17:04)
[2019-11-17] MEDS ORDERED: ALBUTEROL NEBULIZED 2.5 MG/3 ML INHALATION PRN (17:04)
[2019-11-17] MEDS ORDERED: SODIUM CHLORIDE 0.9% 2,000 ML IV STA (17:07)
[2019-11-17] MEDS ORDERED: MORPHINE SULFATE 4 MG/ML SYRINGE IVP STA (17:07)
[2019-11-17] MEDS ORDERED: SODIUM CHLORIDE 0.9% 500 ML 500 ML IV STA (17:07)
[2019-11-17] MEDS ORDERED: MORPHINE SULFATE 4 MG/ML SYRINGE IVP PRN (17:07)
[2019-11-17 17:28] LABS: Platelet Count 225 k/uL (150-450)
[2019-11-17] MEDS ORDERED: ACETAMINOPHEN TAB 500 MG TAB PO STA (18:20)
[2019-11-17] MEDS: IPRATROPIUM-ALBUTEROL 3 ML NEB INHALATION SCH (18:54)
[2019-11-17] MEDS: SODIUM CHLORIDE 0.9% 1,000 ML IV SCH (20:15)
[2019-11-17] MEDS ORDERED: IPRATROPIUM-ALBUTEROL 3 ML NEB INHALATION PRN (21:46)
[2019-11-17] MEDS: LORazepam 0.5 MG TAB PO PRN (22:23)
[2019-11-17] MEDS: PANTOPRAZOLE 40 MG TABLET PO SCH (22:23)
[2019-11-17] MEDS: HYDROcodone/APAP 10-325MG 1 EACH TAB PO PRN (22:23)
[2019-11-17] MEDS ORDERED: PNEUMOCOCCAL VACC-PNEUMOVAX 23 25 MCG/0.5 ML VIAL IM ONE (23:00)
[2019-11-18] MEDS: methylPREDNISolone SOD SUCCI 125 MG/2 ML VIAL IV SCH ×5 (00:11→23:13)
[2019-11-18 04:27] LABS: Ferritin 378.5 ng/mL (22.0-322.0)
[2019-11-18] MEDS: HYDROcodone/APAP 10-325MG 1 EACH TAB PO PRN ×3 (06:32→23:10)
[2019-11-18] MEDS: LEVOTHYROXINE 125 MCG TAB PO SCH (06:34)
[2019-11-18 06:56] LABS: Glucose,Whole Blood 124 mg/dL (75-99)
[2019-11-18] MEDS: INSULIN ASPART (NovoLOG) 100 UNIT/ML VIAL SQ SCH ×4 (06:58→20:40)
[2019-11-18] MEDS: SODIUM CHLORIDE 0.9% 1,000 ML IV SCH ×2 (07:08→13:29)
[2019-11-18] MEDS: IPRATROPIUM-ALBUTEROL 3 ML NEB INHALATION SCH ×4 (07:15→19:44)
[2019-11-18] MEDS ORDERED: NON FORMULARY DRUG (Fluticasone/Umeclidin/Vilanter [Trelegy Ellipta 100-62.5-25] 1 EACH Bl INHALATION SCH (08:00)
[2019-11-18] MEDS ORDERED: SYMBICORT 80-4.5 MCG INHALER INHALATION SCH (08:00)
--- NOTE | 2019-11-18 09:22 | P.HPIM ---
History of Present Illness H&P Date: 11/18/19 Navi Coulter, is a 59-year-old male who presented to [facility] emergency room with a chief complaint of worsening shortness of breath patient was also complaining of cough and feeling feverish, otherwise he denies any complaints, he was evaluated in emergency room his temperature was 100.5 pulse 1:15 respiration 26 blood pressure 135/77 pulse ox 92% on 2 L nasal cannula, his white blood count was 12.2 hemoglobin 13.1 platelet count 225, sodium was 129 potassium 5.0 BUN 21 creatinine 0.72 lactic acid was elevated at 2.2 C-reactive protein was elevated at 39 patient was admitted to telemetry floor for further evaluation and treatment pulmonary consultation was requested. Patient was recently admitted to the intensive care unit, he had a prolonged admission, he was discharged on 11/06/2019 he received IV antibiotic and IV steroids, diagnosis at that time was pneumonitis related to immune therapy, he was discharged home on oral prednisone, he was followed as outpatient by Dr. Dietz, however his condition continued to worsen despite increasing dose of oral prednisone, and patient decided to return to emergency room on 11/17/2019. Patient has a known history of squamous cell carcinoma of the right upper lobe he underwent surgery in 2010 followed by chemotherapy he was followed by Dr. Patino and has been receiving immunotherapy until he was admitted in early Oct [facility] His past medical history is also significant for history of hypertension, history of hypothyroidism, history of hyperlipidemia, and history of chronic neck and back pain. On review of systems patient is alert and oriented 3 in no apparent distress, he is complaining of fatigue and worsening shortness of breath, he has occasional cough with minimal sputum production, there is low grade fever and significant sweating, no headache or dizziness no chest pain no nausea or vomiting no abdominal pain no diarrhea no blood in the stools no burning with urination no frequency or urgency and no hematuria. Past Medical History Past Medical History: Cancer, COPD, GERD/Reflux, Hearing Disorder / Deafness, Hyperlipidemia, Hypertension, Prostate Disorder, Thyroid Disorder Additional Past Medical History / Comment(s): non-small cell lung cancer with previous left upper lobe resection 2010,torn bicep muscle rt shoulder- wt limit #10, recent coughing up blood/fungal lung infection from "dirt" on bronchoscopy, finished antifungal for this History of Any Multi-Drug Resistant Organisms: None Reported Past Surgical History: Back Surgery, Orthopedic Surgery Additional Past Surgical History / Comment(s): RT KNEE/RT UPPER LOBECTOMY, [facility] PROCEDURES. 3 neck surgeries, 2 fusions and a leola, bronchoscopy Past Anesthesia/Blood Transfusion Reactions: No Reported Reaction Past Psychological History: Anxiety Smoking Status: Former smoker Past Alcohol Use History: None Reported Past Drug Use History: None Reported - Past Family History Father Family Medical History: Cancer Additional Family Medical History / Comment(s): LUNG Mother Family Medical History: COPD Medications and Allergies Home Medications Medication Instructions Recorded Confirmed Type Atorvastatin [Lipitor] 10 mg PO HS 12/18/16 11/17/19 History Tamsulosin [Flomax] 0.4 mg PO DAILY 12/18/16 11/17/19 History Baclofen [Lioresal] 10 mg PO HS 05/04/18 11/17/19 History Hydrocodone/Acetaminophen [[place] 1 tab PO Q8H PRN 03/15/19 11/17/19 History 10-325] Fluticasone/Umeclidin/Vilanter 1 puff INHALATION RT-DAILY 10/27/19 11/17/19 History [Trelegy Ellipta 100-62.5-25] LORazepam [Ativan] 0.5 mg PO HS PRN 10/27/19 11/17/19 History Ipratropium-Albuterol Nebulize 3 ml INHALATION Q4-6H PRN 11/06/19 11/17/19 History [Duoneb 0.5 mg-3 mg/3 ml Soln] Multivitamins, Thera [Multivitamin 1 each PO DAILY tab 11/06/19 11/17/19 Rx (formulary)] amLODIPine [Norvasc] 5 mg PO DAILY tab 11/06/19 11/17/19 Rx Levothyroxine Sodium [Synthroid] 125 mcg PO DAILY 11/17/19 11/17/19 History Losartan Potassium 100 mg PO HS 11/17/19 11/17/19 History Omeprazole 20 mg PO DAILY 11/17/19 11/17/19 History Sertraline HCl [Zoloft] 100 mg PO DAILY 11/17/19 11/17/19 History predniSONE [Deltasone] 60 mg PO DAILY 11/17/19 11/17/19 History Allergies Allergy/AdvReac Type Severity Reaction Status Date / Time No Known Allergies Allergy Verified 11/17/19 17:10 Physical Exam Vitals: Vital Signs Temp Pulse Pulse Resp BP BP Pulse Ox 11/18/19 07:20 100 11/18/19 07:15 96 11/18/19 03:59 98.3 F 96 20 125/58 91 L 11/18/19 00:00 98.5 F 95 18 100/62 93 L 11/17/19 20:26 97.8 F 116 H 20 122/69 94 L 11/17/19 20:14 98.5 F 116 H 22 85/63 94 L 11/17/19 19:01 112 H 11/17/19 18:54 120 H 11/17/19 18:24 100 F H 119 H 22 111/72 95 11/17/19 18:16 97.8 F 116 H 18 122/69 93 L 11/17/19 17:56 24 11/17/19 17:32 112 H 16 136/89 99 11/17/19 15:02 100.5 F H 115 H 26 H 135/77 92 L Intake and Output 11/17/19 11/18/19 11/18/19 22:59 06:59 14:59 Intake Total 240 Output Total 1100 Balance -1100 240 Intake: Oral 240 Output: Urine 1100 Other: Voiding Method Urinal Weight 83.461 kg 84.3 kg In general patient is alert and oriented 3 in no apparent distress HEENT head normocephalic and atraumatic Neck is supple no JVD no goiter no lymphadenopathy Chest exam reveals a scattered crackles in both lung bases no wheezing Cardiac exam reveals regular heart sounds S1 and S2 no gallops no murmurs Abdomen is soft nontender no organomegaly with normal bowel sounds Extremity exam reveals no edema no cyanosis or clubbing Neurological examination reveals no gross focal deficit Results CBC & Chem 7: 11/17/19 15:54 11/17/19 15:54 Labs: Abnormal Lab Results - Last 24 Hours (Table) 11/17/19 11/17/19 11/17/19 Range/Units 15:54 15:54 15:54 WBC 12.2 H (3.8-10.6) k/uL RBC 4.23 L (4.30-5.90) m/uL Neutrophils # 10.8 H (1.3-7.7) k/uL Lymphocytes # 0.3 L (1.0-4.8) k/uL Sodium 129 L (137-145) mmol/L Carbon Dioxide 21 L (22-30) mmol/L BUN 21 H (9-20) mg/dL POC Glucose (mg/dL) (75-99) mg/dL Plasma Lactic Acid Luiz 2.2 H* (0.7-2.0) mmol/L Ferritin 378.5 H (22.0-322.0) ng/mL AST 92 H (17-59) U/L ALT 88 H (4-49) U/L Lactate Dehydrogenase 1212 H (313-618) U/L C-Reactive Protein 39.0 H (<10.0) mg/L 11/18/19 Range/Units 06:54 WBC (3.8-10.6) k/uL RBC (4.30-5.90) m/uL Neutrophils # (1.3-7.7) k/uL Lymphocytes # (1.0-4.8) k/uL Sodium (137-145) mmol/L Carbon Dioxide (22-30) mmol/L BUN (9-20) mg/dL POC Glucose (mg/dL) 124 H (75-99) mg/dL Plasma Lactic Acid Luiz (0.7-2.0) mmol/L Ferritin (22.0-322.0) ng/mL AST (17-59) U/L ALT (4-49) U/L Lactate Dehydrogenase (313-618) U/L C-Reactive Protein (<10.0) mg/L Thrombosis Risk Factor Assmnt - Choose All That Apply Each Factor Represents 1 point: Abnormal pulmonary function (COPD), Age 41-60 years, Serious lung disease incl. pneumonia (< 1month) Other Risk Factors: No Other congenital or acquired thrombophilia - If yes, enter type in comment: No Thrombosis Risk Factor Assessment Total Risk Factor Score: 3 Thrombosis Risk Factor Assessment Level: Moderate Risk Assessment and Plan Plan: 1. Worsening shortness of breath, with chest x-ray revealing bilateral infiltrates, this could be pneumonia related to immune therapy versus bacterial infection, patient was started on IV antibiotics and IV steroids, pulmonary consultation request 2. Underlying history of squamous cell carcinoma of the right upper lobe, status post surgery and chemotherapy in 2010, and more recently immune therapy that was discontinued in the beginning of October 2019 3. Underlying history of hypertension well-controlled on current medications 4. Underlying history of hypothyroidism maintained on Synthroid 5. Underlying history of hyperlipidemia 6. Underlying history of chronic neck and back pain maintained on [place] for pain management At this time patient is admitted to medical floor, he was started on IV antibiotic and IV steroids Pulmonary consultation requested patient is well known to Dr. Dietz For DVT prophylaxis we will use Lovenox 40 mg subcu daily For GI prophylaxis we'll use Protonix Will follow during this admission for medical management
[2019-11-18] MEDS: ENOXAPARIN 40 MG/0.4 ML SYRINGE SQ SCH (09:52)
[2019-11-18] MEDS: amLODIPine 5 MG TAB PO SCH (09:52)
[2019-11-18] MEDS: TAMSULOSIN 0.4 MG CAP.ER.24H PO SCH (09:52)
[2019-11-18] MEDS: MULTIVITAMINS, THERA 1 EACH TAB PO SCH (09:53)
[2019-11-18] MEDS: PANTOPRAZOLE 40 MG TABLET PO SCH (09:53)
[2019-11-18] MEDS: SERTRALINE 100 MG TAB PO SCH (09:53)
--- NOTE | 2019-11-18 10:57 | XR ---
EXAMINATION TYPE: XR chest 2V DATE OF EXAM: 11/18/2019 COMPARISON: 11/17/2019 TECHNIQUE: PA and lateral views submitted. HISTORY: Cough FINDINGS: Diffuse bilateral infiltrate. Hyperinflation suggests COPD. Rib resection is postsurgical change in t he right noted. No sizable pneumothorax. Heart size normal. Small right pleural effusion or pleural t hickening. IMPRESSION: 1. Diffuse bilateral infiltrate correlate for pneumonia. Findings stable.
[2019-11-18] MEDS ORDERED: IPRATROPIUM-ALBUTEROL 3 ML NEB INHALATION PRN (11:59)
[2019-11-18 13:21] LABS: Glucose,Whole Blood 128 mg/dL (75-99)
[2019-11-18 16:56] LABS: Glucose,Whole Blood 208 mg/dL (75-99)
[2019-11-18] MEDS: AZITHROMYCIN 500 MG TAB PO SCH (17:57)
[2019-11-18] MEDS: FORMOTEROL FUMARATE 20 MCG/2 ML NEBU INHALATION SCH (19:44)
[2019-11-18] MEDS: BUDESONIDE 1 MG/2 ML NEBU INHALATION SCH (19:44)
--- NOTE | 2019-11-18 20:30 | CONS ---
CONSULTATION PULMONARY/CRITICAL CARE CONSULTATION: 11/18/2019 REASON FOR CONSULTATION: Shortness of breath. This is a patient who was recently inpatient. The patient apparently presented with shortness of breath and pneumonia. He was here for about 11 or 12 days and spent a few days in the intensive care unit. The patient was readmitted on November 16. He came into the emergency room complaining of shortness of breath. He saw the ER doctor there. He apparently was diagnosis having pneumonia and was admitted to the hospital. The patient was improved when he was discharged the last time he was here. Chest x-ray now shows diffuse bilateral infiltrates. He does have a cough. The cough is somewhat productive. He is having shortness of breath. No fever or chills. No chest pain or chest discomfort. He also apparently complained of anxiety in the emergency room according to the ER doctor's note. 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 The patient was treated back in 2010 with a right upper lobectomy. More recently, a PET scan was positive and he was re-evaluated. At that time, he had a CT-guided biopsy of the right lower lobe, which was positive and he also had some sampling of lymph nodes in the mediastinum via endobronchial ultrasound, which were also positive. He apparently received additional chemotherapy and stereotactic body radiotherapy to the right lower lobe for the recurrence. He apparently also was once on Opdivo but does not take that currently. Other medical history includes COPD with an FEV1 that is 77% of predicted, previous tobacco use, hypertension, hyperlipidemia, BPH, and hypothyroidism. CURRENT MEDICATIONS: Reviewed. They include Lipitor, Flomax, baclofen, [place], Trelegy, Ativan, updrafts with albuterol and Atrovent, levothyroxine, losartan, omeprazole, Zoloft, and prednisone. He also apparently takes amlodipine and multivitamins. ALLERGIES: Denied. MEDICAL HISTORY: Includes the lung cancer, moderate COPD with an FEV1 that is 77% of predicted, GERD, deafness, hyperlipidemia, hypertension, BPH, and hypothyroidism. SURGICAL HISTORY: Includes the right upper lobectomy that took place in 2010, back surgery, right knee surgery, 3 neck surgeries, and bronchoscopy. SOCIAL HISTORY: Positive for previous tobacco use. Denies any alcohol or illicit drug use. FAMILY HISTORY: Positive for a father with lung cancer and a mother with COPD. REVIEW OF SYSTEMS: CONSTITUTIONAL: Negative. NEUROLOGIC: Negative. HEENT: Negative. CARDIOVASCULAR: Negative. PULMONARY: Shortness of breath, chest congestion, cough, occasional phlegm production, wheezing. GI: Negative. : Negative. RHEUMATOLOGIC: Negative. IMMUNOLOGIC: Negative. ENDOCRINOLOGIC: Negative. DERMATOLOGIC: Negative. PHYSICAL EXAMINATION: VITAL SIGNS: Current vital signs include a temperature of 97.8, heart rate 96, respiratory rate 18, blood pressure 127/64, 4 L saturation 95%. Appears in no acute distress. HEENT: Examination is grossly unremarkable. Nasal O2 noted. NECK: Supple. Full range of motion. No adenopathy. Neck veins are flat. CARDIOVASCULAR: Examination reveals regular rhythm and rate. Heart rate 84 beats per minute. S1, S2 normal. LUNGS: Reveal diffuse coarse rhonchi throughout. No crackles or wheezes. Breath sounds equal. ABDOMEN: Soft. Bowel sounds are heard. EXTREMITIES: Intact. No cyanosis, clubbing, or edema. SKIN: Without rash. NEUROLOGIC: Examination is nonfocal. LABS: Reviewed. White count 12.2, hemoglobin 13.1, hematocrit 40.1, platelet count 225,000. PT/INR, PTT and D-dimer all normal. Sodium 129, potassium 5, chloride 102, CO2 21, anion gap is 6. BUN and creatinine were 21 and 0.72. Lactic acid was initially 2.2 and followup was 1.9. Ferritin was 378. AST, ALT were 92 and 88 respectively. LDH was 112. C-reactive protein was 39. Procalcitonin was 0.05. His chest x-ray shows diffuse bilateral infiltrates. Followup chest x-ray is essentially unchanged. Current medications are reviewed. He is currently on amlodipine, Lipitor, azithromycin, baclofen, Pulmicort, Rocephin, Lovenox, formoterol, [place], insulin, DuoNeb, levothyroxine, Ativan, losartan, Solu-Medrol, morphine, Protonix, Zoloft, saline, and Flomax. ASSESSMENT: 1. Shortness of breath, secondary to bilateral pneumonia and probable chronic obstructive pulmonary disease exacerbation. 2. 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 3. Previous history of tobacco use. 4. Moderate chronic obstructive pulmonary disease, with an FEV1 at 77% of predicted. 5. History of gastroesophageal reflux disease. 6. History of deafness. 7. Hyperlipidemia. 8. Hypertension. 9. Benign prostatic hypertrophy. 10.Hypothyroidism. PLAN: The patient is currently on updrafts q.i.d. and p.r.n. We also added Pulmicort 1 mg, formoterol 20 mcg twice a day. In addition, the patient is on Solu-Medrol, as well as ceftriaxone and azithromycin. Additional recommendations and suggestions are forthcoming. Followup x-rays in a couple days. No additional recommendations are made. Prognosis is guarded. We will continue to follow closely. MMODL / IJN: [id number] /
[2019-11-18] MEDS: LOSARTAN 50 MG TAB PO SCH (20:37)
[2019-11-18] MEDS: LORazepam 0.5 MG TAB PO PRN (20:37)
[2019-11-18] MEDS: BACLOFEN 10 MG TAB PO SCH (20:37)
[2019-11-18] MEDS: ATORVASTATIN 10 MG TAB PO SCH (20:37)
[2019-11-18 20:40] LABS: Glucose,Whole Blood 254 mg/dL (75-99)
[2019-11-19] MEDS: SODIUM CHLORIDE 0.9% 1,000 ML IV SCH ×3 (05:32→19:22)
[2019-11-19 06:12] LABS: Glucose,Whole Blood 141 mg/dL (75-99)
[2019-11-19] MEDS: INSULIN ASPART (NovoLOG) 100 UNIT/ML VIAL SQ SCH ×4 (06:44→21:57)
[2019-11-19] MEDS: methylPREDNISolone SOD SUCCI 125 MG/2 ML VIAL IV SCH ×4 (06:44→23:16)
[2019-11-19] MEDS: LEVOTHYROXINE 125 MCG TAB PO SCH (06:44)
[2019-11-19] MEDS: HYDROcodone/APAP 10-325MG 1 EACH TAB PO PRN ×3 (06:51→17:24)
--- NOTE | 2019-11-19 08:57 | P.CONS ---
History of Present Illness - Reason for Consult Consult date: 11/18/19 Pneumonia Requesting physician: Ross Jensen - Chief Complaint Shortness of breath and cough x few days - History of Present Illness Patient is a 59-year-old male with a past medical history significant for non-small cell lung cancer with previous left upper lobe resection in 2010 this patient was recently admitted at this facility predominantly with respiratory symptoms patient was evaluated by pulmonary service and the patient did have bronchoscopy done on 11/17/2019 transplant care biopsy was negative for malignancy and the bronchoscopy culture were negative for any resistant pathogen patient subsequent discharged home on Levaquin and prednisone patient now presented back to [facility] ER yesterday for evaluation of increasing shortness of breath that has been progressively getting worse for the last 1 week, patient also complaining of cough which is moderate in intensity but mostly dry in nature denies having any pleuritic chest pain patient denies having any nausea no vomiting no abdominal pain or any diarrhea with this and the patient was evaluated by the ER physician on arrival to the ER, the patient did have a low-grade fever 100.4F patient was tachycardic and did have a white count of 12,000 with a left shift no lymphopenia, patient did have a chest x-ray with evidence of bilateral pneumonia slightly worsened than recent exam patient was started on Rocephin and Zithromax has been admitted to the hospital infectious disease was consulted for further management of antibiotic therapy Review of Systems Positive point has been mentioned in the HPI rest of the systems are negative Past Medical History Past Medical History: Cancer, COPD, GERD/Reflux, Hearing Disorder / Deafness, Hyperlipidemia, Hypertension, Prostate Disorder, Thyroid Disorder Additional Past Medical History / Comment(s): non-small cell lung cancer with previous left upper lobe resection 2010,torn bicep muscle rt shoulder- wt limit #10, recent coughing up blood/fungal lung infection from "dirt" on bronchoscopy, finished antifungal for this History of Any Multi-Drug Resistant Organisms: None Reported Past Surgical History: Back Surgery, Orthopedic Surgery Additional Past Surgical History / Comment(s): RT KNEE/RT UPPER LOBECTOMY, [facility] PROCEDURES. 3 neck surgeries, 2 fusions and a leola, bronchoscopy Past Anesthesia/Blood Transfusion Reactions: No Reported Reaction Past Psychological History: Anxiety Smoking Status: Former smoker Past Alcohol Use History: None Reported Past Drug Use History: None Reported - Past Family History Father Family Medical History: Cancer Additional Family Medical History / Comment(s): LUNG Mother Family Medical History: COPD Medications and Allergies Home Medications Medication Instructions Recorded Confirmed Type Atorvastatin [Lipitor] 10 mg PO HS 12/18/16 11/17/19 History Tamsulosin [Flomax] 0.4 mg PO DAILY 12/18/16 11/17/19 History Baclofen [Lioresal] 10 mg PO HS 05/04/18 11/17/19 History Hydrocodone/Acetaminophen [[place] 1 tab PO Q8H PRN 03/15/19 11/17/19 History 10-325] Fluticasone/Umeclidin/Vilanter 1 puff INHALATION RT-DAILY 10/27/19 11/17/19 History [Trelegy Ellipta 100-62.5-25] LORazepam [Ativan] 0.5 mg PO HS PRN 10/27/19 11/17/19 History Ipratropium-Albuterol Nebulize 3 ml INHALATION Q4-6H PRN 11/06/19 11/17/19 History [Duoneb 0.5 mg-3 mg/3 ml Soln] Multivitamins, Thera [Multivitamin 1 each PO DAILY tab 11/06/19 11/17/19 Rx (formulary)] amLODIPine [Norvasc] 5 mg PO DAILY tab 11/06/19 11/17/19 Rx Levothyroxine Sodium [Synthroid] 125 mcg PO DAILY 11/17/19 11/17/19 History Losartan Potassium 100 mg PO HS 11/17/19 11/17/19 History Omeprazole 20 mg PO DAILY 11/17/19 11/17/19 History Sertraline HCl [Zoloft] 100 mg PO DAILY 11/17/19 11/17/19 History predniSONE [Deltasone] 60 mg PO DAILY 11/17/19 11/17/19 History Allergies Allergy/AdvReac Type Severity Reaction Status Date / Time No Known Allergies Allergy Verified 11/17/19 17:10 Physical Exam Vitals: Vital Signs Temp Pulse Pulse Resp BP Pulse Ox 11/18/19 20:08 108 H 11/18/19 20:00 98.9 F 112 H 26 H 137/64 93 L 11/18/19 19:56 108 H 11/18/19 19:54 104 H 11/18/19 19:44 107 H 11/18/19 17:04 91 L 11/18/19 15:47 92 11/18/19 15:36 96 11/18/19 15:25 98.5 F 111 H 18 140/65 91 L 11/18/19 12:35 97 16 135/63 94 L 11/18/19 11:10 96 11/18/19 10:59 92 11/18/19 09:45 97.8 F 84 18 127/64 95 11/18/19 07:20 100 11/18/19 07:15 96 11/18/19 03:59 98.3 F 96 20 125/58 91 L 11/18/19 00:00 98.5 F 95 18 100/62 93 L Intake and Output 11/18/19 11/18/19 11/18/19 06:59 14:59 22:59 Intake Total 240 120 Output Total 1100 Balance -1100 240 120 Intake: Oral 240 120 Output: Urine 1100 Other: Voiding Method Urinal Urinal Urinal # Voids 1 2 Weight 84.3 kg GENERAL DESCRIPTION: Middle-aged male lying in bed, no distress. No tachypnea or accessory muscle of respiration use. HEENT: Shows Pallor , no scleral icterus. Oral mucous membrane is dry. No pharyngeal erythema or thrush NECK: Trachea central, no thyromegaly. LUNGS: Unlabored breathing. Decreased intensity of breath sounds No wheeze or crackle. HEART: S1, S2, regular rate and rhythm. No loud murmur ABDOMEN: Soft, no tenderness , guarding or rigidity, no organomegaly EXTREMITIES: No edema of feet. SKIN: No rash, no masses palpable. NEUROLOGICAL: The patient is awake, alert, oriented x3, mood and affect normal. Results CBC & Chem 7: 11/17/19 15:54 11/17/19 15:54 Labs: Abnormal Lab Results - Last 24 Hours (Table) 11/17/19 11/18/19 11/18/19 Range/Units 15:54 06:54 13:19 POC Glucose (mg/dL) 124 H 128 H (75-99) mg/dL Ferritin 378.5 H (22.0-322.0) ng/mL 11/18/19 11/18/19 Range/Units 16:54 20:39 POC Glucose (mg/dL) 208 H 254 H (75-99) mg/dL Ferritin (22.0-322.0) ng/mL Microbiology - Last 24 Hours (Table) 11/17/19 16:22 Blood Culture - Preliminary Blood No Growth after 24 hours Assessment and Plan Assessment: 1- patient is a 59-year-old male with a past medical history significant for non-small cell cancer of the lung status post lobectomy in this patient with a recent admission to this facility about 2 weeks ago with similar symptoms during which time the patient did have bronchoscopy and transfer to [facility] which did not show any malignancy bronchoscopy cultures were negative, patient mentioned initial improvement symptom for now worsening of his respiratory symptoms especially cough did have a fever and worsening infiltrate on the x-ray concerning for pneumonia possible community acquired as the patient seemed to have responded to the initial diabetic regime of Rocephin and Zithromax (1) Acute pneumonia Current Visit: Yes Status: Acute Code(s): J18.9 - PNEUMONIA, UNSPECIFIED ORGANISM SNOMED Code(s): 411635537 Plan: 1. We will try to obtain sputum for Gram stain and culture 2- check a CRP and Percocet and level 3 -Rocephin 2 g daily and Zithromax to continue We will follow on clinical condition and cultures to further adjust medication if needed Thank you for this consultation will follow this patient with you Time with Patient: Greater than 30
[2019-11-19] MEDS: MULTIVITAMINS, THERA 1 EACH TAB PO SCH (10:12)
[2019-11-19] MEDS: TAMSULOSIN 0.4 MG CAP.ER.24H PO SCH (10:13)
[2019-11-19] MEDS: ENOXAPARIN 40 MG/0.4 ML SYRINGE SQ SCH (10:13)
[2019-11-19] MEDS: PANTOPRAZOLE 40 MG TABLET PO SCH (10:13)
[2019-11-19] MEDS: amLODIPine 5 MG TAB PO SCH (10:13)
[2019-11-19] MEDS: SERTRALINE 100 MG TAB PO SCH (10:13)
[2019-11-19] MEDS: IPRATROPIUM-ALBUTEROL 3 ML NEB INHALATION SCH ×4 (10:15→20:38)
[2019-11-19] MEDS: FORMOTEROL FUMARATE 20 MCG/2 ML NEBU INHALATION SCH ×2 (10:15→20:38)
[2019-11-19] MEDS: BUDESONIDE 1 MG/2 ML NEBU INHALATION SCH ×2 (10:15→20:38)
[2019-11-19 12:21] LABS: Glucose,Whole Blood 135 mg/dL (75-99)
[2019-11-19 13:06] LABS: Basophils % (A) 0 %; Eosinophils % (A) 0 %; HCT 34.1 % (39.0-53.0); HGB 11.2 gm/dL (13.0-17.5); Lymphocytes # (A) 0.1 k/uL (1.0-4.8); Lymphocytes % (A) 1 %; MCHC 32.9 g/dL (31.0-37.0); MCV 94.2 fL (80.0-100.0); Mean Platelet Volume 6.8; Monocytes # (A) 0.4 k/uL (0-1.0); Monocytes % (A) 3 %; Neutrophils # (A) 12.4 k/uL (1.3-7.7); Neutrophils % (A) 96 %; Platelet Count 216 k/uL (150-450); RBC 3.62 m/uL (4.30-5.90); RDW 12.8 % (11.5-15.5)
[2019-11-19 13:27] LABS: ALT 53 U/L (4-49); AST 31 U/L (17-59); African American GFR (CKD) >90 (>60 ml/min/1.73 sqM); Albumin 3.2 g/dL (3.5-5.0); Alkaline Phosphatase 68 U/L (38-126); Anion Gap 7 mmol/L; Blood Urea Nitrogen 20 mg/dL (9-20); Carbon Dioxide 22 mmol/L (22-30); Chloride 103 mmol/L (98-107); Glucose 127 mg/dL (74-99); Non-African American GFR(CKD) >90 (>60 ml/min/1.73 sqM); Potassium 4.1 mmol/L (3.5-5.1); Sodium 132 mmol/L (137-145); Total Bilirubin 0.3 mg/dL (0.2-1.3); Total Protein 5.9 g/dL (6.3-8.2)
--- NOTE | 2019-11-19 15:33 | PN ---
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 The patient was admitted on November 16. He came into the emergency room complaining of shortness of breath. Previously he was here in the hospital for a number of days; I believe about 11 or so, with an episode of pneumonia. He returns with similar symptoms on this admission. We believe his shortness of breath relates to bilateral pneumonia and probable COPD exacerbation. 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 He is status post right upper lobectomy in 2010 and more recently chemo-radiation stereotactic body radiotherapy to the right lower lobe. He does have a history of previous heavy tobacco use. The patient states that he is feeling only minimally better or not much better at this time. He has only been in the hospital for about a day and a half. His FEV1 is 77% of predicted on his most recent PFTs. In addition to the above, he has a history of previous heavy tobacco use, GERD, deafness, hyperlipidemia, hypertension and BPH, among other things. PHYSICAL EXAMINATION: VITAL SIGNS: Current vital signs are reviewed. Temperature is 97.6, heart rate 100, respiratory rate 20, blood pressure 138/71, mean 93, four-liter saturation 96%. GENERAL APPEARANCE: Appears in no acute distress. HEENT: Examination is grossly unremarkable. NECK: Supple. Full range of motion. No adenopathy. Neck veins are flat. CARDIOVASCULAR: Examination reveals regular rhythm and rate. Heart rate about 90 beats per minute. S1, S2 normal. No S3, S4 or murmur. Heart sounds are distant. PULMONARY EXAMINATION: Pulmonary examination reveals diffuse coarse rhonchi throughout. No crackles or wheezes. Breath sounds equal. ABDOMEN: Soft. Bowel sounds are heard. No masses or tenderness. EXTREMITIES: Intact. No cyanosis, clubbing or edema. SKIN: Without rash. NEUROLOGIC: Neurologic examination is brief but nonfocal. LABS/IMAGING: Reviewed. White count 13, hemoglobin 11.2, hematocrit 34.1, platelet count 216,000. Sodium 132, potassium 4.1, chloride 103, CO2 22. Anion gap is 7. BUN and creatinine were 20 and 0.56. Microbiology is currently pending. No recent chest x-ray to report. His last chest x-ray was done on November 17 and shows diffuse bilateral infiltrates consistent with underlying pneumonia. Medications have been reviewed and adjusted accordingly. ASSESSMENT: 1. Shortness of breath, likely secondary to bilateral pneumonia as well as chronic obstructive pulmonary disease exacerbation, only minimally improved. 2. 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 3. Previous history of tobacco use. 4. Moderate chronic obstructive pulmonary disease, with an FEV1 that is 77% of predicted. 5. History of gastroesophageal reflux disease. 6. History of deafness. 7. Hyperlipidemia. 8. History of hypertension. 9. Benign prostatic hypertrophy. 10.Hypothyroidism. PLAN: The patient is getting a full-course therapy, including updrafts both with short-acting beta agonist and short-acting muscarinic antagonist, Pulmicort 1 mg, formoterol 20 mcg and corticosteroids. The patient also remains on antibiotics. Infectious Disease has been consulted. We will continue to follow. The patient's overall prognosis is very guarded. MMODL / IJN: [id number] /
[2019-11-19 16:54] LABS: Glucose,Whole Blood 191 mg/dL (75-99)
[2019-11-19] MEDS: AZITHROMYCIN 500 MG TAB PO SCH (17:21)
--- NOTE | 2019-11-19 18:42 | P.CONS ---
History of Present Illness - Reason for Consult Consult date: 11/19/19 Lung Cancer - Pneumonitis Requesting physician: Ross Jensen - Chief Complaint SOB - History of Present Illness Mr. Coulter is a patient well known to our practice for treatment of his known Lung Cancer. 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 R eceive jenise-adjuvant chemotherapy with cisplatin and [employer] 16 and underwent thoracotomy, then 2 additional rounds of adjuvant chemo. He remained in remission and doing well until CT chest revealed 1.7cm RLL lesion which was again positive for squamous cell carcinoma. 06/02/19 EBUS LOLA bronchus left hilar and subcarinal nodes positive for squamous cell 06/10/19 MRI brain neg. PDL1 10%Pten mutation, no actionable mutations identified through neogenomic testing. SBRT RLL completed 06/30/2019 07/05/19-08/16/19 - Concurrent chemo radiation for LOLA cancer. Now receiving one year of immune therapy with imfinzi. Last treatment on 10/26/19 10/06/19: Presented with acute complaints of extreme fatigue, he apparently loss consciousness at stoplight, then woke up but wanted to cotninue to doze off, he was feeling confused, and worried so he mad appointment with REBE[facility] Fontenot. A MRI Brain was ordered. Which resulted negative. He was recently discharged after presenting to [facility] with increased temperatur es (although afebrile 99.9) and increased SOB. in October. He was treated and monitored in ICU, improved on steroids and was discharged home. Full pulmonary, infectious work-up resulted with pneumonitis, although source being immune therapy versus radiation versus combination was not determined. Improvement on steroids, although once started to taper at home he became further SOB, hypoxic and re[resented to hospital. 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 CTA no PE. Recommendation at this time are to continue on steroids and proceed with next line treatment of remicade. Review of Systems All systems: negative Constitutional: Reports as per HPI Past Medical History Past Medical History: Cancer, COPD, GERD/Reflux, Hearing Disorder / Deafness, Hyperlipidemia, Hypertension, Prostate Disorder, Thyroid Disorder Additional Past Medical History / Comment(s): non-small cell lung cancer with previous left upper lobe resection 2010,torn bicep muscle rt shoulder- wt limit #10, recent coughing up blood/fungal lung infection from "dirt" on bronchoscopy, finished antifungal for this History of Any Multi-Drug Resistant Organisms: None Reported Past Surgical History: Back Surgery, Orthopedic Surgery Additional Past Surgical History / Comment(s): RT KNEE/RT UPPER LOBECTOMY, [facility] PAIN CLINIC PROCEDURES. 3 neck surgeries, 2 fusions and a leola, bronchoscopy Past Anesthesia/Blood Transfusion Reactions: No Reported Reaction Past Psychological History: Anxiety Smoking Status: Former smoker Past Alcohol Use History: None Reported Past Drug Use History: None Reported - Past Family History Father Family Medical History: Cancer Additional Family Medical History / Comment(s): LUNG Mother Family Medical History: COPD Medications and Allergies Home Medications Medication Instructions Recorded Confirmed Type Atorvastatin [Lipitor] 10 mg PO HS 12/18/16 11/17/19 History Tamsulosin [Flomax] 0.4 mg PO DAILY 12/18/16 11/17/19 History Baclofen [Lioresal] 10 mg PO HS 05/04/18 11/17/19 History Hydrocodone/Acetaminophen [[place] 1 tab PO Q8H PRN 03/15/19 11/17/19 History 10-325] Fluticasone/Umeclidin/Vilanter 1 puff INHALATION RT-DAILY 10/27/19 11/17/19 History [Trelegy Ellipta 100-62.5-25] LORazepam [Ativan] 0.5 mg PO HS PRN 10/27/19 11/17/19 History Ipratropium-Albuterol Nebulize 3 ml INHALATION Q4-6H PRN 11/06/19 11/17/19 History [Duoneb 0.5 mg-3 mg/3 ml Soln] Multivitamins, Thera [Multivitamin 1 each PO DAILY tab 11/06/19 11/17/19 Rx (formulary)] amLODIPine [Norvasc] 5 mg PO DAILY tab 11/06/19 11/17/19 Rx Levothyroxine Sodium [Synthroid] 125 mcg PO DAILY 11/17/19 11/17/19 History Losartan Potassium 100 mg PO HS 11/17/19 11/17/19 History Omeprazole 20 mg PO DAILY 11/17/19 11/17/19 History Sertraline HCl [Zoloft] 100 mg PO DAILY 11/17/19 11/17/19 History predniSONE [Deltasone] 60 mg PO DAILY 11/17/19 11/17/19 History Allergies Allergy/AdvReac Type Severity Reaction Status Date / Time No Known Allergies Allergy Verified 11/17/19 17:10 Physical Exam Vitals: Vital Signs Temp Pulse Pulse Resp BP Pulse Ox 11/19/19 10:39 100 11/19/19 10:26 104 H 11/19/19 10:25 104 H 11/19/19 10:16 100 11/19/19 08:00 97.6 F 96 20 138/71 96 11/19/19 04:00 98.0 F 110 H 22 139/72 90 L 11/19/19 00:00 97.7 F 104 H 20 130/66 92 L 11/18/19 20:08 108 H 11/18/19 20:00 98.9 F 112 H 26 H 137/64 93 L 11/18/19 19:56 108 H 11/18/19 19:54 104 H 11/18/19 19:44 107 H 11/18/19 17:04 91 L 11/18/19 15:47 92 11/18/19 15:36 96 11/18/19 15:25 98.5 F 111 H 18 140/65 91 L Intake and Output 11/18/19 11/19/19 11/19/19 22:59 06:59 14:59 Intake Total 120 100 240 Balance 120 100 240 Intake: Intake, IV Titration 100 Amount cefTRIAXone 2 gm In 100 Sodium Chloride 0.9% 50 ml @ 100 mls/hr IVPB Q24HR [facility] Rx#:[id number] Oral 120 240 Other: Voiding Method Urinal Urinal # Voids 2 Weight 82 kg Constitutional General appearance: cooperative, no acute distress - EENT Eyes: EOMI, PERRLA, poor dentition ENT: NA/AT, normal oropharynx - Neck Neck: normal ROM - Respiratory: increased effort Respiratory: bilateral: diminished, CTA - Cardiovascular Heart rate: 110 Rhythm: irregularly irregular - Gastrointestinal General gastrointestinal: normal bowel sounds, soft - Integumentary Integumentary: pale - Neurologic non-focal - Musculoskeletal Musculoskeletal: generalized weakness, strength equal bilaterally - Psychiatric Psychiatric: A&O x's 3, appropriate affect, intact judgment & insight Results CBC & Chem 7: 11/19/19 12:52 11/19/19 12:52 Labs: Abnormal Lab Results - Last 24 Hours (Table) 11/18/19 11/18/19 11/18/19 Range/Units 13:19 16:54 20:39 POC Glucose (mg/dL) 128 H 208 H 254 H (75-99) mg/dL 11/19/19 11/19/19 Range/Units 06:09 12:05 POC Glucose (mg/dL) 141 H 135 H (75-99) mg/dL Microbiology - Last 24 Hours (Table) 11/17/19 16:22 Blood Culture - Preliminary Blood No Growth after 24 hours Assessment and Plan Plan: Assessment and Recommendations: Squamous Cell Lung Cancer (Original dx 2010, recurrent RLL and LOLA in 2019) - Status Post SBRT RLL, Concurrent xrt/chemo LOLA. Now on Immune therapy with imfinzi - Last Imfinzi 10/26/19 - Primary Oncologist Dr. Patino Refractory Penumonitis: - Remicade - Pulm following - COntinue steroids, although tapering to plan for long duration Acute on Chronic Hypoxic Respiratory Failure:Persistent - Status post bronch last admission - Pulm following - [place] to be secondary to radiation versus immune therapy pneumonitis. Unfortunately, which, although likely both contributed, will be difficult to exactly know. Although with Grade 3 or 4 pneumonitis, if immune therapy induced is recommended to discontinue future administrations. He will follow-up with Dr. Patino after discharge to discuss ongoing treatment plan. SIRS: 2/4 - Influenza, COVID, and Blood cultures negative - Sputum reviewed negative Normocytic Anemia:Stable - Chronic inflammation worsened with dilution and infection - Ferritin over 400, no benefit with supplementation - No benefit from supplemental vitamin replacement at this time after review was seen for deficiencies. - Monitor CBC Plan: - Second line treatment for steroid refractory pneumonitis is needed, remicade ordered - Agree with Steroids, PPI, abx await improvement, management pulm - PLan for steroid taper and PPI at discharge please Physician Attest: I have completed the full history and physical and agree with above dictation, dictated as a scribe
[2019-11-19] MEDS ORDERED: INFLIXIMAB-DYYB 400 MG in SODIUM CHLORIDE 0.9% 250 ML IV NR (20:00)
[2019-11-19] MEDS: BACLOFEN 10 MG TAB PO SCH (20:30)
[2019-11-19] MEDS: LORazepam 0.5 MG TAB PO PRN (20:30)
[2019-11-19] MEDS: ATORVASTATIN 10 MG TAB PO SCH (20:30)
[2019-11-19] MEDS: LOSARTAN 50 MG TAB PO SCH (20:30)
--- NOTE | 2019-11-19 21:08 | PN ---
PROGRESS NOTE DATE OF SERVICE: 11/19/2019 REASON FOR FOLLOWUP: Pneumonia. INTERVAL HISTORY: Patient is currently afebrile. He is still complaining of shortness of breath and cough, moderate intensity but not bringing up any sputum. No chest pain. No nausea, no vomiting. No abdominal pain or diarrhea. PHYSICAL EXAMINATION: Blood pressure is 125/59 with a pulse of 95. Temperature is 97.5. He is 92% on 5 L nasal cannula. General description is a middle-aged male lying in bed in no distress. Respiratory system: Unlabored breathing with decreased intensity of breath sounds. No wheeze. HEART: S1, S2. Regular rate and rhythm. Abdomen soft. No tenderness. LABS: Hemoglobin 9.8, white count 13, BUN of 20, creatinine 0.56. Blood culture negative. Sputum not collected. DIAGNOSTIC IMPRESSION AND PLAN: Patient admitted to the hospital with increased shortness of breath and cough with concern for COPD exacerbation and tracheobronchitis, possible pneumonia. The patient's fever resolved. Currently covered with Rocephin and Zithromax to continue. Try to obtain a sputum and monitor clinical course closely. MMODL / IJN: [id number] /
[2019-11-19 21:21] LABS: Glucose,Whole Blood 205 mg/dL (75-99)
[2019-11-20 06:27] LABS: Glucose,Whole Blood 126 mg/dL (75-99)
[2019-11-20] MEDS: methylPREDNISolone SOD SUCCI 125 MG/2 ML VIAL IV SCH ×4 (06:38→22:08)
[2019-11-20] MEDS: LEVOTHYROXINE 125 MCG TAB PO SCH (06:38)
[2019-11-20] MEDS: HYDROcodone/APAP 10-325MG 1 EACH TAB PO PRN ×4 (06:38→22:08)
[2019-11-20] MEDS: INSULIN ASPART (NovoLOG) 100 UNIT/ML VIAL SQ SCH ×3 (06:45→17:41)
--- NOTE | 2019-11-20 07:53 | XR ---
EXAMINATION TYPE: XR chest 1V DATE OF EXAM: 11/20/2019 COMPARISON: Prior chest x-ray 11/18/2019 HISTORY: Shortness of breath, pneumonia TECHNIQUE: Single frontal view of the chest is obtained. FINDINGS: Findings are similar to prior exam. Abnormal density in the left midlung is somewhat more confluent. Patient is rotated. No pneumothorax or evident effusion. Heart is obscured. IMPRESSION: Correlate for pneumonia, atelectasis
[2019-11-20 09:11] LABS: Basophils % (A) 0 %; Eosinophils % (A) 0 %; HCT 33.7 % (39.0-53.0); Lymphocytes # (A) 0.2 k/uL (1.0-4.8); Lymphocytes % (A) 1 %; MCHC 32.7 g/dL (31.0-37.0); MCV 94.8 fL (80.0-100.0); Mean Platelet Volume 6.8; Monocytes # (A) 0.4 k/uL (0-1.0); Monocytes % (A) 3 %; Neutrophils # (A) 10.9 k/uL (1.3-7.7); Neutrophils % (A) 95 %; Platelet Count 237 k/uL (150-450); RBC 3.55 m/uL (4.30-5.90); RDW 13.2 % (11.5-15.5); WBC 11.5 k/uL (3.8-10.6)
[2019-11-20 09:18] LABS: ALT 43 U/L (4-49); AST 25 U/L (17-59); African American GFR (CKD) >90 (>60 ml/min/1.73 sqM); Albumin 3.1 g/dL (3.5-5.0); Alkaline Phosphatase 70 U/L (38-126); Anion Gap 4 mmol/L; Blood Urea Nitrogen 20 mg/dL (9-20); Calcium 8.9 mg/dL (8.4-10.2); Carbon Dioxide 24 mmol/L (22-30); Chloride 104 mmol/L (98-107); Glucose 117 mg/dL (74-99); Non-African American GFR(CKD) >90 (>60 ml/min/1.73 sqM); Potassium 4.5 mmol/L (3.5-5.1); Sodium 132 mmol/L (137-145); Total Bilirubin 0.5 mg/dL (0.2-1.3); Total Protein 5.8 g/dL (6.3-8.2)
[2019-11-20] MEDS: FORMOTEROL FUMARATE 20 MCG/2 ML NEBU INHALATION SCH (09:37)
[2019-11-20] MEDS: IPRATROPIUM-ALBUTEROL 3 ML NEB INHALATION SCH ×2 (09:37→15:42)
[2019-11-20] MEDS: BUDESONIDE 1 MG/2 ML NEBU INHALATION SCH (09:37)
[2019-11-20] MEDS: MULTIVITAMINS, THERA 1 EACH TAB PO SCH (09:56)
[2019-11-20] MEDS: amLODIPine 5 MG TAB PO SCH (09:57)
[2019-11-20] MEDS: ENOXAPARIN 40 MG/0.4 ML SYRINGE SQ SCH (09:57)
[2019-11-20] MEDS: SERTRALINE 100 MG TAB PO SCH (09:57)
[2019-11-20] MEDS: TAMSULOSIN 0.4 MG CAP.ER.24H PO SCH (09:57)
[2019-11-20] MEDS: PANTOPRAZOLE 40 MG TABLET PO SCH (09:57)
[2019-11-20] MEDS: SODIUM CHLORIDE 0.9% 1,000 ML IV SCH ×2 (10:23→15:32)
--- NOTE | 2019-11-20 11:21 | P.PN ---
Subjective Progress Note Date: 11/20/19 Navi Coulter, is a 59-year-old male who presented to [facility] emergency room with a chief complaint of worsening shortness of breath patient was also complaining of cough and feeling feverish, otherwise he denies any complaints, he was evaluated in emergency room his temperature was 100.5 pulse 1:15 respiration 26 blood pressure 135/77 pulse ox 92% on 2 L nasal cannula, his white blood count was 12.2 hemoglobin 13.1 platelet count 225, sodium was 129 potassium 5.0 BUN 21 creatinine 0.72 lactic acid was elevated at 2.2 C-reactive protein was elevated at 39 patient was admitted to telemetry floor for further evaluation and treatment pulmonary consultation was requested. Patient was recently admitted to the intensive care unit, he had a prolonged admission, he was discharged on 11/06/2019 he received IV antibiotic and IV steroids, diagnosis at that time was pneumonitis related to immune therapy, he was discharged home on oral prednisone, he was followed as outpatient by Dr. Dietz, however his condition continued to worsen despite increasing dose of oral prednisone, and patient decided to return to emergency room on 11/17/2019. Patient has a known history of squamous cell carcinoma of the right upper lobe he underwent surgery in 2010 followed by chemotherapy he was followed by Dr. Patino and has been receiving immunotherapy until he was admitted in early October., His past medical history is also significant for history of hypertension, history of hypothyroidism, history of hyperlipidemia, and history of chronic neck and back pain. On review of systems patient is alert and oriented 3 in no apparent distress, he is complaining of fatigue and worsening shortness of breath, he has occasional cough with minimal sputum production, there is low grade fever and significant sweating, no headache or dizziness no chest pain no nausea or vomiting no abdominal pain no diarrhea no blood in the stools no burning with urination no frequency or urgency and no hematuria. On 11/19/2019 patient was seen and examined on the medical floor, he is alert and oriented 3 in no apparent distress, he is still complaining of shortness of breath, he has occasional cough with minimal sputum production otherwise he denies any complaints there is no fever or chills no headache or dizziness no chest pain no nausea or vomiting no abdominal pain no diarrhea no blood in the stools no burning with urination no frequency or urgency and no hematuria, pulmonary and oncology consultation placed On 11/20/2019 patient was seen and examined on the medical floor he is alert and oriented in no distress, he is complaining of worsening shortness of breath otherwise no complaints there is no fever or chills no headache or dizziness he has occasional cough no chest pain no nausea or vomiting no abdominal pain no diarrhea no blood in the stools no burning with urination no frequency or urgency and no hematuria Objective - Vital Signs Vital signs: Vital Signs Temp 97.6 F 11/20/19 04:00 Pulse 95 11/20/19 04:00 Resp 18 11/20/19 04:00 BP 130/62 11/20/19 04:00 Pulse Ox 94 L 11/20/19 04:00 Intake & Output 11/19/19 11/20/19 11/20/19 18:59 06:59 18:59 Intake Total 580 293.333 Balance 580 293.333 Weight 83 kg Intake: IV 250 Infliximab-Dyyb 400 mg In 250 Sodium Chloride 0.9% 250 ml @ Per Protocol IV . Q0M NR Rx#:[id number] Intake, IV Titration 43.333 Amount Infliximab-Dyyb 400 mg In 43.333 Sodium Chloride 0.9% 250 ml @ Per Protocol IV . Q0M NR Rx#:[id number] Oral 580 Other: Voiding Method Urinal # Voids 2 1 - Exam In general patient is alert and oriented 3 in no apparent distress HEENT head normocephalic and atraumatic Neck is supple no JVD no goiter no lymphadenopathy Chest exam reveals a scattered crackles in both lung bases no wheezing Cardiac exam reveals regular heart sounds S1 and S2 no gallops no murmurs Abdomen is soft nontender no organomegaly with normal bowel sounds Extremity exam reveals no edema no cyanosis or clubbing Neurological examination reveals no gross focal deficit - Labs CBC & Chem 7: 11/20/19 07:59 11/20/19 07:59 Labs: Abnormal Lab Results - Last 24 Hours (Table) 11/19/19 11/19/19 11/19/19 Range/Units 12:05 12:52 12:52 WBC 13.0 H (3.8-10.6) k/uL RBC 3.62 L (4.30-5.90) m/uL Hgb 11.2 L (13.0-17.5) gm/dL Hct 34.1 L (39.0-53.0) % Neutrophils # 12.4 H (1.3-7.7) k/uL Lymphocytes # 0.1 L (1.0-4.8) k/uL Sodium 132 L (137-145) mmol/L Creatinine 0.56 L (0.66-1.25) mg/dL Glucose 127 H (74-99) mg/dL POC Glucose (mg/dL) 135 H (75-99) mg/dL ALT 53 H (4-49) U/L Total Protein 5.9 L (6.3-8.2) g/dL Albumin 3.2 L (3.5-5.0) g/dL 11/19/19 11/19/19 11/20/19 Range/Units 16:40 21:19 06:25 WBC (3.8-10.6) k/uL RBC (4.30-5.90) m/uL Hgb (13.0-17.5) gm/dL Hct (39.0-53.0) % Neutrophils # (1.3-7.7) k/uL Lymphocytes # (1.0-4.8) k/uL Sodium (137-145) mmol/L Creatinine (0.66-1.25) mg/dL Glucose (74-99) mg/dL POC Glucose (mg/dL) 191 H 205 H 126 H (75-99) mg/dL ALT (4-49) U/L Total Protein (6.3-8.2) g/dL Albumin (3.5-5.0) g/dL 11/20/19 11/20/19 Range/Units 07:59 07:59 WBC 11.5 H (3.8-10.6) k/uL RBC 3.55 L (4.30-5.90) m/uL Hgb 11.0 L (13.0-17.5) gm/dL Hct 33.7 L (39.0-53.0) % Neutrophils # 10.9 H (1.3-7.7) k/uL Lymphocytes # 0.2 L (1.0-4.8) k/uL Sodium 132 L (137-145) mmol/L Creatinine 0.53 L (0.66-1.25) mg/dL Glucose 117 H (74-99) mg/dL POC Glucose (mg/dL) (75-99) mg/dL ALT (4-49) U/L Total Protein 5.8 L (6.3-8.2) g/dL Albumin 3.1 L (3.5-5.0) g/dL Microbiology - Last 24 Hours (Table) 11/17/19 16:22 Blood Culture - Preliminary Blood No Growth after 48 hours Assessment and Plan Plan: 1. Worsening shortness of breath, with chest x-ray revealing bilateral infiltrates, this could be pneumonia related to immune therapy versus bacterial infection, patient was started on IV antibiotics and IV steroids, pulmonary consultation request 2. Underlying history of squamous cell carcinoma of the right upper lobe, status post surgery and chemotherapy in 2010, and more recently immune therapy that was discontinued in the beginning of October 2019 3. Underlying history of hypertension well-controlled on current medications 4. Underlying history of hypothyroidism maintained on Synthroid 5. Underlying history of hyperlipidemia 6. Underlying history of chronic neck and back pain maintained on [place] for pain management At this time patient is admitted to medical floor, he was started on IV antibiotic and IV steroids Pulmonary consultation requested patient is well known to Dr. Dietz For DVT prophylaxis we will use Lovenox 40 mg subcu daily For GI prophylaxis we'll use Protonix Will follow during this admission for medical management
[2019-11-20 12:26] LABS: Glucose,Whole Blood 170 mg/dL (75-99)
--- NOTE | 2019-11-20 12:29 | P.PN ---
Subjective Progress Note Date: 11/20/19 The patient states that since his respiratory status feels about the same subjectively looks improved. No fever/chills/nausea/vomiting/obvious bleeding. He continues to have a dry cough. Objective - Vital Signs Vital signs: Vital Signs Temp 97.6 F 11/20/19 04:00 Pulse 95 11/20/19 04:00 Resp 18 11/20/19 04:00 BP 130/62 11/20/19 04:00 Pulse Ox 94 L 11/20/19 04:00 Intake & Output 11/19/19 11/20/19 11/20/19 18:59 06:59 18:59 Intake Total 580 293.333 Balance 580 293.333 Weight 83 kg Intake: IV 250 Infliximab-Dyyb 400 mg In 250 Sodium Chloride 0.9% 250 ml @ Per Protocol IV . Q0M NR Rx#:[id number] Intake, IV Titration 43.333 Amount Infliximab-Dyyb 400 mg In 43.333 Sodium Chloride 0.9% 250 ml @ Per Protocol IV . Q0M NR Rx#:[id number] Oral 580 Other: Voiding Method Urinal # Voids 2 1 - Constitutional General appearance: Present: no acute distress - EENT Eyes: Present: EOMI ENT: Present: hearing grossly normal, normal oropharynx - Respiratory Respiratory: bilateral: CTA - Cardiovascular Rhythm: regular Heart sounds: normal: S1, S2 - Gastrointestinal General gastrointestinal: Present: normal bowel sounds, soft - Integumentary Integumentary: Present: normal - Neurologic Neurologic: Present: CNII-XII intact - Musculoskeletal Musculoskeletal: Present: generalized weakness, strength equal bilaterally - Labs CBC & Chem 7: 11/20/19 07:59 11/20/19 07:59 Labs: Abnormal Lab Results - Last 24 Hours (Table) 11/19/19 11/19/19 11/19/19 Range/Units 12:52 12:52 16:40 WBC 13.0 H (3.8-10.6) k/uL RBC 3.62 L (4.30-5.90) m/uL Hgb 11.2 L (13.0-17.5) gm/dL Hct 34.1 L (39.0-53.0) % Neutrophils # 12.4 H (1.3-7.7) k/uL Lymphocytes # 0.1 L (1.0-4.8) k/uL Sodium 132 L (137-145) mmol/L Creatinine 0.56 L (0.66-1.25) mg/dL Glucose 127 H (74-99) mg/dL POC Glucose (mg/dL) 191 H (75-99) mg/dL ALT 53 H (4-49) U/L Total Protein 5.9 L (6.3-8.2) g/dL Albumin 3.2 L (3.5-5.0) g/dL 11/19/19 11/20/19 11/20/19 Range/Units 21:19 06:25 07:59 WBC 11.5 H (3.8-10.6) k/uL RBC 3.55 L (4.30-5.90) m/uL Hgb 11.0 L (13.0-17.5) gm/dL Hct 33.7 L (39.0-53.0) % Neutrophils # 10.9 H (1.3-7.7) k/uL Lymphocytes # 0.2 L (1.0-4.8) k/uL Sodium (137-145) mmol/L Creatinine (0.66-1.25) mg/dL Glucose (74-99) mg/dL POC Glucose (mg/dL) 205 H 126 H (75-99) mg/dL ALT (4-49) U/L Total Protein (6.3-8.2) g/dL Albumin (3.5-5.0) g/dL 11/20/19 Range/Units 07:59 WBC (3.8-10.6) k/uL RBC (4.30-5.90) m/uL Hgb (13.0-17.5) gm/dL Hct (39.0-53.0) % Neutrophils # (1.3-7.7) k/uL Lymphocytes # (1.0-4.8) k/uL Sodium 132 L (137-145) mmol/L Creatinine 0.53 L (0.66-1.25) mg/dL Glucose 117 H (74-99) mg/dL POC Glucose (mg/dL) (75-99) mg/dL ALT (4-49) U/L Total Protein 5.8 L (6.3-8.2) g/dL Albumin 3.1 L (3.5-5.0) g/dL Microbiology - Last 24 Hours (Table) 11/17/19 16:22 Blood Culture - Preliminary Blood No Growth after 48 hours Assessment and Plan (1) Acute pneumonia Narrative/Plan: The patient is actually having an exacerbation of what is felt to be 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 He is currently on IV steroids. He also received infliximab for the same yesterday. - He was advised that the infliximab is more for preventing a relapse when the patient is tapered off the steroids. Acute control would be from ongoing steroid dosing. On exam the patient does appear to be in less distress. Lung sounds are also improved. Therefore continue IV steroids and start to taper once patient starts showing improvement in symptoms. Current Visit: Yes Status: Acute Code(s): J18.9 - PNEUMONIA, UNSPECIFIED ORGANISM SNOMED Code(s): 881634550 (2) Squamous cell lung cancer Narrative/Plan: Treatment is currently on hold until acute situation resolves. Patient will follow-up with Dr. Patino after discharge to set up new treatment plan. Current Visit: Yes Status: Acute Code(s): C34.90 - MALIGNANT NEOPLASM OF UNSP PART OF UNSP BRONCHUS OR LUNG SNOMED Code(s): 270096983
--- NOTE | 2019-11-20 15:11 | P.PN ---
Subjective Progress Note Date: 11/20/19 Principal diagnosis: Bilateral pneumonia This is a pleasant 59-year-old gentleman who was admitted with complaints of increasing shortness of breath cough and congestion. 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 Previous right upper lobectomy in 2010 and more recently receiving chemo-radiation. He was recently here in October 2019. Today he is feeling about the same. Resting flat in bed. No worsening shortness of breath. Maintaining O2 saturations in the 90s on 5 L high flow nasal cannula. Afebrile. Hemodynamically stable. He states the breathing treatments seemed to make him worse. He's been declining them. Today's chest x-ray shows similar findings with abnormal density in the left midlung somewhat more confluent. Correlate for pneumonia/atelectasis. Culture reveals no growth to date. White count 11.5. Hemoglobin 11.0. Sodium 132. Potassium 4.5. Creatinine 0.53. 0.9 at 100 ML's per hour. Continued on IV Solu-Medrol. Antibiotics in form of azithromycin. He did receive a dose of infliximab-DYYB last evening. Objective - Vital Signs Vital signs: Vital Signs Temp 97.6 F 11/20/19 04:00 Pulse 95 11/20/19 04:00 Resp 18 11/20/19 04:00 BP 130/62 11/20/19 04:00 Pulse Ox 94 L 11/20/19 04:00 Intake & Output 11/19/19 11/20/19 11/20/19 18:59 06:59 18:59 Intake Total 580 293.333 Balance 580 293.333 Weight 83 kg Intake: IV 250 Infliximab-Dyyb 400 mg In 250 Sodium Chloride 0.9% 250 ml @ Per Protocol IV . Q0M NR Rx#:[id number] Intake, IV Titration 43.333 Amount Infliximab-Dyyb 400 mg In 43.333 Sodium Chloride 0.9% 250 ml @ Per Protocol IV . Q0M NR Rx#:[id number] Oral 580 Other: Voiding Method Urinal # Voids 2 1 - Exam GENERAL EXAM: Alert, pleasant 59-year-old gentleman on 5 L high flow nasal cannula with O2 saturations in the 90s, comfortable in no apparent distress. HEAD: Normocephalic. EYES: Normal reaction of pupils, equal size. NOSE: Clear with pink turbinates. THROAT: No erythema or exudates. NECK: No masses, no JVD. CHEST: No chest wall deformity. LUNGS: Equal air entry with bilateral scattered rhonchi. CVS: S1 and S2 normal with no audible murmur, regular rhythm. ABDOMEN: No hepatosplenomegaly, normal bowel sounds, no guarding or rigidity. SPINE: No scoliosis or deformity SKIN: No rashes CENTRAL NERVOUS SYSTEM: No focal deficits, tone is normal in all 4 extremities. EXTREMITIES: There is no peripheral edema. No clubbing, no cyanosis. Peripheral pulses are intact. - Labs CBC & Chem 7: 11/20/19 07:59 11/20/19 07:59 Labs: Abnormal Lab Results - Last 24 Hours (Table) 11/19/19 11/19/19 11/20/19 Range/Units 16:40 21:19 06:25 WBC (3.8-10.6) k/uL RBC (4.30-5.90) m/uL Hgb (13.0-17.5) gm/dL Hct (39.0-53.0) % Neutrophils # (1.3-7.7) k/uL Lymphocytes # (1.0-4.8) k/uL Sodium (137-145) mmol/L Creatinine (0.66-1.25) mg/dL Glucose (74-99) mg/dL POC Glucose (mg/dL) 191 H 205 H 126 H (75-99) mg/dL Total Protein (6.3-8.2) g/dL Albumin (3.5-5.0) g/dL 11/20/19 11/20/19 11/20/19 Range/Units 07:59 07:59 12:18 WBC 11.5 H (3.8-10.6) k/uL RBC 3.55 L (4.30-5.90) m/uL Hgb 11.0 L (13.0-17.5) gm/dL Hct 33.7 L (39.0-53.0) % Neutrophils # 10.9 H (1.3-7.7) k/uL Lymphocytes # 0.2 L (1.0-4.8) k/uL Sodium 132 L (137-145) mmol/L Creatinine 0.53 L (0.66-1.25) mg/dL Glucose 117 H (74-99) mg/dL POC Glucose (mg/dL) 170 H (75-99) mg/dL Total Protein 5.8 L (6.3-8.2) g/dL Albumin 3.1 L (3.5-5.0) g/dL Microbiology - Last 24 Hours (Table) 11/17/19 16:22 Blood Culture - Preliminary Blood No Growth after 48 hours Assessment and Plan Assessment: 1 Acute bilateral pneumonia 2 Acute exacerbation of chronic obstructive pulmonary disease secondary to above 3 Acute hypoxic respiratory failure secondary to above 4 Recurrent squamous cell carcinoma of the lung, status post right upper lobectomy in 2000 MR recently chemoradiation and stereotactic body radiotherapy to the right lower lobe 5 History of chronic tobacco dependence 6 Moderate COPD with an FEV1 by a 77% of predicted 7 History of hypertension 8 Hyperlipidemia 9 Hearing disorder 10 History of GERD 11 Benign prostatic hypertrophy 12 Hypothyroidism Plan: The patient was seen and evaluated by Dr. Ludin Moe treatments discontinued per patient's request Family will bring in his home Trelegy inhaler to use Continue antibiotics Continue IV Solu-Medrol We'll continue to follow I, the cosigning physician, performed a history & physical examination of the patient. Lungs sounds bilateral scattered rhonchi. Maintaining good O2 saturations in the 90s on 5 L high flow nasal cannula. I discussed the assessment and plan of care with my nurse practitioner, Mera Estrada. I attest to the above note as dictated by her.
[2019-11-20 16:44] LABS: Glucose,Whole Blood 189 mg/dL (75-99)
[2019-11-20] MEDS: AZITHROMYCIN 500 MG TAB PO SCH (17:43)
[2019-11-20] MEDS: BACLOFEN 10 MG TAB PO SCH (20:08)
[2019-11-20] MEDS: ATORVASTATIN 10 MG TAB PO SCH (20:08)
[2019-11-20] MEDS: LOSARTAN 50 MG TAB PO SCH (20:08)
[2019-11-20 21:07] LABS: Glucose,Whole Blood 154 mg/dL (75-99)
[2019-11-20] MEDS: LORazepam 0.5 MG TAB PO PRN (22:12)
--- NOTE | 2019-11-20 23:07 | PN ---
PROGRESS NOTE DATE OF SERVICE: 11/20/2019 REASON FOR FOLLOWUP: Possible pneumonia. INTERVAL HISTORY: Patient is currently afebrile. The patient is still complaining of shortness of breath on minimal exertion. He did have a cough, moderate intensity but not bringing up any sputum. No chest pain. No nausea, no vomiting. No abdominal pain. PHYSICAL EXAMINATION: Blood pressure 125/72 with a pulse of 104. Temperature is 97.7. He is 92% on 5 L nasal cannula. General description is a middle-aged male lying in bed in no distress. Respiratory system: Unlabored breathing, decreased intensity of breath sounds. No wheeze. HEART: S1, S2. Regular rate and rhythm. ABDOMEN soft, no tenderness. LABS: Hemoglobin 11.1, white count 11.5, BUN of 20, creatinine 0.53. Blood culture negative. No sputum collected. DIAGNOSTIC IMPRESSION AND PLAN: Patient admitted to the hospital with fever, did have increasing shortness of breath with concern for possible pneumonia. Possible community-acquired as the patient clinically responding to the Rocephin and Zithromax to continue. Try to obtain a sputum and monitor clinical course closely. MMODL / IJN: [id number] /
[2019-11-21] MEDS: INSULIN ASPART (NovoLOG) 100 UNIT/ML VIAL SQ SCH ×5 (05:57→21:28)
[2019-11-21] MEDS: SODIUM CHLORIDE 0.9% 1,000 ML IV SCH ×2 (05:58→18:08)
[2019-11-21 06:22] LABS: Glucose,Whole Blood 116 mg/dL (75-99)
[2019-11-21] MEDS: LEVOTHYROXINE 125 MCG TAB PO SCH (06:42)
[2019-11-21] MEDS: methylPREDNISolone SOD SUCCI 125 MG/2 ML VIAL IV SCH ×4 (06:42→23:06)
[2019-11-21] MEDS: HYDROcodone/APAP 10-325MG 1 EACH TAB PO PRN ×4 (06:42→23:06)
[2019-11-21] MEDS: PANTOPRAZOLE 40 MG TABLET PO SCH (08:18)
[2019-11-21] MEDS: TAMSULOSIN 0.4 MG CAP.ER.24H PO SCH (08:18)
[2019-11-21] MEDS: ENOXAPARIN 40 MG/0.4 ML SYRINGE SQ SCH (08:18)
[2019-11-21] MEDS: SERTRALINE 100 MG TAB PO SCH (08:18)
[2019-11-21] MEDS: MULTIVITAMINS, THERA 1 EACH TAB PO SCH (08:18)
[2019-11-21] MEDS: amLODIPine 5 MG TAB PO SCH (08:18)
[2019-11-21 10:09] LABS: Basophils % (A) 0 %; Eosinophils % (A) 0 %; HCT 33.1 % (39.0-53.0); HGB 10.8 gm/dL (13.0-17.5); Lymphocytes # (A) 0.2 k/uL (1.0-4.8); Lymphocytes % (A) 2 %; MCH 30.6 pg (25.0-35.0); MCHC 32.7 g/dL (31.0-37.0); MCV 93.6 fL (80.0-100.0); Mean Platelet Volume 6.6; Monocytes # (A) 0.4 k/uL (0-1.0); Monocytes % (A) 4 %; Neutrophils # (A) 9.3 k/uL (1.3-7.7); Neutrophils % (A) 94 %; Platelet Count 219 k/uL (150-450); RBC 3.54 m/uL (4.30-5.90); RDW 13.1 % (11.5-15.5); WBC 9.9 k/uL (3.8-10.6)
[2019-11-21 10:17] LABS: ALT 36 U/L (4-49); AST 23 U/L (17-59); African American GFR (CKD) >90 (>60 ml/min/1.73 sqM); Albumin 3.2 g/dL (3.5-5.0); Alkaline Phosphatase 62 U/L (38-126); Anion Gap 5 mmol/L; Blood Urea Nitrogen 19 mg/dL (9-20); Calcium 8.9 mg/dL (8.4-10.2); Carbon Dioxide 25 mmol/L (22-30); Chloride 102 mmol/L (98-107); Glucose 144 mg/dL (74-99); Non-African American GFR(CKD) >90 (>60 ml/min/1.73 sqM); Potassium 3.6 mmol/L (3.5-5.1); Sodium 132 mmol/L (137-145); Total Bilirubin 0.5 mg/dL (0.2-1.3); Total Protein 5.9 g/dL (6.3-8.2)
--- NOTE | 2019-11-21 10:53 | P.PN ---
Subjective Progress Note Date: 11/21/19 Navi Coulter, is a 59-year-old male who presented to [facility] emergency room with a chief complaint of worsening shortness of breath patient was also complaining of cough and feeling feverish, otherwise he denies any complaints, he was evaluated in emergency room his temperature was 100.5 pulse 1:15 respiration 26 blood pressure 135/77 pulse ox 92% on 2 L nasal cannula, his white blood count was 12.2 hemoglobin 13.1 platelet count 225, sodium was 129 potassium 5.0 BUN 21 creatinine 0.72 lactic acid was elevated at 2.2 C-reactive protein was elevated at 39 patient was admitted to telemetry floor for further evaluation and treatment pulmonary consultation was requested. Patient was recently admitted to the intensive care unit, he had a prolonged admission, he was discharged on 11/06/2019 he received IV antibiotic and IV steroids, diagnosis at that time was pneumonitis related to immune therapy, he was discharged home on oral prednisone, he was followed as outpatient by Dr. Dietz, however his condition continued to worsen despite increasing dose of oral prednisone, and patient decided to return to emergency room on 11/17/2019. Patient has a known history of squamous cell carcinoma of the right upper lobe he underwent surgery in 2010 followed by chemotherapy he was followed by Dr. Patino and has been receiving immunotherapy until he was admitted in early October., His past medical history is also significant for history of hypertension, history of hypothyroidism, history of hyperlipidemia, and history of chronic neck and back pain. On review of systems patient is alert and oriented 3 in no apparent distress, he is complaining of fatigue and worsening shortness of breath, he has occasional cough with minimal sputum production, there is low grade fever and significant sweating, no headache or dizziness no chest pain no nausea or vomiting no abdominal pain no diarrhea no blood in the stools no burning with urination no frequency or urgency and no hematuria. On 11/19/2019 patient was seen and examined on the medical floor, he is alert and oriented 3 in no apparent distress, he is still complaining of shortness of breath, he has occasional cough with minimal sputum production otherwise he denies any complaints there is no fever or chills no headache or dizziness no chest pain no nausea or vomiting no abdominal pain no diarrhea no blood in the stools no burning with urination no frequency or urgency and no hematuria, pulmonary and oncology consultation placed On 11/20/2019 patient was seen and examined on the medical floor he is alert and oriented in no distress, he is complaining of worsening shortness of breath otherwise no complaints there is no fever or chills no headache or dizziness he has occasional cough no chest pain no nausea or vomiting no abdominal pain no diarrhea no blood in the stools no burning with urination no frequency or urgency and no hematuria On 11/21/2019 patient is alert and oriented 3. Patient still having significant shortness of breath and coughing. Patient remains on IV steroids and azithromycin. Pulmonary services are following. Patient denies chest pain. Patient denies nausea vomiting or diarrhea. Patient denies urinary burning or frequency. Infectious disease also following Objective - Vital Signs Vital signs: Vital Signs Temp 97.6 F 11/21/19 08:00 Pulse 98 11/21/19 08:00 Resp 22 11/21/19 08:00 BP 130/63 11/21/19 08:00 Pulse Ox 92 L 11/21/19 08:00 Intake & Output 11/20/19 11/21/19 11/21/19 18:59 06:59 18:59 Intake Total 485 240 Output Total 950 Balance 485 -710 Weight 80.5 kg Intake: Oral 485 240 Output: Urine 950 Other: Voiding Method Urinal Urinal Urinal # Voids 4 - Exam In general patient is alert and oriented 3 in no apparent distress HEENT head normocephalic and atraumatic Neck is supple no JVD no goiter no lymphadenopathy Chest exam reveals a scattered crackles in both lung bases no wheezing Cardiac exam reveals regular heart sounds S1 and S2 no gallops no murmurs Abdomen is soft nontender no organomegaly with normal bowel sounds Extremity exam reveals no edema no cyanosis or clubbing Neurological examination reveals no gross focal deficit - Labs CBC & Chem 7: 11/21/19 09:39 11/21/19 09:39 Labs: Abnormal Lab Results - Last 24 Hours (Table) 11/20/19 11/20/19 11/20/19 Range/Units 12:18 16:43 21:06 RBC (4.30-5.90) m/uL Hgb (13.0-17.5) gm/dL Hct (39.0-53.0) % Neutrophils # (1.3-7.7) k/uL Lymphocytes # (1.0-4.8) k/uL Sodium (137-145) mmol/L Creatinine (0.66-1.25) mg/dL Glucose (74-99) mg/dL POC Glucose (mg/dL) 170 H 189 H 154 H (75-99) mg/dL Total Protein (6.3-8.2) g/dL Albumin (3.5-5.0) g/dL 11/21/19 11/21/19 11/21/19 Range/Units 06:20 09:39 09:39 RBC 3.54 L (4.30-5.90) m/uL Hgb 10.8 L (13.0-17.5) gm/dL Hct 33.1 L (39.0-53.0) % Neutrophils # 9.3 H (1.3-7.7) k/uL Lymphocytes # 0.2 L (1.0-4.8) k/uL Sodium 132 L (137-145) mmol/L Creatinine 0.55 L (0.66-1.25) mg/dL Glucose 144 H (74-99) mg/dL POC Glucose (mg/dL) 116 H (75-99) mg/dL Total Protein 5.9 L (6.3-8.2) g/dL Albumin 3.2 L (3.5-5.0) g/dL Microbiology - Last 24 Hours (Table) 11/17/19 16:22 Blood Culture - Preliminary Blood No Growth after 72 hours Assessment and Plan Assessment: 1. Acute bilateral pneumonia pulmonary and infectious disease services following. Patient remains on azithromycin. 2. Acute exacerbation of COPD. pulmonary following. Patient remains on IV steroids 3. Underlying history of squamous cell carcinoma of the right upper lobe, status post surgery and chemotherapy in 2010, and more recently immune therapy that was discontinued in the beginning of October 2019 4. Underlying history of hypertension well-controlled on current medications 5. Underlying history of hypothyroidism maintained on Synthroid 6. Underlying history of hyperlipidemia 7. Underlying history of chronic neck and back pain maintained on Bim for pain management For DVT prophylaxis we will use Lovenox 40 mg subcu daily For GI prophylaxis we'll use Protonix Will follow during this admission for medical management Patient remains on antibiotics and IV steroids Pulmonary, oncology and infectious disease following I performed an examination of the patient and discussed their management with the Nurse Practitioner. I have reviewed the Nurse Practitioner's notes and agree with the documented findings and plan of care
[2019-11-21 12:11] LABS: Glucose,Whole Blood 131 mg/dL (75-99)
--- NOTE | 2019-11-21 14:54 | P.PN ---
Subjective Progress Note Date: 11/21/19 Principal diagnosis: Bilateral pneumonia This is a pleasant 59-year-old gentleman who was admitted with complaints of increasing shortness of breath cough and congestion. 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 Previous right upper lobectomy in 2010 and more recently receiving chemo-radiation. He was recently here in October 2019. Today he is feeling about the same. Resting flat in bed. No worsening shortness of breath. Maintaining O2 saturations in the 90s on 5 L high flow nasal cannula. Afebrile. Hemodynamically stable. He states the breathing treatments seemed to make him worse. He's been declining them. Today's chest x-ray shows similar findings with abnormal density in the left midlung somewhat more confluent. Correlate for pneumonia/atelectasis. Culture reveals no growth to date. White count 11.5. Hemoglobin 11.0. Sodium 132. Potassium 4.5. Creatinine 0.53. 0.9 at 100 ML's per hour. Continued on IV Solu-Medrol. Antibiotics in form of azithromycin. He did receive a dose of infliximab-DYYB last evening. The patient is seen today 11/21/2019 in follow-up on the selective care unit. He is currently sitting up at the bedside. Awake and alert in no acute distress. He is doing a bit better today compared to yesterday. Still requiring 5 L high flow nasal cannula to maintain O2 saturations in the 90s. He is afebrile. He's been initiated on his own Trelegy inhaler. Other bronchodilators discontinued per his request. Remains on IV Solu-Medrol. Remains on antibiotics. Blood culture reveals no growth. White count 9.9. Hemoglobin 10.8. Sodium 132. Potassium 3.6. Creatinine 0.55. Objective - Vital Signs Vital signs: Vital Signs Temp 97.6 F 11/21/19 08:00 Pulse 98 11/21/19 08:00 Resp 22 11/21/19 08:00 BP 130/63 11/21/19 08:00 Pulse Ox 92 L 11/21/19 08:00 Intake & Output 11/20/19 11/21/19 11/21/19 18:59 06:59 18:59 Intake Total 485 240 Output Total 950 Balance 485 -710 Weight 80.5 kg Intake: Oral 485 240 Output: Urine 950 Other: Voiding Method Urinal Urinal Urinal # Voids 4 - Exam GENERAL EXAM: Alert, pleasant 59-year-old gentleman on 5 L high flow nasal cannula with O2 saturations in the 90s, comfortable in no apparent distress. HEAD: Normocephalic. EYES: Normal reaction of pupils, equal size. NOSE: Clear with pink turbinates. THROAT: No erythema or exudates. NECK: No masses, no JVD. CHEST: No chest wall deformity. LUNGS: Equal air entry with bilateral scattered rhonchi. CVS: S1 and S2 normal with no audible murmur, regular rhythm. ABDOMEN: No hepatosplenomegaly, normal bowel sounds, no guarding or rigidity. SPINE: No scoliosis or deformity SKIN: No rashes CENTRAL NERVOUS SYSTEM: No focal deficits, tone is normal in all 4 extremities. EXTREMITIES: There is no peripheral edema. No clubbing, no cyanosis. Peripheral pulses are intact. - Labs CBC & Chem 7: 11/21/19 09:39 11/21/19 09:39 Labs: Abnormal Lab Results - Last 24 Hours (Table) 11/20/19 11/20/19 11/21/19 Range/Units 16:43 21:06 06:20 RBC (4.30-5.90) m/uL Hgb (13.0-17.5) gm/dL Hct (39.0-53.0) % Neutrophils # (1.3-7.7) k/uL Lymphocytes # (1.0-4.8) k/uL Sodium (137-145) mmol/L Creatinine (0.66-1.25) mg/dL Glucose (74-99) mg/dL POC Glucose (mg/dL) 189 H 154 H 116 H (75-99) mg/dL Total Protein (6.3-8.2) g/dL Albumin (3.5-5.0) g/dL 11/21/19 11/21/19 11/21/19 Range/Units 09:39 09:39 12:08 RBC 3.54 L (4.30-5.90) m/uL Hgb 10.8 L (13.0-17.5) gm/dL Hct 33.1 L (39.0-53.0) % Neutrophils # 9.3 H (1.3-7.7) k/uL Lymphocytes # 0.2 L (1.0-4.8) k/uL Sodium 132 L (137-145) mmol/L Creatinine 0.55 L (0.66-1.25) mg/dL Glucose 144 H (74-99) mg/dL POC Glucose (mg/dL) 131 H (75-99) mg/dL Total Protein 5.9 L (6.3-8.2) g/dL Albumin 3.2 L (3.5-5.0) g/dL Microbiology - Last 24 Hours (Table) 11/17/19 16:22 Blood Culture - Preliminary Blood No Growth after 72 hours Assessment and Plan Assessment: 1 Acute bilateral pneumonia 2 Acute exacerbation of chronic obstructive pulmonary disease secondary to above 3 Acute hypoxic respiratory failure secondary to above 4 Recurrent squamous cell carcinoma of the lung, status post right upper lobectomy in 2000 MR recently chemoradiation and stereotactic body radiotherapy to the right lower lobe 5 History of chronic tobacco dependence 6 Moderate COPD with an FEV1 by a 77% of predicted 7 History of hypertension 8 Hyperlipidemia 9 Hearing disorder 10 History of GERD 11 Benign prostatic hypertrophy 12 Hypothyroidism Plan: The patient was seen and evaluated by Dr. Noland He is improved today compared to yesterday Continue the patient's own Trelegy Continue antibiotics Continue IV Solu-Medrol Titrate down the FiO2 as tolerated We'll continue to follow I, the cosigning physician, performed a history & physical examination of the patient. Lungs sounds bilateral scattered rhonchi. Maintaining good O2 saturations in the 90s on 5 L high flow nasal cannula. I discussed the assessment and plan of care with my nurse practitioner, Mera Estrada. I attest to the above note as dictated by her.
[2019-11-21 17:24] LABS: Glucose,Whole Blood 174 mg/dL (75-99)
[2019-11-21] MEDS: AZITHROMYCIN 500 MG TAB PO SCH (18:07)
[2019-11-21] MEDS: ATORVASTATIN 10 MG TAB PO SCH (20:48)
[2019-11-21] MEDS: BACLOFEN 10 MG TAB PO SCH (20:48)
[2019-11-21] MEDS: LOSARTAN 50 MG TAB PO SCH (20:48)
[2019-11-21 21:13] LABS: Glucose,Whole Blood 192 mg/dL (75-99)
[2019-11-21] MEDS: LORazepam 0.5 MG TAB PO PRN (23:06)
[2019-11-22] MEDS: SODIUM CHLORIDE 0.9% 1,000 ML IV SCH ×3 (01:19→14:49)
--- NOTE | 2019-11-22 06:09 | PN ---
PROGRESS NOTE DATE OF SERVICE: 11/21/2019 REASON FOR FOLLOWUP: Pneumonia. INTERVAL HISTORY: The patient is currently afebrile. The patient is feeling slightly better. He was able to walk with less shortness of breath. He did have a cough, though decreased in intensity. Remains to be dry in nature. No chest pain. No abdominal pain or diarrhea. PHYSICAL EXAMINATION: Blood pressure 154/77 with a pulse of 94, temperature 97.8. He is 95% on 5 L nasal cannula. General description is a middle-aged male in the bed in no distress. Respiratory system: Unlabored breathing, decreased intensity of breath sounds. No wheeze. Heart S1, S2. Regular rate and rhythm. Abdomen is soft. No tenderness. LABS: Hemoglobin is 10.8, white count 9.9, BUN of 19, creatinine 0.55. Blood culture has been negative. Sputum not collected. DIAGNOSTIC IMPRESSION AND PLAN: Patient admitted to the hospital with low-grade fever, elevated white count, symptom of increasing shortness of breath, concern for pneumonia. Though the patient's fever resolved and white count normalized, covered with Rocephin and Zithromax to continue and monitor clinical course closely. Continue supportive care. MMODL / IJN: [id number] /
[2019-11-22 06:38] LABS: Glucose,Whole Blood 107 mg/dL (75-99)
[2019-11-22] MEDS: methylPREDNISolone SOD SUCCI 125 MG/2 ML VIAL IV SCH ×3 (07:12→18:10)
[2019-11-22] MEDS: HYDROcodone/APAP 10-325MG 1 EACH TAB PO PRN ×3 (07:12→20:24)
[2019-11-22] MEDS: LEVOTHYROXINE 125 MCG TAB PO SCH (07:12)
[2019-11-22 07:21] LABS: Basophils % (A) 0 %; Eosinophils % (A) 0 %; HCT 33.9 % (39.0-53.0); HGB 11.2 gm/dL (13.0-17.5); Lymphocytes # (A) 0.2 k/uL (1.0-4.8); Lymphocytes % (A) 3 %; MCH 30.9 pg (25.0-35.0); MCHC 32.9 g/dL (31.0-37.0); MCV 93.7 fL (80.0-100.0); Mean Platelet Volume 6.6; Monocytes # (A) 0.4 k/uL (0-1.0); Monocytes % (A) 5 %; Neutrophils # (A) 7.4 k/uL (1.3-7.7); Neutrophils % (A) 91 %; Platelet Count 226 k/uL (150-450); RBC 3.61 m/uL (4.30-5.90); RDW 12.8 % (11.5-15.5); WBC 8.2 k/uL (3.8-10.6)
[2019-11-22 07:37] LABS: ALT 34 U/L (4-49); AST 23 U/L (17-59); African American GFR (CKD) >90 (>60 ml/min/1.73 sqM); Albumin 3.3 g/dL (3.5-5.0); Alkaline Phosphatase 60 U/L (38-126); Anion Gap 4 mmol/L; Blood Urea Nitrogen 19 mg/dL (9-20); Calcium 9.2 mg/dL (8.4-10.2); Carbon Dioxide 27 mmol/L (22-30); Chloride 99 mmol/L (98-107); Glucose 111 mg/dL (74-99); Non-African American GFR(CKD) >90 (>60 ml/min/1.73 sqM); Potassium 4.3 mmol/L (3.5-5.1); Sodium 130 mmol/L (137-145); Total Bilirubin 0.5 mg/dL (0.2-1.3); Total Protein 5.9 g/dL (6.3-8.2)
[2019-11-22] MEDS: INSULIN ASPART (NovoLOG) 100 UNIT/ML VIAL SQ SCH ×4 (07:48→21:12)
[2019-11-22] MEDS: SERTRALINE 100 MG TAB PO SCH (09:13)
[2019-11-22] MEDS: amLODIPine 5 MG TAB PO SCH (09:13)
[2019-11-22] MEDS: ENOXAPARIN 40 MG/0.4 ML SYRINGE SQ SCH (09:13)
[2019-11-22] MEDS: TAMSULOSIN 0.4 MG CAP.ER.24H PO SCH (09:13)
[2019-11-22] MEDS: MULTIVITAMINS, THERA 1 EACH TAB PO SCH (09:13)
[2019-11-22] MEDS: TRELEGY ELLIPTA PO SCH (09:17)
[2019-11-22] MEDS: PANTOPRAZOLE 40 MG TABLET PO SCH (09:22)
[2019-11-22] MEDS ORDERED: RX INFO: IV CONTRAST WAS GIVEN 1 EACH MISC MISCELLANE PRN (11:14)
[2019-11-22 12:02] LABS: Glucose,Whole Blood 111 mg/dL (75-99)
--- NOTE | 2019-11-22 12:25 | CT ---
EXAMINATION TYPE: CT chest w con DATE OF EXAM: 11/22/2019 COMPARISON: 05/05/2018 HISTORY: Shortness of breath. History of lung cancer. CT DLP: 373.5 mGycm Automated exposure control for dose reduction was used. CONTRAST: CT scan of the chest is performed with IV Contrast, patient injected with 100 mL of Isovue 300. FINDINGS: LUNGS: Coarse interstitial and alveolar infiltrates are seen within the right upper lobe, right and l eft perihilar regions as well as the right lower lobe compatible with multifocal pneumonia. No eviden ce for distinct mass or pulmonary nodule. No pleural effusion. MEDIASTINUM: There are no greater than 1 cm hilar or mediastinal lymph nodes. No pericardial effusi on is seen. Thoracic aorta is of normal caliber. The heart is not enlarged. UPPER ABDOMEN: No significant abnormality appreciated. OTHER: No additional significant abnormality is seen. IMPRESSION: Coarse interstitial and alveolar infiltrates are seen within the right upper lobe, right and left per ihilar regions as well as the right lower lobe compatible with multifocal pneumonia.
--- NOTE | 2019-11-22 15:39 | P.PN ---
Subjective Progress Note Date: 11/22/19 Principal diagnosis: Bilateral pneumonia This is a pleasant 59-year-old gentleman who was admitted with complaints of increasing shortness of breath cough and congestion. 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 Previous right upper lobectomy in 2010 and more recently receiving chemo-radiation. He was recently here in October 2019. Today he is feeling about the same. Resting flat in bed. No worsening shortness of breath. Maintaining O2 saturations in the 90s on 5 L high flow nasal cannula. Afebrile. Hemodynamically stable. He states the breathing treatments seemed to make him worse. He's been declining them. Today's chest x-ray shows similar findings with abnormal density in the left midlung somewhat more confluent. Correlate for pneumonia/atelectasis. Culture reveals no growth to date. White count 11.5. Hemoglobin 11.0. Sodium 132. Potassium 4.5. Creatinine 0.53. 0.9 at 100 ML's per hour. Continued on IV Solu-Medrol. Antibiotics in form of azithromycin. He did receive a dose of infliximab-DYYB last evening. The patient is seen today 11/21/2019 in follow-up on the selective care unit. He is currently sitting up at the bedside. Awake and alert in no acute distress. He is doing a bit better today compared to yesterday. Still requiring 5 L high flow nasal cannula to maintain O2 saturations in the 90s. He is afebrile. He's been initiated on his own Trelegy inhaler. Other bronchodilators discontinued per his request. Remains on IV Solu-Medrol. Remains on antibiotics. Blood culture reveals no growth. White count 9.9. Hemoglobin 10.8. Sodium 132. Potassium 3.6. Creatinine 0.55. On November patient seen in follow-up on selective care unit, he remains on supplemental oxygen currently at 5 L pulse ox is 93%, afebrile, hemodynamically patient stable. Still dyspneic with exertion, does have occasional cough which has improved in intensity, mostly dry in nature, no chest pain, no abdominal pain or diarrhea, overall he is feeling slightly better, remains on antibiotic coverage in the form of azithromycin, patient continues on high-dose IV steroids, and nebulized bronchodilators. His blood culture has shown no growth thus far. He has had no fever or chills. Objective - Vital Signs Vital signs: Vital Signs Temp 97.6 F 11/22/19 11:32 Pulse 90 11/22/19 11:32 Resp 18 11/22/19 11:32 BP 147/76 11/22/19 11:32 Pulse Ox 93 L 11/22/19 11:32 Intake & Output 11/21/19 11/22/19 11/22/19 18:59 06:59 18:59 Intake Total 720 480 Output Total 300 Balance 720 -300 480 Weight 79.5 kg Intake: Oral 720 480 Output: Urine 300 Other: Voiding Method Urinal Urinal # Voids 2 2 - Exam GENERAL EXAM: Alert, very pleasant, 59-year-old white male, on 5 L of oxygen with pulse ox of 93-94% comfortable in no apparent distress. HEAD: Normocephalic/atraumatic. EYES: Normal reaction of pupils, equal size. Conjunctiva pink, sclera white. NOSE: Clear with pink turbinates. THROAT: No erythema or exudates. NECK: No masses, no JVD, no thyroid enlargement, no adenopathy. CHEST: No chest wall deformity. Symmetrical expansion. LUNGS: Equal air entry with basilar crackles. CVS: Regular rate and rhythm, normal S1 and S2, no gallops, no murmurs, no rubs ABDOMEN: Soft, nontender. No hepatosplenomegaly, normal bowel sounds, no guarding or rigidity. EXTREMITIES: No clubbing, no edema, no cyanosis, 2+ pulses and upper and lower extremities. MUSCULOSKELETAL: Muscle strength and tone normal. SPINE: No scoliosis or deformity SKIN: No rashes CENTRAL NERVOUS SYSTEM: Alert and oriented -3. No focal deficits, tone is normal in all 4 extremities. PSYCHIATRIC: Alert and oriented -3. Appropriate affect. Intact judgment and insight. - Labs CBC & Chem 7: 11/22/19 06:52 11/22/19 06:52 Labs: Abnormal Lab Results - Last 24 Hours (Table) 11/21/19 11/21/19 11/22/19 Range/Units 17:07 21:11 06:23 RBC (4.30-5.90) m/uL Hgb (13.0-17.5) gm/dL Hct (39.0-53.0) % Lymphocytes # (1.0-4.8) k/uL Sodium (137-145) mmol/L Creatinine (0.66-1.25) mg/dL Glucose (74-99) mg/dL POC Glucose (mg/dL) 174 H 192 H 107 H (75-99) mg/dL Total Protein (6.3-8.2) g/dL Albumin (3.5-5.0) g/dL 11/22/19 11/22/19 11/22/19 Range/Units 06:52 06:52 12:01 RBC 3.61 L (4.30-5.90) m/uL Hgb 11.2 L (13.0-17.5) gm/dL Hct 33.9 L (39.0-53.0) % Lymphocytes # 0.2 L (1.0-4.8) k/uL Sodium 130 L (137-145) mmol/L Creatinine 0.57 L (0.66-1.25) mg/dL Glucose 111 H (74-99) mg/dL POC Glucose (mg/dL) 111 H (75-99) mg/dL Total Protein 5.9 L (6.3-8.2) g/dL Albumin 3.3 L (3.5-5.0) g/dL Microbiology - Last 24 Hours (Table) 11/17/19 16:22 Blood Culture - Preliminary Blood No Growth after 96 hours Assessment and Plan Plan: Assessment: #1. Acute bilateral pneumonia. CT chest showed coarse interstitial alveolar infiltrates within the right upper lobe, right perihilar regions as well as right lower lobe compatible with multifocal pneumonia #2. Acute on chronic dyspnea related to the above with acute on chronic hypoxic respiratory failure #3. Acute exacerbation of chronic obstructive pulmonary disease #4. 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 History of recent hospitalization for acute hypoxic respiratory failure related to acute bilateral lower lobe pulmonary infiltrate secondary to immunotherapy related pneumonitis and patient recovered with the use of systemic steroids #6. History of COPD with the baseline FEV1 of 77% predicted, maintained on [place] and albuterol #7. History of squamous cell lung cancer of the right upper lobe, treated with right upper lobectomy followed by chemotherapy #8. Former smoker #9. Hypertension #10. Hyperlipidemia #11. Hypothyroidism Plan: We'll continue with the high-dose IV steroids, same antibiotics, CT chest has been reviewed with Dr. Dietz, patient was seen and evaluated by Dr. Dietz CT chest shows improvement in the appearance of left lung infiltrates compared to last computed tomography scan from his last admission, vital signs have been stable, overall breathing easier, continues on antibiotics, ID service is [facility], his had no fever or chills, continue with nebulized bronchodilators, we'll continue to follow I performed a history & physical examination of the patient and discussed their management with my nurse practitioner, Radha Trotter. I reviewed the nurse practitioner's note and agree with the documented findings and plan of care. Lung sounds are positive for diffuse wheezes The findings and the impression was discussed with the patient. I attest to the documentation by the nurse practitioner. Time with Patient: Less than 30
[2019-11-22 16:45] LABS: Glucose,Whole Blood 134 mg/dL (75-99)
[2019-11-22] MEDS: AZITHROMYCIN 500 MG TAB PO SCH (18:09)
--- NOTE | 2019-11-22 19:06 | P.PN ---
Subjective Progress Note Date: 11/22/19 Navi Coulter, is a 59-year-old male who presented to [facility] emergency room with a chief complaint of worsening shortness of breath patient was also complaining of cough and feeling feverish, otherwise he denies any complaints, he was evaluated in emergency room his temperature was 100.5 pulse 1:15 respiration 26 blood pressure 135/77 pulse ox 92% on 2 L nasal cannula, his white blood count was 12.2 hemoglobin 13.1 platelet count 225, sodium was 129 potassium 5.0 BUN 21 creatinine 0.72 lactic acid was elevated at 2.2 C-reactive protein was elevated at 39 patient was admitted to telemetry floor for further evaluation and treatment pulmonary consultation was requested. Patient was recently admitted to the intensive care unit, he had a prolonged admission, he was discharged on 11/06/2019 he received IV antibiotic and IV steroids, diagnosis at that time was pneumonitis related to immune therapy, he was discharged home on oral prednisone, he was followed as outpatient by Dr. Dietz, however his condition continued to worsen despite increasing dose of oral prednisone, and patient decided to return to emergency room on 11/17/2019. Patient has a known history of squamous cell carcinoma of the right upper lobe he underwent surgery in 2010 followed by chemotherapy he was followed by Dr. Patino and has been receiving immunotherapy until he was admitted in early October., His past medical history is also significant for history of hypertension, history of hypothyroidism, history of hyperlipidemia, and history of chronic neck and back pain. On review of systems patient is alert and oriented 3 in no apparent distress, he is complaining of fatigue and worsening shortness of breath, he has occasional cough with minimal sputum production, there is low grade fever and significant sweating, no headache or dizziness no chest pain no nausea or vomiting no abdominal pain no diarrhea no blood in the stools no burning with urination no frequency or urgency and no hematuria. On 11/19/2019 patient was seen and examined on the medical floor, he is alert and oriented 3 in no apparent distress, he is still complaining of shortness of breath, he has occasional cough with minimal sputum production otherwise he denies any complaints there is no fever or chills no headache or dizziness no chest pain no nausea or vomiting no abdominal pain no diarrhea no blood in the stools no burning with urination no frequency or urgency and no hematuria, pulmonary and oncology consultation placed On 11/20/2019 patient was seen and examined on the medical floor he is alert and oriented in no distress, he is complaining of worsening shortness of breath otherwise no complaints there is no fever or chills no headache or dizziness he has occasional cough no chest pain no nausea or vomiting no abdominal pain no diarrhea no blood in the stools no burning with urination no frequency or urgency and no hematuria. On 11/21/2019 patient was seen and examined on the medical floor, he is alert and oriented 3 in no distress he is still complaining of shortness of breath with any activity and occasional cough without any sputum production there is no fever or chills no headache or dizziness no chest pain, no nausea or vomiting no abdominal pain no diarrhea no blood in the stools no burning with urination no frequency or urgency and no hematuria Objective - Vital Signs Vital signs: Vital Signs Temp 97.6 F 11/22/19 11:32 Pulse 90 11/22/19 11:32 Resp 18 11/22/19 11:32 BP 147/76 11/22/19 11:32 Pulse Ox 93 L 11/22/19 11:32 Intake & Output 11/21/19 11/22/19 11/22/19 18:59 06:59 18:59 Intake Total 720 480 Output Total 300 Balance 720 -300 480 Weight 79.5 kg Intake: Oral 720 480 Output: Urine 300 Other: Voiding Method Urinal Urinal # Voids 2 2 - Exam In general patient is alert and oriented 3 in no apparent distress HEENT head normocephalic and atraumatic Neck is supple no JVD no goiter no lymphadenopathy Chest exam reveals a scattered crackles in both lung bases no wheezing Cardiac exam reveals regular heart sounds S1 and S2 no gallops no murmurs Abdomen is soft nontender no organomegaly with normal bowel sounds Extremity exam reveals no edema no cyanosis or clubbing Neurological examination reveals no gross focal deficit - Labs CBC & Chem 7: 11/22/19 06:52 11/22/19 06:52 Labs: Abnormal Lab Results - Last 24 Hours (Table) 11/21/19 11/21/19 11/22/19 Range/Units 17:07 21:11 06:23 RBC (4.30-5.90) m/uL Hgb (13.0-17.5) gm/dL Hct (39.0-53.0) % Lymphocytes # (1.0-4.8) k/uL Sodium (137-145) mmol/L Creatinine (0.66-1.25) mg/dL Glucose (74-99) mg/dL POC Glucose (mg/dL) 174 H 192 H 107 H (75-99) mg/dL Total Protein (6.3-8.2) g/dL Albumin (3.5-5.0) g/dL 11/22/19 11/22/19 11/22/19 Range/Units 06:52 06:52 12:01 RBC 3.61 L (4.30-5.90) m/uL Hgb 11.2 L (13.0-17.5) gm/dL Hct 33.9 L (39.0-53.0) % Lymphocytes # 0.2 L (1.0-4.8) k/uL Sodium 130 L (137-145) mmol/L Creatinine 0.57 L (0.66-1.25) mg/dL Glucose 111 H (74-99) mg/dL POC Glucose (mg/dL) 111 H (75-99) mg/dL Total Protein 5.9 L (6.3-8.2) g/dL Albumin 3.3 L (3.5-5.0) g/dL Microbiology - Last 24 Hours (Table) 11/17/19 16:22 Blood Culture - Preliminary Blood No Growth after 96 hours Assessment and Plan Plan: 1. Worsening shortness of breath, with chest x-ray revealing bilateral infiltrates, this could be pneumonia related to immune therapy versus bacterial infection, patient was started on IV antibiotics and IV steroids, pulmonary consultation request 2. Underlying history of squamous cell carcinoma of the right upper lobe, status post surgery and chemotherapy in 2010, and more recently immune therapy that was discontinued in the beginning of October 2019 3. Underlying history of hypertension well-controlled on current medications 4. Underlying history of hypothyroidism maintained on Synthroid 5. Underlying history of hyperlipidemia 6. Underlying history of chronic neck and back pain maintained on [place] for pain management At this time patient is admitted to medical floor, he was started on IV antibiotic and IV steroids Pulmonary consultation requested patient is well known to Dr. Dietz For DVT prophylaxis we will use Lovenox 40 mg subcu daily For GI prophylaxis we'll use Protonix Will follow during this admission for medical management
[2019-11-22] MEDS: ATORVASTATIN 10 MG TAB PO SCH (20:23)
[2019-11-22] MEDS: LOSARTAN 50 MG TAB PO SCH (20:23)
[2019-11-22] MEDS: LORazepam 0.5 MG TAB PO PRN (20:23)
[2019-11-22] MEDS: BACLOFEN 10 MG TAB PO SCH (20:24)
--- NOTE | 2019-11-22 20:46 | P.PN ---
Subjective Progress Note Date: 11/22/19 Principal diagnosis: Oneumonitis, Acute hypoxic respiratory failure He is status post Remicade on 11/19, he overall is feeling better, has been up all day. Walking halls, sitting in chair, took shower. We reviewed his CT a little today, deferred detailed review to pulmonology. He still feels like he wants to cough and something is stuck in lungs he cannot get out. He continues to require 5L NC to maintain oxygen greater than 90%. Objective - Vital Signs Vital signs: Vital Signs Temp 97.5 F L 11/22/19 15:36 Pulse 87 11/22/19 15:36 Resp 20 11/22/19 15:36 BP 155/72 11/22/19 15:36 Pulse Ox 94 L 11/22/19 15:36 Intake & Output 11/22/19 11/22/19 11/23/19 06:59 18:59 06:59 Intake Total 1140 Output Total 300 Balance -300 1140 Weight 79.5 kg Intake: Oral 1140 Output: Urine 300 Other: Voiding Method Urinal # Voids 2 - Exam Constitutional General appearance: cooperative, no acute distress - EENT Eyes: EOMI, PERRLA, poor dentition ENT: NA/AT, normal oropharynx - Neck Neck: normal ROM - Respiratory: increased effort Respiratory: bilateral: diminished, CTA - Cardiovascular Heart rate: 110 Rhythm: irregularly irregular - Gastrointestinal General gastrointestinal: normal bowel sounds, soft - Integumentary Integumentary: pale - Neurologic non-focal - Musculoskeletal Musculoskeletal: generalized weakness, strength equal bilaterally - Psychiatric Psychiatric: A&O x's 3, appropriate affect, intact judgment & insight - Labs CBC & Chem 7: 11/22/19 06:52 11/22/19 06:52 Labs: Abnormal Lab Results - Last 24 Hours (Table) 11/21/19 11/22/19 11/22/19 Range/Units 21:11 06:23 06:52 RBC 3.61 L (4.30-5.90) m/uL Hgb 11.2 L (13.0-17.5) gm/dL Hct 33.9 L (39.0-53.0) % Lymphocytes # 0.2 L (1.0-4.8) k/uL Sodium (137-145) mmol/L Creatinine (0.66-1.25) mg/dL Glucose (74-99) mg/dL POC Glucose (mg/dL) 192 H 107 H (75-99) mg/dL Total Protein (6.3-8.2) g/dL Albumin (3.5-5.0) g/dL 11/22/19 11/22/19 11/22/19 Range/Units 06:52 12:01 16:44 RBC (4.30-5.90) m/uL Hgb (13.0-17.5) gm/dL Hct (39.0-53.0) % Lymphocytes # (1.0-4.8) k/uL Sodium 130 L (137-145) mmol/L Creatinine 0.57 L (0.66-1.25) mg/dL Glucose 111 H (74-99) mg/dL POC Glucose (mg/dL) 111 H 134 H (75-99) mg/dL Total Protein 5.9 L (6.3-8.2) g/dL Albumin 3.3 L (3.5-5.0) g/dL Microbiology - Last 24 Hours (Table) 11/17/19 16:22 Blood Culture - Preliminary Blood No Growth after 120 hours Assessment and Plan Plan: Assessment and Recommendations: Refractory Penumonitis: - Status Post Remicade 11/19, potential to receive q8 weeks if need - Pulm following, CT repeated today - Continue steroids, although tapering to plan for long duration - Increased activity today - The patient is actually having an exacerbation of what is felt to be 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 He is currently on IV steroids. . Multifocal Pneumonia: - Review of CT represents multifocal pneumonia and interstitial infiltrates Acute on Chronic Hypoxic Respiratory Failure: - Status post bronch last admission - Pulm following - [place] to be secondary to radiation versus immune therapy pneumonitis. Unfortunately, which, although likely both contributed, will be difficult to exactly know. Although with Grade 3 or 4 pneumonitis, if immune therapy induced is recommended to discontinue future administrations. He will follow-up with Dr. Patino after discharge to discuss ongoing treatment plan. Squamous Cell Lung Cancer (Original dx 2010, recurrent RLL and LOLA in 2019) - Status Post SBRT RLL, Concurrent xrt/chemo LOLA. Now on Immune therapy with imfinzi - Last Imfinzi 10/26/19 - Primary Oncologist Dr. Patino SIRS: 2/ - Influenza, COVID, and Blood cultures negative - Sputum reviewed negative Normocytic Anemia:Stable - CBC Daily.
[2019-11-22 20:50] LABS: Glucose,Whole Blood 147 mg/dL (75-99)
--- NOTE | 2019-11-23 00:47 | PN ---
PROGRESS NOTE DATE OF SERVICE: 11/22/2019 REASON FOR FOLLOWUP: Pneumonia. INTERVAL HISTORY: The patient is currently afebrile. Still complaining of shortness of breath with minimal exertion off oxygen. No chest pain. Cough is about the same intensity, not bringing up any sputum. No nausea, no vomiting. No abdominal pain. No diarrhea. PHYSICAL EXAMINATION: Blood pressure 155/72 with a pulse of 87, temperature 97.5. He is 94% on 5 L nasal cannula. General description is a middle-aged male up in the bed in no distress. RESPIRATORY SYSTEM: Unlabored breathing, decreased intensity of breath sounds. No wheeze. HEART: S1, S2. Regular rate and rhythm. ABDOMEN: Soft, no tenderness. LABS: Hemoglobin 11.8, white count 8.2 with a creatinine 0.57. Liver enzymes have been normal. The patient did have a CT of the chest completed today which did show coarse interstitial and alveolar infiltrate within the right upper and bilateral perihilar regions. DIAGNOSTIC IMPRESSION AND PLAN: Patient with increasing shortness of breath which is multifactorial in this patient who did have a component of multifocal pneumonia. No sputum provided this admission. On previous admission, he did have a bronchoscopy and those cultures negative. The patient may benefit for repeat bronchoscopy and . Continue with Zithromax, steroids and monitor his clinical course closely. MMODL / IJN: [id number] /
[2019-11-23] MEDS: HYDROcodone/APAP 10-325MG 1 EACH TAB PO PRN ×3 (06:33→19:38)
[2019-11-23] MEDS: methylPREDNISolone SOD SUCCI 125 MG/2 ML VIAL IV SCH ×5 (06:33→23:55)
[2019-11-23] MEDS: LEVOTHYROXINE 125 MCG TAB PO SCH (06:33)
[2019-11-23 06:44] LABS: Glucose,Whole Blood 110 mg/dL (75-99)
[2019-11-23] MEDS: INSULIN ASPART (NovoLOG) 100 UNIT/ML VIAL SQ SCH ×4 (06:54→22:18)
[2019-11-23 07:37] LABS: ALT 31 U/L (4-49); AST 21 U/L (17-59); African American GFR (CKD) >90 (>60 ml/min/1.73 sqM); Albumin 3.5 g/dL (3.5-5.0); Alkaline Phosphatase 58 U/L (38-126); Anion Gap 5 mmol/L; Blood Urea Nitrogen 24 mg/dL (9-20); Calcium 9.1 mg/dL (8.4-10.2); Carbon Dioxide 27 mmol/L (22-30); Chloride 98 mmol/L (98-107); Glucose 112 mg/dL (74-99); Non-African American GFR(CKD) >90 (>60 ml/min/1.73 sqM); Potassium 4.4 mmol/L (3.5-5.1); Sodium 130 mmol/L (137-145); Total Bilirubin 0.6 mg/dL (0.2-1.3); Total Protein 6.2 g/dL (6.3-8.2)
[2019-11-23 07:45] LABS: Basophils # (A) 0.1 k/uL (0-0.2); Basophils % (A) 1 %; Eosinophils % (A) 0 %; HCT 36.8 % (39.0-53.0); HGB 12.3 gm/dL (13.0-17.5); Lymphocytes # (A) 0.2 k/uL (1.0-4.8); Lymphocytes % (A) 3 %; MCH 32.1 pg (25.0-35.0); MCHC 33.4 g/dL (31.0-37.0); MCV 96.3 fL (80.0-100.0); Mean Platelet Volume 6.8; Monocytes # (A) 0.4 k/uL (0-1.0); Monocytes % (A) 4 %; Neutrophils # (A) 7.9 k/uL (1.3-7.7); Neutrophils % (A) 92 %; Platelet Count 230 k/uL (150-450); RBC 3.82 m/uL (4.30-5.90); RDW 12.7 % (11.5-15.5); WBC 8.6 k/uL (3.8-10.6)
[2019-11-23] MEDS: TRELEGY ELLIPTA PO SCH (09:00)
[2019-11-23] MEDS: SODIUM CHLORIDE 0.9% 1,000 ML IV SCH ×2 (10:58→15:31)
[2019-11-23] MEDS: MULTIVITAMINS, THERA 1 EACH TAB PO SCH (10:59)
[2019-11-23] MEDS: amLODIPine 5 MG TAB PO SCH (10:59)
[2019-11-23] MEDS: SERTRALINE 100 MG TAB PO SCH (10:59)
[2019-11-23] MEDS: PANTOPRAZOLE 40 MG TABLET PO SCH (10:59)
[2019-11-23] MEDS: TAMSULOSIN 0.4 MG CAP.ER.24H PO SCH (10:59)
[2019-11-23] MEDS: ENOXAPARIN 40 MG/0.4 ML SYRINGE SQ SCH (10:59)
[2019-11-23 11:07] VITALS: BMI 27.4
[2019-11-23 11:44] LABS: Glucose,Whole Blood 129 mg/dL (75-99)
--- NOTE | 2019-11-23 13:34 | P.PN ---
Subjective Progress Note Date: 11/23/19 This is a pleasant 59-year-old gentleman who was admitted with complaints of increasing shortness of breath cough and congestion. 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 Previous right upper lobectomy in 2010 and more recently receiving chemo-radiation. He was recently here in October 2019. Today he is feeling about the same. Resting flat in bed. No worsening shortness of breath. Maintaining O2 saturations in the 90s on 5 L high flow nasal cannula. Afebrile. Hemodynamically stable. He states the breathing treatments seemed to make him worse. He's been declining them. Today's chest x-ray shows similar findings with abnormal density in the left midlung somewhat more confluent. Correlate for pneumonia/atelectasis. Culture reveals no growth to date. White count 11.5. Hemoglobin 11.0. Sodium 132. Potassium 4.5. Creatinine 0.53. 0.9 at 100 ML's per hour. Continued on IV Solu-Medrol. Antibiotics in form of azithromycin. He did receive a dose of i nfliximab-DYYB last evening. The patient is seen today 11/21/2019 in follow-up on the selective care unit. He is currently sitting up at the bedside. Awake and alert in no acute distress. He is doing a bit better today compared to yesterday. Still requiring 5 L high flow nasal cannula to maintain O2 saturations in the 90s. He is afebrile. He's been initiated on his own Trelegy inhaler. Other bronchodilators discontinued per his request. Remains on IV Solu-Medrol. Remains on antibiotics. Blood culture reveals no growth. White count 9.9. Hemoglobin 10.8. Sodium 132. Potassium 3.6. Creatinine 0.55. On November patient seen in follow-up on selective care unit, he remains o n supplemental oxygen currently at 5 L pulse ox is 93%, afebrile, hemodynamically patient stable. Still dyspneic with exertion, does have occasional cough which has improved in intensity, mostly dry in nature, no chest pain, no abdominal pain or diarrhea, overall he is feeling slightly better, estella ins on antibiotic coverage in the form of azithromycin, patient continues on high-dose IV steroids, and nebulized bronchodilators. His blood culture has shown no growth thus far. He has had no fever or chills. On 11/23/2019, I'm seeing the patient in follow-up. I reviewed the CAT scan of the chest that was done yesterday. Extensive groundglass changes that were seen in the lung bases have improved. there was some new positive changes in the upper lobe especially in the right upper lobe area and the left perihilar area. Upon comparing the 2 CAT scans that were done 3 weeks apart, with significant improvement in the bilateral pulmonary infiltrates was noted earlier. The patient has a low protein S a troponin level. He is currently on Zithromax. My overall suspicion for a underlying infection is low as the patient does not have any fever and a previous bronchoscopies yielded no microbial growth. The patient was also given a dose of Remicaderegarding the possibility of ILD/pne umonitis secondary to immunotherapy. He is ambulating. He remains on IV Solu- Medrol 60 mg every 6 hours. Objective - Vital Signs Vital signs: Vital Signs Temp 97.8 F 11/23/19 08:00 Pulse 85 11/23/19 08:00 Resp 16 11/23/19 08:00 BP 154/80 11/23/19 08:00 Pulse Ox 98 11/23/19 08:00 Intake & Output 11/22/19 11/23/19 11/23/19 18:59 06:59 18:59 Intake Total 1140 Output Total 0 Balance 1140 0 Weight 81.8 kg 81.8 kg Intake: Oral 1140 Output: Urine 0 Other: Voiding Method Urinal Urinal # Voids 2 2 1 # Bowel Movements 0 - Exam GENERAL EXAM: Alert, very pleasant, 59-year-old white male, on 5 L of oxygen with pulse ox of 93-94% comfortable in no apparent distress. HEAD: Normocephalic/atraumatic. EYES: Normal reaction of pupils, equal size. Conjunctiva pink, sclera white. NOSE: Clear with pink turbinates. THROAT: No erythema or exudates. NECK: No masses, no JVD, no thyroid enlargement, no adenopathy. CHEST: No chest wall deformity. Symmetrical expansion. LUNGS: Equal air entry with basilar crackles. CVS: Regular rate and rhythm, normal S1 and S2, no gallops, no murmurs, no rubs ABDOMEN: Soft, nontender. No hepatosplenomegaly, normal bowel sounds, no guarding or rigidity. EXTREMITIES: No clubbing, no edema, no cyanosis, 2+ pulses and upper and lower extremities. MUSCULOSKELETAL: Muscle strength and tone normal. SPINE: No scoliosis or deformity SKIN: No rashes CENTRAL NERVOUS SYSTEM: Alert and oriented -3. No focal deficits, tone is normal in all 4 extremities. PSYCHIATRIC: Alert and oriented -3. Appropriate affect. Intact judgment and insight. - Labs CBC & Chem 7: 11/23/19 06:55 11/23/19 06:55 Labs: Abnormal Lab Results - Last 24 Hours (Table) 11/22/19 11/22/19 11/23/19 Range/Units 16:44 20:48 06:29 RBC (4.30-5.90) m/uL Hgb (13.0-17.5) gm/dL Hct (39.0-53.0) % Neutrophils # (1.3-7.7) k/uL Lymphocytes # (1.0-4.8) k/uL Sodium (137-145) mmol/L BUN (9-20) mg/dL Creatinine (0.66-1.25) mg/dL Glucose (74-99) mg/dL POC Glucose (mg/dL) 134 H 147 H 110 H (75-99) mg/dL Total Protein (6.3-8.2) g/dL 11/23/19 11/23/19 11/23/19 Range/Units 06:55 06:55 11:42 RBC 3.82 L (4.30-5.90) m/uL Hgb 12.3 L (13.0-17.5) gm/dL Hct 36.8 L (39.0-53.0) % Neutrophils # 7.9 H (1.3-7.7) k/uL Lymphocytes # 0.2 L (1.0-4.8) k/uL Sodium 130 L (137-145) mmol/L BUN 24 H (9-20) mg/dL Creatinine 0.59 L (0.66-1.25) mg/dL Glucose 112 H (74-99) mg/dL POC Glucose (mg/dL) 129 H (75-99) mg/dL Total Protein 6.2 L (6.3-8.2) g/dL Microbiology - Last 24 Hours (Table) 11/17/19 16:22 Blood Culture - Preliminary Blood No Growth after 120 hours Assessment and Plan Plan: #1. Acute bilateral pneumonia. CT chest showed coarse interstitial alveolar infiltrates within the right upper lobe, right perihilar regions as well as right lower lobe compatible with multifocal pneumonia #2. Acute on chronic dyspnea related to the above with acute on chronic hypoxic respiratory failure #3. Acute exacerbation of chronic obstructive pulmonary disease #4. 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 History of recent hospitalization for acute hypoxic respiratory failure related to acute bilateral lower lobe pulmonary infiltrate secondary to immunotherapy related pneumonitis and patient recovered with the use of systemic steroids #6. History of COPD with the baseline FEV1 of 77% predicted, maintained on Trelegy Ellipta and albuterol #7. History of squamous cell lung cancer of the right upper lobe, treated with right upper lobectomy followed by chemotherapy #8. Former smoker #9. Hypertension #10. Hyperlipidemia #11. Hypothyroidism Plan The working diagnosis still pneumonitis sedated to immunotherapy given for non- small cell lung cancer. The patient has extensive groundglass changes in lung bases bilaterally which improved and the patient has some residual infiltration of the right upper lobe and the left perihilar area. The patient was treated with Remicade. The patient is on IV Solu-Medrol 60 mg every 6 hours. Oxygenation is stable at 5 L per minute nasal cannula. Clinically he is stable with without pneumonia. The pro calcitonin level was negative. he remains on zithromax which is an empiric antibiotic coverage. This will be a slow but progressive improvement. We'll continue to follow.
--- NOTE | 2019-11-23 16:35 | P.PN ---
Subjective Progress Note Date: 11/23/19 Principal diagnosis: Oneumonitis, Acute hypoxic respiratory failure Stable, not significantly im,proved, although activity improving Objective - Vital Signs Vital signs: Vital Signs Temp 97.5 F L 11/23/19 15:20 Pulse 105 H 11/23/19 15:20 Resp 16 11/23/19 15:20 BP 133/69 11/23/19 15:20 Pulse Ox 90 L 11/23/19 15:20 Intake & Output 11/22/19 11/23/19 11/23/19 18:59 06:59 18:59 Intake Total 1140 Output Total 0 Balance 1140 0 Weight 81.8 kg 81.8 kg Intake: Oral 1140 Output: Urine 0 Other: Voiding Method Urinal Urinal # Voids 2 2 1 # Bowel Movements 0 - Exam Constitutional General appearance: cooperative, no acute distress - EENT Eyes: EOMI, PERRLA, poor dentition ENT: NA/AT, normal oropharynx - Neck Neck: normal ROM - Respiratory: increased effort Respiratory: bilateral: diminished, CTA - Cardiovascular Heart rate: 110 Rhythm: irregularly irregular - Gastrointestinal General gastrointestinal: normal bowel sounds, soft - Integumentary Integumentary: pale - Neurologic non-focal - Musculoskeletal Musculoskeletal: generalized weakness, strength equal bilaterally - Psychiatric Psychiatric: A&O x's 3, appropriate affect, intact judgment & insight - Labs CBC & Chem 7: 11/23/19 06:55 11/23/19 06:55 Labs: Abnormal Lab Results - Last 24 Hours (Table) 11/22/19 11/22/19 11/23/19 Range/Units 16:44 20:48 06:29 RBC (4.30-5.90) m/uL Hgb (13.0-17.5) gm/dL Hct (39.0-53.0) % Neutrophils # (1.3-7.7) k/uL Lymphocytes # (1.0-4.8) k/uL Sodium (137-145) mmol/L BUN (9-20) mg/dL Creatinine (0.66-1.25) mg/dL Glucose (74-99) mg/dL POC Glucose (mg/dL) 134 H 147 H 110 H (75-99) mg/dL Total Protein (6.3-8.2) g/dL 1011/23/19 11/23/19 Range/Units 06:55 06:55 11:42 RBC 3.82 L (4.30-5.90) m/uL Hgb 12.3 L (13.0-17.5) gm/dL Hct 36.8 L (39.0-53.0) % Neutrophils # 7.9 H (1.3-7.7) k/uL Lymphocytes # 0.2 L (1.0-4.8) k/uL Sodium 130 L (137-145) mmol/L BUN 24 H (9-20) mg/dL Creatinine 0.59 L (0.66-1.25) mg/dL Glucose 112 H (74-99) mg/dL POC Glucose (mg/dL) 129 H (75-99) mg/dL Total Protein 6.2 L (6.3-8.2) g/dL Microbiology - Last 24 Hours (Table) 11/17/19 16:22 Blood Culture - Preliminary Blood No Growth after 120 hours Assessment and Plan Plan: Assessment and Recommendations: Refractory Penumonitis: - Status Post Remicade 11/19, potential to receive q8 weeks if need - Pulm following, CT repeated today - Continue steroids, although tapering to plan for long duration - Increased activity the past couple days, working on maintaining stamina - The patient is actually having an exacerbation of what is felt to be 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 He is currently on IV steroids. . Multifocal Pneumonia: - Review of CT represents multifocal pneumonia and interstitial infiltrates - Pulmonary management Acute on Chronic Hypoxic Respiratory Failure: - Status post bronch last admission - Pulm following - [place] to be secondary to radiation versus immune therapy pneumonitis. Unfortunately, which, although likely both contributed, will be difficult to exactly know. Although with Grade 3 or 4 pneumonitis, if immune therapy induced is recommended to discontinue future administrations. He will follow-up with Dr. Patino after discharge to discuss ongoing treatment plan. Squamous Cell Lung Cancer (Original dx 2010, recurrent RLL and LOLA in 2019) - Status Post SBRT RLL, Concurrent xrt/chemo LOLA. Now on Immune therapy with imfinzi - Last Imfinzi 10/26/19 - Primary Oncologist Dr. Patino SIRS: 2/4 - Influenza, COVID, and Blood cultures negative - Sputum reviewed negative Normocytic Anemia:Stable - CBC Daily. Physician Attest: I have completed the full history and physical and agree with above dictation, dictated as a scribe
[2019-11-23 16:40] LABS: Glucose,Whole Blood 129 mg/dL (75-99)
--- NOTE | 2019-11-23 17:34 | PN ---
PROGRESS NOTE DATE OF SERVICE: 11/23/2019 REASON FOR FOLLOWUP: Possible pneumonia. INTERVAL HISTORY: The patient is currently afebrile. The patient is breathing more comfortably today. The patient denies having any chest pain. Cough has decreased in intensity. No nausea, no vomiting. No abdominal pain or diarrhea. PHYSICAL EXAMINATION: Blood pressure 133/69 with a pulse of 105, temperature 97.5. He is 90% on 5 L nasal cannula. General description is a middle-aged male up in the bed in no distress. RESPIRATORY SYSTEM: Unlabored breathing with decreased intensity of breath sounds. No wheeze. HEART: S1, S2. Regular rate and rhythm. ABDOMEN: Soft. No tenderness. LABS: Hemoglobin is 12.3, white count 8.6, BUN of 24, creatinine 0.59. Blood culture has been negative. DIAGNOSTIC IMPRESSION AND PLAN: Patient admitted to hospital with increasing shortness of breath and cough with evidence of multifocal pneumonia on the CT and the chest x-ray. Patient is covered with Zithromax and steroids; to continue, as the patient seems to have clinically responded. Continue supportive care. MMODL / IJN: [id number] /
[2019-11-23] MEDS: AZITHROMYCIN 500 MG TAB PO SCH (17:35)
--- NOTE | 2019-11-23 18:15 | P.PN ---
Subjective Progress Note Date: 11/23/19 Navi Coulter, is a 59-year-old male who presented to [facility] emergency room with a chief complaint of worsening shortness of breath patient was also complaining of cough and feeling feverish, otherwise he denies any complaints, he was evaluated in emergency room his temperature was 100.5 pulse 1:15 respiration 26 blood pressure 135/77 pulse ox 92% on 2 L nasal cannula, his white blood count was 12.2 hemoglobin 13.1 platelet count 225, sodium was 129 potassium 5.0 BUN 21 creatinine 0.72 lactic acid was elevated at 2.2 C-reactive protein was elevated at 39 patient was admitted to telemetry floor for further evaluation and treatment pulmonary consultation was requested. Patient was recently admitted to the intensive care unit, he had a prolonged admission, he was discharged on 11/06/2019 he received IV antibiotic and IV steroids, diagnosis at that time was pneumonitis related to immune therapy, he was discharged home on oral prednisone, he was followed as outpatient by Dr. Dietz, however his condition continued to worsen despite increasing dose of oral prednisone, and patient decided to return to emergency room on 11/17/2019. Patient has a known history of squamous cell carcinoma of the right upper lobe he underwent surgery in 2010 followed by chemotherapy he was followed by Dr. Patino and has been receiving immunotherapy until he was admitted in early October., His past medical history is also significant for history of hypertension, history of hypothyroidism, history of hyperlipidemia, and history of chronic neck and back pain. On review of systems patient is alert and oriented 3 in no apparent distress, he is complaining of fatigue and worsening shortness of breath, he has occasional cough with minimal sputum production, there is low grade fever and significant sweating, no headache or dizziness no chest pain no nausea or vomiting no abdominal pain no diarrhea no blood in the stools no burning with urination no frequency or urgency and no hematuria. On 11/19/2019 patient was seen and examined on the medical floor, he is alert and oriented 3 in no apparent distress, he is still complaining of shortness of breath, he has occasional cough with minimal sputum production otherwise he denies any complaints there is no fever or chills no headache or dizziness no chest pain no nausea or vomiting no abdominal pain no diarrhea no blood in the stools no burning with urination no frequency or urgency and no hematuria, pulmonary and oncology consultation placed On 11/20/2019 patient was seen and examined on the medical floor he is alert and oriented in no distress, he is complaining of worsening shortness of breath otherwise no complaints there is no fever or chills no headache or dizziness he has occasional cough no chest pain no nausea or vomiting no abdominal pain no diarrhea no blood in the stools no burning with urination no frequency or urgency and no hematuria. On 11/21/2019 patient was seen and examined on the medical floor, he is alert and oriented 3 in no distress he is still complaining of shortness of breath with any activity and occasional cough without any sputum production there is no fever or chills no headache or dizziness no chest pain, no nausea or vomiting no abdominal pain no diarrhea no blood in the stools no burning with urination no frequency or urgency and no hematuria. On 11/22/2019 patient was seen and examined on the medical floor, he is alert and oriented 3 in no distress he is still complaining of shortness of breath and cough with minimal sputum production there is no fever or chills no headache or dizziness no chest pain, no nausea or vomiting no abdominal pain no diarrhea no blood in the stools no burning with urination no frequency or urgency and no hematuria On 11/23/2019 patient was seen and examined on the medical floor he is alert and oriented in no distress he is ambulating without difficulty he is still having shortness of breath with activity and occasional cough otherwise he denies any complaints there is no fever or chills no headache or dizziness no chest pain no palpitation no nausea or vomiting no abdominal pain no diarrhea no blood in the stools and no urinary symptoms Objective - Vital Signs Vital signs: Vital Signs Temp 97.8 F 11/23/19 08:00 Pulse 85 11/23/19 08:00 Resp 16 11/23/19 08:00 BP 154/80 11/23/19 08:00 Pulse Ox 98 11/23/19 08:00 Intake & Output 11/22/19 11/23/19 11/23/19 18:59 06:59 18:59 Intake Total 1140 Output Total 0 Balance 1140 0 Weight 81.8 kg 81.8 kg Intake: Oral 1140 Output: Urine 0 Other: Voiding Method Urinal Urinal # Voids 2 2 1 # Bowel Movements 0 - Exam In general patient is alert and oriented 3 in no apparent distress HEENT head normocephalic and atraumatic Neck is supple no JVD no goiter no lymphadenopathy Chest exam reveals a scattered crackles in both lung bases no wheezing Cardiac exam reveals regular heart sounds S1 and S2 no gallops no murmurs Abdomen is soft nontender no organomegaly with normal bowel sounds Extremity exam reveals no edema no cyanosis or clubbing Neurological examination reveals no gross focal deficit - Labs CBC & Chem 7: 11/23/19 06:55 11/23/19 06:55 Labs: Abnormal Lab Results - Last 24 Hours (Table) 11/22/19 11/22/19 11/23/19 Range/Units 16:44 20:48 06:29 RBC (4.30-5.90) m/uL Hgb (13.0-17.5) gm/dL Hct (39.0-53.0) % Neutrophils # (1.3-7.7) k/uL Lymphocytes # (1.0-4.8) k/uL Sodium (137-145) mmol/L BUN (9-20) mg/dL Creatinine (0.66-1.25) mg/dL Glucose (74-99) mg/dL POC Glucose (mg/dL) 134 H 147 H 110 H (75-99) mg/dL Total Protein (6.3-8.2) g/dL 11/23/19 11/23/19 11/23/19 Range/Units 06:55 06:55 11:42 RBC 3.82 L (4.30-5.90) m/uL Hgb 12.3 L (13.0-17.5) gm/dL Hct 36.8 L (39.0-53.0) % Neutrophils # 7.9 H (1.3-7.7) k/uL Lymphocytes # 0.2 L (1.0-4.8) k/uL Sodium 130 L (137-145) mmol/L BUN 24 H (9-20) mg/dL Creatinine 0.59 L (0.66-1.25) mg/dL Glucose 112 H (74-99) mg/dL POC Glucose (mg/dL) 129 H (75-99) mg/dL Total Protein 6.2 L (6.3-8.2) g/dL Microbiology - Last 24 Hours (Table) 11/17/19 16:22 Blood Culture - Preliminary Blood No Growth after 120 hours Assessment and Plan Plan: 1. Worsening shortness of breath, with chest x-ray revealing bilateral infilt rates, this could be pneumonia related to immune therapy versus bacterial infection, patient was started on IV antibiotics and IV steroids, pulmonary consultation request 2. Underlying history of squamous cell carcinoma of the right upper lobe, status post surgery and chemotherapy in 2010, and more recently immune therapy that was discontinued in the beginning of October 2019 3. Underlying history of hypertension well-controlled on current medications 4. Underlying history of hypothyroidism maintained on Synthroid 5. Underlying history of hyperlipidemia 6. Underlying history of chronic neck and back pain maintained on [place] for pain management At this time patient is admitted to medical floor, he was started on IV antibiotic and IV steroids Pulmonary consultation requested patient is well known to Dr. Dietz For DVT prophylaxis we will use Lovenox 40 mg subcu daily For GI prophylaxis we'll use Protonix Will follow during this admission for medical management
--- NOTE | 2019-11-23 18:53 | P.PN ---
Subjective Progress Note Date: 11/23/19 Navi Coulter, is a 59-year-old male who presented to [facility] emergency room with a chief complaint of worsening shortness of breath patient was also complaining of cough and feeling feverish, otherwise he denies any complaints, he was evaluated in emergency room his temperature was 100.5 pulse 1:15 respiration 26 blood pressure 135/77 pulse ox 92% on 2 L nasal cannula, his white blood count was 12.2 hemoglobin 13.1 platelet count 225, sodium was 129 potassium 5.0 BUN 21 creatinine 0.72 lactic acid was elevated at 2.2 C-reactive protein was elevated at 39 patient was admitted to telemetry floor for further evaluation and treatment pulmonary consultation was requested. Patient was recently admitted to the intensive care unit, he had a prolonged admission, he was discharged on 11/06/2019 he received IV antibiotic and IV steroids, diagnosis at that time was pneumonitis related to immune therapy, he was discharged home on oral prednisone, he was followed as outpatient by Dr. Dietz, however his condition continued to worsen despite increasing dose of oral prednisone, and patient decided to return to emergency room on 11/17/2019. Patient has a known history of squamous cell carcinoma of the right upper lobe he underwent surgery in 2010 followed by chemotherapy he was followed by Dr. Patino and has been receiving immunotherapy until he was admitted in early October., His past medical history is also significant for history of hypertension, history of hypothyroidism, history of hyperlipidemia, and history of chronic neck and back pain. On review of systems patient is alert and oriented 3 in no apparent distress, he is complaining of fatigue and worsening shortness of breath, he has occasional cough with minimal sputum production, there is low grade fever and significant sweating, no headache or dizziness no chest pain no nausea or vomiting no abdominal pain no diarrhea no blood in the stools no burning with urination no frequency or urgency and no hematuria. On 11/19/2019 patient was seen and examined on the medical floor, he is alert and oriented 3 in no apparent distress, he is still complaining of shortness of breath, he has occasional cough with minimal sputum production otherwise he denies any complaints there is no fever or chills no headache or dizziness no chest pain no nausea or vomiting no abdominal pain no diarrhea no blood in the stools no burning with urination no frequency or urgency and no hematuria, pulmonary and oncology consultation placed On 11/20/2019 patient was seen and examined on the medical floor he is alert and oriented in no distress, he is complaining of worsening shortness of breath otherwise no complaints there is no fever or chills no headache or dizziness he has occasional cough no chest pain no nausea or vomiting no abdominal pain no diarrhea no blood in the stools no burning with urination no frequency or urgency and no hematuria. On 11/21/2019 patient was seen and examined on the medical floor, he is alert and oriented 3 in no distress he is still complaining of shortness of breath with any activity and occasional cough without any sputum production there is no fever or chills no headache or dizziness no chest pain, no nausea or vomiting no abdominal pain no diarrhea no blood in the stools no burning with urination no frequency or urgency and no hematuria. On 11/22/2019 patient was seen and examined on the medical floor, he is alert and oriented 3 in no distress he is still complaining of shortness of breath and cough with minimal sputum production there is no fever or chills no headache or dizziness no chest pain, no nausea or vomiting no abdominal pain no diarrhea no blood in the stools no burning with urination no frequency or urgency and no hematuria On 11/23/2019 patient was seen and examined on the medical floor he is alert and oriented in no distress he is ambulating without difficulty he is still having shortness of breath with activity and occasional cough otherwise he denies any complaints there is no fever or chills no headache or dizziness no chest pain no palpitation no nausea or vomiting no abdominal pain no diarrhea no blood in the stools and no urinary symptoms. On Objective - Vital Signs Vital signs: Vital Signs Temp 97.8 F 11/23/19 17:32 Pulse 86 11/23/19 17:32 Resp 18 11/23/19 17:32 BP 136/71 11/23/19 17:32 Pulse Ox 96 11/23/19 17:32 Intake & Output 11/22/19 11/23/19 11/23/19 18:59 06:59 18:59 Intake Total 1140 Output Total 0 Balance 1140 0 Weight 81.8 kg 81.8 kg Intake: Oral 1140 Output: Urine 0 Other: Voiding Method Urinal Urinal # Voids 2 2 2 # Bowel Movements 0 - Exam In general patient is alert and oriented 3 in no apparent distress HEENT head normocephalic and atraumatic Neck is supple no JVD no goiter no lymphadenopathy Chest exam reveals a scattered crackles in both lung bases no wheezing Cardiac exam reveals regular heart sounds S1 and S2 no gallops no murmurs Abdomen is soft nontender no organomegaly with normal bowel sounds Extremity exam reveals no edema no cyanosis or clubbing Neurological examination reveals no gross focal deficit - Labs CBC & Chem 7: 11/23/19 06:55 11/23/19 06:55 Labs: Abnormal Lab Results - Last 24 Hours (Table) 11/22/19 11/23/19 11/23/19 Range/Units 20:48 06:29 06:55 RBC 3.82 L (4.30-5.90) m/uL Hgb 12.3 L (13.0-17.5) gm/dL Hct 36.8 L (39.0-53.0) % Neutrophils # 7.9 H (1.3-7.7) k/uL Lymphocytes # 0.2 L (1.0-4.8) k/uL Sodium (137-145) mmol/L BUN (9-20) mg/dL Creatinine (0.66-1.25) mg/dL Glucose (74-99) mg/dL POC Glucose (mg/dL) 147 H 110 H (75-99) mg/dL Total Protein (6.3-8.2) g/dL 11/23/19 11/23/19 11/23/19 Range/Units 06:55 11:42 16:39 RBC (4.30-5.90) m/uL Hgb (13.0-17.5) gm/dL Hct (39.0-53.0) % Neutrophils # (1.3-7.7) k/uL Lymphocytes # (1.0-4.8) k/uL Sodium 130 L (137-145) mmol/L BUN 24 H (9-20) mg/dL Creatinine 0.59 L (0.66-1.25) mg/dL Glucose 112 H (74-99) mg/dL POC Glucose (mg/dL) 129 H 129 H (75-99) mg/dL Total Protein 6.2 L (6.3-8.2) g/dL Microbiology - Last 24 Hours (Table) 11/17/19 16:22 Blood Culture - Final Blood No Growth after 144 hours Assessment and Plan Plan: 1. Worsening shortness of breath, with chest x-ray revealing bilateral infiltr ates, this could be pneumonia related to immune therapy versus bacterial infection, patient was started on IV antibiotics and IV steroids, pulmonary consultation request 2. Underlying history of squamous cell carcinoma of the right upper lobe, status post surgery and chemotherapy in 2010, and more recently immune therapy that was discontinued in the beginning of October 2019 3. Underlying history of hypertension well-controlled on current medications 4. Underlying history of hypothyroidism maintained on Synthroid 5. Underlying history of hyperlipidemia 6. Underlying history of chronic neck and back pain maintained on [place] for pain management At this time patient is admitted to medical floor, he was started on IV antibiotic and IV steroids Pulmonary consultation requested patient is well known to Dr. Dietz For DVT prophylaxis we will use Lovenox 40 mg subcu daily For GI prophylaxis we'll use Protonix Will follow during this admission for medical management
[2019-11-23 20:20] LABS: Glucose,Whole Blood 132 mg/dL (75-99)
[2019-11-23] MEDS: LORazepam 0.5 MG TAB PO PRN (22:19)
[2019-11-23] MEDS: BACLOFEN 10 MG TAB PO SCH (22:19)
[2019-11-23] MEDS: LOSARTAN 50 MG TAB PO SCH (22:19)
[2019-11-23] MEDS: ATORVASTATIN 10 MG TAB PO SCH (22:20)
[2019-11-24] MEDS: SODIUM CHLORIDE 0.9% 1,000 ML IV SCH ×3 (03:27→17:32)
[2019-11-24] MEDS: HYDROcodone/APAP 10-325MG 1 EACH TAB PO PRN ×4 (04:03→18:51)
[2019-11-24 06:22] LABS: Glucose,Whole Blood 102 mg/dL (75-99)
[2019-11-24] MEDS: methylPREDNISolone SOD SUCCI 125 MG/2 ML VIAL IV SCH ×3 (06:26→17:31)
[2019-11-24] MEDS: LEVOTHYROXINE 125 MCG TAB PO SCH (06:26)
[2019-11-24 06:47] LABS: Basophils % (A) 0 %; Eosinophils % (A) 0 %; HCT 37.3 % (39.0-53.0); HGB 12.1 gm/dL (13.0-17.5); Lymphocytes # (A) 0.2 k/uL (1.0-4.8); Lymphocytes % (A) 2 %; MCH 30.6 pg (25.0-35.0); MCHC 32.3 g/dL (31.0-37.0); MCV 94.5 fL (80.0-100.0); Monocytes # (A) 0.4 k/uL (0-1.0); Monocytes % (A) 5 %; Neutrophils # (A) 8.6 k/uL (1.3-7.7); Neutrophils % (A) 92 %; Platelet Count 261 k/uL (150-450); RBC 3.94 m/uL (4.30-5.90); RDW 13.4 % (11.5-15.5); WBC 9.4 k/uL (3.8-10.6)
[2019-11-24] MEDS: INSULIN ASPART (NovoLOG) 100 UNIT/ML VIAL SQ SCH ×4 (06:51→21:01)
[2019-11-24 06:54] LABS: ALT 34 U/L (4-49); AST 24 U/L (17-59); African American GFR (CKD) >90 (>60 ml/min/1.73 sqM); Albumin 3.5 g/dL (3.5-5.0); Alkaline Phosphatase 59 U/L (38-126); Anion Gap 5 mmol/L; Blood Urea Nitrogen 26 mg/dL (9-20); Calcium 9.2 mg/dL (8.4-10.2); Carbon Dioxide 28 mmol/L (22-30); Chloride 99 mmol/L (98-107); Glucose 112 mg/dL (74-99); Non-African American GFR(CKD) >90 (>60 ml/min/1.73 sqM); Potassium 4.5 mmol/L (3.5-5.1); Sodium 132 mmol/L (137-145); Total Bilirubin 0.7 mg/dL (0.2-1.3); Total Protein 6.2 g/dL (6.3-8.2)
[2019-11-24] MEDS: MULTIVITAMINS, THERA 1 EACH TAB PO SCH (08:14)
[2019-11-24] MEDS: PANTOPRAZOLE 40 MG TABLET PO SCH (08:15)
[2019-11-24] MEDS: SERTRALINE 100 MG TAB PO SCH (08:15)
[2019-11-24] MEDS: amLODIPine 5 MG TAB PO SCH (08:15)
[2019-11-24] MEDS: ENOXAPARIN 40 MG/0.4 ML SYRINGE SQ SCH (08:15)
[2019-11-24] MEDS: TAMSULOSIN 0.4 MG CAP.ER.24H PO SCH (08:15)
[2019-11-24 11:54] LABS: Glucose,Whole Blood 109 mg/dL (75-99)
--- NOTE | 2019-11-24 12:19 | CDI ---
Documentation Clarification Form Date: 11/24/2019 12:03:59 PM From: Lorena Hatch CCS, CCDS Admit Date: 11/17/2019 05:04:00 PM Patient Name: Navi Coulter Visit Number: [id number] Discharge Date: ATTENTION: The Clinical Documentation Specialists (CDI) and [facility] Coding Staff appreciate your assistance in clarifying documentation. Please respond to the clarification below the line at the bottom and electronically sign. The CDI & [facility] Coding staff will review the response and follow-up if needed. Please note: Queries are made part of the Legal Health Record. If you have any questions, please contact the author of this message via ITS. Dr. Ross Jensen: Per the 11/16 ED note, the patient is admitted for evaluation of fever, cough, congestion, bilateral pneumonia, admit for hemodynamic support. Recently admitted to ICU with pneumonia, discharged to home 11/06/2019 on po Prednisone. Condition worsened & was readmitted on 11/16. 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 Anxiety & Former smoker. Clinical Indicators: Patient presented to the ED on 11/16 with severe shortness of breath, fever & cough, recent diagnosis of pneumonia requiring hospitalization. Admitted with Bilateral Pneumonia. VS 11/16: T 100.5^, P 115^, R 26^ (sob, labored, accessory use), BP 135/77, PO 92 2Lnc LAB: WBC 12.2^, Neut 10.8^, Na 129*, BUN 21^, Lactic acid 2.2^^, Ferritin 378.5^, AST 92^, ALT 88^, Lactate Dehydrogenase 1212^, CRP 39.0^. 11/16 Blood culture: final negative. COVID-19: Negative Treatment 11/16: IV Azithromycin, IV Rocephin, IV Morphine, IV fluid bolus 2,000 mls @ 999 mls/hr, IV fluid 500 mls @ 999 mls/hr, IV fluid 1,000 mls @ 100 mls/hr, O2 2Lnc Consults: Infectious Disease, Pulmonary & Hematology/Oncology In your professional opinion, please clarify if these findings signify one of the following conditions, whether the condition is POA, and cause, if known: Sepsis Severe Sepsis Other, please specify Unable to determine o Present on Admission: Yes or No (Last Revision: May 2017) NO SEPSIS Patient has pneumonia related to immune therapy for cancer MTDD
--- NOTE | 2019-11-24 12:53 | P.PN ---
Subjective Progress Note Date: 11/24/19 Navi Coulter, is a 59-year-old male who presented to [facility] emergency room with a chief complaint of worsening shortness of breath patient was also complaining of cough and feeling feverish, otherwise he denies any complaints, he was evaluated in emergency room his temperature was 100.5 pulse 1:15 respiration 26 blood pressure 135/77 pulse ox 92% on 2 L nasal cannula, his white blood count was 12.2 hemoglobin 13.1 platelet count 225, sodium was 129 potassium 5.0 BUN 21 creatinine 0.72 lactic acid was elevated at 2.2 C-reactive protein was elevated at 39 patient was admitted to telemetry floor for further evaluation and treatment pulmonary consultation was requested. Patient was recently admitted to the intensive care unit, he had a prolonged admission, he was discharged on 11/06/2019 he received IV antibiotic and IV steroids, diagnosis at that time was pneumonitis related to immune therapy, he was discharged home on oral prednisone, he was followed as outpatient by Dr. Dietz, however his condition continued to worsen despite increasing dose of oral prednisone, and patient decided to return to emergency room on 11/17/2019. Patient has a known history of squamous cell carcinoma of the right upper lobe he underwent surgery in 2010 followed by chemotherapy he was followed by Dr. Patino and has been receiving immunotherapy until he was admitted in early October., His past medical history is also significant for history of hypertension, history of hypothyroidism, history of hyperlipidemia, and history of chronic neck and back pain. On review of systems patient is alert and oriented 3 in no apparent distress, he is complaining of fatigue and worsening shortness of breath, he has occasional cough with minimal sputum production, there is low grade fever and significant sweating, no headache or dizziness no chest pain no nausea or vomiting no abdominal pain no diarrhea no blood in the stools no burning with urination no frequency or urgency and no hematuria. On 11/19/2019 patient was seen and examined on the medical floor, he is alert and oriented 3 in no apparent distress, he is still complaining of shortness of breath, he has occasional cough with minimal sputum production otherwise he denies any complaints there is no fever or chills no headache or dizziness no chest pain no nausea or vomiting no abdominal pain no diarrhea no blood in the stools no burning with urination no frequency or urgency and no hematuria, pulmonary and oncology consultation placed On 11/20/2019 patient was seen and examined on the medical floor he is alert and oriented in no distress, he is complaining of worsening shortness of breath otherwise no complaints there is no fever or chills no headache or dizziness he has occasional cough no chest pain no nausea or vomiting no abdominal pain no diarrhea no blood in the stools no burning with urination no frequency or urgency and no hematuria. On 11/21/2019 patient was seen and examined on the medical floor, he is alert and oriented 3 in no distress he is still complaining of shortness of breath with any activity and occasional cough without any sputum production there is no fever or chills no headache or dizziness no chest pain, no nausea or vomiting no abdominal pain no diarrhea no blood in the stools no burning with urination no frequency or urgency and no hematuria. On 11/22/2019 patient was seen and examined on the medical floor, he is alert and oriented 3 in no distress he is still complaining of shortness of breath and cough with minimal sputum production there is no fever or chills no headache or dizziness no chest pain, no nausea or vomiting no abdominal pain no diarrhea no blood in the stools no burning with urination no frequency or urgency and no hematuria On 11/23/2019 patient was seen and examined on the medical floor he is alert and oriented in no distress he is ambulating without difficulty he is still having shortness of breath with activity and occasional cough otherwise he denies any complaints there is no fever or chills no headache or dizziness no chest pain no palpitation no nausea or vomiting no abdominal pain no diarrhea no blood in the stools and no urinary symptoms. On 11/24/2019 patient is alert and oriented 3. Patient reports that he does feel improved in regards to shortness of breath. Discussed case with pulmonary team. Recommend inpatient stay 1 more day and hopefully discharge tomorrow on 11/25/2019 patient remains on IV steroids. Patient denies chest pain. Patient denies nausea vomiting or diarrhea. Patient denies any urinary burning or frequency Objective - Vital Signs Vital signs: Vital Signs Temp 97.8 F 11/24/19 12:00 Pulse 78 11/24/19 12:00 Resp 17 11/24/19 12:00 BP 153/72 11/24/19 12:00 Pulse Ox 97 11/24/19 12:00 Intake & Output 11/23/19 11/24/19 11/24/19 18:59 06:59 18:59 Intake Total 236 Output Total 0 Balance 0 236 Weight 81.8 kg 82.1 kg Intake: Oral 236 Output: Urine 0 Other: Voiding Method Urinal Urinal # Voids 2 2 1 # Bowel Movements 0 - Exam In general patient is alert and oriented 3 in no apparent distress HEENT head normocephalic and atraumatic Neck is supple no JVD no goiter no lymphadenopathy Chest exam reveals a scattered crackles in both lung bases no wheezing Cardiac exam reveals regular heart sounds S1 and S2 no gallops no murmurs Abdomen is soft nontender no organomegaly with normal bowel sounds Extremity exam reveals no edema no cyanosis or clubbing Neurological examination reveals no gross focal deficit - Labs CBC & Chem 7: 11/24/19 06:29 11/24/19 06:29 Labs: Abnormal Lab Results - Last 24 Hours (Table) 11/23/19 11/23/19 11/24/19 Range/Units 16:39 20:18 06:20 RBC (4.30-5.90) m/uL Hgb (13.0-17.5) gm/dL Hct (39.0-53.0) % Neutrophils # (1.3-7.7) k/uL Lymphocytes # (1.0-4.8) k/uL Sodium (137-145) mmol/L BUN (9-20) mg/dL Creatinine (0.66-1.25) mg/dL Glucose (74-99) mg/dL POC Glucose (mg/dL) 129 H 132 H 102 H (75-99) mg/dL Total Protein (6.3-8.2) g/dL 11/24/19 11/24/19 11/24/19 Range/Units 06:29 06:29 11:53 RBC 3.94 L (4.30-5.90) m/uL Hgb 12.1 L (13.0-17.5) gm/dL Hct 37.3 L (39.0-53.0) % Neutrophils # 8.6 H (1.3-7.7) k/uL Lymphocytes # 0.2 L (1.0-4.8) k/uL Sodium 132 L (137-145) mmol/L BUN 26 H (9-20) mg/dL Creatinine 0.61 L (0.66-1.25) mg/dL Glucose 112 H (74-99) mg/dL POC Glucose (mg/dL) 109 H (75-99) mg/dL Total Protein 6.2 L (6.3-8.2) g/dL Microbiology - Last 24 Hours (Table) 11/17/19 16:22 Blood Culture - Final Blood No Growth after 144 hours Assessment and Plan Assessment: 1. Acute bilateral pneumonia pulmonary and infectious disease services followi ng. Patient remains on azithromycin. 2. Acute exacerbation of COPD. pulmonary following. Patient remains on IV steroids 3. Underlying history of squamous cell carcinoma of the right upper lobe, status post surgery and chemotherapy in 2010, and more recently immune therapy that was discontinued in the beginning of October 2019 4. Underlying history of hypertension well-controlled on current medications 5. Underlying history of hypothyroidism maintained on Synthroid 6. Underlying history of hyperlipidemia 7. Underlying history of chronic neck and back pain maintained on [place] for pain management For DVT prophylaxis we will use Lovenox 40 mg subcu daily For GI prophylaxis we'll use Protonix Will follow during this admission for medical management Patient remains on antibiotics and IV steroids Pulmonary, oncology and infectious disease following Per pulmonary possible discharge tomorrow 11/25/2019 I performed an examination of the patient and discussed their management with the Nurse Practitioner. I have reviewed the Nurse Practitioner's notes and agree with the documented findings and plan of care
--- NOTE | 2019-11-24 13:04 | P.PN ---
Subjective Progress Note Date: 11/24/19 Principal diagnosis: Bilateral pneumonia This is a pleasant 59-year-old gentleman who was admitted with complaints of increasing shortness of breath cough and congestion. 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 Previous right upper lobectomy in 2010 and more recently receiving chemo-radiation. He was recently here in October 2019. Today he is feeling about the same. Resting flat in bed. No worsening shortness of breath. Maintaining O2 saturations in the 90s on 5 L high flow nasal cannula. Afebrile. Hemodynamically stable. He states the breathing treatments seemed to make him worse. He's been declining them. Today's chest x-ray shows similar findings with abnormal density in the left midlung somewhat more confluent. Correlate for pneumonia/atelectasis. Culture reveals no growth to date. White count 11.5. Hemoglobin 11.0. Sodium 132. Potassium 4.5. Creatinine 0.53. 0.9 at 100 ML's per hour. Continued on IV Solu-Medrol. Antibiotics in form of azithromycin. He did receive a dose of infliximab-DYYB last evening. The patient is seen today 11/21/2019 in follow-up on the selective care unit. He is currently sitting up at the bedside. Awake and alert in no acute distress. He is doing a bit better today compared to yesterday. Still requiring 5 L high flow nasal cannula to maintain O2 saturations in the 90s. He is afebrile. He's been initiated on his own Trelegy inhaler. Other bronchodilators discontinued per his request. Remains on IV Solu-Medrol. Remains on antibiotics. Blood culture reveals no growth. White count 9.9. Hemoglobin 10.8. Sodium 132. Potassium 3.6. Creatinine 0.55. On November patient seen in follow-up on selective care unit, he remains on supplemental oxygen currently at 5 L pulse ox is 93%, afebrile, hemodynamically patient stable. Still dyspneic with exertion, does have occasional cough which has improved in intensity, mostly dry in nature, no chest pain, no abdominal pain or diarrhea, overall he is feeling slightly better, remains on antibiotic coverage in the form of azithromycin, patient continues on high-dose IV steroids, and nebulized bronchodilators. His blood culture has shown no growth thus far. He has had no fever or chills. On 11/24/2019 patient seen in follow-up on selective care unit, he is currently on 5 L of oxygen his pulse ox between 92-97%, hemodynamically patient stable, breathing seems comfortable on today's exam, no significant cough or congestion, or wheezing, lung sounds are diminished, at the bases, no crackles or rhonchi. His vital signs have been stable, blood cultures have been negative. Today's labs have been reviewed, showing white blood cell, 9.4, hemoglobin of 12.1, sodium is 132, the rest of electrolytes were within normal limits, BUN is 26 creatinine is 0.61. Patient continues on azithromycin for antibiotic coverage, and high-dose IV steroids 60 mg every 6 hours, and nebulized bronchodilator, we'll obtain a follow-up chest x-ray today, we'll continue to monitor the patient for another 24 hours. Denies any hemoptysis denies any chest pain. Objective - Vital Signs Vital signs: Vital Signs Temp 97.8 F 11/24/19 12:00 Pulse 78 11/24/19 12:00 Resp 17 11/24/19 12:00 BP 153/72 11/24/19 12:00 Pulse Ox 97 11/24/19 12:00 Intake & Output 11/23/19 11/24/19 11/24/19 18:59 06:59 18:59 Intake Total 236 Output Total 0 Balance 0 236 Weight 81.8 kg 82.1 kg Intake: Oral 236 Output: Urine 0 Other: Voiding Method Urinal Urinal Urinal # Voids 2 2 1 # Bowel Movements 0 - Exam GENERAL EXAM: Alert, very pleasant, 59-year-old white male, on 5 L of oxygen with pulse ox of 97% comfortable in no apparent distress. HEAD: Normocephalic/atraumatic. EYES: Normal reaction of pupils, equal size. Conjunctiva pink, sclera white. NOSE: Clear with pink turbinates. THROAT: No erythema or exudates. NECK: No masses, no JVD, no thyroid enlargement, no adenopathy. CHEST: No chest wall deformity. Symmetrical expansion. LUNGS: Equal air entry with basilar crackles. CVS: Regular rate and rhythm, normal S1 and S2, no gallops, no murmurs, no rubs ABDOMEN: Soft, nontender. No hepatosplenomegaly, normal bowel sounds, no guarding or rigidity. EXTREMITIES: No clubbing, no edema, no cyanosis, 2+ pulses and upper and lower extremities. MUSCULOSKELETAL: Muscle strength and tone normal. SPINE: No scoliosis or deformity SKIN: No rashes CENTRAL NERVOUS SYSTEM: Alert and oriented -3. No focal deficits, tone is normal in all 4 extremities. PSYCHIATRIC: Alert and oriented -3. Appropriate affect. Intact judgment and insight. - Labs CBC & Chem 7: 11/24/19 06:29 11/24/19 06:29 Labs: Abnormal Lab Results - Last 24 Hours (Table) 11/23/19 11/23/19 11/24/19 Range/Units 16:39 20:18 06:20 RBC (4.30-5.90) m/uL Hgb (13.0-17.5) gm/dL Hct (39.0-53.0) % Neutrophils # (1.3-7.7) k/uL Lymphocytes # (1.0-4.8) k/uL Sodium (137-145) mmol/L BUN (9-20) mg/dL Creatinine (0.66-1.25) mg/dL Glucose (74-99) mg/dL POC Glucose (mg/dL) 129 H 132 H 102 H (75-99) mg/dL Total Protein (6.3-8.2) g/dL 11/24/19 11/24/19 11/24/19 Range/Units 06:29 06:29 11:53 RBC 3.94 L (4.30-5.90) m/uL Hgb 12.1 L (13.0-17.5) gm/dL Hct 37.3 L (39.0-53.0) % Neutrophils # 8.6 H (1.3-7.7) k/uL Lymphocytes # 0.2 L (1.0-4.8) k/uL Sodium 132 L (137-145) mmol/L BUN 26 H (9-20) mg/dL Creatinine 0.61 L (0.66-1.25) mg/dL Glucose 112 H (74-99) mg/dL POC Glucose (mg/dL) 109 H (75-99) mg/dL Total Protein 6.2 L (6.3-8.2) g/dL Microbiology - Last 24 Hours (Table) 11/17/19 16:22 Blood Culture - Final Blood No Growth after 144 hours Assessment and Plan Plan: Assessment: #1. Acute bilateral pneumonia. CT chest showed coarse interstitial alveolar infiltrates within the right upper lobe, right perihilar regions as well as right lower lobe compatible with multifocal pneumonia #2. Acute on chronic dyspnea related to the above with acute on chronic hypoxic respiratory failure #3. Acute exacerbation of chronic obstructive pulmonary disease #4. 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 History of recent hospitalization for acute hypoxic respiratory failure related to acute bilateral lower lobe pulmonary infiltrate secondary to immunotherapy related pneumonitis and patient recovered with the use of systemic steroids #6. History of COPD with the baseline FEV1 of 77% predicted, maintained on [place] and albuterol #7. History of squamous cell lung cancer of the right upper lobe, treated with right upper lobectomy followed by chemotherapy #8. Former smoker #9. Hypertension #10. Hyperlipidemia #11. Hypothyroidism Plan: Continue current medical treatment, IV steroids, antibiotics, vital signs have been stable, no events overnight, increase activity as tolerated, we'll obtain follow-up chest x-ray today, will review and consider possible discharge in next 24 hours if he remains stable and continues to improve I performed a history & physical examination of the patient and discussed their management with my nurse practitioner, Radha Trotter. I reviewed the nurse practitioner's note and agree with the documented findings and plan of care. Lung sounds are positive for diffuse wheezes The findings and the impression was discussed with the patient. I attest to the documentation by the nurse practitioner. Time with Patient: Less than 30
--- NOTE | 2019-11-24 13:10 | XR ---
EXAMINATION TYPE: XR chest 2V DATE OF EXAM: 11/24/2019 CLINICAL HISTORY: Interstitial lung disease. Pneumonia. TECHNIQUE: Frontal and lateral views of the chest are obtained. COMPARISON: Chest radiograph 11/20/2019. CT chest 11/22/2019. FINDINGS: Multifocal multilobar patchy airspace opacities are moderately decreased versus 11/20/2019 c omparison. Underlying chronic interstitial lung disease changes and right apical rib resection postsu rgical changes redemonstrated. Cardiac mediastinal silhouette within normal limits for size. Elevatio n of the right hemidiaphragm. No pleural effusion or pneumothorax. IMPRESSION: Persistent multilobar patchy airspace opacities, moderately improved versus 11/20/[address] radiograph comparison.
[2019-11-24] MEDS: TRELEGY ELLIPTA PO SCH (14:11)
[2019-11-24 16:36] LABS: Glucose,Whole Blood 178 mg/dL (75-99)
[2019-11-24] MEDS: AZITHROMYCIN 500 MG TAB PO SCH (17:30)
[2019-11-24 20:30] LABS: Glucose,Whole Blood 137 mg/dL (75-99)
[2019-11-24] MEDS: ATORVASTATIN 10 MG TAB PO SCH (21:01)
[2019-11-24] MEDS: LOSARTAN 50 MG TAB PO SCH (21:01)
[2019-11-24] MEDS: BACLOFEN 10 MG TAB PO SCH (21:01)
[2019-11-24] MEDS: LORazepam 0.5 MG TAB PO PRN (21:01)
--- NOTE | 2019-11-24 22:27 | P.PN ---
Subjective Progress Note Date: 11/24/19 Principal diagnosis: Oneumonitis, Acute hypoxic respiratory failure Clinically he is feeling better. Still requiring oxygen supplementation 4-6L. Spoke with patients primary oncologist would like to plan on repeating remicade two weeks from last. Discussed with patient and also management of expectations as this will take time to improve. Objective - Vital Signs Vital signs: Vital Signs Temp 97.3 F L 11/24/19 16:11 Pulse 80 11/24/19 19:59 Resp 18 11/24/19 19:59 BP 161/73 11/24/19 19:59 Pulse Ox 96 11/24/19 19:59 Intake & Output 11/24/19 11/24/19 11/25/19 06:59 18:59 06:59 Intake Total 236 Balance 236 Weight 82.1 kg Intake: Oral 236 Other: Voiding Method Urinal Urinal # Voids 2 1 2 # Bowel Movements 1 - Exam Constitutional General appearance: cooperative, no acute distress - EENT Eyes: EOMI, PERRLA, poor dentition ENT: NA/AT, normal oropharynx - Neck Neck: normal ROM - Respiratory: increased effort Respiratory: bilateral: diminished, CTA - Cardiovascular Heart rate: 110 Rhythm: irregularly irregular - Gastrointestinal General gastrointestinal: normal bowel sounds, soft - Integumentary Integumentary: pale - Neurologic non-focal - Musculoskeletal Musculoskeletal: generalized weakness, strength equal bilaterally - Psychiatric Psychiatric: A&O x's 3, appropriate affect, intact judgment & insight - Labs CBC & Chem 7: 11/24/19 06:29 11/24/19 06:29 Labs: Abnormal Lab Results - Last 24 Hours (Table) 11/24/19 11/24/19 11/24/19 Range/Units 06:20 06:29 06:29 RBC 3.94 L (4.30-5.90) m/uL Hgb 12.1 L (13.0-17.5) gm/dL Hct 37.3 L (39.0-53.0) % Neutrophils # 8.6 H (1.3-7.7) k/uL Lymphocytes # 0.2 L (1.0-4.8) k/uL Sodium 132 L (137-145) mmol/L BUN 26 H (9-20) mg/dL Creatinine 0.61 L (0.66-1.25) mg/dL Glucose 112 H (74-99) mg/dL POC Glucose (mg/dL) 102 H (75-99) mg/dL Total Protein 6.2 L (6.3-8.2) g/dL 11/24/19 11/24/19 11/24/19 Range/Units 11:53 16:35 20:29 RBC (4.30-5.90) m/uL Hgb (13.0-17.5) gm/dL Hct (39.0-53.0) % Neutrophils # (1.3-7.7) k/uL Lymphocytes # (1.0-4.8) k/uL Sodium (137-145) mmol/L BUN (9-20) mg/dL Creatinine (0.66-1.25) mg/dL Glucose (74-99) mg/dL POC Glucose (mg/dL) 109 H 178 H 137 H (75-99) mg/dL Total Protein (6.3-8.2) g/dL Assessment and Plan Plan: Assessment and Recommendations: Refractory Penumonitis: - Status Post Remicade 11/19, potential to receive q2 weeks if need - Pulm following, CT repeated today - Continue steroids, although tapering to plan for long duration - Steroids decreased today to q12 versus q6. 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 He is currently on IV steroids. . Multifocal Pneumonia: - Review of CT represents multifocal pneumonia and interstitial infiltrates - Pulmonary management Acute on Chronic Hypoxic Respiratory Failure: - Status post bronch last admission - Pulm following - [place] to be secondary to radiation versus immune therapy pneumonitis. Unfortunately, which, although likely both contributed, will be difficult to exactly know. Although with Grade 3 or 4 pneumonitis, if immune therapy induced is recommended to discontinue future administrations. He will follow-up with Dr. Patino after discharge to discuss ongoing treatment plan. Squamous Cell Lung Cancer (Original dx 2010, recurrent RLL and LOLA in 2019) - Status Post SBRT RLL, Concurrent xrt/chemo LOLA. Now on Immune therapy with imfinzi - Last Imfinzi 10/26/19 - Primary Oncologist Dr. Patino SIRS: 2/4 - Influenza, COVID, and Blood cultures negative - Sputum reviewed negative Normocytic Anemia:Stable - CBC Daily. Physician Attest: I have completed the full history and physical and agree with above dictation, dictated as a scribe
--- NOTE | 2019-11-24 23:05 | PN ---
PROGRESS NOTE DATE OF SERVICE: 11/24/2019 REASON FOR FOLLOWUP: Pneumonia. INTERVAL HISTORY: The patient is currently afebrile. The patient is breathing more comfortably. The patient denies having any chest pain. Cough has decreased in intensity. No nausea, no vomiting, no abdominal pain or diarrhea. PHYSICAL EXAMINATION: Blood pressure is 161/73 with a pulse of 80, temperature 97.3. He is 96% on 4 L nasal cannula. General description is a middle-aged male up in the bed in no distress. RESPIRATORY SYSTEM: Unlabored breathing with decreased intensity of breath sounds. No wheeze. HEART: S1, S2. Regular rate and rhythm. ABDOMEN: Soft. No tenderness. EXTREMITIES: No edema of the feet. LABS: Hemoglobin is 12.9, white count 9.4, BUN of 26, creatinine 0.61. Blood culture has been negative. DIAGNOSTIC IMPRESSION AND PLAN: Patient with difficulty in breathing with evidence of multifocal pneumonia on his chest x-ray. Chest x-ray this morning did show some improvement. The patient is covered with Zithromax and steroids; to continue, and monitor his clinical course closely. MMODL / IJN: [id number] /
[2019-11-25 06:14] LABS: Glucose,Whole Blood 106 mg/dL (75-99)
[2019-11-25] MEDS: HYDROcodone/APAP 10-325MG 1 EACH TAB PO PRN ×2 (06:52→11:58)
[2019-11-25] MEDS: LEVOTHYROXINE 125 MCG TAB PO SCH (06:52)
[2019-11-25] MEDS: INSULIN ASPART (NovoLOG) 100 UNIT/ML VIAL SQ SCH ×2 (06:53→13:02)
[2019-11-25 08:06] VITALS: RESP 18; TEMP 97.6
[2019-11-25] MEDS: amLODIPine 5 MG TAB PO SCH (08:12)
[2019-11-25] MEDS: PANTOPRAZOLE 40 MG TABLET PO SCH (08:12)
[2019-11-25] MEDS: TAMSULOSIN 0.4 MG CAP.ER.24H PO SCH (08:12)
[2019-11-25] MEDS: MULTIVITAMINS, THERA 1 EACH TAB PO SCH (08:12)
[2019-11-25] MEDS: SERTRALINE 100 MG TAB PO SCH (08:12)
[2019-11-25] MEDS: ENOXAPARIN 40 MG/0.4 ML SYRINGE SQ SCH (08:13)
[2019-11-25 08:28] LABS: Basophils # (A) 0.1 k/uL (0-0.2); Basophils % (A) 1 %; Eosinophils % (A) 0 %; HCT 38.4 % (39.0-53.0); HGB 12.7 gm/dL (13.0-17.5); Lymphocytes # (A) 0.3 k/uL (1.0-4.8); Lymphocytes % (A) 3 %; MCH 32.3 pg (25.0-35.0); MCHC 33.1 g/dL (31.0-37.0); MCV 97.4 fL (80.0-100.0); Mean Platelet Volume 6.7; Monocytes # (A) 0.6 k/uL (0-1.0); Monocytes % (A) 5 %; Neutrophils # (A) 9.8 k/uL (1.3-7.7); Neutrophils % (A) 91 %; Platelet Count 275 k/uL (150-450); RBC 3.94 m/uL (4.30-5.90); WBC 10.8 k/uL (3.8-10.6)
[2019-11-25 08:41] LABS: ALT 32 U/L (4-49); AST 24 U/L (17-59); African American GFR (CKD) >90 (>60 ml/min/1.73 sqM); Albumin 3.7 g/dL (3.5-5.0); Alkaline Phosphatase 60 U/L (38-126); Anion Gap 6 mmol/L; Blood Urea Nitrogen 25 mg/dL (9-20); Calcium 9.4 mg/dL (8.4-10.2); Carbon Dioxide 24 mmol/L (22-30); Chloride 99 mmol/L (98-107); Glucose 117 mg/dL (74-99); Non-African American GFR(CKD) >90 (>60 ml/min/1.73 sqM); Potassium 4.2 mmol/L (3.5-5.1); Sodium 129 mmol/L (137-145); Total Bilirubin 0.6 mg/dL (0.2-1.3); Total Protein 6.4 g/dL (6.3-8.2)
[2019-11-25] MEDS ORDERED: methylPREDNISolone SOD SUCCI 125 MG/2 ML VIAL IV SCH (09:00)
[2019-11-25] MEDS ORDERED: predniSONE 20 MG TAB PO SCH (09:30)
[2019-11-25] MEDS: TRELEGY ELLIPTA PO SCH (10:14)
[2019-11-25 12:11] LABS: Glucose,Whole Blood 133 mg/dL (75-99)
--- NOTE | 2019-11-25 12:54 | P.PN ---
Subjective Progress Note Date: 11/25/19 Principal diagnosis: Bilateral pneumonia This is a pleasant 59-year-old gentleman who was admitted with complaints of increasing shortness of breath cough and congestion. 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 Previous right upper lobectomy in 2010 and more recently receiving chemo-radiation. He was recently here in October 2019. Today he is feeling about the same. Resting flat in bed. No worsening shortness of breath. Maintaining O2 saturations in the 90s on 5 L high flow nasal cannula. Afebrile. Hemodynamically stable. He states the breathing treatments seemed to make him worse. He's been declining them. Today's chest x-ray shows similar findings with abnormal density in the left midlung somewhat more confluent. Correlate for pneumonia/atelectasis. Culture reveals no growth to date. White count 11.5. Hemoglobin 11.0. Sodium 132. Potassium 4.5. Creatinine 0.53. 0.9 at 100 ML's per hour. Continued on IV Solu-Medrol. Antibiotics in form of azithromycin. He did receive a dose of infliximab-DYYB last evening. The patient is seen today 11/21/2019 in follow-up on the selective care unit. He is currently sitting up at the bedside. Awake and alert in no acute distress. He is doing a bit better today compared to yesterday. Still requiring 5 L high flow nasal cannula to maintain O2 saturations in the 90s. He is afebrile. He's been initiated on his own Trelegy inhaler. Other bronchodilators discontinued per his request. Remains on IV Solu-Medrol. Remains on antibiotics. Blood culture reveals no growth. White count 9.9. Hemoglobin 10.8. Sodium 132. Potassium 3.6. Creatinine 0.55. On November patient seen in follow-up on selective care unit, he remains on supplemental oxygen currently at 5 L pulse ox is 93%, afebrile, hemodynamically patient stable. Still dyspneic with exertion, does have occasional cough which has improved in intensity, mostly dry in nature, no chest pain, no abdominal pain or diarrhea, overall he is feeling slightly better, remains on antibiotic coverage in the form of azithromycin, patient continues on high-dose IV steroids, and nebulized bronchodilators. His blood culture has shown no growth thus far. He has had no fever or chills. On 11/24/2019 patient seen in follow-up on selective care unit, he is currently on 5 L of oxygen his pulse ox between 92-97%, hemodynamically patient stable, breathing seems comfortable on today's exam, no significant cough or congestion, or wheezing, lung sounds are diminished, at the bases, no crackles or rhonchi. His vital signs have been stable, blood cultures have been negative. Today's labs have been reviewed, showing white blood cell, 9.4, hemoglobin of 12.1, sodium is 132, the rest of electrolytes were within normal limits, BUN is 26 creatinine is 0.61. Patient continues on azithromycin for antibiotic coverage, and high-dose IV steroids 60 mg every 6 hours, and nebulized bronchodilator, we'll obtain a follow-up chest x-ray today, we'll continue to monitor the patient for another 24 hours. Denies any hemoptysis denies any chest pain. On 11/25/2019 patient seen in follow-up on selective care unit, she is improving, he is up ambulating in the room, currently FiO2 is down to 3 L. Pulse ox is 94%, breathing is comfortable, no complaint of chest pain, no hemoptysis, no fever or chills. Blood cultures have been negative. Patient has been transitioned to oral prednisone, no significant cough or congestion, vital signs have been stable, history of chest x-ray has been reviewed showing persist ent multilobar patchy airspace opacities improved from the chest x-ray on 11/20/2019. Objective - Vital Signs Vital signs: Vital Signs Temp 97.6 F 11/25/19 08:00 Pulse 82 11/25/19 08:00 Resp 18 11/25/19 08:00 BP 151/71 11/25/19 08:00 Pulse Ox 94 L 11/25/19 08:00 Intake & Output 11/24/19 11/25/19 11/25/19 18:59 06:59 18:59 Intake Total 236 236 Balance 236 236 Weight 82.4 kg Intake: Oral 236 236 Other: Voiding Method Urinal Urinal # Voids 1 2 # Bowel Movements 1 - Exam GENERAL EXAM: Alert, very pleasant, 59-year-old white male, on 3 L of oxygen with pulse ox of 94% comfortable in no apparent distress. HEAD: Normocephalic/atraumatic. EYES: Normal reaction of pupils, equal size. Conjunctiva pink, sclera white. NOSE: Clear with pink turbinates. THROAT: No erythema or exudates. NECK: No masses, no JVD, no thyroid enlargement, no adenopathy. CHEST: No chest wall deformity. Symmetrical expansion. LUNGS: Equal air entry with basilar crackles. CVS: Regular rate and rhythm, normal S1 and S2, no gallops, no murmurs, no rubs ABDOMEN: Soft, nontender. No hepatosplenomegaly, normal bowel sounds, no guarding or rigidity. EXTREMITIES: No clubbing, no edema, no cyanosis, 2+ pulses and upper and lower extremities. MUSCULOSKELETAL: Muscle strength and tone normal. SPINE: No scoliosis or deformity SKIN: No rashes CENTRAL NERVOUS SYSTEM: Alert and oriented -3. No focal deficits, tone is normal in all 4 extremities. PSYCHIATRIC: Alert and oriented -3. Appropriate affect. Intact judgment and insight. - Labs CBC & Chem 7: 11/25/19 08:03 11/25/19 08:03 Labs: Abnormal Lab Results - Last 24 Hours (Table) 11/24/19 11/24/19 11/25/19 Range/Units 16:35 20:29 06:12 WBC (3.8-10.6) k/uL RBC (4.30-5.90) m/uL Hgb (13.0-17.5) gm/dL Hct (39.0-53.0) % Neutrophils # (1.3-7.7) k/uL Lymphocytes # (1.0-4.8) k/uL Sodium (137-145) mmol/L BUN (9-20) mg/dL Creatinine (0.66-1.25) mg/dL Glucose (74-99) mg/dL POC Glucose (mg/dL) 178 H 137 H 106 H (75-99) mg/dL 11/25/19 11/25/19 11/25/19 Range/Units 08:03 08:03 12:07 WBC 10.8 H (3.8-10.6) k/uL RBC 3.94 L (4.30-5.90) m/uL Hgb 12.7 L (13.0-17.5) gm/dL Hct 38.4 L (39.0-53.0) % Neutrophils # 9.8 H (1.3-7.7) k/uL Lymphocytes # 0.3 L (1.0-4.8) k/uL Sodium 129 L (137-145) mmol/L BUN 25 H (9-20) mg/dL Creatinine 0.63 L (0.66-1.25) mg/dL Glucose 117 H (74-99) mg/dL POC Glucose (mg/dL) 133 H (75-99) mg/dL Assessment and Plan Plan: Assessment: #1. Acute bilateral pneumonia. CT chest showed coarse interstitial alveolar infiltrates within the right upper lobe, right perihilar regions as well as right lower lobe compatible with multifocal pneumonia #2. Acute on chronic dyspnea related to the above with acute on chronic hypoxic respiratory failure #3. Acute exacerbation of chronic obstructive pulmonary disease #4. 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 History of recent hospitalization for acute hypoxic respiratory failure related to acute bilateral lower lobe pulmonary infiltrate secondary to immunotherapy related pneumonitis and patient recovered with the use of systemic steroids #6. History of COPD with the baseline FEV1 of 77% predicted, maintained on [place] and albuterol #7. History of squamous cell lung cancer of the right upper lobe, treated with right upper lobectomy followed by chemotherapy #8. Former smoker #9. Hypertension #10. Hyperlipidemia #11. Hypothyroidism Plan: Patient is doing well, yesterday chest x-ray showed improvement in the appearance of patchy airspace opacities, clinically stable, FiO2 is down to 3 L, no fever or chills, tolerating ambulation, from pulmonary perspective he stable for discharge home, with outpatient follow-up with Dr. Dietz in the office. We informed the patient that his latest CT chest showed significant improvement of the airspace disease compared to last visits CT chest, and overall his complete recovery will likely take some time, however he is doing significantly better, clinically stable, and we will be following up with him in the office. I performed a history & physical examination of the patient and discussed their management with my nurse practitioner, Radha Trotter. I reviewed the nurse practitioner's note and agree with the documented findings and plan of care. Lung sounds are positive for diffuse wheezes The findings and the impression was discussed with the patient. I attest to the documentation by the nurse practitioner. Time with Patient: Less than 30
[2019-11-25 14:01] VITALS: BP 164/80; PULSE 93
--- NOTE | 2019-11-25 15:26 | P.PN ---
Subjective Progress Note Date: 11/25/19 Principal diagnosis: Oneumonitis, Acute hypoxic respiratory failure He continues to improve slowly, steroids have been changed to PO today. 40mg BID will monitor on this dose and slowly wean to not impose a refractory hypoxia. He is saturating at 93% on 3L this am. Objective - Vital Signs Vital signs: Vital Signs Temp 97.6 F 11/25/19 12:00 Pulse 93 11/25/19 12:00 Resp 18 11/25/19 12:00 BP 164/80 11/25/19 12:00 Pulse Ox 91 L 11/25/19 12:00 Intake & Output 11/24/19 11/25/19 11/25/19 18:59 06:59 18:59 Intake Total 236 486 Output Total 350 Balance 236 136 Weight 82.4 kg Intake: Oral 236 486 Output: Urine 350 Other: Voiding Method Urinal Urinal # Voids 1 2 # Bowel Movements 1 - Exam Constitutional General appearance: cooperative, no acute distress - EENT Eyes: EOMI, PERRLA, poor dentition ENT: NA/AT, normal oropharynx - Neck Neck: normal ROM - Respiratory: increased effort Respiratory: bilateral: diminished, CTA - Cardiovascular Heart rate: 110 Rhythm: irregularly irregular - Gastrointestinal General gastrointestinal: normal bowel sounds, soft - Integumentary Integumentary: pale - Neurologic non-focal - Musculoskeletal Musculoskeletal: generalized weakness, strength equal bilaterally - Psychiatric Psychiatric: A&O x's 3, appropriate affect, intact judgment & insight - Labs CBC & Chem 7: 11/25/19 08:03 11/25/19 08:03 Labs: Abnormal Lab Results - Last 24 Hours (Table) 11/24/19 11/24/19 11/25/19 Range/Units 16:35 20:29 06:12 WBC (3.8-10.6) k/uL RBC (4.30-5.90) m/uL Hgb (13.0-17.5) gm/dL Hct (39.0-53.0) % Neutrophils # (1.3-7.7) k/uL Lymphocytes # (1.0-4.8) k/uL Sodium (137-145) mmol/L BUN (9-20) mg/dL Creatinine (0.66-1.25) mg/dL Glucose (74-99) mg/dL POC Glucose (mg/dL) 178 H 137 H 106 H (75-99) mg/dL 11/25/19 11/25/19 11/25/19 Range/Units 08:03 08:03 12:07 WBC 10.8 H (3.8-10.6) k/uL RBC 3.94 L (4.30-5.90) m/uL Hgb 12.7 L (13.0-17.5) gm/dL Hct 38.4 L (39.0-53.0) % Neutrophils # 9.8 H (1.3-7.7) k/uL Lymphocytes # 0.3 L (1.0-4.8) k/uL Sodium 129 L (137-145) mmol/L BUN 25 H (9-20) mg/dL Creatinine 0.63 L (0.66-1.25) mg/dL Glucose 117 H (74-99) mg/dL POC Glucose (mg/dL) 133 H (75-99) mg/dL Assessment and Plan Plan: Assessment and Recommendations: Refractory Penumonitis: - Status Post Remicade 11/19, potential to receive q2 weeks if need - Pulm following, CT repeated today - Continue steroids, although tapering to plan for long duration - Steroids decreased today to PO 11/24 - Increased activity the past couple days, working on maintaining stamina - The patient is actually having an exacerbation of what is felt to be 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 - Changed IV steroids to PO and will slowly continue to taper monitoring for no signs of refractory symptoms/hypoxia Multifocal Pneumonia: - Review of CT represents multifocal pneumonia and interstitial infiltrates - Pulmonary management Acute on Chronic Hypoxic Respiratory Failure: - Status post bronch last admission - Pulm following - Keavy to be secondary to radiation versus immune therapy pneumonitis. Unfortunately, which, although likely both contributed, will be difficult to exactly know. Although with Grade 3 or 4 pneumonitis, if immune therapy induced is recommended to discontinue future administrations. He will follow-up with Dr. Patino after discharge to discuss ongoing treatment plan. Squamous Cell Lung Cancer (Original dx 2010, recurrent RLL and LOLA in 2019) - Status Post SBRT RLL, Concurrent xrt/chemo LOLA. Now on Immune therapy with imfinzi - Last Imfinzi 10/26/19 - Primary Oncologist Dr. Carey SIRS: 2/4 - Influenza, COVID, and Blood cultures negative - Sputum reviewed negative Normocytic Anemia:Stable - CBC Daily. Physician Attest: I have completed the full history and physical and agree with above dictation, dictated as a scribe
--- NOTE | 2019-11-26 14:16 | P.DS ---
Providers Date of admission: 11/17/19 17:04 Expected date of discharge: 11/25/19 Attending physician: Ross Jensen Consults: 11/17/19 17:04 Consult Physician Routine Consulting Provider: Kolby Poe Consult Reason/Comments: ID Do you want consulting provider notified?: Yes 11/17/19 17:05 Consult Physician Routine Consulting Provider: Nic Dietz Consult Reason/Comments: known Do you want consulting provider notified?: Yes 11/18/19 20:26 Consult Physician Routine Consulting Provider: Inocencio Patino Consult Reason/Comments: Lung cancer Do you want consulting provider notified?: Yes, Notify in am Primary care physician: [facility] Course: Diagnosis on discharge: 1. Acute bilateral pneumonia pulmonary and infectious disease services following. Patient remains on azithromycin. 2. Acute exacerbation of COPD. pulmonary following. Patient remains on IV steroids 3. Underlying history of squamous cell carcinoma of the right upper lobe, status post surgery and chemotherapy in 2010, and more recently immune therapy that was discontinued in the beginning of October 2019 4. Underlying history of hypertension well-controlled on current medications 5. Underlying history of hypothyroidism maintained on Synthroid 6. Underlying history of hyperlipidemia 7. Underlying history of chronic neck and back pain maintained on [place] for pain management Hospital course: Navi Coulter, is a 59-year-old male who presented to [facility] emergency room with a chief complaint of worsening shortness of breath patient was also complaining of cough and feeling feverish, otherwise he denies any complaints, he was evaluated in emergency room his temperature was 100.5 pulse 1:15 respiration 26 blood pressure 135/77 pulse ox 92% on 2 L nasal cannula, his white blood count was 12.2 hemoglobin 13.1 platelet count 225, sodium was 129 potassium 5.0 BUN 21 creatinine 0.72 lactic acid was elevated at 2.2 C-reactive protein was elevated at 39 patient was admitted to telemetry floor for further evaluation and treatment pulmonary consultation was requested. Patient was recently admitted to the intensive care unit, he had a prolonged admission, he was discharged on 11/06/2019 he received IV antibiotic and IV steroids, diagnosis at that time was pneumonitis related to immune therapy, he was discharged home on oral prednisone, he was followed as outpatient by Dr. Dietz, however his condition continued to worsen despite increasing dose of oral prednisone, and patient decided to return to emergency room on 11/17/2019. Patient has a known history of squamous cell carcinoma of the right upper lobe he underwent surgery in 2010 followed by chemotherapy he was followed by Dr. Patino and has been receiving immunotherapy until he was admitted in early October., His past medical history is also significant for history of hypertension, history of hypothyroidism, history of hyperlipidemia, and history of chronic neck and back pain. On review of systems patient is alert and oriented 3 in no apparent distress, he is complaining of fatigue and worsening shortness of breath, he has occasional cough with minimal sputum production, there is low grade fever and significant sweating, no headache or dizziness no chest pain no nausea or vomiting no abdominal pain no diarrhea no blood in the stools no burning with urination no frequency or urgency and no hematuria. On 11/19/2019 patient was seen and examined on the medical floor, he is alert and oriented 3 in no apparent distress, he is still complaining of shortness of breath, he has occasional cough with minimal sputum production otherwise he denies any complaints there is no fever or chills no headache or dizziness no chest pain no nausea or vomiting no abdominal pain no diarrhea no blood in the stools no burning with urination no frequency or urgency and no hematuria, pulmonary and oncology consultation placed On 11/20/2019 patient was seen and examined on the medical floor he is alert and oriented in no distress, he is complaining of worsening shortness of breath otherwise no complaints there is no fever or chills no headache or dizziness he has occasional cough no chest pain no nausea or vomiting no abdominal pain no diarrhea no blood in the stools no burning with urination no frequency or urgency and no hematuria. On 11/21/2019 patient was seen and examined on the medical floor, he is alert and oriented 3 in no distress he is still complaining of shortness of breath with any activity and occasional cough without any sputum production there is no fever or chills no headache or dizziness no chest pain, no nausea or vomiting no abdominal pain no diarrhea no blood in the stools no burning with urination no frequency or urgency and no hematuria. On 11/22/2019 patient was seen and examined on the medical floor, he is alert and oriented 3 in no distress he is still complaining of shortness of breath and cough with minimal sputum production there is no fever or chills no headache or dizziness no chest pain, no nausea or vomiting no abdominal pain no diarrhea no blood in the stools no burning with urination no frequency or urgency and no hematuria On 11/23/2019 patient was seen and examined on the medical floor he is alert and oriented in no distress he is ambulating without difficulty he is still having shortness of breath with activity and occasional cough otherwise he denies any complaints there is no fever or chills no headache or dizziness no chest pain no palpitation no nausea or vomiting no abdominal pain no diarrhea no blood in the stools and no urinary symptoms. On 11/24/2019 patient is alert and oriented 3. Patient reports that he does feel improved in regards to shortness of breath. Discussed case with pulmonary team. Recommend inpatient stay 1 more day and hopefully discharge tomorrow on 11/25/2019 patient remains on IV steroids. Patient denies chest pain. Patient denies nausea vomiting or diarrhea. Patient denies any urinary burning or frequency. On 10/07/2019 patient was seen and examined on the medical floor he is alert and oriented in no distress he is ambulating without difficulty he is still having shortness of breath with activity and occasional cough , however he feels significantly better otherwise he denies any complaints there is no fever or chills no headache or dizziness no chest pain no palpitation no nausea or vomiting no abdominal pain no diarrhea no blood in the stools and no urinary symptoms. He was evaluated by pulmonary and was cleared for discharge, he was given a course of Zithromax and a course of prednisone, he will be followed as outpatient closely by pulmonary oncology and myself, follow up in the office in 2-3 days. Patient Condition at Discharge: Serious Plan - Discharge Summary Discharge Rx Participant: No New Discharge Prescriptions: New predniSONE [Deltasone] 40 mg PO BID 7 Days tab Azithromycin [Zithromax] 500 mg PO DAILY@1800 7 Days #7 tab Continue Tamsulosin [Flomax] 0.4 mg PO DAILY Atorvastatin [Lipitor] 10 mg PO HS Baclofen [Lioresal] 10 mg PO HS Hydrocodone/Acetaminophen [[place] 10-325] 1 tab PO Q8H PRN PRN Reason: Pain LORazepam [Ativan] 0.5 mg PO HS PRN PRN Reason: Anxiety Fluticasone/Umeclidin/Vilanter [Trelegy Ellipta 100-62.5-25] 1 puff INHALATION RT-DAILY Multivitamins, Thera [Multivitamin (formulary)] 1 each PO DAILY tab amLODIPine [Norvasc] 5 mg PO DAILY tab Ipratropium-Albuterol Nebulize [Duoneb 0.5 mg-3 mg/3 ml Soln] 3 ml INHALATION Q4-6H PRN PRN Reason: Shortness Of Breath Sertraline HCl [Zoloft] 100 mg PO DAILY Omeprazole 20 mg PO DAILY Losartan Potassium 100 mg PO HS Levothyroxine Sodium [Synthroid] 125 mcg PO DAILY Discontinued predniSONE [Deltasone] 60 mg PO DAILY Discharge Medication List Atorvastatin [Lipitor] 10 mg PO HS 12/18/16 [History] Tamsulosin [Flomax] 0.4 mg PO DAILY 12/18/16 [History] Baclofen [Lioresal] 10 mg PO HS 05/04/18 [History] Hydrocodone/Acetaminophen [[place] 10-325] 1 tab PO Q8H PRN 03/15/19 [History] Fluticasone/Umeclidin/Vilanter [Trelegy Ellipta 100-62.5-25] 1 puff INHALATION RT-DAILY 10/27/19 [History] LORazepam [Ativan] 0.5 mg PO HS PRN 10/27/19 [History] Ipratropium-Albuterol Nebulize [Duoneb 0.5 mg-3 mg/3 ml Soln] 3 ml INHALATION Q4-6H PRN 11/06/19 [History] Multivitamins, Thera [Multivitamin (formulary)] 1 each PO DAILY tab 11/06/19 [Rx] amLODIPine [Norvasc] 5 mg PO DAILY tab 11/06/19 [Rx] Levothyroxine Sodium [Synthroid] 125 mcg PO DAILY 11/17/19 [History] Losartan Potassium 100 mg PO HS 11/17/19 [History] Omeprazole 20 mg PO DAILY 11/17/19 [History] Sertraline HCl [Zoloft] 100 mg PO DAILY 11/17/19 [History] Azithromycin [Zithromax] 500 mg PO DAILY@1800 7 Days #7 tab 11/25/19 [Rx] predniSONE [Deltasone] 40 mg PO BID 7 Days tab 11/25/19 [Rx] Follow up Appointment(s)/Referral(s): [facility], [NON-STAFF] - 1 Week Ross Jensen MD [Primary Care Provider] - 11/29/19 3:00 pm Patient Instructions/Handouts: Azithromycin (By mouth), Community Acquired Pneumonia (DC) Discharge Disposition: HOME SELF-CARE
== END 2019-11-25 15:54 | disposition home or self-care (01) | DRG 193 ==
LOC: EC 14:59 → 3SCARD 17:04
PROVIDERS: ADMIT Internal Medicine; ATTEND Internal Medicine
DX: J18.9 Pneumonia, unspecified organism (principal); J96.21 Acute and chronic respiratory failure with hypoxia; J44.0 Chronic obstructive pulmonary disease with (acute) lower respiratory infection; J44.1 Chronic obstructive pulmonary disease with (acute) exacerbation; C34.31 Malignant neoplasm of lower lobe, right bronchus or lung; C77.1 Secondary and unspecified malignant neoplasm of intrathoracic lymph nodes; J84.89 Other specified interstitial pulmonary diseases; H91.90 Unspecified hearing loss, unspecified ear; F41.9 Anxiety disorder, unspecified; E78.5 Hyperlipidemia, unspecified; E03.9 Hypothyroidism, unspecified; E11.9 Type 2 diabetes mellitus without complications; Z87.891 Personal history of nicotine dependence; Z20.828 Contact with and (suspected) exposure to other viral communicable diseases; Z90.2 Acquired absence of lung [part of]; I10 Essential (primary) hypertension; N40.0 Benign prostatic hyperplasia without lower urinary tract symptoms; G89.29 Other chronic pain; M54.9 Dorsalgia, unspecified; M54.2 Cervicalgia; Z92.3 Personal history of irradiation; Z92.21 Personal history of antineoplastic chemotherapy; Z79.890 Hormone replacement therapy; Z79.52 Long term (current) use of systemic steroids; Z79.899 Other long term (current) drug therapy; Z80.1 Family history of malignant neoplasm of trachea, bronchus and lung; Z82.5 Family history of asthma and other chronic lower respiratory diseases; Z87.01 Personal history of pneumonia (recurrent)
CPT/HCPCS: 36415; 71045; 71046; 71260; 80053; 82728; 83605; 83615; 83735; 84145; 85025; 85379; 85610; 85730; 86140; 87040; 87449; 93005; 94640; 94760; 96361; 96365; 96366; 96367; 96375; 99291

== ENCOUNTER → 2022-07-08 | Outpatient (CLI) | payer BC ==
--- NOTE | 2022-07-09 08:20 | XR ---
EXAMINATION TYPE: XR chest 2V DATE OF EXAM: 07/08/2022 COMPARISON: 11/24/2019 HISTORY: 62-year-old male R05.9, history of cancer and right lobectomy TECHNIQUE: Frontal and lateral views FINDINGS: Heart and lungs are normal in size. Hyperinflation. Scattered bandlike parenchymal changes such as le ft mid lung suggesting scarring. Either previous right-sided thoracotomy change or old rib fracture d eformities. There is possible increasing left suprahilar density as well as more focal appearing righ t lower lung density. No pleural effusion. IMPRESSION: 1. COPD and prior surgery to the right hemithorax. 2. Progressive opacity left suprahilar region and right lower lung. Contrast-enhanced CT may be neede d to exclude recurrent neoplasm or metastatic disease.
== END | disposition home or self-care (01) ==
LOC: RADXRMAIN 16:07
PROVIDERS: ATTEND Internal Medicine
DX: J44.9 Chronic obstructive pulmonary disease, unspecified (principal); R91.8 Other nonspecific abnormal finding of lung field
CPT/HCPCS: 71046

== ENCOUNTER → 2023-05-16 | Outpatient (CLI) | payer MEDICARE | END | disposition home or self-care (01) | LOC: LABWHC1 11:31 | PROVIDERS: ATTEND Internal Medicine Critical Care Medicine | DX: J70.0 Acute pulmonary manifestations due to radiation (principal) | CPT/HCPCS: 36415; 86606 ==

== ENCOUNTER → 2023-06-06 | Outpatient (CLI) | payer MEDICARE ==
--- NOTE | 2023-06-06 11:47 | CT ---
EXAMINATION TYPE: CT chest w con DATE OF EXAM: 06/06/2023 COMPARISON: 11/22/2019 HISTORY: lung cancer, partially collapsed lung (left), pulmonary manifestations due radiation CT DLP: 311.4 mGycm Automated exposure control for dose reduction was used. TECHNIQUE: CT scan of the chest is performed with IV Contrast, patient injected with 100 mL of Isovue 300. MIP Images are created on CT scanner and reviewed. 3D reconstructed images are created on an independent workstation and reviewed. FINDINGS: There has been interval development of marked atelectasis/partial collapse of the left upper lobe randall sing the question of upper airway obstruction possibly due to neoplasm. There is a large ill-defined area of partially consolidated and partially interstitial density in the right lower lobe extending into the right middle lobe. This was seen on the prior study but the degr ee of consolidative/masslike portion of the density has increased in the interval. The groundglass op acities seen in the right upper lobe on the prior study have nearly completely resolved in the interv al. There is been interval development of a small right pleural effusion. There is no left pleural effusi on. The great vessels the chest are normal and there is no definite mediastinal or hilar adenopathy. Limited scanning through the upper abdomen reveals no gross abnormality no focal osseous lesions are seen. IMPRESSION: 1. Interval development of a large area of atelectasis with partially collapsed left upper lobe raisi ng the question of postobstructive pneumonitis and upper airway obstruction from recurrent neoplasm. 2. Worsening of the ill-defined partially consolidative partially interstitial density in the right l ower and middle lobes consistent with recurrent neoplasm or pneumonia. 3. Interval development of small right pleural effusion
== END | disposition home or self-care (01) ==
LOC: RADCTMAIN 09:02
PROVIDERS: ATTEND Internal Medicine Critical Care Medicine
DX: J90 Pleural effusion, not elsewhere classified (principal); J98.4 Other disorders of lung; J70.0 Acute pulmonary manifestations due to radiation; C34.90 Malignant neoplasm of unspecified part of unspecified bronchus or lung; J98.11 Atelectasis
CPT/HCPCS: 71260; Q9967

== ENCOUNTER 2023-09-23 08:08 | Day surgery (SDC) | payer MEDICARE ==
[2023-09-19 11:19] VITALS: BMI 26.7
[2023-09-23] MEDS ORDERED: LACTATED RINGERS 1,000 ML BAG ONE (09:00)
[2023-09-23] MEDS ORDERED: PROPOFOL 10 MG/ML 20 ML VIAL IV ONE (09:46)
== END 2023-09-23 10:34 | disposition home or self-care (01) ==
LOC: ORWHC2ENDO 08:08
PROVIDERS: ATTEND Surgery
DX: Z12.11 Encounter for screening for malignant neoplasm of colon (principal); C34.90 Malignant neoplasm of unspecified part of unspecified bronchus or lung; E78.5 Hyperlipidemia, unspecified; Z79.890 Hormone replacement therapy; Z79.899 Other long term (current) drug therapy
CPT/HCPCS: 45378

== ENCOUNTER → 2023-10-28 | Outpatient (CLI) | payer MEDICARE | END | disposition home or self-care (01) | LOC: LABWHC1 12:37 | PROVIDERS: ATTEND Internal Medicine Critical Care Medicine | DX: R06.02 Shortness of breath (principal) | CPT/HCPCS: 36415; 85379 ==

== ENCOUNTER → 2023-10-28 | Outpatient (CLI) | payer MEDICARE ==
--- NOTE | 2023-10-28 17:50 | CT ---
CTA CHEST EXAMINATION TYPE: CT angio chest DATE OF EXAM: 10/28/2023 INDICATION: SOB AND ELEVATED D-DIMER CT DLP: 313.10 mGycm, Automated exposure control for dose reduction was used. CONTRAST: Patient injected with 100ml mL of Isovue 370. COMPARISON: 06/06/2023 TECHNIQUE: CT of the chest is performed on a spiral scan at 2 mm thick sections. Study is performed with intravenous contrast timed for evaluation for pulmonary embolism. This will limit additional po rtions of the evaluation. 3-D MIP images reconstructed by the technologist are reviewed on the compu ter in the coronal and sagittal planes. FINDINGS: No persistent filling defects are evident to suggest an acute pulmonary embolism. No mediastinal adenopathy enlarged by CT criteria is evident. Hilar adenopathy would be difficult to exclude on the left. The ascending aorta diameter at the level of the main pulmonary artery is 3.4 cm. The main pulmonary artery diameter at the bifurcation is 2.7 cm. There is a dense area within the anterior left upper lung field. Mass should be considered. This exte nds to the left hilum. There is a small right pleural effusion. Some increased densities in the right lower lobe. Findings were present on the prior examination. Limited CT sections were through the upper abdomen. Upper abdomen appears unremarkable. IMPRESSION: 1. No persistent filling defect to suggest acute pulmonary embolism. 2. Left upper lobe density with scattered smaller densities in the bilateral periphery and right lowe r lobe. Findings suspicious for persistent mass. 3. Small right pleural effusion, slightly increased from comparison.
== END | disposition home or self-care (01) ==
LOC: RADCTMAIN 16:31
PROVIDERS: ATTEND Internal Medicine Critical Care Medicine
DX: J98.4 Other disorders of lung (principal); J90 Pleural effusion, not elsewhere classified; R79.89 Other specified abnormal findings of blood chemistry
CPT/HCPCS: 71275; Q9967

== ENCOUNTER → 2023-11-06 | Day surgery (SDC) | payer MEDICARE ==
[~2023-11-06] MED LIST changes: -BUPIVACAINE (PF) 0.5% 30 ML VIAL ONE; -LACTATED RINGERS 1,000 ML IV SCH; -MIDAZOLAM 2 MG/2 ML VIAL ONE; +SODIUM CHLORIDE 0.9% 500 ML 500 ML in EMPTY BAG 1 BAG IV PRN; -fentaNYL (PF) 50 MCG/ML 2 ML AMP ONE; -methylPREDNISolone ACETATE 40 MG/ML 1 ML VIAL ONE
[2023-11-06 11:19] VITALS: RESP 16; TEMP 98.3
[2023-11-06 12:26] VITALS: BP 131/73; PULSE 90
--- NOTE | 2023-11-06 12:50 | XR ---
EXAMINATION TYPE: XR chest 1V portable DATE OF EXAM: 11/06/2023 12:21 PM CLINICAL INDICATION: Male, 63 years old with history of post thoracentesis right; [facility] COMPARISON: Chest radiographs from 04/10/2022 TECHNIQUE: XR chest 1V portable Frontal view of the chest. FINDINGS: Lungs/Pleura: Left upper lung consolidation. Persistent right effusion the left pleural effusion. No pneumothorax visualized. Pulmonary vascularity: Unremarkable. Heart/mediastinum: Cardiomediastinal silhouette is unremarkable. Musculoskeletal: No acute osseous pathology. Other findings: None IMPRESSION: Persistent right pleural effusion without appreciable pneumothorax. Left upper lung consolidation. [facility], , 11/06/2023 12:48 PM
--- NOTE | 2023-11-06 12:54 | P.PCN ---
Date of Procedure: 11/06/23 Preoperative Diagnosis: Pleural effusion, right Postoperative Diagnosis: Pleural effusion, right Procedure(s) Performed: thoracentesis, right Anesthesia: local Surgeon: Nic Dietz Estimated Blood Loss (ml): 0 Pathology: none sent Condition: stable Disposition: same day Operative Findings: A time out was performed and the chest x-ray was reviewed, the appropriate side was confirmed and marked. My hands were washed immediately prior to the procedure. I wore a surgical cap, mask with protective eyewear, sterile gown and sterile gloves throughout the procedure. The patient was prepped and draped in a sterile manner using chlorhexidine scrub after the appropriate level was percussed and confirmed by ultrasound. 1% lidocaine was used to anesthesize the skin, subcutaneous tissue, superior aspect of the rib periosteum and parietal pleura. A finder needle was then introduced over the superior aspect of the rib to locate the pleural fluid; 2colored fluid was aspirated at a depth of approximately 2 cm. A 10-blade scalpel was used to peter the skin at the insertion site. The Gapc-k-Qftqhtma needle was then introduced through the skin incision into the pleural space using negative aspiration pressure and the red colometric indicator to confirm appropriate positioning of the needle. The thoracentesis catheter was then threaded without difficulty. 500 ml of turbid colored fluid was removed without difficulty. The catheter was then removed. No immediate complications were noted during the procedure. A post-procedure chest x-ray is pending at the time of this note. The fluid will be sent for studies. Estimated blood loss is 0cc
[2023-11-07 02:20] LABS: Glucose, BF Source Pleural Fluid; Glucose, Body Fluid 97 mg/dL; LDH, Body Fluid Source Pleural Fluid; T. Protein, Body Fluid Source Pleural Fluid; Total Protein, Body Fluid >3600 mg/dL
[2023-11-07 02:33] LABS: Appearance,BF Cloudy (Clear)
== END ==
LOC: PROCWHC3 10:47
PROVIDERS: ATTEND Internal Medicine Critical Care Medicine
DX: J90 Pleural effusion, not elsewhere classified (principal)
CPT/HCPCS: 32554; 71045; 82945; 83615; 84157; 87070; 87075; 87116; 87205; 87206; 88108; 88305; 88341; 88342; 89050

== ENCOUNTER 2023-11-12 11:53 | Day surgery (SDC) | payer MEDICARE ==
[2023-11-07 16:10] VITALS: BMI 26.6
[~2023-11-12 11:53] MED LIST changes: +LACTATED RINGERS 1,000 ML IV SCH; -SODIUM CHLORIDE 0.9% 500 ML 500 ML in EMPTY BAG 1 BAG IV PRN; +fentaNYL (PF) 50 MCG/ML 2 ML AMP IV PRN
[2023-11-12] MEDS: IV FLUID CONTINUATION 1,000 ML IV ONE (12:20)
[2023-11-12] MEDS: LACTATED RINGERS 1,000 ML IV SCH (12:25)
[2023-11-12] MEDS: ONDANSETRON 4 MG/2 ML VIAL IVP ONE (12:27)
[2023-11-12] MEDS: DEXAMETHASONE SOD PHOSPHATE 4 MG/ML 1 ML VIAL IV ONE (12:28)
[2023-11-12] MEDS: IPRATROPIUM-ALBUTEROL 3 ML NEB INHALATION STA (12:37)
[2023-11-12 12:52] LABS: Glucose,Whole Blood 120 mg/dL (70-110)
[2023-11-12] MEDS ORDERED: fentaNYL (PF) 50 MCG/ML 2 ML AMP ONE (13:40)
[2023-11-12] MEDS ORDERED: LIDOCAINE 1% INJ 10MG/ML (20 ML MDV) ONE (13:40)
[2023-11-12] MEDS ORDERED: SUCCINYLCHOLINE CHLORIDE 200 MG/10 ML VIAL IV ONE (13:40)
[2023-11-12] MEDS ORDERED: methylPREDNISolone SOD SUCCI 125 MG/2 ML VIAL ONE (13:40)
[2023-11-12] MEDS ORDERED: NEOSTIGMINE 1 MG/ML 10 ML VIAL ONE (13:40)
[2023-11-12] MEDS ORDERED: GLYCOPYRROLATE 0.2 MG/ML 2 ML VIAL ONE (13:40)
[2023-11-12] MEDS ORDERED: PROPOFOL 10 MG/ML 20 ML VIAL IV ONE (13:40)
[2023-11-12] MEDS ORDERED: ROCURONIUM 10 MG/ML (5 ML VIAL) IV ONE (13:40)
--- NOTE | 2023-11-12 14:30 | P.PCN ---
Date of Procedure: 11/12/23 Preoperative Diagnosis: nonsmall cell lung cancer, status post right upper lobe resection followed by chemoradiation therapy, 2010 Right lower lobe pulmonary nodule, treated by SBRT Locally advanced non-small cell lung cancer of the left upper lobe Postoperative Diagnosis: 1 normal right upper lobe lobectomy stump 2 necrotic and some viable endobronchial lesions occupying the orifice of the left upper lobe bronchus and the airway was considerably narrowed and obstructive. Those abnormalities were also affecting the secondary sheila between the left upper lobe and the left lower lobe. 3 narrowing of the orifice of the left lower lobe bronchus Procedure(s) Performed: Flexible bronchoscopy Bronchioloalveolar lavage in addition to endobronchial biopsies and endobronchial brushings of a necrotic lesion in the left upper lobe bronchus or ifice Endobronchial ultrasound Anesthesia: MAC Surgeon: Nic Dietz Estimated Blood Loss (ml): 0 Pathology: other Condition: stable Disposition: same day Operative Findings: The patient was intubated in the usual fashion and placed on the mechanical ventilator. The patient was intubated by #8 orotracheal tube. Intubation process was done by QUARRY MANAGER. After achieving adequate oxygenation and ventilation, the flexor bronchoscope was inserted through the orotracheal tube and it was advanced into the lower trachea. Distal trachea was patent and within normal limits. Examination of the right side reveals a healthy stump in the right upper lobe-lobectomy. The bronchus Inntermedius, right middle lobe and right lower lobe bronchi were patent and within normal limits. The various segments of the right middle lobe and the right lower lobe were then inspected and there was no significant abnormalities noted. Subsequently, the bronchoscope was moved to the left mainstem bronchus and this was inspected and it was within normal limits. The sheila between the left upper and left lower lobe bronchus was quite inflamed, irregular and there was necrotic tissue originating and obstructing the left upper lobe bronchus. The area was quite necrotic although there was some viable polypoid like lesions noted adjacent to the necrotic area and those abnormalities were causing significant obstruction of the left upper lobe bronchus and the various segments of the left upper lobe of the lung and over not visualized. Initially I performed a bronchial lavage of the secondary sheila at the orifice of the left upper lobe bronchus. A total of 60 cc of fluid was infused and 10 cc of saline was aspirated. Subsequently, I performed endobronchial brushings of the necrotic and the viable tissue that was obscuring obstructing left upper lobe bronchus. Multiple endobronchial biopsies were obtained. Subsequently,I performed a endobronchial brushing of the left upper lobe orifice. Following that, I was able to visualize the left lower lobe bronchus. The origin of the left lower lobe bronchus was quite tortuous and narrowed. Nevertheless, I was able to motion my 8 mm bronchoscope into the left lower lobe anterior segment of the left lower lobe was then visualized and there were all patent and healthy and they look normal. The flexible bronchoscope was removed and endobronchial ultrasound was inserted. Evaluation of the mediastinal lymph nodes was done and there was no significant enlargement of the mediastinal lymph nodes at the base stations. I wanted to evaluate the secondary sheila on the left, nevertheless, I was unable to advance the endobronchial ultrasound to reach that area. Nevertheless, the expected stations including the ones on the paratracheal and subcarinal areas showed no evidence of any pathologic mediastinal lymph nodes. The endobronchial ultrasound was removed. The patient was extubated and transferred recovery in stable condition.
[2023-11-12 14:37] VITALS: TEMP 97.7
[2023-11-12 15:53] VITALS: RESP 18
[2023-11-12 15:57] VITALS: BP 121/65; PULSE 89
== END 2023-11-12 16:10 | disposition home or self-care (01) ==
LOC: ORWHC2ENDO 11:53
PROVIDERS: ATTEND Internal Medicine Critical Care Medicine
DX: C34.90 Malignant neoplasm of unspecified part of unspecified bronchus or lung
CPT/HCPCS: 31623; 31624; 31625; 31652; 87070; 87075; 87077; 87102; 87116; 87186; 87205; 87206; 87496; 87498; 87502; 87529; 87634; 87635; 87798; 88104; 88305; 88341; 88342

== ENCOUNTER → 2023-12-05 | Outpatient (CLI) | payer MEDICARE ==
--- NOTE | 2023-12-05 23:45 | MR ---
EXAMINATION TYPE: MR brain wo/w con DATE OF EXAM: 12/05/2023 COMPARISON: 10/07/2019 HISTORY: Lung cancer CONTRAST: Performed utilizing 8 mL intravenous Gadavist gadolinium contrast. TECHNIQUE: Multiplanar, multiecho imaging on a 3.0 Nicolette magnet is performed through the brain. Stud y is performed within 24 hours of arrival to the hospital. The craniovertebral junction is normal. The pituitary is normal. Diffusion-weighted imaging is performed. No abnormal hyperintensity is present to suggest an acute i ntracranial infarct or acute ischemic change. There are a couple of hyperintensities within the deep white matter which are nonspecific but can be related to microvascular ischemic change. Ventricles and sulci are appropriate for the patient age. Following contrast no abnormal enhancement is evident IMPRESSION: 1. No suspicious changes to suggest metastatic disease. 2. Couple of punctate T2 hyperintensities which are nonspecific but can be related to microvascular i schemic change [facility], Workstation: [id number], 12/05/2023 11:43 PM
== END | disposition home or self-care (01) ==
LOC: RADMRIMAIN 20:45
PROVIDERS: ATTEND Internal Medicine Hematology & Oncology
CPT/HCPCS: 70553

== ENCOUNTER → 2023-12-29 | Outpatient (CLI) | payer MEDICARE ==
--- NOTE | 2024-01-02 11:41 | CT ---
EXAMINATION TYPE: CT chest w con DATE OF EXAM: 12/29/2023 7:20 AM COMPARISON: 10/28/2023 CLINICAL INDICATION: Male, r old with history of C34.12 MALIGNANT NEOPLASM OF UPPER LOBE, LEFT BRON, lung ca TECHNIQUE: Axial images were obtained at 5 mm thick sections. Reconstructed images are reviewed on [facility] computer in the coronal plane. Contrast used:80 mL of Isovue 300 with IV Contrast, (none if empty) Oral contrast used: (none if empty) CT DLP: 440.5 mGycm, Automated exposure control for dose reduction was used. FINDINGS: Portion of the thyroid visualized is normal. Consolidation or masses in the anterior left apex measuring 7.6 x 4.6 centimeters. Small right pleura l effusion is present. Some thickening along the right infrahilar region is present, improved from 10/28/2023 No enlarged mediastinal or hilar adenopathy is evident. The ascending aorta diameter at the level o f the main pulmonary artery is 3.4 cm. The main pulmonary artery diameter at the bifurcation is 2.[address] sections are obtained through the upper abdomen. Abdomen is essentially unremarkable. IMPRESSION: 1. Left upper anterior apical mass or consolidation. Similar to prior study. There may be slight impr ovement of a right lower lobe consolidation or mass. Small right pleural effusion is stable. [facility], , 01/02/2024 11:38 AM
== END | disposition home or self-care (01) ==
LOC: RADCTMAIN 06:47
PROVIDERS: ATTEND Internal Medicine Hematology & Oncology
DX: C34.12 Malignant neoplasm of upper lobe, left bronchus or lung (principal); J90 Pleural effusion, not elsewhere classified; R91.8 Other nonspecific abnormal finding of lung field
CPT/HCPCS: 71260; Q9967

== ENCOUNTER → 2024-03-03 | Outpatient (CLI) | payer MEDICARE ==
[2024-03-03 10:35] LABS: African American GFR (CKD) >90 (>60 ml/min/1.73 sqM); Blood Urea Nitrogen 15 mg/dL (9-20); Non-African American GFR(CKD) 89 (>60 ml/min/1.73 sqM)
--- NOTE | 2024-03-05 20:52 | CT ---
EXAMINATION TYPE: CT chest wo/w con DATE OF EXAM: 03/03/2024 11:55 AM COMPARISON: None. CLINICAL INDICATION: Male, 63 years old with history of C34.12 Lung cancer, Hx lung ca, recent chemo TECHNIQUE: Axial images were obtained at 5 mm thick sections. Reconstructed images are reviewed on [employer] computer in the coronal plane. Contrast used:100 mL of Isovue 300 with IV Contrast, (none if empty) Oral contrast used: (none if empty) CT DLP: 958 mGycm, Automated exposure control for dose reduction was used. FINDINGS: Portion of the thyroid visualized is normal. There is a anterior left upper lobe mass measuring 5.7 x 6.9 cm. Previous measurement approximately 5 .2 x 6.3 cm. There is a consolidation extending through the right mid lung. Small right pleural effus ion remains present. Multiple scattered small lymph nodes are through the mediastinum. A pretracheal lymph node is enlarge d measuring 1.2 cm has increased in size over the interval. Left hilar adenopathy be difficult to exc lude. Subcarinal adenopathy is not identified. The ascending aorta diameter at the level of the main pulmonary artery is 3.6 cm. The main pulmonary artery diameter at the bifurcation is 2.[address] sections are obtained through the upper abdomen. Abdomen is essentially unremarkable. IMPRESSION: 1. Mild enlargement of a left upper anterior lobe mass. 2. Some improvement of a area of increased density extending towards the right peripheral midlung. 3. Stable small right pleural effusion. 4. Enlarging pretracheal lymph node. Additional shotty lymphadenopathy remains present. [facility], , 03/05/2024 8:50 PM
== END | disposition home or self-care (01) ==
LOC: RADCTMAIN 09:58
PROVIDERS: ATTEND Internal Medicine Hematology & Oncology
DX: C34.12 Malignant neoplasm of upper lobe, left bronchus or lung (principal); C34.31 Malignant neoplasm of lower lobe, right bronchus or lung; R91.1 Solitary pulmonary nodule; J84.114 Acute interstitial pneumonitis; J90 Pleural effusion, not elsewhere classified; R59.0 Localized enlarged lymph nodes; J98.4 Other disorders of lung
CPT/HCPCS: 82565; 84520; 71270; 36415; Q9967

== ENCOUNTER → 2024-04-22 | Outpatient (CLI) | payer MEDICARE ==
--- NOTE | 2024-04-23 07:49 | PE ---
EXAMINATION TYPE: PET CT fusion skull to thigh DATE OF EXAM: 04/22/2024 COMPARISON: Most recent CT March 03, 2024 and older studies HISTORY: Lung cancer progress study TECHNIQUE: Following the intravenous administration of 9.58 mCi of F-18 FDG, whole body images are p erformed from the skull base to the midthigh. Images are reviewed on the computer in the coronal, ax ial, and sagittal planes. Reconstructed rotating images are created on independent workstation and r eviewed on the computer. A localization and attenuation correction CT is performed in conjunction w ith the PET scan. Blood glucose level equals 121 SCAN: Subsequent Scan FINDINGS: SKULL BASE AND NECK: No areas of abnormal increased radiotracer uptake. CHEST, MEDIASTINUM, AND HILAR REGION: Persistent anterior triangular shaped consolidation/atelectasis left upper lung measuring approximately 5.5 x 5.3 cm axial image 73 without abnormal hypermetabolic uptake. There is however abnormal hypermetabolic uptake centrally in the left suprahilar region measu ring around 2.3 cm worrisome for obstructive neoplasm, max SUV is 9.31. Slightly prominent right paratracheal lymph node, max SUV is 3.78 on axial image 79. Small right pleural effusion remains present. There is chronic consolidation and/or scarring in the r ight mid to lower lung redemonstrated. Tiny focus of air in the right pleural space is noted. Surgica l changes with right-sided volume loss in the right lung are redemonstrated. No abnormal hypermetabol ic uptake in the right lung. ABDOMEN AND PELVIS: Normal excretion is seen. Nonspecific bowel uptake noted. No suspicious abnormal hypermetabolic uptake. OSSEOUS STRUCTURES: No suspicious abnormal hypermetabolic uptake. OTHER CT: Moderate calcified plaque right carotid bulb. Surgical change along the aortic valve. Cardi omegaly is redemonstrated. A few distal colonic diverticula. Small fat-containing bilateral inguinal hernias. IMPRESSION: Posttreatment changes to the right lung are redemonstrated. There is confirmation of abno rmal hypermetabolic uptake in the left suprahilar region causing postobstructive left upper lung atel ectasis worrisome for active malignant recurrence. Cannot exclude right paratracheal involvement. No new active distal metastatic disease. [facility], , 04/23/2024 7:47 AM
== END | disposition home or self-care (01) ==
LOC: RADPETMAIN 10:27
PROVIDERS: ATTEND Internal Medicine Hematology & Oncology
DX: C34.12 Malignant neoplasm of upper lobe, left bronchus or lung (principal); J98.11 Atelectasis; R93.7 Abnormal findings on diagnostic imaging of other parts of musculoskeletal system
CPT/HCPCS: 78815; A9552

== ENCOUNTER 2024-05-24 05:31 | Day surgery (SDC) | payer MEDICARE ==
[2024-05-20 16:23] VITALS: BMI 25.0
[2024-05-24] MEDS ORDERED: ALPRAZolam 0.5 MG TAB PO PRN (05:51)
[2024-05-24] MEDS ORDERED: ALPRAZolam 0.25 MG TAB PO PRN (05:51)
[2024-05-24] MEDS ORDERED: NITROGLYCERIN SL TABS 0.4 MG TAB SUBLINGUAL PRN (05:51)
[2024-05-24] MEDS: SODIUM CHLORIDE 0.9% 1,000 ML in EMPTY BAG 1 BAG IV SCH (06:43)
[2024-05-24 06:45] VITALS: TEMP 97.9
[2024-05-24] MEDS: IV FLUID CONTINUATION 1,000 ML IV ONE (06:48)
[2024-05-24 06:55] LABS: African American GFR (CKD) >90 (>60 ml/min/1.73 sqM); Anion Gap 9 mmol/L; Blood Urea Nitrogen 17 mg/dL (9-20); Calcium 9.7 mg/dL (8.4-10.2); Carbon Dioxide 26 mmol/L (22-30); Chloride 100 mmol/L (98-107); Glucose 113 mg/dL (74-99); Non-African American GFR(CKD) >90 (>60 ml/min/1.73 sqM); Potassium 4.2 mmol/L (3.5-5.1); Sodium 135 mmol/L (137-145)
[2024-05-24 07:00] LABS: Basophils % (A) 0 %; Eosinophils # (A) 0.1 k/uL (0-0.7); Eosinophils % (A) 1 %; HCT 37.9 % (39.0-53.0); HGB 12.8 gm/dL (13.0-17.5); Lymphocytes # (A) 0.8 k/uL (1.0-4.8); Lymphocytes % (A) 7 %; MCH 30.9 pg (25.0-35.0); MCHC 33.7 g/dL (31.0-37.0); MCV 91.7 fL (80.0-100.0); Mean Platelet Volume 9.1; Monocytes # (A) 0.7 k/uL (0-1.0); Monocytes % (A) 6 %; Neutrophils # (A) 10.4 k/uL (1.3-7.7); Neutrophils % (A) 86 %; Platelet Count 189 k/uL (150-450); RBC 4.13 m/uL (4.30-5.90); WBC 12.2 k/uL (3.8-10.6)
[2024-05-24] MEDS: HEPARIN SODIUM,PORCINE (1 ML) 2,500 UNIT in SODIUM CHLORIDE 0.9% 250 ML IRRIGATION PRN (07:31)
[2024-05-24] MEDS: HEPARIN SODIUM,PORCINE 10,000 UNIT in SODIUM CHLORIDE 0.9% 1,000 ML IRRIGATION PRN (07:31)
[2024-05-24] MEDS: fentaNYL (PF) 50 MCG/1 ML VIAL IVP ONE ×2 (07:44→08:51)
[2024-05-24] MEDS: MIDAZOLAM 2 MG/2 ML VIAL IVP ONE ×2 (07:44→08:51)
[2024-05-24] MEDS: LIDOCAINE 1% INJ 10MG/ML (20 ML MDV) SQ ONE (07:44)
[2024-05-24] MEDS: VERAPAMIL SYRINGE (5 MG/10 ML) INTRAARTER ONE ×2 (07:45→08:52)
[2024-05-24] MEDS: HEPARIN SODIUM 1,000 UN/ML (10ML VL) IVP ONE (08:16)
[2024-05-24] MEDS: NITROGLYCERIN 1000MCG/10ML SYRINGE INTRACORON ONE (08:17)
[2024-05-24 08:22] LABS: O2 Sat Blood Gas 74.2 %
[2024-05-24] MEDS: SODIUM CHLORIDE 0.9% 1,000 ML IV ONE (08:22)
[2024-05-24 08:24] LABS: O2 Sat Blood Gas 94.3 %
[2024-05-24 08:25] LABS: O2 Sat Blood Gas 74.3 %
[2024-05-24 08:26] LABS: O2 Sat Blood Gas 71.6 %
[2024-05-24] MEDS: SODIUM CHLORIDE 0.9% 1,000 ML IV SCH (09:07)
[2024-05-24] MEDS: IOPAMIDOL-370 100ML BTL INJ ONE (09:07)
--- NOTE | 2024-05-24 09:13 | P.CARDCATH ---
Description of Procedure: PROCEDURES PERFORMED: Left coronary angiography, RFR (iFR) of LAD and circumflex INDICATION: Aortic stenosis, dyspnea on exertion despite normal stress test CONSENT:The risks, benefits and alternative therapies for the above-mentioned procedure and for both sedation/analgesia as well as necessary blood product administration, if indicated, as they pertain to this patient were discussed with the patient. The patient has indicated understanding and acceptance of the risks and procedures discussed. PROCEDURE: After the risks, benefits and alternatives of the above mentioned procedure explained in detail with the patient, informed consent was obtained. Patient was taken to the catheterization lab and prepped and draped in usual fashion. A 6-Bulgarian sheath had previously been placed in the right radial artery using modified Seldinger technique and ultrasound guidance. Diagnostic images were obtained, see separate report. I was asked to perform functional assessment of the LAD and circumflex. Heparin was given. A 6 Bulgarian CLS 3.5 guide was used to engage the left main. The 0.014 pressure wire was advanced in the left main and normalized. It was then advanced 1 cm distal to the mid LAD. There was a more proximal lesion with IFR 0.92 upon advancing it just past the proximal lesion. However the wire was then advanced past the mid LAD 90% lesion and iFR (RFR) was obtained and was abnormal at 0.75. The wire was then repositioned on the circumflex and advanced 1 cm distal to the circumflex lesion and IFR was performed and was normal at 0.92. Patient had radial spasm and no further assessment of RCA was performed. The right radial sheath was removed and a TR band was placed with hemostasis achieved. The patient tolerated the procedure well. Patient was transported back to the post catheterization holding area in stable condition. Conscious Sedation: Patient was monitored under the direct supervision of myself for conscious sedation using Versed and fentanyl for a total duration of 18 minutes HEMODYNAMICS: Ao: 132/81 SELECTIVE CORONARY ARTERIOGRAPHY: LEFT MAIN: The left main is a large caliber vessel which bifurcates into the LAD and circumflex. There is no significant stenosis. LEFT ANTERIOR DESCENDING CORONARY ARTERY: LAD is a large caliber vessel which wraps around to the apex. There is a proximal LAD 50-60% stenosis at the level of diagonal 1 branch. There is a mid LAD 90% stenosis and otherwise mild luminal irregularities. LEFT CIRCUMFLEX CORONARY ARTERY: Left circumflex is a moderate caliber vessel with a proximal 50-60% stenosis and otherwise mild luminal irregularities. RIGHT CORONARY ARTERY: The right coronary artery was not imaged see separate report. FINAL IMPRESSION: 1. Abnormal iFR (RFR) of LAD with majority of pressure gradient across the mid LAD lesion 2. Normal iFR (RFR) of circumflex PLAN: 1. Aggressive risk factor modification per most recent ACC/AHA guidelines. 2. Given aortic stenosis, cardiothoracic surgery assessment. If deemed higher risk, proceed with PCI of LAD.
[2024-05-24 09:50] VITALS: RESP 16
[2024-05-24] MEDS: ASPIRIN 325 MG TAB PO STA (10:15)
--- NOTE | 2024-05-24 10:32 | P.CARDCATH ---
Date of Procedure: 05/24/24 Description of Procedure: DIAGNOSTIC CORONARY ANGIOGRAPHY and, right heart catheterization and LEFT HEART CATH REPORT PROCEDURES PERFORMED: Left heart catheterization Right heart catheterization Selective coronary angiography Moderate conscious sedation 55 mins Ultrasound assisted right radial access Ultrasound assisted right common femoral vein access INDICATION: Persistent dyspnea on exertion and substernal chest pressure on exertion with max tolerated antianginal therapy. BRIEF HPI: 64-year-old with history of lung cancer, moderate aortic stenosis, moderate aortic regurgitation presented to cardiology office because of persistent dyspnea on exertion and substernal chest pressure. For this we performed an echocardiogram which showed preserved LVEF with moderate aortic regurgitation and moderate aortic stenosis. We performed a Lexiscan nuclear stress test which did not show any evidence of ischemia however patient continued to have symptoms of excessive shortness of breath with NYHA class III symptoms with maximum tolerated antianginal therapy. He did not appear volume overloaded. Because of persistent symptoms we performed a left and right heart catheterization. CONSENT: I have explained the procedural steps of above-mentioned procedures in layman's terms to the patient. I discussed the risks (including but not limited to stroke, emergent vascular or cardiac surgery or ), benefits and alternative therapies for the above-mentioned procedure. I discussed the risks of sedation/analgesia and blood product administration (if indicated). The patient has indicated understanding and acceptance of these risks. Conscious Sedation: Patient's ECG, heart rate, blood pressure, pulse oximetry were monitored throughout the duration of procedure under my direct supervision. [2] mg Versed and 100 mcg Fentanyl were used for induction of moderate conscious sedation. Total duration of moderate concious sedation 55 minutes. PROCEDURAL DETAILS: Patient was prepped and draped in sterile fashion. 1% lidocaine was infiltrated over the right radial artery. Right radial access was obtained via modified seldinger technique. [Ultrasound was used for radial access]. 6 [place] slender sheath was advanced including flushed. 5 mg verapamil was administered. 1% lidocaine was infiltrated over the right common femoral vein and using ultrasound and modified Seldinger technique right common femoral access was obtained. 6 [place] slender sheath was advanced and secured and flushed. Medications: 5mg of verapamil was administed in the radial sheet. 5000 units of Heparin was administed once the catheter reached the aortic root Right heart catheterization 6 [place] catheter was advanced to the venous sheath and under ultrasound guidance was advanced under the fluoroscopic to the pulmonary capillary wedge position using the support of a 0.21 wire. Sequential pressures were obtained from wedge position, pulmonary artery, RV and RA. Thermodilution study was performed with the tip of catheter in pulmonary artery. Blood samples were collected for measuring PaO2 in pulmonary artery, RV and RA to perform Dajuan study Left heart catheterization Under ultrasound guidance, J-wire was advanced to the radial sheath. There was significant tortuosity noticed in the subclavian artery for which 5 [place] jR4 catheter was utilized into the support the wire was advanced to the aortic root. Over the wire, the JR4 catheter was advanced and was prolapsed across the ao rtic valve to obtain LV pressures. Pullback across aortic valve was performed. The catheter was manipulated to select engage the right coronary ostium. Right coronary angiogram was performed. This catheter was exchanged for a 5 [place] JR4 diagnostic catheter. This catheter could not be advanced across from the subclavian artery because of tortuosity. Therefore it was exchanged for a Lb catheter. The 5 [place] angled catheter was advanced over the wire and was selectively engage the left coronary ostium. This catheter was more selective in left circumflex therefore after obtaining few images this catheter was exchanged for a Hackett catheter 5 [place]. Coronary angiogram was performed for angiographic reduction. After careful review of coronary angiogram we decided to perform with the IFR assessment of LAD and LCx. HEMODYNAMICS: Aortic Pressure: 120/52 mmHg. LV pressure: 166/1 mmHg. LVEDP 6 mmHg. Mean RA: 4 mmHg RV: 40/1, RVEDP 4 mmHg PA: 40/10 mmHg, mean PA 23 mmHg PCW: A wave 10 mmHg, V wave 11 mmHg, mean 6 mmHg RA sat 74% RV sat 72% PA sat 74% Arterial sat 94% Dajuan cardiac output 7.81 L/min, Dajuan cardiac index 4.2 L/min/m Thermodilution cardiac output 7.05 liters per minute, Dajuan cardiac index 3.79 L/min/m Peak to peak gradient across the aortic valve 40 mmHg Mean gradient across aortic valve 38 mmHg Aortic area by Hakki equation 1.23 cm SELECTIVE CORONARY ARTERIOGRAPHY: LEFT MAIN: Left main is very short. It appears patent. LEFT ANTERIOR DESCENDING CORONARY ARTERY: Proximal LAD appears angiographically patent with mild minor irregularities. Distal part of proximal LAD gives rise to a medium size diagonal 1 branch which has mild to moderate diffuse disease. LAD at the bifurcation site of diagonal 1 has some haziness. Mid LAD and midportion has a focal 80 to 90% stenosis. Distal LAD appears graphically patent. LEFT CIRCUMFLEX CORONARY ARTERY: LCx is codominant. It is a large-caliber vessel. Proximal LCx has 60% eccentric disease with irregular plaque. Mid LCx appears patent. LAD just a small AV groove branch, a large caliber OM1 branch and left PL branch. They appear angiographically patent with mild luminal irregularities. RIGHT CORONARY ARTERY: Codominant vessel. Small caliber. Proximal RCA is angiographically patent. Mid RCA has eccentric 80% irregular plaque. Distal RCA appears angiographically patent. Distal LAD continues to give PDA which appear angiographically patent. IMPRESSION: 80 to 90% mid LAD stenosis, positive IFR 80% eccentric mid RCA stenosis 60% eccentric proximal LCx stenosis, negative by IFR Moderate aortic stenosis with mean gradient 38 mmHg, peak to peak 40 mmHg. Aortic area 1.23 cm2 by Hakki equation. Moderate aortic regurgitation PLAN: Consult CT surgery because of multivessel disease, moderate aortic stenosis and moderate aortic regurgitation. However patient does have a lung malignancy. If not a candidate for CT surgery, plan for staged PCI of LAD and RCA Performing Physician Vic Foreman MD, FACC, RPVI Thank you for allowing [facility] to participate in this patient's care. Feel free to reach out in case of any followup questions.
--- NOTE | 2024-05-24 10:42 | P.GSCN ---
History of Present Illness Consult date: 05/24/24 Reason for Consult: Coronary artery disease Requesting physician: Vic Foreman History of present illness: This is a 64-year-old gentleman who follows outpatient with Dr. Jensen for primary care as well as Dr. Foreman for cardiology. He has a previous medical history of right sided lung cancer with right upper lobectomy in 2010 with subsequent chemo and radiation, recent recurrence of lung cancer with 3 treatments of chemotherapy which were stopped due to intolerance, previous tobacco dependence, COPD, hypertension, hyperlipidemia, CVA with subsequent seizure, hypothyroid, BPH, and family history of lung cancer. This gentleman reports 2 to 3 months of chest pain which has been happening both with exertion and at rest as well as shortness of breath which he has had for years although has worsened in the last 3 to 6 months. He presented to cardiology and underwent a Lexiscan nuclear stress test which was nonischemic. Echocardiogram completed in February noted normal left ventricular systolic function with EF 50%, no regional wall motion abnormalities, trileaflet aortic valve with moderate aortic regurgitation as well as moderate aortic stenosis, mild to moderate mitral regurgitation as well as moderate tricuspid regurgitation. He was treated medically but continued to have chest pain and shortness of breath and was recommended to undergo elective heart catheterization which was completed today by Dr. Muse. Heart catheterization revealed mid LAD stenosis 90% with abnormal IFR across the mid LAD lesion, there was also noted to be 50 to 60% proximal LAD stenosis along with 50 to 60% proximal circumflex stenosis. Due to LAD disease as well as aortic valve disease consultation was placed to for Dr. Desir for surgical recommendations. Review of Systems Review of systems was completed and was negative except as noted - Cardiovascular Reports as per HPI, Reports chest pain, Reports shortness of breath Past Medical History Past Medical History: Coronary Artery Disease (CAD), Cancer, COPD, GERD/Reflux, Hearing Disorder / Deafness, Hyperlipidemia, Hypertension, Prostate Disorder, Thyroid Disorder Additional Past Medical History / Comment(s): recurrence marin lung cancer poss mets to lymphnode-finished chemo Mar 2024, productive bloody sputum,mult radiation treatments-no longer can have any more, could not tolerate immunotherapy,currently having chest pain,increased SOB,using O2 @ 2 L NC at hs, non-small cell lung cancer with previous left upper lobe resection 2010,torn bicep muscle rt shoulder,CVA 2020-no residual History of Any Multi-Drug Resistant Organisms: None Reported Past Surgical History: Back Surgery, Orthopedic Surgery Additional Past Surgical History / Comment(s): RT KNEE,RT UPPER LOBECTOMY, [facility] PROCEDURES. 3 neck surgeries, 2 fusions and a leola, bronchoscopy Past Anesthesia/Blood Transfusion Reactions: No Reported Reaction Additional Past Anesthesia/Blood Transfusion Reaction / Comm: no hx blood transfusion Past Psychological History: No Psychological Hx Reported Smoking Status: Former smoker Past Alcohol Use History: None Reported Additional Past Alcohol Use History / Comment(s): Quit all alcohol in 1998 Past Drug Use History: None Reported Additional History: Quit smoking in 2010 - Past Family History Father Family Medical History: Cancer Additional Family Medical History / Comment(s): LUNG Mother Family Medical History: COPD Medications and Allergies Home Medications Medication Instructions Recorded Confirmed Type Tamsulosin [Flomax] 0.4 mg PO QAM 12/18/16 05/24/24 History Fluticasone/Umeclidin/Vilanter 1 puff INHALATION QAM 10/27/19 05/24/24 History [Trelegy Ellipta 100-62.5-25] Levothyroxine Sodium [Synthroid] 150 mcg PO DAILY 11/17/19 05/24/24 History Omeprazole 40 mg PO QAM 11/17/19 05/24/24 History Albuterol Inhaler [Ventolin Hfa 1 - 2 puff INHALATION Q6H PRN 09/19/23 05/24/24 History Inhaler] Mirtazapine [Remeron] 15 mg PO HS 09/19/23 05/24/24 History Rosuvastatin Calcium [Crestor] 20 mg PO DAILY 09/19/23 05/24/24 History amLODIPine [Norvasc] 10 mg PO HS 09/19/23 05/24/24 History buPROPion HCL [buPROPion HCL SR] 150 mg PO QAM 09/19/23 05/24/24 History hydrALAZINE HCL [Apresoline] 50 mg PO Q8HR 09/19/23 05/24/24 History levETIRAcetam [Keppra] 500 mg PO Q12HR 09/19/23 05/24/24 History predniSONE [Deltasone] 10 mg PO QAM 09/19/23 05/24/24 History oxyCODONE HCL/ACETAMINOPHEN 1 tab PO Q6H 05/20/24 05/24/24 History [oxyCODONE HCL/ACETAMINOPHEN 10-300] Aspirin 81 mg PO DAILY 05/24/24 05/24/24 History Gabapentin 300 mg PO Q8HR 05/24/24 05/24/24 History Prochlorperazine [Compazine] 10 mg PO Q6HR PRN 05/24/24 05/24/24 History Allergies Allergy/AdvReac Type Severity Reaction Status Date / Time No Known Allergies Allergy Verified 05/20/24 16:07 Surgical - Exam Vital Signs Temp Pulse Resp BP Pulse Ox 97.9 F 73 18 142/65 96 05/24/24 06:44 05/24/24 06:44 05/24/24 06:44 05/24/24 06:44 05/24/24 06:44 CONSTITUTIONAL: Awake and alert, appears comfortable, cooperative, well- developed, well-nourished, no pain, no acute distress EYES: Pupils equal, round, reactive to light, normal ocular movement ENT: Moist mucous membranes without oral lesions present NECK: No masses, no bruits, trachea midline RESPIRATORY: Lungs sounds diminished bilaterally. Respirations even, nonlabored. Currently on room air with oxygen saturation 97%. Strong cough. No chest wall deformities. No clubbing or cyanosis present CARDIOVASCULAR: S1, S2 present, systolic murmur present. Regular rate and rhythm, sinus rhythm on telemetry. Palpable peripheral pulses bilaterally. No edema present. No calf pain or tenderness noted GASTROINTESTINAL: Abdomen soft, nontender, nondistended without masses or organomegaly noted. There is no rebound or guarding present. Active bowel sounds present 4 quadrants. GENITOURINARY: Deferred INTEGUMENTARY: Skin is warm and dry with evidence of good perfusion. NEUROLOGIC: Cranial nerves II through XII intact, normal coordination, no obvious motor or sensory deficits, speech is normal MUSKULOSKELETAL: Able to move all extremities, strength equal bilaterally, normal posture PSYCHIATRIC: Alert and oriented to person place and time, appropriate affect, intact judgment and insight Results - Labs 05/24/24 06:12 05/24/24 06:12 Abnormal Lab Results - Last 24 Hours (Table) 05/24/24 05/24/24 Range/Units 06:12 06:12 WBC 12.2 H (3.8-10.6) k/uL RBC 4.13 L (4.30-5.90) m/uL Hgb 12.8 L (13.0-17.5) gm/dL Hct 37.9 L (39.0-53.0) % Neutrophils # 10.4 H (1.3-7.7) k/uL Lymphocytes # 0.8 L (1.0-4.8) k/uL Sodium 135 L (137-145) mmol/L Glucose 113 H (74-99) mg/dL Diabetes panel 05/24/24 Range/Units 06:12 Sodium 135 L (137-145) mmol/L Potassium 4.2 (3.5-5.1) mmol/L Chloride 100 (98-107) mmol/L Carbon Dioxide 26 (22-30) mmol/L BUN 17 (9-20) mg/dL Creatinine 0.71 (0.66-1.25) mg/dL Glucose 113 H (74-99) mg/dL Calcium 9.7 (8.4-10.2) mg/dL Calcium panel 05/24/24 Range/Units 06:12 Calcium 9.7 (8.4-10.2) mg/dL Pituitary panel 05/24/24 Range/Units 06:12 Sodium 135 L (137-145) mmol/L Potassium 4.2 (3.5-5.1) mmol/L Chloride 100 (98-107) mmol/L Carbon Dioxide 26 (22-30) mmol/L BUN 17 (9-20) mg/dL Creatinine 0.71 (0.66-1.25) mg/dL Glucose 113 H (74-99) mg/dL Calcium 9.7 (8.4-10.2) mg/dL Adrenal panel 05/24/24 Range/Units 06:12 Sodium 135 L (137-145) mmol/L Potassium 4.2 (3.5-5.1) mmol/L Chloride 100 (98-107) mmol/L Carbon Dioxide 26 (22-30) mmol/L BUN 17 (9-20) mg/dL Creatinine 0.71 (0.66-1.25) mg/dL Glucose 113 H (74-99) mg/dL Calcium 9.7 (8.4-10.2) mg/dL - Imaging Additional studies: Heart catheterization films reviewed with Dr. Desir Assessment and Plan Assessment: Coronary artery disease, mid LAD 90% stenosis, abnormal IFR Moderate aortic stenosis, moderate aortic insufficiency History of right sided lung cancer with right upper lobectomy in 2010 with subsequent chemo and radiation, recent recurrence of lung cancer with 3 treatments of chemotherapy which were stopped due to intoleranceP Previous tobacco dependence COPD Hypertension Hyperlipidemia CVA with subsequent seizure Hypothyroid BPH Family history of lung cancer Plan: The patient was seen and examined with Dr. Desir in the Extended Stay unit, family present. Dr. Desir had a jake discussion with the patient and his . The patient has recurrent lung cancer currently. He underwent 3 rounds of chemotherapy which was stopped due to intolerance. He was unable to tolerate immunotherapy in the past. He has maxed out his radiation therapy with previous lung cancer. Open heart surgery is contraindicated. This was discussed by Dr. Desir with the patient and his family. Will leave discussion of medical therapy +/- percutaneous intervention up to Dr. Foreman. Palliative care would be an appropriate option for this patient. Thank you Dr. Foreman for this consult, please call us with any further questions. I have personally seen and examined the patient, performed the documentation and the assessment and plan as written. Number of minutes spent on the visit: 30. Huong Roca NP-Toribio
[2024-05-24 13:14] VITALS: PULSE 76
[2024-05-24 13:16] VITALS: BP 142/63
== END 2024-05-24 11:57 | disposition home or self-care (01) ==
LOC: CATHCVL 05:31
PROVIDERS: ATTEND Student in an Organized Health Care Education/Training Program
DX: I25.110 Atherosclerotic heart disease of native coronary artery with unstable angina pectoris (principal); I11.9 Hypertensive heart disease without heart failure; E78.5 Hyperlipidemia, unspecified; I08.3 Combined rheumatic disorders of mitral, aortic and tricuspid valves; C34.90 Malignant neoplasm of unspecified part of unspecified bronchus or lung; E03.9 Hypothyroidism, unspecified; J44.9 Chronic obstructive pulmonary disease, unspecified; R56.9 Unspecified convulsions; N40.0 Benign prostatic hyperplasia without lower urinary tract symptoms; G62.9 Polyneuropathy, unspecified; K21.9 Gastro-esophageal reflux disease without esophagitis; Z79.890 Hormone replacement therapy; Z79.82 Long term (current) use of aspirin; Z79.52 Long term (current) use of systemic steroids; Z79.51 Long term (current) use of inhaled steroids; Z79.891 Long term (current) use of opiate analgesic; Z79.899 Other long term (current) drug therapy; Z87.891 Personal history of nicotine dependence; Z86.73 Personal history of transient ischemic attack (TIA), and cerebral infarction without residual deficits; Z85.118 Personal history of other malignant neoplasm of bronchus and lung
CPT/HCPCS: 93460; 93799; 80048; 85018; 82810; 85025; C1769 ×2; C1894 ×2; C1751; J2250; J1644 ×3; J2003; Q9967; J3010; J2305

== ENCOUNTER 2024-05-31 08:10 | Day surgery (SDC) | payer MEDICARE ==
[2024-05-27 16:09] VITALS: BMI 25.0
[~2024-05-31 08:10] MED LIST changes: +ALPRAZolam 0.25 MG TAB PO PRN; +ALPRAZolam 0.5 MG TAB PO PRN; +ASPIRIN 325 MG TAB PO ONE; +ATORVASTATIN 80 MG TAB PO ONE; -LACTATED RINGERS 1,000 ML IV SCH; +NITROGLYCERIN SL TABS 0.4 MG TAB SUBLINGUAL PRN; -fentaNYL (PF) 50 MCG/ML 2 ML AMP IV PRN
[2024-05-31 08:31] VITALS: TEMP 98.1
[2024-05-31] MEDS: IV FLUID CONTINUATION 1,000 ML IV ONE (08:35)
[2024-05-31] MEDS: SODIUM CHLORIDE 0.9% 1,000 ML in EMPTY BAG 1 BAG IV SCH (08:35)
[2024-05-31] MEDS: fentaNYL (PF) 50 MCG/ML 2 ML AMP IVP ONE (10:20)
[2024-05-31] MEDS: MIDAZOLAM 2 MG/2 ML VIAL IVP ONE (10:20)
[2024-05-31] MEDS: LIDOCAINE 1% INJ 10MG/ML (20 ML MDV) SQ ONE (10:21)
[2024-05-31] MEDS: VERAPAMIL SYRINGE (5 MG/10 ML) INTRAARTER ONE (10:23)
[2024-05-31] MEDS: HEPARIN SODIUM 1,000 UN/ML (10ML VL) IV ONE (10:30)
[2024-05-31] MEDS: HEPARIN SODIUM,PORCINE (1 ML) 2,500 UNIT in SODIUM CHLORIDE 0.9% 250 ML IRRIGATION PRN (10:34)
[2024-05-31] MEDS: HEPARIN SODIUM,PORCINE 10,000 UNIT in SODIUM CHLORIDE 0.9% 1,000 ML IRRIGATION PRN (10:34)
[2024-05-31] MEDS: NITROGLYCERIN 1000MCG/10ML SYRINGE INTRACORON ONE (10:46)
[2024-05-31] MEDS: IOPAMIDOL-370 100ML BTL INJ ONE (11:08)
[2024-05-31] MEDS: SODIUM CHLORIDE 0.9% 500 ML 500 ML IV ONE (11:09)
--- NOTE | 2024-05-31 14:09 | P.PRCINT ---
Percutaneous Coronary Int. - Percutaneous Coronary Intervention Percutaneous Coronary Intervention: PROCEDURES PERFORMED: Bilateral coronary angiography, ultrasound guided arterial access, PCI of mid LAD with overlapping 2.5 x 18mm and 2.5 x 8mm Xience DIANE, post dilated with a 3.0mm NC balloon, IVUS LAD, iFR RCA INDICATION: Multivessel CAD with NYHA class 3 symptoms with dyspnea on exertion, deemed high risk for surgery, aortic stenosis, iFR abnormal of LAD CONSENT:I have discussed the risks, benefits and alternative therapies for the above-mentioned procedure and for both sedation/analgesia as well as necessary blood product administration, if indicated, as they pertain to this patient. The patient has indicated understanding and acceptance of the risks and procedures discussed. PROCEDURE: After the risks, benefits and alternatives of the above mentioned procedure explained in detail with the patient, informed consent was obtained. Patient was taken to the catheterization lab and prepped and draped in usual fashion. Ultrasound guidance was used to assess for arterial access. 1% lidocaine was used to anesthetize the left radial artery secondary to patient having significant right shoulder pain with prior cath. A 6-[place] sheath was placed in the left radial artery using modified Seldinger technique and ultrasound guidance. The decision was made to perform functional assessment of the RCA. Heparin was given. A 6 [place] 2.0 guide was used to engage the RCA. There was some dampening noted however able to unengaged. A 0.014 pressure wire was advanced into the proximal RCA and normalized. It was then advanced 1 cm distal to the RCA lesion and IFR was performed and was normal at 0.91. Next the decision was made to perform PCI of the LAD. A 6 [place] CLS 4.0 guide catheter was used to engaged the left main. A 0.014 BMW wire was advanced in the distal LAD. Predilation was performed with a 2.5 x 12 mm balloon. Next intravascular ultrasound was performed which showed predominantly 2.5-2.75 mm vessel. Initially attempted to perform more spot stenting however a 2.5 x 18 mm drug-eluting stent was placed in the mid LAD and there was some distal edge continued stenosis. Therefore the distal edge was covered with an additional 2.5 x 8 mm drug-eluting stent overlapping. Repeat intravascular ultrasound showed on some underexpansion. Therefore the stent was postdilated with 2.75 x 12 mm noncompliant balloon. Repeat intravascular ultrasound still showed some underexpansion therefore the stent was again postdilated with a 3.0 mm noncompliant balloon. Repeat intravascular ultrasound showed excellent stent apposition. Final angiograms were performed. Preintervention there was 80% stenosis and BALJINDER-3 flow and postintervention there was less than 10% stenosis with BALJINDER-3 flow. The left radial sheath was removed and a TR band was placed with hemostasis achieved. The patient tolerated the procedure well. Patient was transported back to the post catheterization holding area in stable condition. Conscious Sedation: Patient was monitored under the direct supervision of myself for conscious sedation using Versed and fentanyl for a total duration of 42 minutes HEMODYNAMICS: Aorta: 102/65 SELECTIVE CORONARY ARTERIOGRAPHY: LEFT MAIN: The left main is a large caliber vessel which bifurcates into the LAD and circumflex. There is 20% left main stenosis LEFT ANTERIOR DESCENDING CORONARY ARTERY: LAD is a large caliber vessel which wraps around to the apex. There is diffuse proximal 30 to 40% stenosis and a more focal 80% mid LAD stenosis. Otherwise there are mild luminal irregularities. LEFT CIRCUMFLEX CORONARY ARTERY: Left circumflex is a moderate caliber vessel with a proximal 60 to 70% stenosis. RIGHT CORONARY ARTERY: The right coronary artery is a small to moderate caliber vessel which gives off a PDA and PLV branch and is the dominant vessel. There is a mid RCA 50 to 60% stenosis. FINAL IMPRESSION: 1. Multivessel CAD as described above including 20% left main, 30 to 40% proximal LAD, mid LAD 80%, proximal circumflex 60 to 70%, mid RCA 50 to 60% stenosis 2. S/p PCI of mid LAD with overlapping 2.5 x 18mm and 2.5 x 8mm Xience DIANE, post dilated with a 3.0mm NC balloon 3. Normal iFR of RCA PLAN: 1. Aggressive risk factor modification per most recent ACC/AHA guidelines. 2. Continue dual antiplatelets with aspirin and Plavix for 6 months
[2024-05-31 14:38] VITALS: BP 99/56; PULSE 72; RESP 16
[2024-05-31] MEDS ORDERED: PROCHLORPERAZINE 10 MG TAB PO PRN (14:49)
[2024-05-31] MEDS ORDERED: ALPRAZolam 0.25 MG TAB PO PRN (14:49)
[2024-05-31] MEDS ORDERED: RX INFO: IV CONTRAST WAS GIVEN 1 EACH MISC MISCELLANE PRN (14:51)
[2024-05-31] MEDS ORDERED: ZOLPIDEM 5 MG TAB PO PRN (14:51)
[2024-05-31] MEDS ORDERED: MAG HYDROX/AL HYDROX/SIMETH 30 ML CUP PO PRN (14:51)
[2024-05-31] MEDS ORDERED: NITROGLYCERIN SL TABS 0.4 MG TAB SUBLINGUAL PRN (14:51)
[2024-05-31] MEDS ORDERED: ATROPINE SULFATE 0.1 MG/ML 10ML SYRINGE IV PRN (14:51)
[2024-05-31] MEDS ORDERED: SODIUM CHLORIDE 0.9% 1,000 ML in EMPTY BAG 1 BAG IV SCH (15:00)
[2024-05-31] MEDS ORDERED: [UNRECOGNIZED DRUG - OTHER] PO SCH (15:00)
[2024-05-31] MEDS ORDERED: ACETAMINOPHEN PO SCH (15:00)
[2024-05-31] MEDS ORDERED: OXYCODONE HCL PO SCH (15:00)
[2024-05-31] MEDS ORDERED: hydrALAZINE HCL 50 MG TAB PO SCH (16:00)
[2024-05-31] MEDS ORDERED: GABAPENTIN 300 MG CAP PO SCH (16:00)
[2024-05-31] MEDS ORDERED: MIRTAZAPINE 15 MG TAB PO SCH (21:00)
[2024-05-31] MEDS ORDERED: levETIRAcetam 500 MG TAB PO SCH (21:00)
[2024-05-31] MEDS ORDERED: amLODIPine 5 MG TAB PO SCH (21:00)
[2024-05-31] MEDS ORDERED: traZODone HCL 50 MG TAB PO SCH (21:00)
[2024-06-01] MEDS ORDERED: NON FORMULARY DRUG (Rosuvastatin Calcium [Crestor] 5 MG Tablet) PO SCH (09:00)
[2024-06-01] MEDS ORDERED: predniSONE 20 MG TAB PO SCH (09:00)
[2024-06-01] MEDS ORDERED: CLOPIDOGREL 75 MG TAB PO SCH (09:00)
[2024-06-01] MEDS ORDERED: NON FORMULARY DRUG (Fluticasone/Umeclidin/Vilanter [Trelegy Ellipta 100-62.5-25] 1 EACH Bl INHALATION SCH (09:00)
[2024-06-01] MEDS ORDERED: ASPIRIN 81 MG PO SCH (09:00)
[2024-06-01] MEDS ORDERED: LEVOTHYROXINE 125 MCG TAB PO SCH (09:00)
[2024-06-01] MEDS ORDERED: NON FORMULARY DRUG (Omeprazole [Omeprazole] 20 MG Tablet.Dr) PO SCH (09:00)
[2024-06-01] MEDS ORDERED: NON FORMULARY DRUG (Bupropion Hcl [Bupropion Hcl Sr] 150 MG Tab.Er.12h) PO SCH (09:00)
[2024-06-01] MEDS ORDERED: TAMSULOSIN 0.4 MG CAP.ER.24H PO SCH (09:00)
== END 2024-05-31 14:27 | disposition home or self-care (01) ==
LOC: CATHCVL 08:10
PROVIDERS: ATTEND Internal Medicine
DX: I25.119 Atherosclerotic heart disease of native coronary artery with unspecified angina pectoris (principal); E03.9 Hypothyroidism, unspecified; N40.0 Benign prostatic hyperplasia without lower urinary tract symptoms; F32.A Depression, unspecified; G62.9 Polyneuropathy, unspecified; I10 Essential (primary) hypertension; Z85.118 Personal history of other malignant neoplasm of bronchus and lung; Z79.02 Long term (current) use of antithrombotics/antiplatelets; Z79.82 Long term (current) use of aspirin; Z79.890 Hormone replacement therapy; Z79.899 Other long term (current) drug therapy
CPT/HCPCS: 92978; 93799; 99152; 99153; C9600; C1769 ×2; C1887 ×3; C1894; C1725 ×3; C1753; J2250; J1644 ×3; J2003; J3010; Q9967; J2305

== ENCOUNTER → 2024-06-23 | Outpatient (CLI) | payer MEDICARE ==
[2024-06-23 11:28] LABS: African American GFR (CKD) >90 (>60 ml/min/1.73 sqM); Blood Urea Nitrogen 19 mg/dL (9-20); Non-African American GFR(CKD) >90 (>60 ml/min/1.73 sqM)
--- NOTE | 2024-06-23 12:40 | CT ---
EXAMINATION TYPE: CT chest w con CT DLP: 251.3 mGycm, Automated exposure control for dose reduction was used. DATE OF EXAM: 06/23/2024 12:07 PM COMPARISON: PET/CT 04/22/2024, CT chest 03/03/2024, 12/29/2023, 06/06/2023, 11/22/2019, CTA chest CLINICAL INDICATION:Male, 64 years old with history of C34.31 LUNG CANCER; PHH, LUNG CA TECHNIQUE: Multiple axial images were obtained through the chest following the administration of 100 cc of Isovue 300. . Coronal and sagittal reformats reviewed. FINDINGS: LUNGS/ PLEURA: Small right pleural effusion. No pneumothorax. Posttreatment changes of the right lung redemonstrated with right-sided volume loss. Persistent similar anterior triangular shaped consolid ation/atelectasis of the left upper lung. Similar chronic consolidation and/or scarring within the ri ght mid to lower lung. Anterior right midlung 4 mm indeterminate pulmonary nodule which is not well-v isualized on prior exam possibly due to surrounding opacities. Attention on follow-up exam. AIRWAY: Patent and unremarkable.. HEART: Size within normal limits.Aortic valvular calcifications.. No pericardial effusion. Mild coron aly artery calcifications present. The heart and mediastinum are shifted to the right due to right l chidi volume loss. MEDIASTINUM: Redemonstration of left hilar soft tissue prominence measuring grossly 3.1 x 1.7 cm. Dem onstrated FDG activity in prior PET/CT. VASCULATURE: No aortic aneurysm. Atherosclerotic calcification of the aorta and its branches. MUSCULOSKELETAL: No acute osseous abnormalities. Postsurgical changes of the right upper ribs. No agg ressive osseous lesion. SOFT TISSUES/LYMPH NODES: Unremarkable. LOWER NECK: Atrophic appearance of the thyroid gland. UPPER ABDOMEN: No significant findings. IMPRESSION: Posttreatment changes of the right lung with persistent consolidation/scarring without suspicious FDG activity on prior PET/CT. Similar small right pleural effusion. Redemonstration of left hilar abnorm al soft tissue which demonstrated FDG activity on prior PET/CT. There is associated post obstructive atelectasis of the left upper lung. Again concerning for active malignant recurrence. [facility], , 06/23/2024 12:37 PM
== END | disposition home or self-care (01) ==
LOC: RADCTMAIN 10:39
PROVIDERS: ATTEND Internal Medicine Hematology & Oncology
DX: C34.31 Malignant neoplasm of lower lobe, right bronchus or lung (principal); C34.12 Malignant neoplasm of upper lobe, left bronchus or lung; R91.1 Solitary pulmonary nodule; J84.114 Acute interstitial pneumonitis
CPT/HCPCS: 82565; 84520; 71260; 36415; Q9967

== ENCOUNTER → 2024-09-03 | Outpatient (CLI) | payer MEDICARE ==
[2024-09-03 12:11] LABS: African American GFR (CKD) >90 (>60 ml/min/1.73 sqM); Blood Urea Nitrogen 19 mg/dL (9-20); Non-African American GFR(CKD) >90 (>60 ml/min/1.73 sqM)
--- NOTE | 2024-09-03 13:15 | CT ---
EXAMINATION TYPE: CT chest w con CT DLP: 365 mGycm, Automated exposure control for dose reduction was used. DATE OF EXAM: 09/03/2024 1:04 PM COMPARISON: PET/CT 04/22/2024, CT chest 06/23/2024, 03/03/2024, 12/29/2023, 06/06/2023, 11/22/2019, CTA ches t 10/28/2023 CLINICAL INDICATION:Male, 64 years old with history of C34.12 Lung ca; [facility], lung cancer TECHNIQUE: Multiple axial images were obtained through the chest following the administration of 100 cc of Isovue 300. . Coronal and sagittal reformats reviewed. FINDINGS: LUNGS/ PLEURA: Similar small right pleural effusion. No pneumothorax. Posttreatment changes of the ri ght lung redemonstrated with right-sided volume loss. Persistent similar anterior triangular shaped consolidation/atelectasis of the left upper lung. Similar chronic consolidation and/or scarring withi n the right mid to lower lung. Stable anterior right midlung 3.7 mm pulmonary nodule (series 4, image 25). Marginal increase in size of right upper lung 4.8 mm pulmonary nodule, previously 4.4 mm (serie s 4, image 13). AIRWAY: Patent and unremarkable.. HEART: Size within normal limits.Aortic valvular calcifications.. No pericardial effusion. Mild coron aly artery calcifications present. The heart and mediastinum are shifted to the right due to right l chidi volume loss. MEDIASTINUM: Redemonstration of left hilar soft tissue prominence measuring grossly 3.4 x 2.6 cm. Dem onstrated FDG activity in prior PET/CT. VASCULATURE: No aortic aneurysm. Atherosclerotic calcification of the aorta and its branches. MUSCULOSKELETAL: No acute osseous abnormalities. Postsurgical changes of the right upper ribs. No agg ressive osseous lesion. Multilevel anterior osteophytosis of the lower thoracic spine. SOFT TISSUES/LYMPH NODES: Unremarkable. LOWER NECK: Atrophic appearance of the thyroid gland. UPPER ABDOMEN: Small hiatal hernia. IMPRESSION: Posttreatment changes of the right lung with persistent consolidation/scarring. No suspicious FDG act ivity on prior PET/CT. Similar small right pleural effusion. Redemonstration of left hilar abnormal s oft tissue which demonstrated FDG activity on prior PET/CT. There is associated post obstructive atel ectasis of the left upper lung. Again concerning for active malignant recurrence. Additionally there is marginal increase in size of right upper lung pulmonary nodule with other previously seen right mi dlung pulmonary nodule being stable. Concerning for metastasis. [facility], , 09/03/2024 1:12 PM
== END | disposition home or self-care (01) ==
LOC: RADCTMAIN 11:04
PROVIDERS: ATTEND Internal Medicine Hematology & Oncology
DX: C34.12 Malignant neoplasm of upper lobe, left bronchus or lung (principal); J98.4 Other disorders of lung; J90 Pleural effusion, not elsewhere classified; R91.8 Other nonspecific abnormal finding of lung field
CPT/HCPCS: 82565; 84520; 71260; 36415; Q9967